=== PATIENT | female | born 2005 | race Caucasian/White ===

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

== ENCOUNTER 2025-01-20 16:27 | Emergency (ER) | payer SELFPAY ==
[2025-01-20 16:32] VITALS: BP 121/53; PULSE 112; TEMP 36.7; O2SAT 97
--- OUTSIDE RECORDS SUMMARY | 2025-01-20 16:37 | XMS_ITS | CCD ---
Author Organization [facility] Care Team Providers Care Pull Over Name Role Phone BRYON ARGUETA Admitting Unavailable BRYON ARGUETA Attending Unavailable ASHLEY ASHLEY Primary Care Unavailable MARIAM TROTTER (FEL) Attending Unava ilable MARIAM TROTTER (FEL) Attending Unava ilable Loraine Ferrell Attending Unavailable Jermaine Rice Primary Care Unavailable Nick Ramon Unavailable Unavailable Flor Fregoso Unavailable Unavailable Bryon Argueta Unavailable Unavailable Ashley Ashley Unavailable Unavailable Allegra Barroso Unavailable Unavailable Riccardo Reyes Unavailable Unavailabl e Uriah Riceic Thania Unavailable Unavailable Tasia Quijano Unavailable Unavailable Brendon-Carolina Ross Unavailable Unavail able Tasia Quijano Unavailable Unavailable Loraine Ferrell Unavailable Unavailable Lynn Carter Unavailable Unavailable Nick Castrejon Unavailable Unavailable Flor Fregoso Unavailable Unavailable Sara Thorne Unavailable Unavailable Nick Castrejon Unavailable Unavailable Bryon Argueta Unavailable Unavailable Riccardo Durham Unavailable Katie vailable Ashley Ashley Unavailable Unavailable Unavailable Unavailable Unavailable MICHELL, DR KELLEY Admitting Unavailable MARKER, DR KELLEY Consulting Unavailable MICHELL, DR KELLEY Attending Unavailable DION, AMPARO ASHLEY Primary Care Unavailable AMANDA, DR GALLO Dyson Consulting Unavailable AMANDA, DR GALLO Dyson Attending Unavailable DION, AMPARO ASHLEY Primary Care Unavailable DR GALLO PATEL Admitting Unavailable RICCARDO COLLIER Consulting Unavailable KAYLEY, SHANDA Attending Unavailable AICHHOLZ, SENIOR TAX ANALYST ASHLEY Primary Care Unavailable AYLA CRUZ Consulting Unavailable KAYLEY, SHANDA Admitting Unavailable KAYLEY, SHANDA Attending Unavailable AICHHOLZ, SENIOR TAX ANALYST ASHLEY Primary Care Unavailable LEE, DR WILSON Consulting Unavailable KAYLEY, SHANDA Admitting Unavailable KAYLEY, SHANDA Consulting Unavailable AICHHOLZ, SENIOR TAX ANALYST ASHLEY Primary Care Unavailable LISHA, DR EH Avery Admitting Unavailabl e LISHA, DR EH Avery Consulting Unavailabl e LISHA, DR EH Avery Attending Unavailabl e KAYLEY, SHANDA Consulting Unavailable KAYLEY, SHANDA Attending Unavailable KAYLEY, SHANDA Admitting Unavailable AICHHOLZ, SENIOR TAX ANALYST ASHLEY Primary Care Unavailable Aichholz, Mrs. Ramirez Kamala Referring Unavailab le Aichholz, Mrs. Ramirez Kamala Primary Care Unavailab le WoodTasia Attending Unavailable Aichholz, Mrs. Ramirez Kamala Primary Care Unavailab le Aichholz, Ashley Wray Referring Unavailab le Raul, Ms. Lynn Washington Attending Unavai lable Aichholz, Mrs. Ramirez Kamala Referring Unavailab le Aichholz, Mrs. Ramirez Kamala Primary Care Unavailab le Lock, Dr. Jennifer Schaeffer Attending Unavai lable Aichholz, Venancio Wray Referring Unavailab le Aichholz, Venancio Wray Primary Care Unavailab le Lock, Dr. Jennifer Schaeffer Attending Unahortensia lable Aichholz, Venancio Ashley Jo Primary Care Unavailab le Aichholz, Venancio Wray Referring Unavailab le Lock, Dr. Jennifer Schaeffer Attending Unavai lable Aichholz, Mrs. Ramirez Kamala Referring Unavailab le Aichholz, Mrs. Ramirez Kamala Primary Care Unavailab le WoodTasia Attending Unavailable Aichholz, Mrs. Ramirez Kamala Referring Unavailab le Aichholz, Ashley Wray Primary Care Unavailab le WoodTasia Attending Unavailable Aichholz, Mrs. Ramirez Kamala Referring Unavailab le Aichholz, . Ashley Kamala Primary Care Unavailab le Raul, MsVenancio Washington Attending Unavahuber lable Aichholz, Venancio Wray Referring Unavailab le Aichholz, Mrs. Ashley Wray Primary Care Unavailab gurwinder Lock, Dr. Jennifer Schaeffer Attending Eric Ashley, Mrs. Ashley Wray Referring Unavailab gurwinder Ashley, Mrs. Ashley Wray Primary Care Unavailab gurwinder Carter, Ms. Lynn Washington Attending Eric Ashley CLINICAL RESEARCH PHYSICIAN-SENIOR TAX ANALYST, Ashley Wray Primary Care Provider Karan NEWSOME, Tasia Dyson Unavailable Delores NEWSOME, Jennifer Dyson Unavailable Dion WEB MACHINE TENDER, Ashley Unavailable Capo Sargent MD Primary Care Provider Aicgloria WEB MACHINE TENDER, Ashley Unavailable ASHLEY ASHLEY Attending Unavailable ASHLEY ASHLEY Attending Unavailable Delores NEWSOME, Jennifer Dyson Unavailable LYNN CARTER Attending Unavailable ASHLEY ASHLEY Primary Care Unavailable TASIA QUIJANO Attending Unavailable ASHLEY ASHLEY Primary Care Unavailable JENNIFER LOCK Attending Unavailable ASHLEY ASHLEY Primary Care Unavailable ASHLEY ASHLEY Primary Care Unavailable [address] [place] [address] Referring Unavailable ASHLEY ASHLEY Primary Care Unavailable ASHLEY ASHLEY Primary Care Unavailable ASHLEY ASHLEY Primary Care Unavailable ASHLEY ASHLEY Primary Care Unavailable Allergies Allergy Classification Reported Allergen(s) Allergy Type Date of Onset Reaction(s) Facility (8 sources) Ibuprofen; Translations: [IBUPROFEN] Drug Allergy 03-05-2024 Other [facility] Work Phone: Medications Current Medications Medication Drug Class(es) Dates Sig (Normalized) Sig (Original) [id number] 200 actuat albuterol 0.09 mg/actuat metered dose [...] 1.5 mg/ml oral solution (1 source) Uncompetitive N-mqomwk-X-aspartate Receptor Antagonist, Sigma-1 Agonist Start: 06-28-2024 take 1 mL by mouth every eight hours Pyrilamine-Dextromethorphan ([employer] Jr[employer] Dm) 7.5-7.5 mg/5 mL liquid Active 10 ML PO Every 8 hours 150 5 June 28, 2024 12:00am Ergocalciferol (20 sources) Provitamin D2 Compound Start: 02-23-2024 Ergocalciferol (Vitamin D2) Active PO February 23, 2024 12:00am Start: 12-21-2019 End: 06-24-2022 take 1 capsule by mouth every week Vitamin D (Ergocalciferol) 1.25 MG (69218 UT) Oral Capsule TAKE 1 CAPSULE BY MOUTH WEEKLY FOR 8 WEEKS Quantity: 8 Refills: 0 Ordered: 04-Apr-2023 Tasia Quijano MD Start : 04-Apr-2023 Active take 1 capsule by mo [facility] every week Vitamin D, Ergocalciferol, 62586 units capsule Take 50,000 Units by mouth [...] tablet by mouth once daily norgestimate-ethinyl estradioL (Donley-Linyah) 0.25-35 mg-mcg tablet Take 1 tablet by mouth once daily. 0 04/13/2018 01/30/2024 Discontinued (Therapy completed) Start: 04-13-2018 take 1 tablet by hugh th once daily norgestimate-ethinyl estradioL (Donley-Linyah) 0.25-35 mg-mcg tablet Take 1 tablet by mouth once daily. 0 04/13/2018 Active Start: 04-13-2018 take 1 tablet by hugh th once daily Donley-Linyah 0.25-35 MG-MCG Oral Tablet TAKE 1 TABLET DAILY DIRECTED. Refills: 0 DO Start : 13-Apr-2018 Active Start: 04-13-2018 take 1 tablet by hugh th once daily Donley-Linyah 0.25-35 MG-MCG Oral Tablet TAKE 1 TABLET [...] once daily. 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; Translations: [OTH TELECOMMUNICATIONS NETWORK PLANNER CURRENT DRUG THERAPY] Onset: 2 Episodic Other [...] [Personal history of traumatic fracture] Episodic Other injuries and conditions due to external causes (1 source) Laceration - injury Onset: 5 Episodic Other nervous system disorders (20 sources) [...] source) Cough, Congestion, and Nausea Onset: 4 Viral infection (1 source) COVID-19; Translations: [COVID-19] Onset: 1 Past or Other Problems Problem Classification Problem Date Documented Da te Episodic/Chronic Abdominal pain (5 sources) Lower abdominal pain, unspecified; Translations: [Unspecified abdominal pain] Onset: 12-29-2021 Episodic Allergic reactions (2 sources) Urticaria, unspecified; Translations: [URTICARIA UNSPECIFIED] Onset: 10-13-2021 Episodic Chronic obstructive pulmonary disease and bronchiectasis (7 sources) Bronchitis; Translations: [Bronchitis, not specified as acute or chronic] Onset: 08-20-2024 Resolved: 10-04-2024 08-30-2024 Episodic External cause codes: Fall (1 source) [...] Cough; Translations: [COUGH] Onset: 07-13-2021 Episodic Other lower respiratory disease (1 source) Cough Onset: 08-20-2024 Episodic Other nutritional; endocrine; and metabolic disorders [...] or maintaining sleep] Onset: 06-21-2023 06-21-2023 Episodic Residual codes; unclassified (1 source) Illness, unspecified; Translations: [Illness, unspecified] Onset: 09-17-2024 Episodic Unclassified (1 source) Insulin resistance, unspecified; Translations: [Insulin resistance, unspecified] Onset: 01-30-2024 NEGATED: Highlighted row has not occurred!Residual codes; unclassified (20 sources) Disease Episodic Results Test Name Value Interpretation Reference Range Facility SARS/FLU A+B/RSV by NAAT/Mol [facility] 10-02-2024 SARS/FLU A+B/RSV by NAAT/Molecular FLU A [...] operators who are performing tests using either [employer] or [employer] systems and is limited to laboratories that [...] specimen repeat. Fact Sheet for Healthcare Providers: https://www.fda.gov/al moon/098806/download Fact Sheet for Patients: https://www.fda.gov/al moon/004849/download Normal [facility] Comment on above: Performed By: #### C OVFLR #### [facility] ([id number]) [address] [facility], [place] [address] XR CHEST 1 VWon 10-02-2024 XR CHEST [...] Coleman MD on 10/02/2024 2:46 PM Normal [facility] HBV surface Ab IA Qnon 09-17 Anti HBs quant. <8.00 Normal [facility] Comment on above: Result Comment: Vacc inated: >=12mIU/mL, Positive (Immune) Unvaccinated: <8mIU/mL, Negative (Not Immune) 8-11.99 mIU/mL: Indeterminate, (Considered Not Immune) Performed By: #### 3 5275-7, 8014-3, 6476-6, 21890-8, 5193-8 #### [facility] ([id number]) [address], [address] [place] [address] MeV IgG IA Ql (S)on 09-17-20 24 RUBEOLA AB SCREEN 6.6 AI High <0.9 [facility] Comment on above: Result Comment: POSI TIVE: Antibody(IgG) detected. Indicates previous exposure to rubeola virus and immunity. Performed By: #### 3 5275-7, 8014-3, 6476-6, 35364-7, 5193-8 #### [facility] ([id number]) [address], [address] [place] [address] MuV IgG IA Ql (S)on 09-17-20 MUMPS VIRUS IgG 2.1 AI High <0.9 [facility] Comment on above: Result Comment: Interpretation-------- <0.9 Negative 0.9 - 1.0 Equivocal >1.0 Positive Performed By: #### 3 5275-7, 8014-3, 6476-6, 43993-2, 5193-8 #### [facility] ([id number]) [address], [address] [place] [address] Rubella virus IgG Qn (S)on 11-17-2023 RUBELLA IgG 40 IU/mL Normal [facility] Comment on above: Result Comment: Interpretation-------- <8 NEGATIVE-considered Not Immune 8-9 EQUIVOCAL-consider retesting with new specimen >9 POSITIVE-considered Immune Performed By: #### 3 5275-7, 8014-3, 6476-6, 44462-7, 5193-8 #### [facility] ([id number]) [address], [address] [place] [address] VZV IgG IA Ql (S)on 09-17-20 24 VARICELLA IgG 1.0 AI High <0.9 [facility] Comment on above: Result Comment: Interpretation-------- <0.9 Negative 0.9 - 1.0 Equivocal >1.0 Positive Performed By: #### 3 5275-7, 8014-3, 6476-6, 63974-0, 5193-8 #### [facility] ([id number]) [address], [address] [place] [address] XR CHEST 2 VWSon 08-20-2024 XR CHEST 2 VWS XR CHEST 2 VWS History: cough congestion Exam/Technique: PA and lateral chest Comparison: None. Findings: There is no evidence of active pulmonary or pleural disease. Cardiac and mediastinal contours are within normal limits. IMPRESSION: No active pulmonary disease. Finalized by Ketan Reynoso MD on 08/20/2024 3:42 PM Normal [facility] POCT UA (nonautomated) fortino szymanski resultedon 07-19-2024 Appearance (U) Cloudy Abnormal Clear [facility] Work Phone: Glucose Test strip (U) [Mass/Vol] Negative NEGATIVE mg/dl [facility] Work Phone: Hemoglobin Ql (U) Negative NEGATIVE [facility] Work Phone: Interpretation and review of laboratory results Abnormal [facility] Work Phone: Leukocyte esterase Test strip Ql (U) Negative NEGATIVE [facility] Work Phone: Nitrite Ql (U) Negative NEGATIVE [facility] Work Phone: pH (U) 6.0 [pH] No Reference Range Established [facility] Work Phone: POC Bilirubin, Urine Negative NEGATIVE [facility] Work Phone: POC Color, Urine Yellow Straw, Ralls ow, Light-Yellow [facility] Work Phone: POC Ketones, Urine Negative NEGATIVE mg/dl [facility]: POC Protein, Urine Negative NEGATIVE, 30 (1+) mg/dl [facility] Work Phone: POC Specific [place], Urine >=1.030 1.005 - 1.[address] [facility] Work Phone: POC Urobilinogen, Urine 0.2 0.2, 1.0 EU/DL [facility] Work Phone: [facility] Work Phone: Calcidiolon 01-30-2024 25-hydroxyvitamin D3 [Mass/Vol] 17 ng/mL Low 30-100 [facility] Comment on above: Order Comment: Defic iency: < 20 ng/ml Insufficiency: 20-29 ng/ml Sufficiency: 30-100 ng/ml This assay accurately quantifies the sum of Vitamin D3, 25-Hydroxy and Vitamin D2,25-Hydroxy. Performed By: #### 1 989-3 #### CHERRY Odonnell ([id number]) [facility] ([facility]) [id number] [place] [address] Comprehensive metabolic 2000 panelon 01-30-2024 Albumin BCP dye [Mass/Vol] 4.3 g/dL Normal 3.4-5.0 [facility] Comment on above: Performed By: #### 2 4323-8 #### CHERRY Odonnell ([id number]) [facility] ([facility]) [id number] [place] [address] ALP [Catalytic activity/Vol] 104 U/L Normal 33-110 [facility] Comment on above: Performed By: #### 2 4323-8 #### CHERRY Odonnell ([id number]) [facility] ([facility]) [address] [place] [address] ALT With P-5'-P [Catalytic activity/Vol] 26 U/L Normal 7-45 [facility] Comment on above: Result Comment: Cyn ents treated with Sulfasalazine may generate falsely decreased results for ALT. Performed By: #### 2 4323-8 #### CHERRY Odonnell ([id number]) [facility] ([facility]) [address] [place] [address] Anion gap [Moles/Vol] 14 mmol/L Normal 10-20 [facility] Comment on above: Performed By: #### 2 4323-8 #### CHERRY Odonnell ([id number]) [facility] ([facility]) [address] [place] [address] AST With P-5'-P [Catalytic activity/Vol] 23 U/L Normal 9-39 [facility] Comment on above: Performed By: #### 2 4323-8 #### CHERRY Odonnell ([id number]) [facility] ([facility]) [id number] [place] [address] Bilirubin [Mass/Vol] 0.7 mg/dL Normal 0.0-1.2 [facility] Comment on above: Performed By: #### 2 4323-8 #### CHERRY Odonnell ([id number]) [facility] ([facility]) [address] [place] [address] Calcium [Mass/Vol] 9.7 mg/dL Normal 8.6-10.6 [facility] Comment on above: Performed By: #### 2 4323-8 #### CHERRY Odonnell ([id number]) [facility] ([facility]) [address] [place] [address] Chloride [Moles/Vol] 104 mmol/L Normal 98-107 [facility] Comment on above: Performed By: #### 2 4323-8 #### CHERRY Odonnell ([id number]) [facility] ([facility]) [address] [place] [address] CO2 [Moles/Vol] 25 mmol/L Normal 21-32 [facility] Comment on above: Performed By: #### 2 4323-8 #### CHERRY Odonnell ([id number]) [facility] ([facility]) [address] [place] [address] Creatinine [Mass/Vol] 0.81 mg/dL Normal 0.50-1.05 [facility] Comment on above: Performed By: #### 2 4323-8 #### CHERRY Odonnell ([id number]) [facility] ([facility]) [id number] [place] [address] GFR/1.73 sq M.predicted MDRD (S/P/Bld) [Vol rate/Area] mL/min/{1.73_m2} Normal >60 [facility] Comment on above: Result Comment: Calc ulations of estimated GFR are performed using the 2020 CKD-EPI Study Refit equation without the race variable for the IDMS-Traceable creatinine methods. https://jasn.asnjournals.org/content//ASN.65018533 88 Performed By: #### 2 4323-8 #### CHERRY Odonnell ([id number]) [facility] ([facility]) [id number] [place] [address] Glucose [Mass/Vol] 78 mg/dL Normal 74-99 [facility] Comment on above: Performed By: #### 2 4323-8 #### CHERRY Odonnell ([id number]) [facility] ([facility]) [id number] [place] [address] Potassium [Moles/Vol] 4.2 mmol/L Normal 3.5-5.3 [facility] Comment on above: Performed By: #### 2 4323-8 #### CHERRY Odonnell ([id number]) [facility] ([facility]) [id number] [place] [address] Protein [Mass/Vol] 7.5 g/dL Normal 6.4-8.2 [facility] Comment on above: Performed By: #### 2 4323-8 #### CHERRY Odonnell ([id number]) [facility] ([facility]) [id number] [place] [address] Sodium [Moles/Vol] 139 mmol/L Normal 136-145 [facility] Comment on above: Performed By: #### 2 4323-8 #### CHERRY Odonnell ([id number]) [facility] ([facility]) [address] [place] [address] Urea nitrogen [Mass/Vol] 14 mg/dL Normal 6-23 [facility] Comment on above: Performed By: #### 2 4323-8 #### CHERRY Odonnell ([id number]) [facility] ([facility]) [address] [place] [address] Lipid 1996 panelon 4 Cholesterol [Mass/Vol] 180 mg/dL Normal 0-199 [facility] Comment on above: Result Comment: Age [...] By: #### 2 4331-1 #### CHERRY Odonnell ([id number]) [facility] ([facility]) [address] [place] [address] Cholesterol in HDL [Mass/Vol] 37.6 mg/dL Normal [facility] Comment on above: Result Comment: Age Very Low Low Normal High 0-19 Y < 35 < 40 40-45 ---- 20-24 Y ---- < 40 >45 ---- >24 Y ---- < 40 40-60 >60 Performed By: #### 2 4331-1 #### CHERRY Odonnell ([id number]) [facility] ([facility]) [address] [place] [address] Cholesterol in LDL [Mass/Vol] 123 mg/dL High <=109 [facility] Comment on above: Result Comment: Near Borderline AGE Desirable Optimal High High Very High 0-19 Y 0 - 109 --- 110-129 >/= 130 ---- 20-24 Y 0 - 119 --- 120-159 >/= 160 ---- >24 Y 0 - 99 100-129 130-159 160-189 >/=190 Performed By: #### 2 4331-1 #### CHERRY Odonnell ([id number]) [facility] ([facility]) [id number] [place] [address] Cholesterol in VLDL [Mass/Vol] 19 mg/dL Normal 0-40 [facility] Comment on above: Performed By: #### 2 4331-1 #### CHERRY Odonnell ([id number]) [facility] ([facility]) [id number] [place] [address] CHOLESTEROL/HDL RATIO 4.8 Normal [facility] Comment on above: Result Comment: Ref Values Desirable < 3.4 High Risk > 5.0 Performed By: #### 2 4331-1 #### CHERRY Odonnell ([id number]) [facility] ([facility]) [id number] [place] [address] NON HDL CHOLESTEROL 142 mg/dL High 0-119 [facility] Comment on above: Result Comment: Age Desirable Borderline High High Very High 0-19 Y 0 - 119 120 - 144 >/= 145 >/= 160 20-24 Y 0 - 149 150 - 189 >/= 190 ---- >24 Y 30 mg/dL above LDL Cholesterol goal Performed By: #### 2 4331-1 #### CHERRY Odonnell ([id number]) [facility] ([facility]) [id number] [place] [address] Triglyceride [Mass/Vol] 96 mg/dL Normal 0-149 [facility] Comment on above: Result Comment: Age [...] By: #### 2 4331-1 #### CHERRY Odonnell ([id number]) [facility] ([facility]) [address] [place] [address] POCT glycosylated hemoglobin (Hb A1C) manually resultedOrdered By: Judy Nelson on 01-30-2024 POC HEMOGLOBIN A1c 5.4 % 4.2 - 6.5 % [facility] TSH WITH REFLEX TO FREE T4 I F ABNORMALon 01-30-2024 TSH Qn 2.19 m[IU]/L Normal 0.44-3.98 [facility] Comment on above: Order Comment: TSH t esting is performed using different testing methodology at [facility] than at other [facility]. Direct result comparisons should only be made within the same method. Performed By: #### T HYDS #### CHERRY Odonnell ([id number]) [facility] ([facility]) [address] [place] [address] Blood Pressure Cuff Sizeon 0 04-14-2023 Blood Pressure Cuff Size Large [facility] Work Phone: Tobacco use status [facility] b) No [facility] Work Phone: Blood Pressure Cuff Size Large [facility] Work Phone: Blood Pressure Cuff Size Patient is not at high risk for falls. Falls risk guidance reviewed today [facility] Work Phone: IO UA (automated w/o microsc opy)on 04-14-2023 Protein (U) [Mass/Vol] Negative [facility] Work Phone: IO UA (automated w/o microscopy) Negative [facility] Work Phone: IO UA (automated w/o microscopy) Normal (0.2-1.0 mg/dl) [facility] Work Phone: IO UA (automated w/o microscopy) 6.0 1 [facility] Work Phone: IO UA (automated w/o microscopy) 1.025 1 [facility] Work Phone: IO UA (automated w/o [...] Follow-up in 6 months. Jennifer Lock MD Ship'S Master, Pediatrics Brood Hatchery Manager, Pediatric Nephrology [facility] [address] [place] [address] (p) [phone] Chief Complaint Follow up visit for hypertension Accompanied by mother. History of Present Illness I had the pleasure of seeing Marissa De Leon in Nephrology Clinic at [facility] for a follow-up evaluation of hypertension. As [...] disease, stroke, hypertension, diabetes, and hypercholesterolemia. First [place] at 36 years of age 4. Maternal Uncle - hypertension in his 20s 5. 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 She is hoping to go into a [...] coronary artery disease (V17.3) (Z82.49) FHx: early [place] (V17.3) (Z82.49) Family history of ANDREINA on CPAP Family history of ANDREINA on CPAP Family history of mental retardation (V18.4) (Z81.0) Family history o (more content not included)... Normal [facility] HEMOGLOBIN A1Con 04-05-2023 HbA1c (Bld) [Mass fraction] 5.0 % Normal [facility] Comment on above: Result Comment: Diag nosis of Diabetes-Adults Non-Diabetic: < or = 5.6% Increased risk for developing diabetes: 5.7-6.4% Diagnostic of diabetes: > or = 6.5% . Monitoring of Diabetes Age (y) Therapeutic Goal (%) Adults: >18 <7.0 Pediatrics: 13-18 <7.5 7-12 <8.0 0- 6 7.5-8.5 [employer]. Diabetes Care 33(S1), Oct 2009. Performed By: #### H BA1E #### [facility] [address] [place] [address] CBC AND DIFFERENTIALon 04-04 % AUTOMATED IMMATURE GRAN 0.2 % Normal 0.0 - 1.0 [facility] Comment on above: Result Comment: Nataliya ture Granulocyte Count (IG) includes promyelocytes, myelocytes and metamyelocytes but does not include bands. Percent differential counts (%) should be interpreted in the context of the absolute cell counts (cells/L). Performed By: #### C BCDF #### [address] [id number] Basophils (Bld) [#/Vol] 0.04 10*3/uL Normal 0.00 - 0.10 [facility] Comment on above: Performed By: #### C BCDF #### [address] [id number] Basophils/100 WBC (Bld) 0.4 % Normal 0.0 - 1.0 [facility] Comment on above: Performed By: #### C BCDF #### [address] [id number] Eosinophils (Bld) [#/Vol] 0.11 10*3/uL Normal 0.00 - 0.70 [facility] Comment on above: Performed By: #### C BCDF #### [address] [id number] Eosinophils/100 WBC (Bld) 1.1 % Normal 0.0 - 5.0 [facility] Comment on above: Performed By: #### C BCDF #### [address] [id number] Erythrocyte distribution width (RBC) [Ratio] 13.5 % Normal 11.5 - 14.5 [facility] Comment on above: Performed By: #### C BCDF #### [address] [id number] Hematocrit (Bld) [Volume fraction] 46.8 % High 36.0 - 46.0 [facility] Comment on above: Performed By: #### C BCDF #### [address] [id number] Hemoglobin (Bld) [Mass/Vol] 14.7 g/dL Normal 12.0 - 16.0 [facility] Comment on above: Performed By: #### C BCDF #### [address] [id number] Lymphocytes (Bld) [#/Vol] 3.02 10*3/uL Normal 1.80 - 4.80 [facility] Comment on above: Performed By: #### C BCDF #### [address] [id number] Lymphocytes/100 WBC (Bld) 31.3 % Normal 28.0 - 48.0 [facility] Comment on above: Performed By: #### C BCDF #### [address] [id number] MCHC (RBC) [Mass/Vol] 31.4 g/dL Normal 31.0 - 37.0 [facility] Comment on above: Performed By: #### C BCDF #### [address] [id number] MCV (RBC) [Entitic vol] 91 fL Normal 78 - 102 [facility] Comment on above: Performed By: #### C BCDF #### [address] [id number] Monocytes (Bld) [#/Vol] 0.71 10*3/uL Normal 0.10 - 1.00 [facility] Comment on above: Performed By: #### C BCDF #### [address] [id number] Monocytes/100 WBC (Bld) 7.3 % Normal 3.0 - 9.0 [facility] Comment on above: Performed By: #### C BCDF #### [address] [id number] Neutrophils (Bld) [#/Vol] 5.76 10*3/uL Normal 1.20 - 7.70 [facility] Comment on above: Performed By: #### C BCDF #### [address] [id number] Neutrophils/100 WBC (Bld) 59.7 % Normal 33.0 - 69.0 [facility] Comment on above: Performed By: #### C BCDF #### [address] [id number] Platelets (Bld) [#/Vol] 441 10*3/uL High 150 - 400 [facility] Comment on above: Performed By: #### C BCDF #### [address] [id number] RBC 5.12 x10E12/L Normal 4.10 - 5.20 [facility] Comment on above: Performed By: #### C BCDF #### [address] [id number] WBC (Bld) [#/Vol] 9.7 10*3/uL Normal 4.5 - 13.5 [facility] Comment on above: Performed By: #### C BCDF #### [address] [id number] COMPREHENSIVE PANELon 2022 Albumin [Mass/Vol] 4.5 g/dL Normal 3.4 - 5.0 [facility] Comment on above: Performed By: #### C MP #### [address] [id number] ALP [Catalytic activity/Vol] 90 U/L High 33 - 80 [facility] Comment on above: Performed By: #### C MP #### [address] [id number] ALT [Catalytic activity/Vol] 37 U/L High 3 - 28 [facility] Comment on above: Result Comment: Cyn ents treated with Sulfasalazine may generate falsely decreased results for ALT. Performed By: #### C MP #### [address] [id number] Anion gap [Moles/Vol] 14 mmol/L Normal 10 - 30 [facility] Comment on above: Performed By: #### C MP #### [address], [place] [id number] AST [Catalytic activity/Vol] 29 U/L High 9 - 24 [facility] Comment on above: Performed By: #### C MP #### [address] [id number] Bilirubin [Mass/Vol] 0.5 mg/dL Normal 0.0 - 0.9 [facility] Comment on above: Performed By: #### C MP #### [address] [id number] Calcium [Mass/Vol] 9.8 mg/dL Normal 8.5 - 10.7 [facility] Comment on above: Performed By: #### C MP #### [address] [id number] Chloride [Moles/Vol] 103 mmol/L Normal 98 - 107 [facility] Comment on above: Performed By: #### C MP #### [address] [id number] Creatinine [Mass/Vol] 0.84 mg/dL Normal 0.50 - 0.90 [facility] Comment on above: Performed By: #### C MP #### [address] [id number] Glucose [Mass/Vol] 74 mg/dL Normal 74 - 99 [facility] Comment on above: Performed By: #### C MP #### [address] [id number] HCO3 (Bld) [Moles/Vol] 27 mmol/L Normal 18 - 27 [facility] Comment on above: Performed By: #### C MP #### [address] [id number] Potassium [Moles/Vol] 3.9 mmol/L Normal 3.5 - 5.3 [facility] Comment on above: Performed By: #### C MP #### [address] [id number] Protein [Mass/Vol] 8.4 g/dL High 6.2 - 7.7 [facility] Comment on above: Performed By: #### C MP #### [address] [id number] Sodium [Moles/Vol] 140 mmol/L Normal 136 - 145 [facility] Comment on above: Performed By: #### C MP #### [address] [id number] Urea nitrogen [Mass/Vol] 12 mg/dL Normal 6 - 23 [facility] Comment on above: Performed By: #### C MP #### [address] [id number] Complete Blood Count + Diffe radhaon 04-04-2023 Basophils/100 WBC (Bld) 0.4 % 0.0 - 1.0 [email or web address] Work Phone: [phone] Erythrocyte distribution width (RBC) [Ratio] 13.5 % See Below [facility] Work Phone: [phone] Comment on above: Reference Range: 11. 5 - 14.5 Hematocrit (Bld) [Volume fraction] 46.8 % above high threshold See Below [facility] Work Phone: Comment on above: Reference Range: 36. 0 - 46.0 Hemoglobin (Bld) [Mass/Vol] 14.7 g/dL See Below [facility] Work Phone: Comment on above: Reference Range: 12. 0 - 16.0 Lymphocytes/100 WBC (Bld) 31.3 % See Below [facility] Work Phone: Comment on above: Reference Range: 28. 0 - 48.0 MCHC (RBC) [Mass/Vol] 31.4 g/dL See Below [facility] Work Phone: Comment on above: Reference Range: 31. 0 - 37.0 MCV (RBC) [Entitic vol] 91 fL 78 - 102 [facility] Work Phone: [phone] Monocytes/100 WBC (Bld) 7.3 % 3.0 - 9.0 [facility] [address] Work Phone: Neutrophils/100 WBC (Bld) 59.7 % See Below [facility] Work Phone: Comment on above: Reference Range: 33. 0 - 69.0 Platelets (Bld) [#/Vol] 441 10*3/uL above high threshold 150 - 400 [facility] [facility] Work Phone: RBC (Bld) [#/Vol] 5.12 {x10E12/L} See Below [facility] [facility] Work Phone: Comment on above: Reference Range: 4.1 0 - 5.20 WBC (Bld) [#/Vol] 9.7 10*3/uL 4.5 - 13.5 [facility] Work Phone: Complete Blood Count + Differential 0.04 {x10E9/L} See Below [facility] Work Phone: Comment on above: Reference Range: 0.0 0 - 0.10 Complete Blood Count + Differential 0.11 {x10E9/L} See Below [facility] [facility] Work Phone: Comment on above: Reference Range: 0.0 0 - 0.70 Complete Blood Count + Differential 0.71 {x10E9/L} See Below [facility] [facility] Work Phone: Comment on above: Reference [...] - 5.0 [facility] Work Phone: [phone] Complete Blood Count + Differential 0.2 % 0.0 - 1.0 [facility] Work Phone: Comment on above: Immature [...] coronary artery disease (V17.3) (Z82.49) FHx: early [place] (V17.3) (Z82.49) Family history of ANDREINA on [...] Prep 70 % Pad; USE DIRECTED; Therapy: [id number] to (Last Rx:[id number]) Requested for: [id number] Ordered Rx By: Tasia Quijano; Dispense: 0 Days ; #:1 X 100 Pad Box; Refill: 2;For: Acanthosis nigricans; SALLIE = N; Verified Transmission to [id number] Pen [place]entry 03/15 31G X 8 MM; Use one needle daily with Victoza injection; Therapy: [id number] to (Last Rx:[id number]) Requested for: [id number] Ordered Rx By: Tasia Quijano; Dispense: 0 Days ; #:1 X 100 Unit Box; Refill: 2;For: Acanthosis nigricans; SALLIE = N; Verified Transmission to [facility][id number] Victoza 18 MG/3ML Subcutaneous Solution Pen-injector; INJECT 1.8 MG SUBCUTANEOUSLY EVERY DAY; Therapy: [id number] to (Last Rx:01Mar2023) Requested for: 01Mar2023 Ordered Rx By: Tasia Quijano; Dispense: 0 Days ; #:1 X 2 x 3 ML Pen; Refill: 5;For: Acanthosis nigricans; SALLIE = N; Verified Transmission to [facility] #[id number]; Msg to Pharmacy: Maintenance dose Blood Pressure M (more content not included)... Normal [employer] [facility] Hemoglobin A1Con 04-04-2023 HbA1c (Bld) [Mass fraction] 5.0 % [facility] [facility] Work Phone: Comment on above: Diagnosis of Diabete s-Adults Non-Diabetic: < or = 5.6% Increased risk for developing diabetes: 5.7-6.4% Diagnostic of diabetes: > or = 6.5%. Monitoring of Diabetes Age (y) Therapeutic Goal (%) Adults: >18 <7.0 Pediatrics: 13-18 <7.5 7-12 <8.0 0- 6 7.5-8.5 [employer]. Diabetes Care 33(S1), Oct 2009. LIPID PANEL (CORONARY RISK 2 )on 04-04-2023 Cholesterol [Mass/Vol] 208 mg/dL High 0 - 199 [facility] Comment on above: Result Comment: . AGE [...] dosing. Performed By: #### L IPID #### [address] [id number] Cholesterol in HDL [Mass/Vol] 42.0 mg/dL Normal [facility] Comment on above: Result Comment: . AGE VERY LOW LOW NORMAL HIGH 0-19 Y < 35 < 40 40-45 ---- 20-24 Y ---- < 40 >45 ---- >24 Y ---- < 40 40-60 >60 . Performed By: #### L IPID #### [address] [id number] Cholesterol in LDL [Mass/Vol] 144 mg/dL High 0 - 109 [facility] Comment on above: Result Comment: . NEAR BORD AGE DESIRABLE OPTIMAL HIGH HIGH VERY HIGH 0-19 Y 0 - 109 --- 110-129 >/= 130 ---- 20-24 Y 0 - 119 --- 120-159 >/= 160 ---- >24 Y 0 - 99 100-129 130-159 160-189 >/=190 . Performed By: #### L IPID #### [address] [id number] Cholesterol in VLDL [Mass/Vol] 22 mg/dL Normal 0 - 40 [facility] Comment on above: Performed By: #### L IPID #### [address] [id number] Cholesterol.total/C holesterol in HDL [Mass ratio] 5.0 {ratio} Normal [facility] Comment on above: Result Comment: REF VALUES DESIRABLE < 3.4 HIGH RISK > 5.0 Performed By: #### L IPID #### [address] [id number] NON-HDL CHOLESTEROL 166 mg/dL High 0 - 119 [facility] [place] Comment on above: Result Comment: AGE DESIRABLE BORDERLINE HIGH HIGH VERY HIGH 0-19 Y 0 - 119 120 - 144 >/= 145 >/= 160 20-24 Y 0 - 149 150 - 189 >/= 190 ---- >24 Y 30 MG/DL ABOVE LDL CHOLESTEROL GOAL . Performed By: #### L IPID #### [address] [id number] Triglyceride [Mass/Vol] 110 mg/dL Normal 0 - 149 [facility] Comment on above: Result Comment: . AGE [...] dosing. Performed By: #### L IPID #### [address] [id number] Laboratory - Chemistry and C hemistry - challengeon 04-04-2023 Albumin BCP dye [Mass/Vol] 4.5 g/dL 3.4 - 5.0 [facility] Work Phone: ALP [Catalytic activity/Vol] 90 U/L above high threshold 33 - 80 [facility] [facility] Work Phone: ALT With P-5'-P [Catalytic activity/Vol] 37 U/L above high threshold 3 - 28 [facility] [facility] Work Phone: Comment on above: Patients treated wit h Sulfasalazine may generate falsely decreased results for ALT. Anion gap [Moles/Vol] 14 mmol/L 10 - 30 [facility] Work Phone: AST With P-5'-P [Catalytic activity/Vol] 29 U/L above high threshold 9 - 24 [facility] Work Phone: Bilirubin [Mass/Vol] 0.5 mg/dL 0.0 - 0.9 [facility] [facility] Work Phone: Calcium [Mass/Vol] 9.8 mg/dL 8.5 - 10.7 [facility] Work Phone: Chloride [Moles/Vol] 103 mmol/L 98 - 107 [facility] Work Phone: CO2 [Moles/Vol] 27 mmol/L 18 - 27 [facility] [facility] Work Phone: Creatinine [Mass/Vol] 0.84 mg/dL See Below [facility] Work Phone: Comment on above: Reference Range: 0.5 0 - 0.90 Glucose [Mass/Vol] 74 mg/dL 74 - 99 [facility] [address] Work Phone: Potassium [Moles/Vol] 3.9 mmol/L 3.5 - 5.3 [facility] [facility] Work Phone: Protein [Mass/Vol] 8.4 g/dL above high threshold 6.2 - 7.7 [facility] Work Phone: Sodium [Moles/Vol] 140 mmol/L 136 - 145 [facility] Work Phone: TSH Qn 2.56 m[IU]/L See Below [facility] [email or web address] Work Phone: Comment on above: Reference Range: 0.4 4 - 3.98 TSH testing is performed using different testing methodology at [facility] than at other [facility]. Direct result comparisons should only be made within the same method. Urea nitrogen [Mass/Vol] 12 mg/dL 6 - 23 [facility] Work Phone: Lipid Panelon 04-04-2023 Cholesterol [Mass/Vol] 208 mg/dL above high threshold 0 - 199 [facility] [email or web address] Work Phone: Comment on above: . AGE [...] dosing. Cholesterol in HDL [Mass/Vol] 42.0 mg/dL [email or web address] [email or web address] Work Phone: Comment on above: . AGE [...] above high threshold 0 - 119 [facility] Work Phone: Comment on above: AGE DESIRABLE BORDER LINE HIGH HIGH VERY HIGH 0-19 Y 0 - 119 120 - 144 >/= 145 >/= 160 20-24 Y 0 - 149 150 - 189 >/= 190 ---- >24 Y 30 MG/DL ABOVE LDL CHOLESTEROL GOAL. Cholesterol.total/C holesterol in HDL [Mass ratio] 5.0 {ratio} [email or web address] Work Phone: Comment on above: REF VALUESDESIRABLE < 3.4HIGH RISK > 5.0 Triglyceride [Mass/Vol] 110 mg/dL 0 - 149 [facility] Work Phone: Comment on above: [...] Panel 22 mg/dL 0 - 40 [facility] [facility] Work Phone: Peds Endocrinology - Lux cat 04-04-2023 Peds Endocrinology - Established Diagnoses/Problems Assessed [...] >=95 percentile); SALLIE = N; Sent To: [address] Metabolic syndrome Start: Vitamin D (Ergocalciferol) 1.25 MG (16681 UT) Oral Capsule; TAKE 1 CAPSULE BY MOUTH WEEKLY FOR 8 WEEKS Rx By: Tasia Quijano; Dispense: 8 Days ; #:8 Capsule; Refill: 0;For: Metabolic syndrome; SALLIE = N; Verified Transmission to [address]; Last Updated By: Nemesio Stiles; 04/04/2023 1:58:41 PM Complete Blood Count + Differential; Status:Resulted - Requires Verification; Done: 04Apr2023 02:44PM Performed:[facility]; Due:[id number];Ordered; For:Metabolic syndrome; Ordered By:Tasia Quijano; Comprehensive Metabolic Panel; Status:Resulted - Requires Verification; Done: 04Apr2023 02:44PM Performed:[facility]; Due:[id number];Ordered; For:Metabolic syndrome; Ordered By:Tasia Quijano; Hemoglobin A1C; Status:Resulted - Requires Verification; Done: 04Apr2023 02:44PM Performed:[facility]; Due:[id number];Ordered; For:Metabolic syndrome; Ordered By:Tasia Quijano; Lipid Panel; Status:Resulted - Requires Verification; Done: 04Apr2023 02:44PM Performed:[facility]; Due:[id number];Ordered; For:Metabolic syndrome; Ordered By:Tasia Quijano; TSH WITH REFLEX TO FREE T4 IF ABNORMAL; Status:Resulted - Requires Verification; Done: 04Apr2023 02:44PM Performed:[facility]; Due:[id number];Ordered; For:Metabolic syndrome; Ordered By:Tasia Quijano; Patient Discussion/Summary [...] Switch to Wegovy - Continue meeting with lock tender and incorporating healthy foods into diet -increase [...] from diet - 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 Direct result comparisons should only be made within the same method. Performed By: #### T [facility] #### [address] [id number] Blood Pressure Cuff Sizeon 0 01-06-2023 Tobacco use status [facility] b) No [facility] [facility] Work Phone: [phone] Blood Pressure Cuff Size Adult [facility] [facility] Work Phone: [phone] IO UA (automated w/o microsc opy)on 01-06-2023 Protein (U) [Mass/Vol] Negative [facility] Work Phone: IO UA (automated w/o microscopy) Negative [facility] [facility] Work Phone: IO UA (automated w/o [...] -[facility] Work Phone: Peds Nephrologyon 01-06-2023 [facility] Orders Renew: Lisinopril-hydroCHLORO thiazide 20-12.5 MG [...] Follow-up in 3-4 months. Jennifer Lock MD [employer], Pediatrics Brood Hatchery Manager, Pediatric Nephrology [facility] [address] [place] [address] (p) [phone] Chief Complaint Follow up visit here for hypertension per the patient. Accompanied by mother. History of Present Illness I had the pleasure of seeing Marissa De Leon in Nephrology Clinic at [facility] for a follow-up evaluation of hypertension. As [...] disease, stroke, hypertension, diabetes, and hypercholesterolemia. First [place] at 36 years of age 4. Maternal Uncle - hypertension in his 20s 5. 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 Normal [employer] IO UA (automated w/o microsc opy)on 09-30-2022 Protein (U) [Mass/Vol] Negative [facility] Work Phone: IO UA (automated w/o microscopy) Negative [facility] [facility] Work Phone: IO UA (automated w/o microscopy) Normal (0.2-1.0 mg/dl) [facility] Work Phone: IO UA (automated w/o microscopy) 6.0 1 [facility] Work Phone: IO UA (automated w/o microscopy) 1.030 1 [facility] Work Phone: IO UA (automated w/o microscopy) Clear [facility] [facility] Work Phone: IO UA (automated w/o microscopy) Yellow [facility] [facility] Work Phone: RENIN,PLASMAon 06-29-2022 RENIN,PLASMA 2.7 ng/mL/hr Normal [facility] Comment on above: Result Comment: INTE RPRETIVE [...] developed and its performance characteristics determined by [facility]. It has not been cleared or approved by the US Food and Drug Administration. This test was performed in a CLIA certified laboratory and is intended for clinical purposes. Performed By: [facility] [address] [place] [address] Chassis Mechanic: Chdii Nogueira MD, PhD Performed By: #### R ENIN #### [employer] [address] [place] [address] ALDOSTERONEon 08-29-2022 ALDOSTERONE 13.3 ng/dL Normal [facility] Comment on above: Result Comment: INTE RPRETIVE [...] reference intervals for this test in the [facility] Test Directory ([facility]portgroup). Performed By: [facility] [address] [place] [id number] Chassis Mechanic: Chidi Nogueira MD, PhD Performed By: #### A LDOS #### [employer] [address] [address] Aldosterone, Serumon 022 Aldosterone [Mass/Vol] 13.3 ng/dL -Pediatrics -[facility] Work Phone: Comment on [...] reference intervals for this test in the [facility] Test Directory (mysportgroup).Performed By: [facility] [place] [id number] Director: Chidi Nogueira MD, PhD IO UA (automated w/o microsc opy)on 06-24-2022 Protein (U) [Mass/Vol] Negative [facility] [address] Work Phone: IO UA (automated w/o microscopy) Negative [facility] Work Phone: IO UA (automated w/o microscopy) Normal (0.2-1.0 mg/dl) [facility] [facility] Work Phone: IO UA (automated w/o microscopy) 7.0 1 [facility] Work Phone: IO UA (automated w/o microscopy) 1.025 1 [facility] Work Phone: IO UA (automated w/o microscopy) Clear [facility] Work Phone: IO UA (automated w/o microscopy) Yellow [facility] [facility] Work Phone: IRON + TIBCon 06-24-2022 % SATURATION 19 % Low 25 - 45 [facility] Comment on above: Performed By: #### I RONT #### [address] [id number] Iron [Mass/Vol] 66 ug/dL Normal 28 - 175 [facility] Comment on above: Performed By: #### I RONT #### [address] [id number] TIBC 353 ug/dL Normal 240 - 445 [facility] Comment on above: Performed By: #### I RONT #### [address] [id number] Laboratory - Chemistry and C hemistry - challengeon 06-24-2022 Iron [Mass/Vol] 66 ug/dL 28 - 175 [facility] [facility] Work Phone: Iron binding capacity [Mass/Vol] 353 ug/dL 240 - 445 [facility] Work Phone: No Panel Informationon 06-24 19 % below low threshold 25 - 45 [facility] Work Phone: [phone] Peds Nephrologyon 06-24-2022 Peds Nephrology Diagnoses/Problems [...] barrier methods). 3. Call our office at [phone], option 0 to leave blood pressure readings [...] clinic in 2-3 months. Jennifer Lock MD [employer], Pediatrics Brood Hatchery Manager, Pediatric Nephrology [facility] [address] [address] [place] [address] (p) [phone] Chief Complaint Patient here for follow up visit. Accompanied by mother. History of Present Illness I had the pleasure of seeing Marissa De Leon in Nephrology Clinic at [facility] for a 1 follow-up evaluation of hypertension. [...] 3. Insulin resistance/pre-diabete s 4. COVID-19 in 2020 Past Surgical History: [...] disease, stroke, hypertension, diabetes, and hypercholesterolemia. First [place] at 36 years of age 4. Maternal Uncle - hypertension in his 20s Social History: Marissa lives with family and has an older sister who is expecting a baby. 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 Normal [facility] Activity, Plasmaon Renin (P) [Catalytic activity/Vol] 2.7 {ng/mL/hr} [facility] Work Phone: Comment [...] developed and its performance characteristics determined by [facility]. It has not been cleared or approved by the US Food and Drug Administration. This test was performed in a CLIA certified laboratory and is intended for clinical purposes.Performed By: [facility] [place] [address] [id number] Director: Chidi Nogueira MD, PhD VITAMIN D, 25-HYDROXYon 06-01 VITAMIN D, 25-HYDROXY 8 ng/mL Abnormal [facility] Comment on above: Result Comment: . DEFICIENCY: < 20 NG/ML INSUFFICIENCY: 20-29 NG/ML SUFFICIENCY: 30-100 NG/ML THIS ASSAY ACCURATELY QUANTIFIES THE SUM OF VITAMIN D3, 25-HYDROXY AND VIT D2,25-HYDROXY. 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 taking the [employer]ICO Nutrition Diagnosis: Obesity related to imbalance between calorie intake and physical activity - states she is doin better with the [employer] Nutrition Education Goal - 1600 calories per [...] coronary artery disease (V17.3) (Z82.49) FHx: early [place] (V17.3) (Z82.49) Family history of ANDREINA on [...] not take iron with Sodium Bicarbonate; Therapy: [id number] to (Evaluate:[id number]) Requested for: [id number]; Last Rx:[id number] Ordered Rx By: Bryon Argueta; Dispense: 30 Days ; #:60 Tablet; Refill: 2;For: Acanthosis nigricans; SALLIE = N; Verified Transmission to [facility] #[id number]; Last Updated By: Nemesio Stiles; 12/21/2019 11:48:33 AM Victoza 18 MG/3ML Subcutaneous Solution Pen-injector; Inject 0.6 mg once daily for 1 week. Increase as directed to 1.2 mg daily for one week and then to final dose of 1.8mg daily; Therapy: [id number] to (Evaluate:[id number]) Requested for: [id number]; Last Rx:[id number] Ordered Rx By: Tasia Quijano; Dispense: 30 Days ; #:1 X 3 x 3 ML Pen; Refill: 5;For: Acanthosis nigricans; SALLIE = N; Verified Transmission to [id number] aMILoride HCl - 5 MG Oral Tablet; TAKE 1 TABLET ONCE DAILY; Th (more content not included)... Normal [facility] Hemoglobin A1Con 06-07-2022 HbA1c (Bld) [Mass fraction] 5.0 % [facility] -Endo Admin RBC 737 Work Phone: Comment on above: Diagnosis of Diabete s-Adults Non-Diabetic: < or = 5.6% Increased risk for developing diabetes: 5.7-6.4% Diagnostic of diabetes: > or = 6.5%. Monitoring of Diabetes Age (y) Therapeutic Goal (%) Adults: >18 <7.0 Pediatrics: 13-18 <7.5 7-12 <8.0 0- 6 7.5-8.5 [employer]. Diabetes Care 33(S1), Oct 2009. [...] spec) Not detected Normal NOT DETECTED [facility] Comment on above: Result Comment: When [...] for this test is supported by the [place] of Health and Human Service's declaration that [...] used). Performed By: #### C VDTBH #### [facility] [address] [place] [address] Dr. Lisa Bautista ER URINE PROFILEon 2 Bilirubin Ql (U) Negative Normal NEGATIVE [facility] Comment on above: Performed By: #### C VDTBH #### [facility] [address] [place] [address] Dr. Lisa Bautista Clarity (U) CLEAR Normal CLEAR [facility] Comment on above: Performed By: #### C VDTBH #### [facility] [address] [place] [address] Dr. Lisa Bautista Color (U) YELLOW Normal YELLOW [facility] Comment on above: Performed By: #### C VDTBH #### [facility] [address] [place] [address] Dr. Lisa Bautista ERUAHD A micrscopic examination will be performed if indicated. Normal [facility] Comment on above: Performed By: #### C VDTBH #### [facility] [address] [place] [address] Dr. Lisa Bautista Glucose Ql (U) Negative Normal NEGATIVE [facility] Comment on above: Performed By: #### C VDTBH #### [facility] [address] [address] [address] Lisa Bautista Hemoglobin Ql (U) Negative Normal NEGATIVE [facility] Comment on above: Performed By: #### C VDTBH #### [facility] [address] [address] [address] Lisa Bautista Ketones Ql (U) Negative Normal NEGATIVE [facility] Comment on above: Performed By: #### C VDTBH #### [facility] [address] [place] [address] Dr. Lisa Bautista LEUKOCYTES Negative Normal NEGATIVE [facility] Comment on above: Performed By: #### C VDTBH #### [facility] [address] [place] [address] Dr. Lisa Bautista Nitrite Ql (U) Negative Normal NEGATIVE [facility] Comment on above: Performed By: #### C VDTBH #### [facility] [address] [place] [address] Dr. Lisa Bautista pH (U) 6.0 [pH] Normal 5-9 [facility] Comment on above: Performed By: #### C VDTBH #### [facility] [address] [place] [address] Dr. Lisa Bautista SPEC GRAVITY >=1.030 Abnormal 1.005-<=1.025 [facility] Comment on above: Performed By: #### C VDTBH #### [facility] [address] [place] [address] Dr. Lisa Bautista UA PROTEIN Negative Normal NEGATIVE/ TRACE [facility] Comment on above: Performed By: #### C VDTBH #### [facility] [address] [place] [address] Dr. Lisa Bautista UR MICRO IND NOT INDICATED Normal [facility] Comment on above: Performed By: #### C VDTBH #### [facility] [address] [place] [address] Dr. Lisa Bautista Urobilinogen Qn (U) 1.0 {Jay Jay'U}/dL Normal 0.2 - 1. 0 [facility] Comment on above: Performed By: #### C VDTBH #### [facility] [address] [place] [address] Dr. Lisa Bautista GROUP A STREP CULTUREon 05-01 S. pyogenes Ag Ql (Unsp spec) Culture Observations: NEGATIVE FOR GROUP A STREPTOCOCCUS. Normal [facility] Comment on above: Performed By: #### C VDTBH #### [facility] [address] [place] [address] Dr. Lisa Bautista URon 05-27-2022 , QUAL Negative Normal NEGATIVE [facility] Comment on above: Performed By: #### C VDTBH #### [facility] [address] [place] [address] Dr. Lisa Bautista STREPT SCREENon 05-27-2022 STREP SCREEN A Negative Normal NEGATIVE [facility] Comment on above: Performed By: #### G RASTCX, SSCRN #### [facility] [address] [place] [address] Dr. Lisa Bautista CBC AUTO DIFFon 03-01-2022 BASO # 0.1 103/ul Normal 0.0-0.1 [facility] Comment on above: Performed By: #### C BC #### [facility] [address] [place] [address] Dr. Lisa Bautista Basophils/100 WBC (Bld) 0.4 % Normal 0.2-2.0 [facility] Comment on above: Performed By: #### C BC #### [facility] [address] [place] [address] Dr. Lisa Bautista EO # 0.2 103/ul Normal 0.0-0.7 [facility] Comment on above: Performed By: #### C BC #### [facility] [address] [place] [address] Dr. Lisa Bautista Eosinophils/100 WBC (Bld) 2.0 % Normal 0.9-7.0 [facility] Comment on above: Performed By: #### C BC #### [facility] [address] [place] [address] Dr. Lisa Bautista Erythrocyte distribution width (RBC) [Ratio] 13.1 % Normal 11.0-15.0 [facility] Comment on above: Performed By: #### C BC #### [facility] [address] [place] [address] Dr. Lisa Bautista Hematocrit (Bld) [Volume fraction] 41.1 % Normal 36.0-48.0 [facility] Comment on above: Performed By: #### C BC #### [facility] [address] [place] [address] Dr. Lisa Bautista Hemoglobin (Bld) [Mass/Vol] 12.9 g/dL Normal 12.0-16.0 [facility] Comment on above: Performed By: #### C BC #### [facility] [address] [place] [address] Dr. Lisa Bautista IG # 0.08 10e3/ul Critically high 0.00-0.03 [facility] Comment on above: Performed By: #### C BC #### [facility] [address] [place] [address] Dr. Lisa Bautista IG % 0.7 % Critically high 0.0-0.5 [facility] Comment on above: Performed By: #### C BC #### [facility] [address] [place] [address] Dr. Lisa Bautista LYMPH # 3.2 103/ul Normal 1.2-3.8 [facility] Comment on above: Performed By: #### C BC #### [facility] [address] [place] [address] Dr. Lisa Bautista Lymphocytes/100 WBC (Bld) 26.8 % Normal 20.5-60.0 [facility] Comment on above: Performed By: #### C BC #### [facility] [address] [place] [address] Dr. Lisa Bautista MANUAL DIFF REQ NO Normal [facility] Comment on above: Performed By: #### C BC #### [facility] [address] [place] [address] Dr. Lisa Bautista MCH (RBC) [Entitic mass] 28.5 pg Normal 26.7-34.0 [facility] Comment on above: Performed By: #### C BC #### [facility] [address] [address] [address] Lisa Bautista MCHC (RBC) [Mass/Vol] 31.4 g/dL Normal 29.9-35.2 [facility] Comment on above: Performed By: #### C BC #### [facility] [address] [address] [address] Lisa Bautista MCV (RBC) [Entitic vol] 90.7 fL Normal 79.1-95.6 [facility] Comment on above: Performed By: #### C BC #### [facility] [address] [address] [address] Lisa Bautista MONO # 0.8 103/ul Normal 0.3-0.8 [facility] Comment on above: Performed By: #### C BC #### [facility] [address] [address] [address] Lisa Bautista Monocytes/100 WBC (Bld) 6.8 % Normal 1.7-12.0 [facility] Comment on above: Performed By: #### C BC #### [facility] [address] [address] [address] Lisa Bautista NEUT # 7.5 103/ul Critically high 1.4-6.5 [facility] Comment on above: Performed By: #### C BC #### [facility] [address] [address] [address] Lisa Bautista Neutrophils/100 WBC (Bld) 63.3 % Normal 43.0-75.0 [facility] Comment on above: Performed By: #### C BC #### [facility] [address] [address] [address] Lisa Bautista Platelet mean volume (Bld) [Entitic vol] 9.2 fL Critically low 9.5-13.5 [facility] Comment on above: Performed By: #### C BC #### [facility] [address] [address] [address] Lisa Bautista PLT 390 103/ul Normal 150-450 [facility] Comment on above: Performed By: #### C BC #### [facility] [address] [place] [address] Dr. Lisa Bautista RBC 4.53 106/ul Normal 3.40-5.30 [facility] Comment on above: Performed By: #### C BC #### [facility] [address] [place] [address] Dr. Lisa Bautista WBC 11.9 103/ul Critically high 4.0-11.0 [facility] Comment on above: Performed By: #### C BC #### [facility] [address] [place] [address] Dr. Lisa Bautista CRPon 03-01-2022 CRP 0.9 mg/dL Normal <=1.0 [facility] Comment on above: Performed By: #### C MP, CRP #### [facility] [address] [place] [address] Dr. Lisa Bautista ER URINE PROFILEon 2 Bilirubin Ql (U) Negative Normal NEGATIVE [facility] Comment on above: Performed By: #### P REGU, ERUR #### [facility] [address] [place] [address] Dr. Lisa Bautista Clarity (U) CLEAR Normal CLEAR [facility] Comment on above: Performed By: #### P REGU, ERUR #### [facility] [address] [place] [address] Dr. Lisa Bautista Color (U) LT. YELLOW Normal YELLOW [facility] Comment on above: Performed By: #### P REGU, ERUR #### [facility] [address] [place] [address] Dr. Lisa Bautista ERURADHA A micrscopic examination will be performed if indicated. Normal [facility] Comment on above: Performed By: #### P REGU, ERUR #### [facility] [address] [place] [address] Dr. Lisa Bautista Glucose Ql (U) Negative Normal NEGATIVE [facility] Comment on above: Performed By: #### P REGU, ERUR #### [facility] [address] [place] [address] Dr. Lisa Bautista Hemoglobin Ql (U) Negative Normal NEGATIVE [facility] Comment on above: Performed By: #### P REGU, ERUR #### [facility] [address] [place] [address] Dr. Lisa Bautista Ketones Ql (U) Negative Normal NEGATIVE [facility] Comment on above: Performed By: #### P REGU, ERUR #### [facility] [address] [place] [address] Dr. Lisa Bautista LEUKOCYTES Negative Normal NEGATIVE [facility] Comment on above: Performed By: #### P REGU, ERUR #### [facility] [address] [address] [address] Lisa Bautista Nitrite Ql (U) Negative Normal NEGATIVE [facility] Comment on above: Performed By: #### P REGU, ERUR #### [facility] [address] [place] [address] Dr. Lisa Bautista pH (U) 5.5 [pH] Normal 5-9 [facility] Comment on above: Performed By: #### P REGU, ERUR #### [facility] [address] [place] [address] Dr. Lisa Bautista SPEC GRAVITY >=1.030 Abnormal 1.005-<=1.025 [facility] Comment on above: Performed By: #### P REGU, ERUR #### [facility] [address] [place] [address] Dr. Lisa Bautista UA PROTEIN Negative Normal NEGATIVE/ TRACE [facility] Comment on above: Performed By: #### P REGU, ERUR #### [facility] [address] [place] [address] Dr. Lisa Bautista UR MICRO IND NOT INDICATED Normal [facility] Comment on above: Performed By: #### P REGU, ERUR #### [facility] [address] [place] [address] Dr. Lisa Bautista Urobilinogen Qn (U) 0.2 {Jay Jay'U}/dL Normal 0.2 - 1. 0 [facility] Comment on above: Performed By: #### P REGU, ERUR #### [facility] [address] [address] [address] Lisa Bautista URon 03-01-2022 , QUAL Negative Normal NEGATIVE [facility] Comment on above: Performed By: #### P REGU, ERUR #### [facility] [address] [place] [address] Dr. Lisa Bautista PROF 14(COMP METB)on 022 Albumin [Mass/Vol] 3.5 g/dL Normal 3.4-5.0 [facility] Comment on above: Performed By: #### C MP, CRP #### [facility] [address] [place] [address] Dr. Lisa Bautista Albumin/Globulin [Mass ratio] 0.8 {ratio} Normal [facility] Comment on above: Performed By: #### C MP, CRP #### [facility] [address] [place] [address] Dr. Lisa Bautista ALP [Catalytic activity/Vol] 127 U/L Normal 65-260 [facility] Comment on above: Performed By: #### C MP, CRP #### [facility] [address] [place] [address] Dr. Lisa Bautista ALT [Catalytic activity/Vol] 32 U/L Normal 14-59 [facility] Comment on above: Performed By: #### C MP, CRP #### [facility] [address] [address] [address] Lisa Bautista Anion gap [Moles/Vol] 11.6 mmol/L Normal [facility] Comment on above: Performed By: #### C MP, CRP #### [facility] [address] [address] [address] Lisa Bautista AST [Catalytic activity/Vol] 13 U/L Critically low 15-37 [facility] Comment on above: Performed By: #### C MP, CRP #### [facility] [address] [place] [address] Dr. Lisa Bautista Bilirubin [Mass/Vol] 0.2 mg/dL Normal 0.2-1.0 [facility] Comment on above: Performed By: #### C MP, CRP #### [facility] [address] [address] [address] Lisa Bautista Calcium [Mass/Vol] 8.5 mg/dL Normal 8.5-10.1 [facility] Comment on above: Performed By: #### C MP, CRP #### [facility] [address] [address] [address] Lisa Bautista Chloride [Moles/Vol] 101 mmol/L Normal 98-107 [facility] Comment on above: Performed By: #### C MP, CRP #### [facility] [address] [address] [address] Lisa Bautista CO2 [Moles/Vol] 30.2 mmol/L Normal 21.0-32.0 [facility] Comment on above: Performed By: #### C MP, CRP #### [facility] [address] [address] [address] Lisa Bautista Creatinine [Mass/Vol] 0.90 mg/dL Normal 0.55-1.02 [facility] Comment on above: Performed By: #### C MP, CRP #### [facility] [address] [place] [address] Dr. Lisa Bautista Globulin (S) [Mass/Vol] 4.3 g/dL Normal [facility] Comment on above: Performed By: #### C MP, CRP #### [facility] [address] [address] [address] Lisa Bautista Glucose [Mass/Vol] 91 mg/dL Normal 74-106 [facility] Comment on above: Performed By: #### C MP, CRP #### [facility] [address] [address] [address] Lisa Bautista Potassium [Moles/Vol] 3.8 mmol/L Normal 3.5-5.1 [facility] Comment on above: Performed By: #### C MP, CRP #### [facility] [address] [address] [address] Lisa Bautista Protein [Mass/Vol] 7.8 g/dL Normal 6.1-8.2 [facility] Comment on above: Performed By: #### C MP, CRP #### [facility] [address] [place] [address] Dr. Lisa Bautista Sodium [Moles/Vol] 139 mmol/L Normal 136-145 [facility] Comment on above: Performed By: #### C MP, CRP #### [facility] [address] [place] [address] Dr. Lisa Bautista Urea nitrogen [Mass/Vol] 15.0 mg/dL Normal 6.4-19.3 [facility] Comment on above: Performed By: #### C MP, CRP #### [facility] [address] [place] [address] Dr. Lisa Bautista Urea nitrogen/Creatinine [Mass ratio] 16.7 mg/mg Normal [facility] Comment on above: Performed By: #### C MP, CRP #### [facility] [address] [place] [address] Dr. Lisa Bautista AMYLASEon 12-30-2021 AMYL <30 Critically low 31-110 [facility] Comment on above: Performed By: #### C VDTBH #### [facility] [address] [place] [address] Dr. Lisa Bautista CBC AUTO DIFFon 12-30-2021 BASO # 0.1 103/ul Normal 0.0-0.1 [facility] Comment on above: Performed By: #### C VDTBH #### [facility] [address] [place] [address] Dr. Lisa Bautista Basophils/100 WBC (Bld) 0.6 % Normal 0.2-2.0 [facility] Comment on above: Performed By: #### C VDTBH #### [facility] [address] [place] [address] Dr. Lisa Bautista EO # 0.2 103/ul Normal 0.0-0.7 [facility] Comment on above: Performed By: #### C VDTBH #### [facility] [address] [place] [address] Dr. Lisa Bautista Eosinophils/100 WBC (Bld) 1.9 % Normal 0.9-7.0 [facility] Comment on above: Performed By: #### C VDTBH #### [facility] [address] [place] [address] Dr. Lisa Bautista Erythrocyte distribution width (RBC) [Ratio] 13.2 % Normal 11.0-15.0 [facility] Comment on above: Performed By: #### C VDTBH #### [facility] [address] [place] [address] Dr. Lisa Bautista Hematocrit (Bld) [Volume fraction] 42.0 % Normal 36.0-48.0 [facility] Comment on above: Performed By: #### C VDTBH #### [facility] [address] [place] [address] Dr. Lisa Bautista Hemoglobin (Bld) [Mass/Vol] 13.2 g/dL Normal 12.0-16.0 [facility] Comment on above: Performed By: #### C VDTBH #### [facility] [address] [place] [address] Dr. Lisa Bautista IG # 0.05 10e3/ul Critically high 0.00-0.03 [facility] Comment on above: Performed By: #### C VDTBH #### [facility] [address] [place] [address] Dr. Lisa Bautista IG % 0.6 % Critically high 0.0-0.5 [facility] Comment on above: Performed By: #### C VDTBH #### [facility] [address] [place] [address] Dr. Lisa Bautista LYMPH # 3.4 103/ul Normal 1.2-3.8 [facility] Comment on above: Performed By: #### C VDTBH #### [facility] [address] [place] [address] Dr. Lisa Bautista Lymphocytes/100 WBC (Bld) 38.4 % Normal 20.5-60.0 [facility] Comment on above: Performed By: #### C VDTBH #### [facility] [address] [place] [address] Dr. Lisa Bautista MANUAL DIFF REQ NO Normal [facility] Comment on above: Performed By: #### C VDTBH #### [facility] [address] [place] [address] Dr. Lisa Bautista MCH (RBC) [Entitic mass] 28.4 pg Normal 26.7-34.0 [facility] Comment on above: Performed By: #### C VDTBH #### [facility] [address] [place] [address] Dr. Lisa Bautista MCHC (RBC) [Mass/Vol] 31.4 g/dL Normal 29.9-35.2 [facility] Comment on above: Performed By: #### C VDTBH #### [facility] [address] [place] [address] Dr. Lisa Bautista MCV (RBC) [Entitic vol] 90.3 fL Normal 79.1-95.6 [facility] Comment on above: Performed By: #### C VDTBH #### [facility] [address] [place] [address] Dr. Lisa Bautista MONO # 0.8 103/ul Normal 0.3-0.8 [facility] Comment on above: Performed By: #### C VDTBH #### [facility] [address] [place] [address] Dr. Lisa Bautista Monocytes/100 WBC (Bld) 8.8 % Normal 1.7-12.0 [facility] Comment on above: Performed By: #### C VDTBH #### [facility] [address] [place] [address] Dr. Lisa Bautista NEUT # 4.4 103/ul Normal 1.4-6.5 [facility] Comment on above: Performed By: #### C VDTBH #### [facility] [address] [place] [address] Dr. Lisa Bautista Neutrophils/100 WBC (Bld) 49.7 % Normal 43.0-75.0 [facility] Comment on above: Performed By: #### C VDTBH #### [facility] [address] [address] [address] Lisa Bautista Platelet mean volume (Bld) [Entitic vol] 9.1 fL Critically low 9.5-13.5 [facility] Comment on above: Performed By: #### C VDTBH #### [facility] [address] [address] [address] Lisa Bautista PLT 384 103/ul Normal 150-450 [facility] Comment on above: Performed By: #### C VDTBH #### [facility] [address] [address] [address] Lisa Bautista RBC 4.65 106/ul Normal 3.40-5.30 [facility] Comment on above: Performed By: #### C VDTBH #### [facility] [address] [address] [address] Lisa Bautista WBC 8.8 103/ul Normal 4.0-11.0 [facility] Comment on above: Performed By: #### C VDTBH #### [facility] [address] [address] [address] ABD/PELVIS WO CONon [...] RICCARDO COLLIER Date: 2021-12-30 00:02 Normal [facility] ER URINE PROFILEon 2 Bilirubin Ql (U) Negative Normal NEGATIVE The [facility] Comment on above: Performed By: #### E RUR, PREGU #### [facility] [address] [place] [address] Dr. Lisa Bautista Clarity (U) CLEAR Normal CLEAR [facility] Comment on above: Performed By: #### E RUR, PREGU #### [facility] [address] [address] [address] Lisa Bautista Color (U) LT. YELLOW Normal YELLOW [facility] Comment on above: Performed By: #### E RUR, PREGU #### [facility] [address] [place] [address] Dr. Lisa ANTONIO A micrscopic examination will be performed if indicated. Normal [facility] Comment on above: Performed By: #### E RUR, PREGU #### [facility] [address] [address] [address] Lisa Bautista Glucose Ql (U) Negative Normal NEGATIVE [facility] Comment on above: Performed By: #### E RUR, PREGU #### [facility] [address] [place] [address] Dr. Lisa Bautista Hemoglobin Ql (U) Negative Normal NEGATIVE [facility] Comment on above: Performed By: #### E RUR, PREGU #### [facility] [address] [place] [address] Dr. Lisa Bautista Ketones Ql (U) TRACE Abnormal NEGATIVE The [facility] Comment on above: Performed By: #### E RUR, PREGU #### [facility] [address] [place] [address] Dr. Lisa Bautista LEUKOCYTES Negative Normal NEGATIVE [facility] Comment on above: Performed By: #### E RUR, PREGU #### [facility] [address] [place] [address] Dr. Lisa Bautista Nitrite Ql (U) Negative Normal NEGATIVE [facility] Comment on above: Performed By: #### E RUR, PREGU #### [facility] [address] [place] [address] Dr. Lisa Bautista pH (U) 6.0 [pH] Normal 5-9 [facility] Comment on above: Performed By: #### E URMILAR, PREGU #### [facility] [address] [place] [address] Dr. Lisa Bautista SPEC GRAVITY >=1.030 Abnormal 1.005-<=1.025 [facility] Comment on above: Performed By: #### Thania KEARNSR, PREGU #### [facility] [address] [place] [address] Dr. Lisa Bautista UA PROTEIN Negative Normal NEGATIVE/ TRACE [facility] Comment on above: Performed By: #### Thania WINKLER, PREGU #### [facility] [address] [place] [address] Dr. Lisa Bautista UR MICRO IND NOT INDICATED Normal [facility] Comment on above: Performed By: #### Thania WINKLER, PREGU #### [facility] [address] [place] [address] Dr. Lisa Bautista Urobilinogen Qn (U) 1.0 {Jay Jay'U}/dL Normal 0.2 - 1. 0 [facility] Comment on above: Performed By: #### Thania WINKLER, PREGU #### [facility] [address] [place] [address] Dr. Lisa Bautista LIPASEon 12-30-2021 Lipase [Catalytic activity/Vol] 33.0 U/L Normal 23.0-300.0 [facility] Comment on above: Performed By: #### C VDTBH #### [facility] [address] [place] [address] Dr. Lisa Bautista URon 12-30-2021 , QUAL Negative Normal NEGATIVE [facility] Comment on above: Performed By: #### E URMILAR, PREGU #### [facility] [address] [place] [address] Dr. Lisa Bautista PROF 14(COMP METB)on 022 AGE Normal [facility] Comment on above: Performed By: #### C VDTBH #### [facility] [address] [address] [address] Lisa Bautista Albumin [Mass/Vol] 3.3 g/dL Critically low 3.5-5.0 Th [facility] Comment on above: Performed By: #### C VDTBH #### [facility] [address] [place] [address] Dr. Lisa Bautista Albumin/Globulin [Mass ratio] 0.8 {ratio} Normal [facility] Comment on above: Performed By: #### C VDTBH #### [facility] [address] [place] [address] Dr. Lisa Bautista ALP [Catalytic activity/Vol] 142 U/L Normal 65-260 [facility] Comment on above: Performed By: #### C VDTBH #### [facility] [address] [place] [address] Dr. Lisa Bautista ALT [Catalytic activity/Vol] 39 U/L Normal 9-52 [facility] Comment on above: Performed By: #### C VDTBH #### [facility] [address] [place] [address] Dr. Lisa Bautista Anion gap [Moles/Vol] 9.7 mmol/L Normal [facility] Comment on above: Performed By: #### C VDTBH #### [facility] [address] [place] [address] Dr. Lsia Bautista AST [Catalytic activity/Vol] 24 U/L Normal 14-36 [facility] Comment on above: Performed By: #### C VDTBH #### [facility] [address] [place] [address] Dr. Lisa Bautista Bilirubin [Mass/Vol] 0.3 mg/dL Normal 0.2-1.3 [facility] Comment on above: Performed By: #### C VDTBH #### [facility] [address] [place] [address] Dr. Lisa Bautista Calcium [Mass/Vol] 8.8 mg/dL Normal 8.4-10.2 [facility] Comment on above: Performed By: #### C VDTBH #### [facility] [address] [address] [address] Lisa Bautista Chloride [Moles/Vol] 106 mmol/L Normal 98-107 [facility] Comment on above: Performed By: #### C VDTBH #### [facility] [address] [place] [address] Dr. Lisa Bautista CO2 [Moles/Vol] 27.0 mmol/L Normal 22.0-30.0 [facility] Comment on above: Performed By: #### C VDTBH #### [facility] [address] [place] [address] Dr. Lisa Bautista Creatinine [Mass/Vol] 1.06 mg/dL Critically high 0.52-1.04 [facility] Comment on above: Performed By: #### C VDTBH #### [facility] [address] [place] [address] Dr. Lisa Bautista EGFR-AF NAURUAN Normal >=60 [facility] Comment on above: Performed By: #### C VDTBH #### [facility] [address] [place] [address] Dr. Lisa Bautista EGFR-NON AF NAURUAN Normal >=60 [facility] Comment on above: Performed By: #### C VDTBH #### [facility] [address] [place] [address] Dr. Lisa Bautista Globulin (S) [Mass/Vol] 4.3 g/dL Normal [facility] Comment on above: Performed By: #### C VDTBH #### [facility] [address] [place] [address] Dr. Lisa Bautista Glucose [Mass/Vol] 88 mg/dL Normal 74-106 [facility] Comment on above: Performed By: #### C VDTBH #### [facility] [address] [place] [address] Dr. Lisa Bautista Potassium [Moles/Vol] 3.7 mmol/L Normal 3.4-5.0 [facility] Comment on above: Performed By: #### C VDTBH #### [facility] [address] [address] [address] Lisa Bautista Protein [Mass/Vol] 7.6 g/dL Normal 6.1-8.2 [facility] Comment on above: Performed By: #### C VDTBH #### [facility] [address] [address] [address] Lisa Bautista Sodium [Moles/Vol] 139 mmol/L Normal 137-145 [facility] Comment on above: Performed By: #### C VDTBH #### [facility] [address] [address] [address] Lisa Bautista Urea nitrogen [Mass/Vol] 15.0 mg/dL Normal 6.4-19.3 [facility] Comment on above: Performed By: #### C VDTBH #### [facility] [address] [address] [address] Lisa Bautista Urea nitrogen/Creatinine [Mass ratio] 14.2 mg/mg Normal [facility] Comment on above: Performed By: #### C VDTBH #### [facility] [address] [address] [address] Lisa Bautista IO Hgb A1Con 12-07-2021 HbA1c (Bld) [Mass fraction] 5.0 % 4.2-6.5% [facility] [address] Work Phone: Tobacco Screening.on 022 Tobacco use status [facility]PH[facility] b) No [facility] [address] Work Phone: Tobacco Screening. Large [facility] [address] Work Phone: Tobacco Screening.on 021 Tobacco use status [facility]PH[facility] b) No [facility] [address] Work Phone: Tobacco Screening. Adult [facility] [address] Work Phone: Covid-19 PCR ([facility]on 07-01 SARS-CoV-2 (COVID-19) RNA DEBORAH+probe Ql (Unsp spec) Detected Critically abnormal NOT DETECTED [facility] Comment on above: Result Comment: This test is not yet approved or cleared by the [place] FDA. When there are no FDA-approved or cleared tests available, and other criteria are met, FDA can make tests available under an emergency access mechanism called an Emergency Use Authorization (EUA). The EUA for this test is supported by the [place] of Health and Human Service's (HHS's) declaration [...] used). Performed By: #### C VDTB #### [facility] [address] [place] [address] Dr. Lisa Bautista SYMPTOMATIC COVID-19 ANTIGEN on 07-13-2021 EUA Statement SEE BELOW Normal [facility] Comment on above: Result Comment: This [...] is revoked sooner. Performed By: #### C VDTBH #### [facility] [address] [place] [address] Dr. Lisa Bautista SARS-CoV-2 (COVID-19) RNA DEBORAH+probe Ql (Unsp spec) Positive Critically abnormal NEGATIVE [facility] Comment on above: Performed By: #### C VDTBH #### [facility] [address] [place] [address] Dr. Lisa Bautista Hemoglobin A1Con 04-15-2021 HbA1c (Bld) [Mass fraction] 5.4 % [facility] 220 Work Phone: Comment on above: Diagnosis of Diabete s-Adults Non-Diabetic: < or = 5.6% Increased risk for developing diabetes: 5.7-6.4% Diagnostic of diabetes: > or = 6.5%. Monitoring of Diabetes Age (y) Therapeutic Goal (%) Adults: >18 <7.0 Pediatrics: 13-18 <7.5 7-12 <8.0 0- 6 7.5-8.5 [employer]. Diabetes Care 33(S1), Oct 2009. Laboratory - Chemistry and C hemistry - challengeon 04-15-2021 Albumin BCP dye [Mass/Vol] 4.0 g/dL 3.4 - 5.0 [facility] 220 Work Phone: ALP [Catalytic activity/Vol] 131 U/L above high threshold 45 - 108 [facility] 220 Work Phone: ALT With P-5'-P [Catalytic activity/Vol] 30 U/L above high threshold 3 - 28 [facility] 220 Work Phone: Comment on above: Patients treated wit h Sulfasalazine may generate falsely decreased results for ALT. Anion gap [Moles/Vol] 12 mmol/L 10 - 30 [facility] 220 Work Phone: AST With P-5'-P [Catalytic activity/Vol] 26 U/L above high threshold 9 - 24 [facility] Work Phone: Bilirubin [Mass/Vol] 0.2 mg/dL 0.0 - 0.9 [facility] 220 Work Phone: Calcium [Mass/Vol] 9.9 mg/dL 8.5 - 10.7 [facility] 220 Work Phone: Chloride [Moles/Vol] 104 mmol/L 98 - 107 [facility] 220 Work Phone: CO2 [Moles/Vol] 26 mmol/L 18 - 27 [facility] [place] [address] Work Phone: Creatinine [Mass/Vol] 0.86 mg/dL See Below [facility] 220 Work Phone: Comment on above: Reference Range: 0.5 0 - 0.90 Glucose [Mass/Vol] 85 mg/dL 74 - 99 [facility] [address] [place] [address] Work Phone: Potassium [Moles/Vol] 4.3 mmol/L 3.5 - 5.3 [facility] [address] [place] [address] Work Phone: Protein [Mass/Vol] 7.9 g/dL above high threshold 6.2 - 7.7 [facility] [address] Work Phone: Sodium [Moles/Vol] 138 mmol/L 136 - 145 [facility] [address] [address] Work Phone: Urea nitrogen [Mass/Vol] 12 mg/dL 6 - 23 [facility] [address] Work Phone: Lipid Panelon 04-15-2021 Cholesterol [Mass/Vol] 164 mg/dL 0 - 199 [facility] [address] Work Phone: Comment on above: . AGE [...] in HDL [Mass/Vol] 37.0 mg/dL Abnormal [facility] Work Phone: Comment on above: . AGE VERY LOW LOW N ORMAL HIGH 0-19 Y < 35 < 40 40-45 ---- 20- 24 Y ---- < 40 >45 ---- >24 Y ---- < 40 40-60 >60. Cholesterol in LDL [Mass/Vol] 100 mg/dL 0 - 109 [facility] [address] Work Phone: Comment on above: . NEAR BORD AGE LAUREN RABLE OPTIMAL HIGH HIGH VERY HIGH 0-19 Y 0 - 109 --- 110-129 >/= 130 ---- 20-24 Y 0 - 119 --- 120-159 >/= 160 ---- >24 Y 0 - 99 100-129 130-159 160-189 >/=190. Cholesterol non HDL [Mass/Vol] 127 mg/dL above high threshold 0 - 119 [facility] [address] Work Phone: Comment on above: AGE DESIRABLE BORDER LINE HIGH HIGH VERY HIGH 0-19 Y 0 - 119 120 - 144 >/= 145 >/= 160 20-24 Y 0 - 149 150 - 189 >/= 190 ---- >24 Y 30 MG/DL ABOVE LDL CHOLESTEROL GOAL. Cholesterol.total/C holesterol in HDL [Mass ratio] 4.4 {ratio} [facility] Work Phone: Comment on above: REF VALUESDESIRABLE < 3.4HIGH RISK > 5.0 Triglyceride [Mass/Vol] 133 mg/dL 0 - 149 [facility] Work Phone: Comment on above: . [...] Lipid Panel 27 mg/dL 0 - 40 [facility] 220 Work Phone: Coding Summary.on 03-13-2019 Coding Summary. CODING DATE: 03/13/2019 FINAL [facility] STATUS: Home (Routine DC) PAYOR: [...] Miller Date Saved: 03/13/2019 12:56 pm Normal [facility] ED Clinical Summaryon 2018 ED Clinical Summary [address] [id number] ED Clinical Summary Person Information Name: MARISSA DE LEON Kristen/[facility]_[place] Age: 13 Years : 2005 12:00 AM Sex: Female Language: British PCP: ASHLEY ASHLEY CNP Marital Status: Single MRN: [id number] Visit Id: Visit Reason: Lower leg pain-swelling; [...] 03/10/2019 10:53 PM 03/10/2019 10:53 PM ADDRESS: [address] [place] [phone] PHYS DOC NOTES: MEDICAL INFORMATION: Prescriptions Given: PATIENT EDUCATION INFORMATION: Instructions: Knee Pain, Pvor-ht-Mkvc Follow up: With: Address: When: LORAINE FERRELL [address] [facility] [address] [place] [address] [phone] Business (1) In 3 days 03/13/2019 Comments: Please call Dr. Segal' office to 2 days for continued care, please apply ice to left knee 3 times a day, take fdgg-ybc-ltginoj pain medication as needed, and return to emergency room for any worsening symptoms, concerns, or complications. With: Address: When: ASHLEY [facility], [address] [place] [address] Business (1) In 3 days DIAGNOSIS: 1:Left knee pain Normal [facility] ED Note-Physicianon 03-11-20 ED Note-Physician Basic Information [...] knee. Patient states today she was in [facility], September prolonged walking, after which she [...] at home, she was instructed continue taking bqbw-vlq-wpcpzme pain medication as needed, ice therapy, call Dr. Ferrell, her orthopedic doctor at [facility], for follow-up care, return back to emergency room for any worsening symptoms, concerns, complications, or patient and mother agree with plan. Assessment/Plan 1. Left knee pain Orders: XR Knee Complete 4+ Views Left Disposition Plan Patient Discharge Condition Stable Discharge Disposition home Discharge Prescription List Prescriptions No active prescription medications Follow-up With When Contact Information LORAINE FERRELL In 3 days 03/13/[address] [place] [address]- [phone] Business (1) Additional Instructions: Please call Dr. Segal' office to 2 days for continued care, please apply ice to left knee 3 times a day, take ehcg-ixe-cfwkzok pain medication as needed, and return to emergency room for any worsening symptoms, concerns, or complications. ASHLEY ASHLEY In [address] [place] [address]- Business (1) Additional Instructions: Patient Education Knee Pain, Hiro-gd-Bhht Attestation Patient was treated and evaluated by the Physician Dry Cell Assembly Supervisor. The attending physician was Dr. Fernandez in the Emergency Department at all times and supervised care. The case was discussed with the attending physician and diagnostics were reviewed as needed. ATTENDING NOTE: Patient seen and evaluated with the physician media assistant. I personally saw and evaluated the [...] Fernandez, Radiology report above reviewed, appreciated. Normal [facility] Comment on above: Result Comment: Elec tronically [...] Document Reviewed: 01/13/2010 ExitCare? Patient Information ?2014 [employer]. This information is not intended to replace advice given to you by your health care provider. Make sure you discuss any questions you have with your health care provider. Normal [facility] ED Patient Summaryon 019 ED Patient Summary [address] [id number] Patient Discharge Instructions Person Information Name: MARISSA DE LEON Age: 13 Years Arrival Date: 03/10/2019 8:33 PM Discharge Diagnosis: 1:Left knee pain Primary Care Physician: ASHLEY ASHLEY CNP Provider Information Primary Provider: Amanda Fernandez Advanced Route Driver:Hector Cervantes PA-C The exam and treatment you received in the Emergency Department were for an urgent problem and are not intended as complete care. It is important that you follow up with a doctor, nurse practitioner, or physician?s media assistant for ongoing care. If your symptoms [...] Follow-up Instructions: With: Address: When: LORAINE FERRELL [address] [facility] [address] [place] [phone] Business (1) In 3 days 03/13/2019 Comments: Please call Dr. Philipp' office to 2 days for continued care, please apply ice to left knee 3 times a day, take dtte-uzs-bujyeno pain medication as needed, and return to emergency room for any worsening symptoms, concerns, or complications. With: Address: When: [facility], [place] [address] Business (1) In 3 days In the event that this physician does not participate in your insurance network, please consult with your insurance company to find a nearby participating provider. Patient Education Materials: Knee Pain, Dzee-am-Yrsw A MESSAGE TO ALL PATIENTS REGARDING OPIOIDS PRESCRIPTION OPIOIDS: WHAT YOU NEED TO KNOW Prescription opioids can be used to help relieve grhgiirr-df-wrbyjy pain and are often prescribed following a [...] be struggling with addiction, tell your health career technical education instructor and ask for guidance or call SAMH[employer]?S National Helpline at 5-892-103-PQPC. v Source: [place] Department of Health and Human Services/Center for Disease Control & Prevention [facility] Medications Given: Medication Dose Route No medications found. Medication Information: Comment: Pharmacy Information: Thank you for choosing [facility] Patient Education Materials: Knee Pain Knee pain [...] Document Reviewed: 01/13/2010 ExitCare? Patient Information ?2015 [employer]. This information is not intended to replace advice given to you by your health care provider. Make sure you discuss any questions you have with your health care provider. HALEY Horowitz ALLISON M , have received the following patient education materials/instructions and have verbalized understanding: Patient Education Materials: Knee Pain, Odon-bo-Whkh Follow-up Instructions: With: Address: When: LORAINE FERRELL [address] [facility] [address] [place] [phone] Business (1) In 3 days 03/13/2019 Comments: Please call Dr. Segal' office to 2 days for continued care, please apply ice to left knee 3 times a day, take jugh-ytl-tgqaorj pain medication as needed, and return to emergency room for any worsening symptoms, concerns, or complications. With: Address: When: [facility], [address] [place], [place] [address] [address] Business (1) In 3 days Prescriptions: Patient Signature Date Clinician/Nurse Signature ___ Date 03/10/19 22:53:04 Normal [facility] XR Knee Complete 4+ Views Le fton [...] Daron Krishnan M.D. Transcribed by: GAVI Technologist: AP Normal [facility] CT LOWER EXT WO CONTRASTon 0 02-15-2019 CT LOWER EXT WO CONTRAST Patient Name: MARISSA DE LEON STUDY: BN CT LOWER EXT WO CONTRAST; 02/15/2019 3:46 pm INDICATION: continued right knee pain. Status post tibial fracture with internal fixation. Continued pain. COMPARISON: 08/03/2018 ACCESSION NUMBER(S): [id number] ORDERING CLINICIAN: LORAINE FERRELL TECHNIQUE: Contiguous axial [...] CT. Electronically signed by: LILIANA LISA MD [facility] IO UA (automated w/o microsc opy)on 02-15-2019 Protein (U) [Mass/Vol] Negative Negative [facility] 5100 Work Phone: IO UA (automated w/o microscopy) Negative Negative [facility] [facility] Work Phone: IO UA (automated w/o microscopy) 1.025 1.000-1.030 [facility] [facility] Work Phone: IO UA (automated w/o microscopy) Yellow Colorless-Ralls ow [facility] [facility] Work Phone: IO UA (automated w/o microscopy) 6.0 5.0-8.0 [facility] [facility] Work Phone: IO UA (automated w/o microscopy) Normal (0.2-1.0 mg/dl) Normal [facility] [place] 5100 Work Phone: IO UA (automated w/o microscopy) Clear Clear [facility] Work Phone: Otheron 02-15-2019 Interpreted by: LILIANA LISA02/16/19 10:14N: [id number] Name: MARISSA DE LEON STUDY:BN CT LOWER [...] by: LILIANA LISA 02/16/19 10:14 Normal [facility] [address] Work Phone: PROGRESSon 02-15-2019 Protein mass conc HNO ID: [id number] Author: Mariam Trotter (Fel) Service: ? Author Type: Physician Type: Progress Notes Filed: 02/15/2019 2:08 PM Note Text: CHILD AND ADOLESCENT PSYCHIATRY FOLLOW-UP VISIT ASSESSMENT AND PLAN Marissa DeL eon is a 13 year old female with past medical diagnosis of hypertension (treated with the Lisinopril+ HCTZ and Norvasc , followed by the peds health program director) and psychiatric diagnosis of ADHD, depression and [...] required from the teachers and hence the [employer] [place]'s has been sent with the parent - [...] HCTZ and Norvasc , [facility]) and psychiatric diagnosis of ADHD, depression and [...] 12:52 PM No question data found. Normal [facility] PEDIATRIC RENAL ECHOGRAPHYon 01-15-2019 PEDIATRIC RENAL ECHOGRAPHY DATE OF EXAM: Jan 15 2019 11:01AM CLINICAL HISTORY/ Patient Name: MARISSA DE LEON STUDY: PEDIATRIC RENAL ECHOGRAPHY 01/15/2019 11:01 am INDICATION: 13 y/o F with hypertension. COMPARISON: None. ACCESSION NUMBER(S): [id number] ORDERING CLINICIAN: BRYON ARGUETA TECHNIQUE: Routine ultrasound [...] IMPRESSION: Unremarkable ultrasound of the kidneys. Normal [facility] Healthcare HISTORY PHYSICALon 9 HISTORY PHYSICAL HNO ID: [id number] Author: Annalisa Sewell Service: ? Author Type: [...] She was previously seeing a psychiarist at [facility] (Fellow?) Dr. Fregoso. Current medication regimen [...] mom, and older sib and step-dad in [place], [place]. In terms of stressors, her family [...] now I have reached out to pedaitric Tall[facility] Dr Argueta regarding safety of increasing stimulant [...] Medical - Obese - Hypertension - Sees health program director and varitypist at - Impaired fasting glucose Review of [...] Current medical providers? Was seeing psychiatrist at - [facility]. - Current psychologic or mental health health and social care teacher? Was referred to therapist at school and [...] Awais and older sib - 7th grade [employer] - On IEP - Never [...] 2019 TIME of SERVICE: 5:22 PM Normal [facility] PROGRESSon 01-03-2019 Protein mass conc HNO ID: [id number] Author: Annalisa Sewell Service: ? Author Type: Physician Type: Progress Notes Filed: 01/03/2019 5:54 PM Note Text: KP Data reviewed Very high scores in multiple domains by both child and parent symptom questionnaire Normal [facility] Vital Signs Date Time Vital Sign Value Performing Clinician Facility 10-04-2024 10:10-0500 Body height 172.7 cm Ashleynarendra Ashley WEB MACHINE TENDER Work Phone: [facility] 10-04-2024 10:10-0500 Body mass index (BMI) [Ratio] 63.47 kg/m2 Ashley Dion WEB MACHINE TENDER Work Phone: [facility] 10-04-2024 10:10-0500 Body temperature 97.81 [degF] Ashley Dion WEB MACHINE TENDER Work Phone: [facility] 10-04-2024 10:10-0500 Body weight 189.33 kg Ashley Ashley WEB MACHINE TENDER Work Phone: [facility] 10-04-2024 10:10-0500 Diastolic blood pressure 88 mm[Hg] Ashley Dion WEB MACHINE TENDER Work Phone: [facility] 10-04-2024 10:10-0500 Heart rate 82 /min Ashley Ashley WEB MACHINE TENDER Work Phone: [facility] 10-04-2024 10:10-0500 Respiratory rate 20 /min Ashley Ashley WEB MACHINE TENDER Work Phone: [facility] 10-04-2024 10:10-0500 SaO2% (BldA) [Mass fraction] 98 % Ashley Aichholz WEB MACHINE TENDER Work Phone: [facility] 10-04-2024 10:10-0500 Systolic blood pressure 124 mm[Hg] Ashley Aichholz WEB MACHINE TENDER Work Phone: [facility] 08-30-2024 10:33-0400 Body height 172.7 cm Ashley Aichholz WEB MACHINE TENDER Work Phone: [facility] 08-30-2024 10:33-0400 Body mass index (BMI) [Ratio] 62.01 kg/m2 Ashley Aichholz WEB MACHINE TENDER Work Phone: [facility] 08-30-2024 10:33-0400 Body temperature 98.4 [degF] Ashley Aichholz WEB MACHINE TENDER Work Phone: [facility] 08-30-2024 10:33-0400 Body weight 184.98 kg Ashley Aichholz WEB MACHINE TENDER Work Phone: [facility] 08-30-2024 10:33-0400 Diastolic blood pressure 100 mm[Hg] Ashley Aichholz WEB MACHINE TENDER Work Phone: [facility] 08-30-2024 10:33-0400 Heart rate 109 /min Ashley Aichholz WEB MACHINE TENDER Work Phone: [facility] 08-30-2024 10:33-0400 Respiratory rate 20 /min Ashley Aichholz WEB MACHINE TENDER Work Phone: [facility] 08-30-2024 10:33-0400 SaO2% (BldA) [Mass fraction] 99 % Ashley Aichholz WEB MACHINE TENDER Work Phone: [facility] 08-30-2024 10:33-0400 Systolic blood pressure 148 mm[Hg] Ashley Aichholz WEB MACHINE TENDER Work Phone: [facility] 07-19-2024 11:26-0400 Body height 175 cm Jennifer Lock MD Work Phone: [facility] 07-19-2024 11:26-0400 Body mass index (BMI) [Percentile] Per age and sex 100 % Jennifer Lock MD Work Phone: [facility] 07-19-2024 11:26-0400 Body mass index (BMI) [Ratio] 59.75 kg/m2 Jennifer Lock MD Work Phone: [facility] 07-19-2024 11:26-0400 Body temperature 98.01 [degF] Jennifer Lock MD Work Phone: [facility] 07-19-2024 11:26-0400 Body weight 183 kg Jennifer Lock MD Work Phone: [facility] 07-19-2024 11:26-0400 Diastolic blood pressure 108 mm[Hg] Jennifer Lock MD Work Phone: [facility] 07-19-2024 11:26-0400 Heart rate 88 /min Jennifer Lock MD Work Phone: [facility] 07-19-2024 11:26-0400 Respiratory rate 19 /min Jennifer Lock MD Work Phone: [facility] 07-19-2024 11:26-0400 Systolic blood pressure 143 mm[Hg] Jennifer Lock MD Work Phone: [facility] 06-28-2024 13:37-0400 Body height 172.72 cm [facility] 06-28-2024 13:37-0400 Body mass index (BMI) [Percentile] Per age and sex 99.6 % [facility] 06-28-2024 13:37-0400 Body mass index (BMI) [Ratio] 60.8 kg/m2 [facility] 06-28-2024 13:37-0400 Body temperature 98.8 [degF] [facility] 06-28-2024 13:37-0400 Body weight 181.43 kg [facility] 06-28-2024 13:37-0400 Diastolic blood pressure 87 mm[Hg] [facility] 06-28-2024 13:37-0400 Heart rate 87 /min [facility] 06-28-2024 13:37-0400 Respiratory rate 18 /min [facility] 06-28-2024 13:37-0400 SaO2% (BldA) [Mass fraction] 97 % [facility] 06-28-2024 13:37-0400 Systolic blood pressure 133 mm[Hg] [facility] 02-23-2024 15:18-0400 Body height 172.72 cm [facility] 02-23-2024 15:18-0400 Body mass index (BMI) [Percentile] Per age and sex 99.4 % [facility] 02-23-2024 15:18-0400 Body mass index (BMI) [Ratio] 49.7 kg/m2 [facility] 02-23-2024 15:18-0400 Body temperature 97.4 [degF] [facility] 02-23-2024 15:18-0400 Body weight 148.38 kg [facility] 02-23-2024 15:18-0400 Diastolic blood pressure 70 mm[Hg] [facility] 02-23-2024 15:18-0400 Heart rate 75 /min [facility] 02-23-2024 15:18-0400 Respiratory rate 18 /min [facility] 02-23-2024 15:18-0400 SaO2% (BldA) [Mass fraction] 95 % [facility] 02-23-2024 15:18-0400 Systolic blood pressure 126 mm[Hg] [facility] 01-30-2024 15:02-0400 Body height 174.1 cm Tasia Quijano MD Work Phone: [facility] 01-30-2024 15:02-0400 Body mass index (BMI) [Percentile] Per age and sex 100 % Tasia Quijano MD Work Phone: [facility] 01-30-2024 15:02-0400 Body mass index (BMI) [Ratio] 56.22 kg/m2 Tasia Quijano MD Work Phone: [facility] 01-30-2024 15:02-0400 Body temperature 98.4 [degF] Tasia Quijano MD Work Phone: [facility] 01-30-2024 15:02-0400 Body weight 170.4 kg Tasia Quijano MD Work Phone: [facility] 01-30-2024 15:02-0400 Diastolic blood pressure 87 mm[Hg] Tasia Quijano MD Work Phone: [facility] 01-30-2024 15:02-0400 Heart rate 90 /min Tasia Quijano MD Work Phone: [facility] 01-30-2024 15:02-0400 Systolic blood pressure 134 mm[Hg] Tasia Quijano MD Work Phone: [facility] 08-01-2023 16:09-0400 Diastolic blood pressure 84 mm[Hg] Tasia Quijano MD Work Phone: [facility] 08-01-2023 16:09-0400 Systolic blood pressure 136 mm[Hg] Tasia Quijano MD Work Phone: [facility] 08-01-2023 15:32-0400 Body temperature 97.59 [degF] Tasia Quijano MD Work Phone: [facility] 08-01-2023 15:32-0400 Body weight 176.3 kg Tasia Quijano MD Work Phone: [facility] 08-01-2023 15:32-0400 Heart rate 91 /min Tasia Quijano MD Work Phone: [facility] 08-01-2023 15:32-0400 Respiratory rate 17 /min Tasia Quijano MD Work Phone: [facility] 04-14-2023 15:59-0400 Diastolic blood pressure 85 mm[Hg] Ashleynarendra Thakurz Work Phone: [place] [address] Work Phone: 04-14-2023 15:59-0400 Systolic blood pressure 136 mm[Hg] Ashley Ashley Work Phone: PW-Qrhimvowgd-Brmn [place] [address] Work Phone: 04-14-2023 15:57-0400 Body height 174.5 cm Ashley Ashley Work Phone: HM-Gkavgxsrbz-Btwq [place] [address] Work Phone: 04-14-2023 15:57-0400 Body mass index (BMI) [Ratio] 58.82 kg/m2 Ashley Ashley Work Phone: HX-Uvtumqaspp-Bsnb [place] [address] Work Phone: 04-14-2023 15:57-0400 Body surface area Derived from formula 2.75 m2 Ashley Ashley Work Phone: NF-Hjbafqmlyx-Kbtf [place] [address] Work Phone: 04-14-2023 15:57-0400 Body temperature 97.8 [degF] Ahsley Ashley Work Phone: NF-Uwqqihhujx-Eicd [place] [address] Work Phone: 04-14-2023 15:57-0400 Body weight 179.1 kg Ashley Ashley Work Phone: CS-Zqnnqjezkv-Qdel [place] [address] Work Phone: 04-14-2023 15:57-0400 Diastolic blood pressure 98 mm[Hg] Ashley Ashley Work Phone: HF-Gycukpvbbj-Eyay [place] [address] Work Phone: 04-14-2023 15:57-0400 Heart rate 83 /min Ashley Ashley Work Phone: AZ-Wzkywmaheg-Uiio [place] [address] Work Phone: 04-14-2023 15:57-0400 Systolic blood pressure 127 mm[Hg] Ashley Wray Augustindavidjeffry Work Phone: XO-Xmiyprzwxd-Ynnx [place] [address] Work Phone: 04-14-2023 15:57-0400 96 1 Ashley Ashley Work Phone: UQ-Booarxyank-Telc [place] [address] Work Phone: Comment on above: 2-20_SPerc 04-14-2023 15:57-0400 99 1 Ashley Ashley Work Phone: [place]-Wofwcolecw-Zurd [place] [address] Work Phone: Comment on above: 2-20_WPerc BMIPerc 04-04-2023 13:24-0400 Body height 173.9 cm Ashley Ashley Work Phone: LG-Osspynxbev-Ktnc [place] [address] Work Phone: 04-04-2023 13:24-0400 Body mass index (BMI) [Ratio] 58.17 kg/m2 Ashley Ashley Work Phone: RT-Znpszfqrja-Ntcm [place] [address] Work Phone: 04-04-2023 13:24-0400 Body surface area Derived from formula 2.72 m2 Ashley Ashley Work Phone: EO-Oywcxhamhn-Icbg [place] [address] Work Phone: 04-04-2023 13:24-0400 Body temperature 96.7 [degF] Ashley Ashley Work Phone: EN-Ceogdlhzyg-Rdjs [place] [address] Work Phone: 04-04-2023 13:24-0400 Body weight 175.9 kg Ashley Wray Augustingloria Work Phone: CC-Ebdwrlgova-Zlrx [place] [address] Work Phone: 04-04-2023 13:24-0400 Diastolic blood pressure 73 mm[Hg] Ashley Wray Augustingloria Work Phone: PK-Jooidynrkt-Lsbs [place] [address] Work Phone: 04-04-2023 13:24-0400 Heart rate 86 /min Ashley Ashley Work Phone: PP-Aagxhteuoa-Paoz [place] [address] Work Phone: 04-04-2023 13:24-0400 Respiratory rate 20 /min Ashley Ashley Work Phone: DB-Klgalwndem-Fsyg [place] [address] Work Phone: 04-04-2023 13:24-0400 Systolic blood pressure 137 mm[Hg] Ashley Ashley Work Phone: WE-Yvvpqstycn-Fzew [place] [address] Work Phone: 04-04-2023 13:24-0400 95 1 Ashley Ashley Work Phone: AT-Nbyercvvbu-Eicj [place] [address] Work Phone: Comment on above: 2-20_SPerc 04-04-2023 13:24-0400 99 1 Ashley Ashley Work Phone: NJ-Ooeequsipg-Qpoe [place] [address] Work Phone: Comment on above: 2-20_WPerc BMIPerc 01-06-2023 10:26-0500 Body height 177.2 cm Ashley Ashley Work Phone: JO-Qhvgypblnd-Aulk [place] [address] Work Phone: 01-06-2023 10:26-0500 Body mass index (BMI) [Ratio] 55.73 kg/m2 Ashley Ashley Work Phone: KQ-Iqbhzvuhap-Lchq [place] [address] Work Phone: 01-06-2023 10:26-0500 Body surface area Derived from formula 2.75 m2 Ashley Ashley Work Phone: JG-Wdnmvuflwb-Yhqj [place] [address] Work Phone: 01-06-2023 10:26-0500 Body temperature 98.1 [degF] Ashley Ashley Work Phone: RD-Gbgxouvioz-Kjdv [place] [address] Work Phone: 01-06-2023 10:26-0500 Body weight 175 kg Ashley Ashley Work Phone: BB-Sxpywrxdlt-Xnvs [place] [address] Work Phone: 01-06-2023 10:26-0500 Diastolic blood pressure 90 mm[Hg] Ashley Ashley Work Phone: VU-Fsuriouggu-Fsml [place] [address] Work Phone: 01-06-2023 10:26-0500 Heart rate 91 /min Ashley Ashley Work Phone: JC-Ixekdcpumm-Gvxt [place] [address] Work Phone: 01-06-2023 10:26-0500 Respiratory rate 20 /min Ashley Ashley Work Phone: JL-Fxssdhtquo-Atsr [place] [address] Work Phone: 01-06-2023 10:26-0500 SaO2% (BldA) [Mass fraction] 97 % Ashley Ashley Work Phone: PT-Prxompfick-Ugdw [place] [address] Work Phone: 01-06-2023 10:26-0500 Systolic blood pressure 126 mm[Hg] Ashley Ashley Work Phone: MI-Xpsqhwuxfv-Vroa [place] [address] Work Phone: 01-06-2023 10:26-0500 99 1 Ashley Ashley Work Phone: BV-Siapycinpk-Rzqs [place] [address] Work Phone: Comment on above: 2-20_WPerc 2-20_SPerc BMIPerc 11-22-2022 15:22-0500 Body height 173 cm Ashley Ashley Work Phone: JH-Udjtsciogr-Bpat [place] [address] Work Phone: 11-22-2022 15:22-0500 Body mass index (BMI) [Ratio] 58.8 kg/m2 Ashley Ashley Work Phone: ON-Cjlmrimhdl-Fued [place] [address] Work Phone: 11-22-2022 15:22-0500 Body surface area Derived from formula 2.71 m2 Ashley Ashley Work Phone: EG-Cmrberdlcl-Bvcv [place] [address] Work Phone: 11-22-2022 15:22-0500 Body temperature 97.5 [degF] Ashley Ashley Work Phone: XV-Fquatewftv-Gsmy [place] [address] Work Phone: 11-22-2022 15:22-0500 Body weight 175.99 kg Ashley Ashley Work Phone: QK-Moytrykdqo-Zcok [place] [address] Work Phone: 11-22-2022 15:22-0500 Diastolic blood pressure 72 mm[Hg] Ashley Ashley Work Phone: VP-Ubetvlfhhw-Hxag [place] [address] Work Phone: 11-22-2022 15:22-0500 Heart rate 244 /min Ashley Ashley Work Phone: UR-Dipguzkiqk-Jnbn [place] [address] Work Phone: 11-22-2022 15:22-0500 Systolic blood pressure 114 mm[Hg] Ashley Ashley Work Phone: FH-Zoifigvlaq-Dkyl [place] [address] Work Phone: 11-22-2022 15:22-0500 94 1 Ashley Ashley Work Phone: PB-Wifmblkrcg-Recg [place] [address] Work Phone: Comment on above: 2-20_SPe 11-22-2022 15:22-0500 99 1 Ashley Wray Augustingloria Work Phone: PR-Edunhtenxg-Juxu [place] [address] Work Phone: Comment on above: 2-20_WPerc BMIPerc 09-30-2022 16:24-0500 Diastolic blood pressure 76 mm[Hg] Ashley Wray Dion Work Phone: EV-Wlurtcpzcw-Rqeu [place] [address] Work Phone: 09-30-2022 16:24-0500 Heart rate 89 /min Ashley Wray Dion Work Phone: PS-Wdukeoxcrr-Vcja [place] [address] Work Phone: 09-30-2022 16:24-0500 Systolic blood pressure 117 mm[Hg] Ashley Wray Dion Work Phone: GF-Ekuzupxlre-Upga [place] [address] Work Phone: 09-30-2022 16:23-0500 Diastolic blood pressure 78 mm[Hg] Ashley Wray Dion Work Phone: QO-Byctxurgtm-Twkt [place] [address] Work Phone: 09-30-2022 16:23-0500 Heart rate 91 /min Ashley Wray Dion Work Phone: AQ-Cqughxfghr-Poyh [place] [address] Work Phone: 09-30-2022 16:23-0500 Systolic blood pressure 121 mm[Hg] Ashley Wray Dion Work Phone: OH-Ikkujeetib-Xkok [place] [address] Work Phone: 09-30-2022 16:22-0500 Body height 174.2 cm Ashley Wray Augustinrushtasia Work Phone: QL-Pfkstqbdwk-Baph [place] [address] Work Phone: 09-30-2022 16:22-0500 Body mass index (BMI) [Ratio] 58.39 kg/m2 Ashley Wray Dion Work Phone: UV-Yenviawkam-Bdru [place] [address] Work Phone: 09-30-2022 16:22-0500 Body surface area Derived from formula 2.73 m2 Ashley Ashley Work Phone: WB-Ocoltobjhe-Vwmq [place] [address] Work Phone: 09-30-2022 16:22-0500 Body temperature 97.3 [degF] Ashley Ashley Work Phone: PE-Htplxthdkj-Emta [place] [address] Work Phone: 09-30-2022 16:22-0500 Body weight 177.2 kg Ashley Ashley Work Phone: DI-Qhvdofxodg-Ummn [place] [address] Work Phone: 09-30-2022 16:22-0500 Diastolic blood pressure 84 mm[Hg] Ashley Ashley Work Phone: XT-Wmtwkpkvbb-Styg [place] [address] Work Phone: 09-30-2022 16:22-0500 Heart rate 87 /min Ashley Ashley Work Phone: WC-Iykluanqzm-Vakg [place] [address] Work Phone: 09-30-2022 16:22-0500 Systolic blood pressure 137 mm[Hg] Ashley Ashley Work Phone: EI-Oukxnwrncj-Pbxt [place] [address] Work Phone: 09-30-2022 16:22-0500 96 1 Ashley Ashley Work Phone: SL-Kbspcuijvw-Bytw [place] [address] Work Phone: Comment on above: 2-20_SPerc 09-30-2022 16:22-0500 99 1 Ashley Wray Augustingloria Work Phone: DI-Eazrotuoxj-Glzg [place] [address] Work Phone: Comment on above: 2-20_WPerc BMIPerc 06-24-2022 11:24-0400 Diastolic blood pressure 80 mm[Hg] Ashley Wray Augustindavidjeffry Work Phone: UJ-Eojthxzeyx-Ljbn [place] [address] Work Phone: 06-24-2022 11:24-0400 Systolic blood pressure 134 mm[Hg] Ashley Ashley Work Phone: RS-Wnwzirrhtn-Fqvy [place] [address] Work Phone: 06-24-2022 11:07-0400 Body height 176.5 cm Ashley Caoholjeffry Work Phone: BR-Izekxkpajg-Epwq [place] [address] Work Phone: 06-24-2022 11:07-0400 Body mass index (BMI) [Ratio] 57.43 kg/m2 Ashley Ashley Work Phone: IK-Bqyrtmoflz-Tjmp [place] [address] Work Phone: 06-24-2022 11:07-0400 Body surface area Derived from formula 2.77 m2 Ashley Ashley Work Phone: PR-Zvrqpfczow-Tmru [place] [address] Work Phone: 06-24-2022 11:07-0400 Body temperature 97.9 [degF] Ashley Ashley Work Phone: ON-Aaydgiatby-Aprc [place] [address] Work Phone: 06-24-2022 11:07-0400 Body weight 178.9 kg Ashley Ashley Work Phone: PE-Tiymkkvzeu-Iklw [place] [address] Work Phone: 06-24-2022 11:07-0400 Diastolic blood pressure 81 mm[Hg] Ashley Wray Augustinrushholjeffry Work Phone: FX-Jtpmoxczmx-Oten [place] [address] Work Phone: 06-24-2022 11:07-0400 Heart rate 80 /min Ashley Wray Augustinrushholjeffry Work Phone: SO-Rjznpkmjim-Shsu [place] [address] Work Phone: 06-24-2022 11:07-0400 Systolic blood pressure 146 mm[Hg] Ashley Kamala Ruffinrushholjeffry Work Phone: KR-Pielxtssot-Qonv [place] [address] Work Phone: 06-24-2022 11:07-0400 99 1 Ashley Ashley Work Phone: IC-Hmkapoqcfz-Eynp [place] [address] Work Phone: Comment on above: 2-20_SPerc 2-20_WPerc BMIPerc 06-07-2022 10:51-0400 Body weight 182.1 kg Ashley Ashley Work Phone: MW-Qmymmvntdx-Phjk [place] [address] Work Phone: 06-07-2022 10:51-0400 99 1 Ashley Wray Augustingloria Work Phone: VW-Ukvevdvkct-Mnvx [place] [address] Work Phone: Comment on above: 2-20_WPerc 05-24-2022 14:02-0400 Body height 174.2 cm Ashley Ashley Work Phone: IG-Myukcikojn-Qrkq [place] [address] Work Phone: 05-24-2022 14:02-0400 Body mass index (BMI) [Ratio] 59.02 kg/m2 Ashley Wray Augustingloria Work Phone: VO-Zsisexkyau-Cabb [place] [address] Work Phone: 05-24-2022 14:02-0400 Body surface area Derived from formula 2.75 m2 Ashley Wray Augustingloria Work Phone: BF-Kocdknoaqi-Oiil [place] [address] Work Phone: 05-24-2022 14:02-0400 Body temperature 98.3 [degF] Ashley Wray Augustinrushtasia Work Phone: ZM-Gjyiyfuefo-Zpbv [place] [address] Work Phone: 05-24-2022 14:02-0400 Body weight 179.1 kg Ashley Wray Augustinrushtasia Work Phone: IP-Vuwsnsvvmh-Bxqf [place] [address] Work Phone: 05-24-2022 14:02-0400 Diastolic blood pressure 85 mm[Hg] Ashley Ashley Work Phone: TC-Ojsachsbdy-Omgd [place] [address] Work Phone: 05-24-2022 14:02-0400 Heart rate 75 /min Ashley Ashley Work Phone: DT-Ndtkjjdodg-Pela [place] [address] Work Phone: 05-24-2022 14:02-0400 Systolic blood pressure 134 mm[Hg] Ashley Ashley Work Phone: PY-Wswmunwrom-Rnpt [place] [address] Work Phone: 05-24-2022 14:02-0400 96 1 Ashley Ashley Work Phone: NW-Kvfgvmmvmw-Botw [place] [address] Work Phone: Comment on above: 2-20_SPerc 05-24-2022 14:02-0400 99 1 Ashley Ashley Work Phone: DE-Msbtifmtbu-Mkpx [place] [address] Work Phone: Comment on above: 2-20_WPerc BMIPerc 12-07-2021 12:51-0500 Body height 174.1 cm Ashley Ashley Work Phone: RZ-Dcoyyxpyjf-Sxsr [place] [address] Work Phone: 12-07-2021 12:51-0500 Body mass index (BMI) [Ratio] 57.27 kg/m2 Ashley Ashley Work Phone: SR-Jvjskqdrtq-Vnxu [place] [address] Work Phone: 12-07-2021 12:51-0500 Body surface area Derived from formula 2.71 m2 Ashley Ashley Work Phone: LY-Rubldwizml-Axzj [place] [address] Work Phone: 12-07-2021 12:51-0500 Body temperature 98.4 [degF] Ashley Thakurjeffry Work Phone: BY-Lemfgqzabx-Ttla [place] [address] Work Phone: 12-07-2021 12:51-0500 Body weight 173.6 kg Ashley Ashley Work Phone: ZT-Lqimbcbxph-Azvv [place] [address] Work Phone: 12-07-2021 12:51-0500 Diastolic blood pressure 81 mm[Hg] Ashley Ashley Work Phone: EX-Dvfniggfbt-Xrmk [place] [address] Work Phone: 12-07-2021 12:51-0500 Heart rate 93 /min Ashley Ashley Work Phone: IT-Aoqblzazqr-Gcxa [place] [address] Work Phone: 12-07-2021 12:51-0500 Respiratory rate 20 /min Ashley Ashley Work Phone: QH-Yphndmllhu-Uhoe [place] [address] Work Phone: 12-07-2021 12:51-0500 Systolic blood pressure 137 mm[Hg] Ashley Ashley Work Phone: IR-Wigcmxwulh-Jfzz [place] [address] Work Phone: 12-07-2021 12:51-0500 99 1 Ashley Ashley Work Phone: BK-Jpyhagtwpi-Smgi [place] [address] Work Phone: Comment on above: 2-20_WPerc BMIPerc 12-07-2021 12:51-0500 96 1 Ashley Ashley Work Phone: KM-Dkafgvkfyr-Bbsc [place] [address] Work Phone: Comment on above: 2-20_SPerc 08-10-2021 15:30-0400 Body height 174.1 cm Ashley Ashley Work Phone: EF-Tyolsqpocf-Amru [place] [address] Work Phone: 08-10-2021 15:30-0400 Body mass index (BMI) [Ratio] 57.5 kg/m2 Ashley Ashley Work Phone: AB-Eyhkncgbeg-Incy [place] [address] Work Phone: 08-10-2021 15:30-0400 Body surface area Derived from formula 2.71 m2 Ashley Ashley Work Phone: DM-Enanvizsdk-Onmj [place] [address] Work Phone: 08-10-2021 15:30-0400 Body temperature 98.1 [degF] Ashley Ashley Work Phone: UJ-Ifppcveuus-Kkkn [place] [address] Work Phone: 08-10-2021 15:30-0400 Body weight 174.3 kg Ashley Ashley Work Phone: EU-Yjkoajtvub-Nsvg [place] [address] Work Phone: 08-10-2021 15:30-0400 Diastolic blood pressure 83 mm[Hg] Ashley Ashley Work Phone: BK-Koorksbewb-Xkwe [place] [address] Work Phone: 08-10-2021 15:30-0400 Heart rate 9 /min Ashley Ashley Work Phone: VD-Otradxfflj-Fstd [place] [address] Work Phone: 08-10-2021 15:30-0400 Systolic blood pressure 137 mm[Hg] Ashley Ashley Work Phone: JT-Ewpjmgxzjx-Qkrj [place] [address] Work Phone: 08-10-2021 15:30-0400 99 1 Ashley Ashley Work Phone: DE-Ygwimedbhf-Xcqb [place] [address] Work Phone: Comment on above: 2-20_WPerc BMIPerc 08-10-2021 15:30-0400 96 1 Ashley Ashley Work Phone: DE-Kiqwncsbvl-Trkz [place] [address] Work Phone: Comment on above: 2-20_[facility] 08-03-2021 16:18-0400 Body height 175.5 cm Ashley Wray Augustindavidjeffry Work Phone: TI-Iprmptywvo-Gmbo [place] [address] Work Phone: 08-03-2021 16:18-0400 Body mass index (BMI) [Ratio] 56.75 kg/m2 Ashley Wray Augustingloria Work Phone: KQ-Gozccdexqe-Zatf [place] [address] Work Phone: 08-03-2021 16:18-0400 Body surface area Derived from formula 2.73 m2 Ashley Wray Augustindavidjeffry Work Phone: XZ-Hmotxvwgap-Jlsk [place] [address] Work Phone: 08-03-2021 16:18-0400 Body temperature 99.1 [degF] Ashley Ashley Work Phone: VU-Jcwbiciraf-Hzdk [place] [address] Work Phone: 08-03-2021 16:18-0400 Body weight 174.8 kg Ashley Wray Augustindavidjeffry Work Phone: NF-Lediqwyfma-Gttd [place] [address] Work Phone: 08-03-2021 16:18-0400 Diastolic blood pressure 85 mm[Hg] Ashley Kamala Ruffindavidjeffry Work Phone: XU-Whtyzjsjxl-Qvls [place] [address] Work Phone: 08-03-2021 16:18-0400 Heart rate 98 /min Ashley Kamala Ruffindavidjeffry Work Phone: OS-Mfoohsldqc-Gige [place] [address] Work Phone: 08-03-2021 16:18-0400 Respiratory rate 19 /min Ashley Kamala Ruffindavidjeffry Work Phone: QC-Bhdoitvauu-Yupq [place] [address] Work Phone: 08-03-2021 16:18-0400 Systolic blood pressure 139 mm[Hg] Ashley Ashley Work Phone: LT-Bpjzzdnvzf-Davw [place] [address] Work Phone: 08-03-2021 16:18-0400 99 1 Ashley Ashley Work Phone: ZW-Zbrjocevjk-Okdr [place] [address] Work Phone: Comment on above: 2-20_WPerc BMIPerc 08-03-2021 16:18-0400 98 1 Ashley Ashley Work Phone: XY-Dvoomqpccf-Xypt [place] [address] Work Phone: Comment on above: 2-20_SPerc 03-23-2021 16:56-0400 Body height 172.8 cm Ashley Ashley Work Phone: MH-Cksyhaodex-Pirg [place] [address] Work Phone: 03-23-2021 16:56-0400 Body mass index (BMI) [Ratio] 58.74 kg/m2 Ashley Ashley Work Phone: [facility]Mfowcyjxlo[facility] [place] [address] Work Phone: 03-23-2021 16:56-0400 Body surface area Derived from formula 2.71 m2 Ashley Ashley Work Phone: [facility]-Xwbucxssyr-[place] [place] [address] Work Phone: 03-23-2021 16:56-0400 Body temperature 97.5 [degF] Ashley Ashley Work Phone: SN-Jtrbjaorgc-[facility] [place] [address] Work Phone: 03-23-2021 16:56-0400 Body weight 175.4 kg Ashley Wray [place] Work Phone: JM-Tduqrgdhlw-[facility] [place] [address] Work Phone: 03-23-2021 16:56-0400 Diastolic blood pressure 85 mm[Hg] Ashley Wray [place] Work Phone: EW-Rfwheqetlx-Ixeg [place] [address] Work Phone: 03-23-2021 16:56-0400 Heart rate 103 /min Ashley Ashley Work Phone: KA-Pglznqpesh-Yxnk [place] [address] Work Phone: 03-23-2021 16:56-0400 Systolic blood pressure 132 mm[Hg] Ashley Wray Augustinrushchrisjeffry Work Phone: VV-Gpmoopoztj-Wjxp [place] [address] Work Phone: 03-23-2021 16:56-0400 99 1 Ashley Ashley Work Phone: WL-Jxyhwpsdof-Vvdb [place] [address] Work Phone: Comment on above: 2-20_WPerc BMIPerc 03-23-2021 16:56-0400 94 1 Ashley Ashley Work Phone: ME-Maeqwywvnt-Mhse [place] [address] Work Phone: Comment on above: 2-20_SPerc 11-05-2019 12:56-0500 BMI (Body Mass Index) 50.16 kg/m2 Lynn Raul GA-Ipxwlppylt-Tzt[place] [address] Work Phone: 11-05-2019 12:56-0500 Body Temperature 98.6 [degF] Lynn Raul BJ-Xjdlcmqwrr-T [facility] 1600 Work Phone: 11-05-2019 12:56-0500 Body weight 152.05 kg Lynn Raul IK-Nhyuaqhjna-Ot [facility] 1600 Work Phone: 11-05-2019 12:56-0500 BP Diastolic 83 mm[Hg] Lynn Raul JE-Ikrpqvvqgh-Cs [facility] 1600 Work Phone: 11-05-2019 12:56-0500 BP Systolic 128 mm[Hg] Lynn Raul ZH-Bojfrfbbnw-Mu [facility] 1600 Work Phone: 11-05-2019 12:56-0500 BSA (Body Surface Area) 2.56 m2 Lynn Carter QR-Krdolfgubo-Jskk [place] [address] Work Phone: 11-05-2019 12:56-0500 Height 174.1 cm Lynn Carter TG-Immbbaecsz-Lj [place] [address] Work Phone: 11-05-2019 12:56-0500 Pulse (Heart Rate) 88 /min Lynn Armstrongan MG-Pediatrics -[place] [address] Work Phone: 11-05-2019 12:56-0500 98 1 Lynn Carter JI-Codnypmjad-Bp [place] [address] Work Phone: Comment on above: 2-20 Stature Percentile 11-05-2019 12:56-0500 99 1 Lynn Armstrongan EO-Kcumajqasm-Ar [place] [address] Work Phone: Comment on above: 2-20 Weight Percentile BMI Percentile 03-05-2019 16:23-0400 BMI (Body Mass Index) 47.5 kg/m2 Tasia Quijano PT-Ahhvcjlyvk-Qhef [place] [address] Work Phone: 03-05-2019 16:23-0400 BP Diastolic 58 mm[Hg] Tasia Quijano BK-Hiyexdbiba-Fv [place] [address] Work Phone: 03-05-2019 16:23-0400 BP Systolic 114 mm[Hg] Tasia Quijano MJ-Lnnvwooffg-Bp [place] [address] Work Phone: 03-05-2019 16:23-0400 BSA (Body Surface Area) 2.48 m2 Tasia Quijano TZ-Cbaucdaafm-Fhxr [place] [address] Work Phone: 03-05-2019 16:23-0400 Height 173.2 cm Tasia Quijano EN-Tixzaiqzxy-Sg [place] [address] Work Phone: 03-05-2019 16:23-0400 Pulse (Heart Rate) 108 /min Tasia Quijano MG-Pediatrics -[place] [address] Work Phone: 03-05-2019 16:23-0400 Respiratory Rate 20 /min Tasia Quijano QC-Lzmiegjzow-W [facility] 1599 Work Phone: 03-05-2019 16:23-0400 Weight 142.49 kg Tasia CARMONAIQ-Yttjwwlqny-Ft [facility] 1600 Work Phone: 03-05-2019 16:23-0400 99 1 Tasia CARMONASX-Cadjpcmgae-Ae [facility] [place] [address] Work Phone: Comment on above: BMI [...] 02-15-2019 10:08-0400 BP Diastolic 79 mm[Hg] Loraine CARMONA-Orthopaedics- [place] [address] Work Phone: Comment on above: Location: LUE; Position: Sitting 02-15-2019 10:08-0400 BP Systolic 117 mm[Hg] Loraine CARMONA-Orthopaedics- [place] Work Phone: Comment on above: Location: LUE; Position: Sitting 02-15-2019 10:08-0400 Pulse (Heart Rate) 83 /min Loraine CARMONA-Orthopaedi cs-[place] Work Phone: 02-15-2019 09:59-0400 BMI (Body Mass Index) 46.12 kg/m2 Loraine CARMONAEI-Alnftaqzhapu-Ie [place] [address]100 Work Phone: 02-15-2019 09:59-0400 Body [...] BSA (Body Surface Area) 2.45 m2 Loraine CARMONAOT-Hxjjtsocrejr-Az [place] Work Phone: 02-15-2019 09:59-0400 Height 173.2 cm Loraine CARMONA-Orthopaedics- [place] Work Phone: 02-15-2019 09:59-0400 Pulse (Heart Rate) 105 /min Loraine CARMONA-Orthopaedi cs-[place] Work Phone: 02-15-2019 09:59-0400 Respiratory Rate 18 /min Loraine CARMONA-Orthopaedics -[place] Work Phone: 02-15-2019 09:59-0400 Weight 138.35 kg Tasia CARMONAHL-Fpitaltgwu-Cp [address] [place] [address] Work Phone: 02-15-2019 09:59-0400 99 1 Loraine CARMONA-Orthopaedics- [place] [address] Work Phone: Comment on above: BMI Percentile 2-20 Weight Percenti le 2-20 Stature Percent ile Encounters Encounter Date Encounter Type Care Provider Facility Start: 12-27-2024 End: 12-27-2024 Emergency department patient visit ASHLEY Ndiaye [facility] Start: 10-17-2024 End: 10-17-2024 Emergency department patient visit ASHLEY Ndiaye [facility] Start: 10-04-2024 End: 10-04-2024 Office outpatient visit 25 minutes Ashley Ashley WEB MACHINE TENDER Work Phone: [facility] Comment on above: Anxiety and depressi on (CMS/HCC) (Primary Dx); Hypertension, essential (CMS/HCC); Morbid (severe) obesity due to excess calories (CMS/HCC); Body mass index (BMI) 50.0-59.9, adult (CMS/HCC); Upper respiratory tract infection, unspecified type Start: 10-02-2024 End: 10-02-2024 Emergency department patient visit ASHLEY ASHLEY [facility] Start: 09-17-2024 End: 09-17-[address] Start: 08-30-2024 End: 08-30-2024 Bamboo flowsheet Ashley Augustinrushtasia WEB MACHINE TENDER Work Phone: [facility] Start: 08-30-2024 End: 08-30-2024 Bamboo flowsheet Ashley Augustinrushtasia WEB MACHINE TENDER Work Phone: [facility] Start: 08-30-2024 End: 08-30-2024 Office outpatient visit 25 minutes Ashley Ashley WEB MACHINE TENDER Work Phone: [facility] Comment on above: Anxiety and depressi on (CMS/HCC) (Primary Dx); Morbid (severe) obesity due to excess calories (CMS/HCC); Hypertension, essential (CMS/HCC); Tinea versicolor; Bronchitis Start: 08-30-2024 End: 08-30-2024 ambulatory ASHLEY CAOTASIA Not Available Start: 08-20-2024 End: 08-20-2024 Emergency department patient visit ASHLEY ASHLEY [facility] Start: 07-19-2024 End: 07-19-2024 Office outpatient visit 40 minutes Jennifer Lock MD Work Phone: [facility] [place] Comment on above: Hypertension, essent ial (Primary Dx); Morbid obesity with BMI of 50.0-59.9, adult (Multi); Encounter for screening involving social determinants of health (SDoH); Transportation insecurity due to lack of access to vehicle Start: 07-19-2024 End: 07-19-2024 ambulatory JENNIFER R LOCK [facility] Ambulatory Start: 06-28-2024 End: 06-28-2024 [facility] Work Phone: Start: 06-28-2024 End: 06-28-2024 Patient encounter procedure [facility] Work Phone: Start: 03-05-2024 End: 03-05-2024 ambulatory ASHLEY DION Not Available Start: 02-23-2024 End: 02-23-2024 ambulatory [facility] Work Phone: Start: 02-23-2024 End: 02-23-2024 Patient encounter procedure [facility] Work Phone: Start: 01-30-2024 End: 01-30-2024 Office outpatient visit 25 minutes Tasia Quijano MD Work Phone: [facility] [place] [place] Comment on above: Obesity peds (BMI >= 95 percentile) (Primary Dx); Insulin resistance; Vitamin D deficiency Start: 01-30-2024 End: 01-30-2024 ambulatory [facility] Ambulatory Start: 08-01-2023 End: 08-01-2023 Office outpatient visit 25 minutes Tasia Quijano MD Work Phone: [facility] [place] Comment on above: Obesity peds (BMI >= 95 percentile) (Primary Dx); Hypertension, essential; Insulin resistance; Vitamin D deficiency Start: 2023 AUDIT Ashley Kamala bourne Work Phone: MF-Izkdkiszmg-Dugc Admin [place] 737 Work Phone: Start: 06-03-2023 [address] Mrs[address] Ashley Wray Dion F acility:[id number] Start: 06-03-2023 Nutrition therapy Ashley Wray Kiley murphy Work Phone: IS-Txhxhbovek-Vtghfgw [place] [address] Work Phone: Start: 05-11-2023 [address] Mrs[address] Ashley Wray Dion F acility:[id number] Start: 04-18-2023 AUDIT Ashley Kamala bourne Work Phone: NN-Ypsczgybhp-Drhztaf e 1600 Work Phone: Start: 04-14-2023 Office outpatient vi sit 25 minutes Ashley Wray Dion Work Phone: VD-Znzjmjpcyk-[facility] Work Phone: Start: 04-14-2023 Patient encounter procedure Ashley Wray Dion Work Phone: LQ-Kwnhyrtell-Tmyqeuu e 1600 Work Phone: Start: 04-14-[address] Ashley Wray Dion Daniela acility:[id number] Start: 04-04-2023 Office outpatient vi sit 25 minutes Ashley Wray Dion Work Phone: XJ-Uqccyxrets-Ztgs Admin RBC 737 Work Phone: Start: 04-04-2023 Patient encounter procedure Ashley Wray Dion Work Phone: UO-Kkrskalxcz-Zgjsiag [place] [address] Work Phone: Start: 04-04-[address] Ashley Wray Dion aDniela acility:[id number] Start: 03-01-2023 AUDIT Ashley Wray Megan lz Work Phone: YB-Jotbwlfuny-Cceh Admin RBC 737 Work Phone: Start: 02-28-2023 Rx Renewal Ashley Wray eMgan lz Work Phone: CU-Ygobitpmty-Lxvc Admin RBC 737 Work Phone: Start: 01-06-2023 Office outpatient vi sit 25 minutes Ashley Wray Dion Work Phone: GY-Kjmyrsdjjc-Vqibjlj e 1600 Work Phone: Start: 01-06-20[address] Mrs[address] Ashley Wray Dion Daniela acility:[id number] Start: 11-22-2022 Office outpatient vi sit 25 minutes Ashley Wray Dion Work Phone: VX-Gtymovkjci-Wgoc Admin RBC 737 Work Phone: Start: 11-22-2022 Patient encounter procedure Ashley Wray Aichholz Work Phone: OQ-Fukacbsjof-Nwrdllv e 1600 Work Phone: Start: 11-22-2022 [address] Mrs[address] Ashley Suarez acility:[id number] Start: 09-30-2022 [address] Mrs. Ashley Suarez acility:[id number] Start: 07-16-2022 AUDIT Ashley Wray Aichho lz Work Phone: FO-Efdyhjdqdv-Mqmwyb [facility] Work Phone: Start: 06-30-2022 Chart Update Ashley Caoho lz Work Phone: CL-Dinksbktdw-Ktfkyq [facility] Work Phone: Start: 06-25-2022 AUDIT Ashley Wray Aichho lz Work Phone: OO-Uwmzchtgwk-Ipolodo e 1600 Work Phone: Start: 06-24-2022 Office outpatient vi sit 40 minutes Ashley Wray Aichholz Work Phone: OQ-Nwxmcitwlx-Yosjkw [facility] Work Phone: Start: 06-24-2022 Patient encounter procedure Ashley Wray Aichholz Work Phone: QO-Yovgvjcumr-Iklccgy e 1600 Work Phone: Start: 06-24-2022 [address] Ashley Suarez acility:[id number] Start: 06-17-2022 AUDIT Ashley Wray Aichho lz Work Phone: BJ-Nnnbeojuya-Fznq Admin RBC 737 Work Phone: Start: 06-16-2022 [address] Mrs[address] Ashley Suarez acility:[id number] Start: 06-07-2022 Patient encounter procedure Ashley Wray Aichholz Work Phone: QC-Tsichdkzhk-Connxwp e 1600 Work Phone: Start: 06-02-2022 Nutrition therapy Ashley murphy Work Phone: CJ-Wgcprgrxhl-Cmtiwfc [place] [address] Work Phone: Start: 05-27-2022 End: 05-27-2022 ambulatory SHANDA ZALDIVAR Facility:H1 Start: 05-26-2022 AUDIT Ashley Caoho lz Work Phone: ND-Tpqdkjnhuo-Euny Admin RBC 737 Work Phone: Start: 05-24-2022 Office outpatient vi sit 25 minutes Ashley Ashley Work Phone: CD-Uqpuzuwjeb-Zkds Admin RBC 737 Work Phone: Start: 05-24-2022 Patient encounter procedure Ashley Ashley Work Phone: TN-Omlamzbthn-Ktgxrgu e 1600 Work Phone: Start: 03-01-2022 End: 03-01-[address] SARA GALARZA Facility:H1 Start: 01-18-2022 Nutrition therapy Ashley murphy Work Phone: OS-Cutxqpfyfr-Agecztz e 1600 Work Phone: Start: 12-29-2021 End: 12-30-[address] GALLO PATEL Facility:H1 Start: 12-07-2021 Office outpatient vi sit 15 minutes Ashley Ashley Work Phone: CY-Ontwicgvjl-Esaeay [facility] Work Phone: Start: 12-07-2021 Nutrition therapy Ashley murphy Work Phone: SI-Sbzagtncxd-Wpedotd e 1600 Work Phone: Start: 10-13-2021 End: 10-13-2021 ambulatory SHANDA ZALDIVAR Facility:H1 Start: 10-12-2021 End: 10-12-2021 ambulatory SHANDA ZALDIVAR Facility:H1 Start: 08-10-2021 Nutrition therapy Ashley murphy Work Phone: VT-Rrmndrqqbg-Uacuwtm e 1600 Work Phone: Start: 08-03-2021 Patient encounter procedure Ashley Ashley Work Phone: CA-Fpmrlqhnuh-Hqmmvci e 1600 Work Phone: Start: 07-13-2021 End: 07-13-2021 ambulatory SENIOR TAX ANALYST ASHLEY CAOCHRISJeffry Facility:H1 Start: 05-14-2021 Nutrition therapy Ashley murphy Work Phone: EQ-Piomihqrbg-Oovoakv [address] Work Phone: Start: 05-06-2021 ANH, Provider : Lynn Carter, Status: Pen, Time: 3:00 PM Ashley Ashley Work Phone: ET-Dttuukubax-Mclkpde [address] Work Phone: Start: 05-06-2021 Nutrition therapy Ashley murphy Work Phone: VJ-Ouzqqgnzfo-Clneduz [address] Work Phone: Start: 04-15-2021 Chart Update Ashley Guzman lz Work Phone: YF-Jkbyhtkxeg-Gewfksm [address] Work Phone: Start: 01-03-2020 Patient encounter procedure Nick Castrejon PW-Mhwvqlysos-Elflxwk e 1600 Work Phone: Start: 12-31-2019 Patient encounter procedure Nick Castrejon SJ-Hhcosniike-Klvbhaq e 1600 Work Phone: Start: 12-20-2019 Patient encounter procedure Nick Castrejon RC-Reueuwaqdt-Gqegpgq e 1600 Work Phone: Start: 11-05-2019 Patient encounter procedure Lynn Carter BK-Pqfbkkvypb-Epqxmie e 1600 Work Phone: Start: 09-17-2019 Patient encounter procedure Lynn Carter MI-Ebvplnsvqf-Agzirkl e 1600 Work Phone: Start: 09-03-2019 Patient encounter procedure Lynn Carter AI-Rpmzhwmlcg-Bvwylnv e 1600 Work Phone: Start: 06-25-2019 Patient encounter procedure Lynn Carter BQ-Cisuvnhzcs-Lbmesrz e 1600 Work Phone: Start: 05-17-2019 Patient encounter procedure Lynn Carter BJ-Wpzdtfkppw-Oilpqfx e 1600 Work Phone: Start: 05-07-2019 Patient encounter procedure Lynn Carter FA-Khggavdywz-Sxjmokf e 1600 Work Phone: Start: 03-05-2019 Patient encounter procedure Loraine Ferrell GN-Kyypgxdgzeyn-Eadoe ll 5100 Work Phone: Start: 02-15-2019 End: 02-15-2019 Patient [facility] Start: 01-16-2019 Patient encounter procedure Loraine Ferrell RK-Oopbrqsvzjyb-Wexmd ll 5100 Work Phone: Start: 01-15-2019 Patient encounter procedure BRYON ARGUETA Facility:[facility] Start: 01-11-2019 Patient encounter procedure Loraine Ferrell CV-Arapdkgwogbe-Nmvmx ll 5100 Work Phone: Start: 01-03-2019 End: 01-03-2019 Patient encounter procedure [facility] Start: 12-14-2018 Patient encounter procedure Loraine Ferrell EJ-Dyfrtzfwnpca-Cucfl ll 5100 Work Phone: Start: 11-20-2018 Patient encounter procedure Loraine Ferrell VM-Jspxsnjzwngb-Qdazd ll 5100 Work Phone: Start: 11-14-2018 Patient encounter procedure Loraine Ferrell KU-Uqurzzriqisb-Mnhcz ll 5100 Work Phone: Start: 09-19-2018 Patient encounter procedure Loraine Ferrell VO-Qmwbhomxpqym-Djxnj ll 5100 Work Phone: Start: 09-11-2018 Patient encounter procedure Loraine Ferrell AY-Btdoiucjvrrn-Cdgkx ll 5100 Work Phone: Start: 09-04-2018 Patient encounter procedure Loraine CARMONAJM-Bakezsztdhek-Xqdqt ll 5100 Work Phone: Start: 08-15-2018 Patient encounter procedure Loraine CARMONACG-Aqqytwbdfjbr-Mvhcj ll 5100 Work Phone: Start: 08-03-2018 Patient encounter procedure Loraine CARMONAQZ-Vnfmywkgdzqh-Mugjy ll 5100 Work Phone: Start: 06-01-2018 Patient encounter procedure Loraine CARMONAGF-Hdherscjnquk-Kxmze ll 5100 Work Phone: Start: 04-13-2018 Patient encounter procedure Loraine CARMONAJW-Tpcqeogbflke-Ojcng ll 5100 Work Phone: Start: 04-06-2018 Patient encounter procedure Loraine CARMONABY-Tdseuwxjzagf-Elsrx ll 5100 Work Phone: Start: 02-02-2018 Patient encounter procedure Loraine CARMONARB-Uhnqrfhkaqwk-Cblxn ll 5100 Work Phone: Start: 12-08-2017 Patient encounter procedure Loraine CARMONAHL-Dsavtsrqpdio-Ttnkn ll 5100 Work Phone: Start: 12-01-2017 Patient encounter procedure Loraine CARMONARS-Jhiduncnqkdl-Mmdjh ll 5100 Work Phone: Start: 10-06-2017 Patient encounter procedure Loraine CARMONAJB-Tanjthqeyfkr-Nrcet ll 5100 Work Phone: Start: 09-21-2017 Patient encounter procedure Loraine CARMONAAJ-Mowycakbgzat-Erovs ll 5100 Work Phone: Start: 09-19-2017 Patient encounter procedure Loraine CARMONAOC-Epxcfbjstkde-Njomu ll 5100 Work Phone: Start: 09-15-2017 Patient encounter procedure Loraine CARMONABK-Nffdhpnmzvtt-Udxiz ll 5100 Work Phone: Start: 08-08-2017 Patient encounter procedure Loraine CARMONARC-Nkjfgbvziwyg-Adjul ll 5100 Work Phone: Start: 08-02-2017 Patient encounter procedure Loraine CARMONADK-Wrbckxmriynz-Ejxia 5100 Work Phone: Start: 06-21-2017 Patient encounter procedure Loraine CARMONADW-Njpwmikmjowg-Txocd ll 5100 Work Phone: Start: 05-12-2017 Patient encounter procedure Loraine CARMONALS-Dxaauteyonpf-Qppiu ll 5100 Work Phone: Start: 04-07-2017 Patient encounter procedure Loraine CARMONAQK-Kioqavvayqnj-Srqqq 5100 Work Phone: Procedures Date Procedure Procedure Detail Performing Clinician Start: 07-19-2024 Urnls dip stick/tabl et rgnt non-auto w/o micrscp Betty Valdovinos APRN-SENIOR TAX ANALYST Work Phone: Start: 01-30-2024 POCT GLYCOSYLATED HEMOGLOBIN (HGB A1C) LYNN RAUL Start: 01-30-2024 Hemoglobin glycosyla cj a1c Tasia Quijano MD Work Phone: Start: 01-30-2024 Lipid 1996 panel - S kulwinder or Plasma Jennifer Lock MD Work Phone: Start: 04-04-2023 Lipid 1996 panel - S [...] f 2) Zoster Vaccines (1 of 2) [facility] Start: 01-29-2029 Lipid panel Lipid Panel [facility] Start: 06-05-2028 Lipid panel Lipid Panel [facility] Start: 01-13-2027 DTaP/Tdap/Td Vaccine s (6 - Td or Tdap) DTaP/Tdap/Td Vaccines (6 - Td or Tdap) [facility] Start: 04-29-2025 Influenza vaccination Influenza Vacc ine (#1) [facility] Comment on above: Postponed from 07/01 (Patient Refused) Start: 12-26-2024 End: 12-26-2024 Patient encounter procedure 12/26/2024 2:20 PM EST Office Visit [facility] [address] [facility] [place] [address] [place] [address] [facility] Department of Pediatric[place] [address] [facility] Start: 10-15-2024 End: 10-15-2024 Patient encounter procedure 10/15/2024 2:10 PM EST Office Visit [facility] [address] [place] [phone] Jai Montes DO [address] [place] [address] [facility] Start: 10-04-2024 End: 10-04-2024 Patient encounter procedure 10/04/2024 10:00 AM EST Office Visit [facility] [address] [place] [phone] Ashley Ashley NP [address] [place] [phone] [facility] Start: 08-30-2024 End: 08-30-2024 Patient encounter procedure 08/30/2024 10:30 AM EDT Office Visit [facility] [address] [place] [phone] Ashley Ashley, SUNITA [address] [place] [phone] Morbid (severe) obesity due to excess calories (CMS/HCC); Body mass index (BMI) 50.0-59.9, adult (CMS/HCC) [facility] Comment on above: Morbid (severe) obes ity due to excess calories (CMS/HCC); Body mass index (BMI) 50.0-59.9, adult (CMS/HCC) Start: 08-06-2024 End: 08-06-2024 Nutrition therapy 08/06/2024 3:00 PM EDT Nutrition [facility] [place] [address] [place] [phone], LD Office Address Unavailable as of 02/26/2014 [facility] [place] [place] Start: 08-06-2024 End: 08-06-2024 Patient encounter procedure 08/06/2024 2:20 PM EDT Office Visit [facility] [place] [address] [place] [phone] [place] [address] [place] [address] [facility] [place] Start: 07-01-2024 COVID-19 Vaccine ( season) COVID-19 Vaccine ( season) [facility] Start: 07-01-2024 Influenza vaccination [facility] Start: 04-19-2024 End: 04-19-2024 Patient encounter procedure 04/19/2024 11:20 AM EDT Office Visit [facility] [place] [address] [place] [phone] [place] [address] [address] Department [place] [address] [facility] [place] Start: 01-30-2024 End: 01-30-2024 Clinical Support [facility] [place] Start: 01-30-2024 End: 01-29-2025 25-hydroxyvitamin D3 [Mass/volume] in Serum or Plasma [facility] Work Phone: Comment on above: Expected: 01/30/2024 (Approximate), Expires: 01/29/2025 Start: 01-30-2024 End: 01-29-2025 Comprehensive metabolic 2000 panel - Serum or Plasma [facility] Work Phone: Comment on above: Expected: 01/30/2024 (Approximate), Expires: 01/29/2025 Start: 01-30-2024 End: 01-29-2025 Lipid 1996 panel - Serum or Plasma [facility] Work Phone: Comment on above: Expected: 01/30/2024 (Approximate), Expires: 01/29/2025 Start: 01-30-2024 End: 01-29-2025 TSH with reflex to Free T4 if abnormal [facility] Work Phone: Comment on above: Expected: 01/30/2024 (Approximate), Expires: 01/29/2025 Start: 11-17-2023 FUV, Provider: Jennifer Lock, Status: Pen, Time: 9:20 AM FUV, Provider: Jennifer Lock, Status: Pen, Time: 9:20 AM ED-Naumvfkzke-Ymywt betina 1600 Work Phone: Start: 11-17-2023 End: 11-17-2023 Patient encounter procedure 11/17/2023 9:20 AM EST Office Visit [facility] [place] [address] [place] [address] [place] [address] [address] Department [place] [address] [facility] [place] Start: 08-01-2023 FUV, Provider: Tasia Quijano, Status: Pen, Time: 4:00 PM FUV, Provider: Tasia Quijano, Status: Pen, Time: 4:00 PM OE-Phppfbrvij-Kvldx rbrook 220 Work Phone: Start: 2023 Hepatitis C screening Hepatitis C Sc reening [facility] Start: 07-01-2023 COVID-19 Vaccine ( season) COVID-19 Vaccine ( season) [facility] Start: 07-01-2023 Influenza vaccination Influenza Vacc ine (#1) [facility] Start: 05-11-2023 VIRFUJEREMI, Provider : Lynn Carter, Status: Pen, Time: 1:30 PM VIRFUVHOME, Provider: Lynn Carter, Status: Pen, Time: 1:30 PM VC-Oetkgrrwwk-Lpptq rbrook 220 Work Phone: Start: 04-19-2023 COVID-19 Vaccine (#1) COVID-19 Vacci ne (#1) [facility] Start: 04-14-2023 FUV, Provider: Jennifer Lock, Status: Pen, Time: 4:20 PM FUV, Provider: Jennifer Lock, Status: Pen, Time: 4:20 PM KL-Sqsmtajcex-Tyhku betina [address] Work Phone: Start: 04-04-2023 FUV, Provider: Tasia Quijano, Status: Pen, Time: 1:30 PM FUV, Provider: Tasia Quijano, Status: Pen, Time: 1:30 PM WY-Dqmmabgtds-Miyhh betina 1600 Work Phone: Start: 01-06-2023 FUV, Provider: Jennifer Lock, Status: Pen, Time: 10:40 AM FUV, Provider: Jennifer Lock, Status: Pen, Time: 10:40 AM NI-Hcfezftbbt-Vbwzf betina 1600 Work Phone: Start: 11-22-2022 FUV, Provider: Tasia Quijano, Status: Pen, Time: 4:30 PM FUV, Provider: Tasia Quijano, Status: Pen, Time: 4:30 PM OE-Ssqdzvztpe-Jmqjf betina 1600 Work Phone: Start: 09-30-2022 FUV, Provider: Jennifer Lock, Status: Pen, Time: 4:20 PM FUV, Provider: Jennifer Lock, Status: Pen, Time: 4:20 PM XY-Oxlpjoxylo-Etytj betina [address] Work Phone: Start: 06-24-2022 FUV, Provider: Jennifer Lock, Status: Pen, Time: 11:20 AM FUV, Provider: Jennifer Lock, Status: Pen, Time: 11:20 AM NN-Zxratiwlpi-Ttxi Admin RBC 737 Work Phone: Start: 06-16-2022 VIRFUVHOME, Provider : Lynn Carter, Status: Pen, Time: 3:00 PM VIRFUVHOME, Provider: Lynn Carter, Status: Pen, Time: 3:00 PM WU-Dedontfjuk-Ouoal rbrook 220 Work Phone: Start: 06-07-2022 INJECTION, Provider: ENDO CLONODINE INJ SANDY,PEDS ENDO, Status: Pen, Time: 10:00 AM INJECTION, Provider: ENDO CLONODINE INJ SANDY,PEDS ENDO, Status: Pen, Time: 10:00 AM BU-Iqqwmufjjw-Donal rbrook 220 Work Phone: Start: 06-02-2022 VIRFUVHOME, Provider : Lynn Carter, Status: Pen, Time: 2:30 PM VIRFUVHOME, Provider: Lynn Carter, Status: Pen, Time: 2:30 PM GE-Crlrjnpnop-Nsbvb betina 1600 Work Phone: Start: 05-24-2022 FUV, Provider: Tasia Quijano, Status: Pen, Time: 2:00 PM FUV, Provider: Tasia Quijano, Status: Pen, Time: 2:00 PM HB-Vxceqctihj-Wkqjo betina 1600 Work Phone: Start: 01-18-2022 VIRFUVHOME, Provider : Lynn Carter, Status: Pen, Time: 3:30 PM VIRFUVHOME, Provider: Lynn Carter, Status: Pen, Time: 3:30 PM OQ-Igkrnrngwy-Antsj betina 1600 Work Phone: Start: 12-07-2021 NSFUPED, Provider: Lynn Carter, Status: Pen, Time: 1:30 PM NSFUPED, Provider: Lynn Carter, Status: Pen, Time: 1:30 PM JT-Wbumgsjomn-Gwlqr betina 1600 Work Phone: Start: 12-07-2021 FUVDIABETE, Provider : Tasia Quijano, Status: Pen, Time: 1:00 PM FUVDIABETE, Provider: Tasia Quijano, Status: Pen, Time: 1:00 PM RS-Yvuanqhzee-Gatvi betina 1600 Work Phone: Start: 12-07-2021 NSFUPED, Provider: Lynn Carter, Status: Pen, Time: 11:30 AM NSFUPED, Provider: Lynn Carter, Status: Pen, Time: 11:30 AM YD-Tptxtjylcs-Sibyy betina 1600 Work Phone: Start: 08-10-2021 NSFUPED, Provider: Lynn Carter, Status: Pen, Time: 3:30 PM NSFUPED, Provider: Lynn Carter, Status: Pen, Time: 3:30 PM NP-Lfqjopinqd-Etvgf betina 1600 Work Phone: Start: 08-06-2021 FUV, Provider: Jennifer Lock, Status: Pen, Time: 10:00 AM FUV, Provider: Jennifer Lock, Status: Pen, Time: 10:00 AM IS-Keyfdzqtid-Scgqo betina 1600 Work Phone: Start: 08-03-2021 FUV, Provider: Tasia Quijano, Status: Pen, Time: 4:30 PM FUV, Provider: Tasia Quijano, Status: Pen, Time: 4:30 PM YQ-Zeldqxbggn-Vpcdm rbrook 220 Work Phone: Start: 05-06-2021 VIRFUVHOME, Provider : Lynn Carter, Status: Pen, Time: 3:00 PM VIRFUVHOME, Provider: Lynn Carter, Status: Pen, Time: 3:00 PM HD-Mmnhkldojj-Vtyvg rbrook 220 Work Phone: Start: 07-16-2017 HPV Vaccines (2 - 2-dose series) HPV Vaccines (2 - 2-dose series) [facility] Start: 2015 Adolescent Depressio n Screening Adolescent Depression Screening [facility] Start: 2011 Pneumococcal Vaccine : Pediatrics (0 to 5 Years) and At-Risk Patients (6 to 64 Years) (1 of 2 - PCV) Pneumococcal Vaccine: Pediatrics (0 to 5 Years) and At-Risk Patients (6 to 64 Years) (1 of 2 - PCV) [facility] Start: 2009 Hearing Screening (#1) Hearing Kristofere rosenda (#1) [facility] Start: 2008 Well Child Visit (WC V) - Annual Well Child Visit (WCV) - Annual [facility] Start: 03-25-2006 Application of denta l fluoride varnish Fluoride Varnish [facility] Start: 2005 Hearing Screening (#1) Hearing Kristofere rosenda (#1) [facility] Start: 2005 HIV screening HIV Screening [facility] End: 07-31-2025 POCT glycosylated hemoglobin (Hb A1C) manually resulted POCT glycosylated hemoglobin (Hb A1C) manually resulted Point of Care Testing Routine Obesity peds (BMI >=95 percentile) 10 Occurrences starting 01/30/2024 until 07/31/2025, 1 completed [facility] Service Area Work Phone: Comment on above: 10 Occurrences start ing 01/30/2024 until 07/31/2025, 1 completed [facility]-Orthopaedics -Maryjo well 5100 Work Phone: NEGATED: Highlighted row has been ruled out! Planned Goals not documented PO-Oqbxejpfptcl-Snp well 5100 Work Phone: Immunizations Immunization Date Immunization Notes Care Provider [facility] 09-17-2024 influenza, seasonal, injectable, preservative free Ashley Ashley NP Work Phone: [facility] 05-16-2023 meningococcal B vacc ine, recombinant, OMV, adjuvanted Ashley Ashley Work Phone: NY-Gchzkmcxkx-Azdoh rbrook 220 Work Phone: 04-19-2023 Pfizer COVID-19 Vac Bivalent 30 MCG/0.3ML Intramuscular Suspension [facility] Work Phone: EE-Ydquafbqxg-Fjehr rbrook 220 Work Phone: 04-14-2023 meningococcal B vacc ine, recombinant, OMV, adjuvanted [facility] Work Phone: PF-Pmprehgzhy-Dpoyb rbrook 220 Work Phone: 04-14-2023 meningococcal oligosaccharide (groups A, C, Y and W-135) diphtheria toxoid conjugate vaccine (MCV4O) [facility] Work Phone: GM-Pfmdeovmxk-Vekxg rbrook 220 Work Phone: 01-13-2017 Human Papillomavirus 9-valent vaccine [facility] Work Phone: UW-Wqmsywsdjt-Hfkph rbrook 220 Work Phone: 01-13-2017 meningococcal oligosaccharide (groups A, C, Y and W-135) diphtheria toxoid conjugate vaccine (MCV4O) [facility] Work Phone: XT-Wsnzbwstzq-Gmlsn rbrook 220 Work Phone: 01-13-2017 tetanus toxoid, redu cha diphtheria toxoid, and acellular pertussis vaccine, adsorbed [facility] Work Phone: JT-Chtshktcyi-Uvlsw rbrook 220 Work Phone: 01-13-2017 HPV, unspecified formulation Tasia Quijano MD Work Phone: [facility] Work Phone: 05-20-2011 hepatitis A vaccine, pediatric/adolescent dosage, 2 dose schedule Ashley Ashley Work Phone: AE-Oxbravtaac-Ewfys rbrook 220 Work Phone: 07-18-2010 diphtheria, tetanus toxoids and acellular pertussis vaccine Ashley Ashely Work Phone: KF-Xrhfqzimjp-Fwree rbrook 220 Work Phone: 07-18-2010 measles, mumps and rubella virus vaccine [facility] Work Phone: WT-Tcmvixvgqd-Jdkhr rbrook 220 Work Phone: 07-18-2010 poliovirus vaccine, inactivated [facility] Work Phone: NY-Wnxckfokli-Emcok rbrook 220 Work Phone: 07-18-2010 varicella virus vaccine [facility] Work Phone: PO-Adtpgojbqr-Bchos rbrook 220 Work Phone: 03-03-2007 diphtheria, tetanus toxoids and acellular pertussis vaccine, unspecified formulation [facility] Work Phone: QN-Zihthxcpmg-Cwigz rbrook 220 Work Phone: 03-03-2007 haemophilus influenz ae type b vaccine, conjugate unspecified formulation Ashley W[facility] Work Phone: SG-Mjwblzajft-Fknhr rbrook 220 Work Phone: 03-03-2007 hepatitis A vaccine, unspecified formulation Ashley [facility] Work Phone: QO-Yxiybhuerr-Ywvcc rbrook 220 Work Phone: 03-03-2007 pneumococcal conjuga te vaccine, 7 valent Ashley Kamala [facility] Work Phone: WT-Gwpqsrmfkb-Wzzil rbrook 220 Work Phone: 03-03-2007 poliovirus vaccine, inactivated [facility] Work Phone: PW-Pdqesftwds-Vulbw rbrook 220 Work Phone: 09-16-2006 DTaP-hepatitis B and poliovirus vaccine [facility] Work Phone: PT-Pspqhxnlvv-Awhck rbrook 220 Work Phone: 09-16-2006 haemophilus influenz ae type b vaccine, conjugate unspecified formulation Ashley [facility] Work Phone: TJ-Ymojjwlloe-Fkkci rbrook 220 Work Phone: 09-16-2006 hepatitis A vaccine, unspecified formulation Ashely [facility] Work Phone: NN-Iosovlkczp-Cxbzb rbrook 220 Work Phone: 09-16-2006 influenza, seasonal, injectable Ashley [facility] Work Phone: KE-Lzbxvoeaxt-Nanrb rbrook 220 Work Phone: 09-16-2006 measles, mumps, rube lla, and varicella virus vaccine Ashley Wray [facility] Work Phone: DT-Btzminxfaf-Utnxp rbrook 220 Work Phone: 09-16-2006 pneumococcal conjuga te vaccine, 7 valent Ashley [facility] Work Phone: HI-Adzdbsoora-Ndhap rbrook 220 Work Phone: 09-16-2006 influenza virus vacc ine, unspecified formulation Tasia Quijano MD Work Phone: [facility] Work Phone: 2005 diphtheria, tetanus toxoids and acellular pertussis vaccine Ashley Wray [facility] Work Phone: GN-Vwptvdujms-Bhboj rbrook 220 Work Phone: 2005 haemophilus influenz ae type b conjugate and Hepatitis B vaccine Ashley Wray Augustinhtasia Work Phone: QZ-Spgelcbbhk-Duwxw rbrook 220 Work Phone: 2005 pneumococcal conjuga te vaccine, 7 valent Ashley Ashley Work Phone: TS-Ahofrnagnv-Owfkv rbrook 220 Work Phone: 2005 poliovirus vaccine, inactivated Ashley Ashley Work Phone: EH-Hpnidochmz-Ndsxw rbrook 220 Work Phone: 2005 hepatitis B vaccine, pediatric or pediatric/adolescent dosage Ashley Ashley Work Phone: WI-Rkzciormfi-Uhlrz rbrook 220 Work Phone: Payers Date Payer Category Payer Private Health Insurance [id number] 2022 Private Health Insurance [id number] 2005 Unknown [id number] 2.16.84 [id number] 2005 Unknown [id number] 2.16.84 0.1.798634.3.579.2.1259 2005 Unknown [id number] 2.16.8 40.1.868081.3.579.2.1243 2005 Unknown [id number] 2.16.8 40.1.194841.3.579.2.124 2005 Unknown [id number] 2.16.8 40.1.597117.3.579.2.124 2005 Unknown [id number] 2.16.8 40.1.601824.3.579.2.1285 2005 Unknown [id number] 2.16.8 40.1.009038.3.579.2.1286 2005 Unknown [id number] 2.16.8 40.1.816619.3.579.2.1286 1975 Unknown [id number] 2.16.8 40.1.679371.3.579.2.355 1975 Unknown [id number] 2.16.84 0.1.839327.3.579.2.593 1975 Unknown [id number] 2.16.84 0.1.222691.3.579.2.593 1975 Unknown [id number] 2.16.84 0.1.530401.3.579.2.593 1975 Unknown [id number] 2.16.84 0.1.028282.3.579.2.593 1975 Unknown [id number] 2.16.84 0.1.531306.3.579.2.593 1975 Unknown [id number] 2.16.84 0.1.420059.3.579.2.593 1975 Unknown [id number] 2.16. 840.1.033226.3.579.2.356 1975 Unknown [id number] 2.16. 840.1.243826.3.579.2.356 1975 Unknown [id number] 2.16. 840.1.501670.3.579.2.356 1975 Unknown [id number] . 840.1.920274.3.579.2.356 1975 Unknown [id number] 2.16. 840.1.603236.3.579.2.356 1975 Unknown [id number] .16. 840.1.054115.3.579.2.356 1975 Unknown [id number] 2.16. 840.1.645562.3.579.2.356 1959 Private Health Insurance [id number] Unknown [id number] 2.16840 .1.834397.3.579.2.1068 Unknown [id number] 2.16. 840.1.423698.3.579.2.356 Unknown [id number] 2.16. 840.1.946079.3.579.2.356 Unknown [id number] 2.16. 840.1.638917.3.579.2.356 Unknown Social History Date Type Detail Facility Assertion Unknown if ever smoked [facility]-Or thopaedics-Bolwe ll 5100 Work Phone: Start: 02-01-2024 End: 07-19-2024 Currently in school Currently in school [employer] Comment on above: Lives with mom, 2 si sters; Start: 06-21-2023 Tobacco smoking stat us COIS Tobacco smoking consumption unknown [facility] Work Phone: Start: 2005 Sex Assigned At [facility] Work Phone: Start: 02-01-2024 End: 07-19-2024 Gender identity Not on file [facility] Start: 07-22-2023 End: 07-19-2024 Exposure to SARS-CoV-2 (event) Not sure [facility] Start: 2005 Sex Assigned At Female F [facility] Start: 06-28-2024 End: 07-19-2024 Tobacco smoking status NHIS Never smoked tobacco (finding) [facility] Start: 03-05-2024 End: 07-19-2024 Tobacco use and exposure Smokeless tobacco non-user [facility] Work Phone: Start: 03-05-2024 End: 10-04-2024 Alcoholic beverage intake Lifetime non-drinker (finding) [facility] Do you belong to any clubs or organizations such as mosque groups, unions, fraternal or athletic groups, or [...] beverage intake Current drinker of alcohol (finding) [facility] Work Phone: Medical Equipment Procedure Code Equipment Code Equipment Original Text Equipment Identifier Dates Screw, Cortical, Self-Tapping, Pelvic, 3.5 X 70 Mm, Stainles Case [id number] Start: 08-04-2018 Comment on above: Description: Convert ed from [facility]. Please see archived information for full log information. 1 each once daily. With victoza injection [id number] End: 01-30-2024 Screw, Neville 3.[address] T15 Hexalobe Case [id number] Start: 08-04-2018 Comment on above: Description: Convert ed from [facility]. Please see archived information for full log information. Screw, Neville 3.[address] T15 Hexalobe Case [id number] Start: 08-04-2018 Comment on above: Description: Convert ed from [facility]. Please see archived information for full log information. 3.5 Mm Locking T Plate Three Hole Head Case [id number] Start: 08-04-2018 Comment on above: Description: Convert ed from [facility]. Please see archived information for full log information. Additional Information:ortho peds 3.5 mm locking t plate three hole headper bill only jdr 08/07/2018 1105am Screw, Neville 3.[address] T15 Hexalobe Case [id number] Start: 08-04-2018 Comment on above: Description: Convert ed from [facility]. Please see archived information for full log information. With saxenda injection [id number] Start: 01-30-2024 Functional Status Date Assessment Result Facility NEGATED: Highlighted row Functional performance Functional status health issues are not documented Disease DU-Gpaqybpgowjp-Gtl well 5100 Work Phone: Mental Status Date Assessment Result Facility NEGATED: Highlighted row Cognitive function [Interpretation] Cognitive status health issues are not documented Disease OY-Pzbqfgzykzyd-Rxt well 5100 Work Phone: Clinical Notes 01-29-2017 to 10-04-2024 PASQUALE QUAN - 10/04/2024 10:00 AM ESTLisa Kileytasia, WEB MACHINE TENDER - 10/04/2024 10:00 AM ESTLisa Augustinhchrisz, WEB MACHINE TENDER - 10/04/2024 6:58 AM ESTLisa Aichholz, WEB MACHINE TENDER - 10/04/2024 6:57 AM ESTPatient Instructions Note [...] plus lisinopril 10mg documented in this encounter [facility] 10-04-2024 Instructions Ashley Ashley NP - 10/04/2024 10:00 AM EST Anxiety/depression: follow up in 6 weeks, no dose changes at this time if worsens contact office Respiratory infection: finish atb, finish steroids, may try Dilip Med nasal irrigation (use distilled water) If continue to cough up bloody mucus let me know documented in this encounter [facility] 08-30-2024 History of Present illness Narrative Associated [...] Continue ketoconazole shampoo Associated Problem(s): Hypertension, essential (CMS/[facility]) Not at goal, is under the care of Tasia Quijano in [place] dating back to her child years Will [...] Items Addressed This Visit Anxiety and depression (CMS/[facility]) 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 Marissa De Leon is [...] never did that. They are working on [facility] authorization. Marissa would like to explore if [...] Ketones, Urine NEGATIVE mg/dl NEGATIVE POC Specific [place], Urine 1.005 - 1.035 >=1.030 POC Blood, [...] resources and how to get a case management director. Provided resources for CRISIS line to patient and discussed an action plan if she were to develop suicidal ideation. Her friend offered to serve as an emergency contact in times of crisis. Referral provided for the weight management and nutrition program at [facility] and phone number provided Discussed that she needed to contact Medicaid services to assure she has working insurance. She has no insurance cards today. Social work is aware Discussed that Medicaid services offers transportation for appointments. Follow-up with me in [place] in 3 months. Nurse will call to check blood pressures in 1-2 weeks. Jennifer Lock MD Pediatric Nephrology documented in this encounter [facility] Work Phone: 07-19-2024 Instructions Jennifer Lock MD - 07/19/2024 11:20 AM EDT Call your insurance and check on status of Medicaid. Request a case management director. Medicaid provides medical assistance transportation Check with [facility] to see if they have counselors who can help The 24-hour hotline for Suicide Prevention, Mental Health/Addiction Crisis, Information, and Referrals operated by [facility]: . Follow-up with me in [place] in 3 months. [facility]: Weight management and nutrition program. [phone] documented in this encounter [facility] Work Phone: 01-30-2024 History of Present illness [...] side effects. Wants to follow up with MANAGEMENT SUPERVISOR. Mother unexpectedly 5 months ago from Pulmonary [...] OCP, discussed that she should discuss with MANAGEMENT SUPERVISOR before resuming OCP given that mother had pulmonary embolus. Follow up 6 months. documented in this encounter [facility] Work Phone: 01-30-2024 Instructions Tasia Quijano MD - 01/30/2024 3:40 PM EDT Great seeing you. Resume Victoza at 1.8 mg, and when out switch to Saxenda 3 mg Due for annual labs Work on getting more walking in. When you discuss resuming control with MANAGEMENT SUPERVISOR, please discuss that your mother from a pulmonary embolus. Follow up 6 months documented in this encounter [facility] Work Phone: 08-01-2023 History of Present illness Narrative Subjective Marissa De Leon is a 18 y.o. female with obesity. Today Marissa presents to clinic with her mother. HPIDoing well, no illnesses. Going to school at [employer], accepted into [employer], wants to do nursing. Not working right [...] 13-18 <7.5 7-12 <8.0 0- 6 7.5-8.5 [employer]. Diabetes Care 33(S1), Oct 2009. Physical Exam Assessment/Plan Obesity with hypertension, insulin resistance. Doing well on Victoza. Wegovy not available, on back order. Losing weight gradually. Will meet with dietitian soon. Plan Switch to Wegovy when available. Transfer Knitter visit Increase physical activity. documented in this encounter [facility] Work Phone: 08-01-2023 Instructions Tasia Quijano MD - 08/01/2023 3:40 PM EDT Good job, continue Victoza until Wegovy becomes available. Up to date on labs. Schedule appointment with Colleen. Follow up in 6 months documented in this encounter [facility] Work Phone: 06-03-2023 Chief complaint Narrative - Reported An interactive audio and video telecommunication system which permits real time communications between the patient (at the originating site) and provider (at the distant site) was utilized to provide this telehealth service.Verbal consent was requested and obtained from MARISSA DE LEON on this date, 06/03/2023 06:55 AM , for a telehealth visit. 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 [employer] 09-30-2022 Note Diagnoses/Problems Well child visit (V20.2) (Z00.129) Orders IO UA (automated w/o microscopy); Status:Complete; Done: [id number] 04:25PM Renew: Lisinopril-hydroCHLOROthiazide 20-12.5 MG Oral Tablet; [...] follow-up in 3 months. Jennifer Lock MD Ship'S Master, Pediatrics Brood Hatchery Manager, Pediatric Nephrology [facility] [address] [address] [place] [address] (p) [phone] Chief Complaint 17 year old female patient is here today for follow up visit. Accompanied by mother. History of Present Illness I had the pleasure of seeing Marissa De Leon in Nephrology Clinic at [facility] for a follow-up evaluation of hypertension. As [...] disease, stroke, hypertension, diabetes, and hypercholesterolemia. First [place] at 36 years of age 4. Maternal Uncle - hypertension in his 20s 5. Sister - preeclampsia Social History: Marissa lives with family and has an older sister who just had a baby. 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 Review of Systems The remainder of a [...] 20-12.5 MG Oral TabletTAKE 1 TABLET DAILY. Donley-Linyah (more content not included)... [employer] 06-02-2022 Chief complaint Narrative - Reported An interactive audio and video telecommunication system which permits real time communications between the patient (at the originating site) and provider (at the distant site) was utilized to provide this telehealth service.Verbal consent was requested and obtained from MARISSA DE LEON on this date, 06/02/2022 08:56 AM , for a telehealth visit. MO-Udofbjyhlo-Magcvxakju k 220 Work Phone: 01-30-2022 History of Present illness Narrative I had the pleasure of seeing Marissa De Leon in Nephrology Clinic at [facility] for a virtual follow-up evaluation of hypertension. [...] disease, stroke, hypertension, diabetes, and hypercholesterolemia. First [place] at 36 years of age4. Maternal Uncle - hypertension in his 20sSocial History:Marissa lives with family and has an older sister who is expecting a baby. 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 Marissa has a lizard, 2 cats, and a dog. JM-Zuivzddcqd-WkbfpnzvChamate Work Phone: 01-18-2022 Chief complaint Narrative - Reported An interactive audio and video telecommunication system which permits real time communications between the patient (at the originating site) and provider (at the distant site) was utilized to provide this telehealth service.Verbal consent was requested and obtained from MARISSA DE LEON on this date, 01/18/2022 01:49 PM , for a telehealth visit. TV-Rtaiktdkcl-RigbtjbnChamate Work Phone: 08-11-2021 History of Present illness [...] and physical activityNutrition EducationThinking about working at [employer].Wanting to learn to drive...Encouraged activity - walking to work. Patient helps take care of nephew.Try to eat slowly.Will task Cody and see if family can work with eating behaviors - suspect binge eating is occurring.Keep working on healthier food choices and your portions. VO-Lbckdzeuut-YvpnijunChamate Work Phone: 10-11-2021 History of Present illness Narrative Medical Nutrition [...] about Kaya DonutsWanting to learn to drive... [employer] 5904 Work Phone: 03-31-2021 History of Present illness Narrative Marissa and her mother are here for follow up of obesity and insulin resistance.Back to school in person, sophomore, has temps.Lyndora teeth out in March.Exercise - chasing nephew [...] are regular, heavy first couple of days [employer] 6124 Work Phone: 01-29-2017 History of Present illness Narrative I had the pleasure of seeing Marissa De Leon in Nephrology Clinic at [facility] for a virtual follow-up evaluation of hypertension. [...] disease, stroke, hypertension, diabetes, and hypercholesterolemia. First [place] at 36 years of age4. Maternal Uncle - hypertension in his 20sSocial History:Marissa lives with family and has an older sister who is expecting a baby. 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 Marissa has a lizard, 2 cats, and a dog. YI[facility]atyrzpb[facility] Work Phone: 01-29-2017 History of Present illness Narrative I had the pleasure of seeing Marissa De Leon in Nephrology Clinic at [facility] for a follow-up evaluation of hypertension. As [...] disease, stroke, hypertension, diabetes, and hypercholesterolemia. First [place] at 36 years of age4. Maternal Uncle - hypertension in his 20sSocial History:Marissa lives with family and has an older sister who is expecting a baby. 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 Marissa has a lizard, 2 cats, and a dog. QQ-Zflsxaikex-Rtolwkwb 1600 Work Phone: 01-29-2017 History of Present illness Narrative I had the pleasure of seeing Marissa De Leon in Nephrology Clinic at [facility] for a follow-up evaluation of hypertension. As [...] disease, stroke, hypertension, diabetes, and hypercholesterolemia. First [place] at 36 years of age4. Maternal Uncle - hypertension in his 20s5. 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 ZR-Dahhattqwf-Nstwzbcp 1600 Work Phone: 01-29-2017 History of Present illness Narrative I had the pleasure of seeing Marissa De Leon in Nephrology Clinic at [facility] for a follow-up evaluation of hypertension. As [...] disease, stroke, hypertension, diabetes, and hypercholesterolemia. First [place] at 36 years of age4. Maternal Uncle - hypertension in his 20s5. 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 JL-Zxqstjgofu-Xaaltqkg 1600 Work Phone: 01-29-2017 History of Present illness Narrative I had the pleasure of seeing Marissa De Leon in Nephrology Clinic at [facility] for a follow-up evaluation of hypertension. As [...] disease, stroke, hypertension, diabetes, and hypercholesterolemia. First [place] at 36 years of age4. Maternal Uncle - hypertension in his 20s5. 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 TJ-Nkpbkrjpwx-Gjpbai [facility] Work Phone: Evaluation note Diagnosis Obesity peds (BMI >=95 percentile)- Primary Hypertension, essential Unspecified essential hypertension Insulin resistance Other abnormal glucose Vitamin D deficiency documented in this encounter [facility] Work Phone: Evaluation note* Diagnosis Obesity peds (BMI >=95 percentile)- Primary Insulin resistance Other abnormal glucose Vitamin D deficiency documented in this encounter [facility] Work Phone: Evaluation noteNo assessment information available [facility] Work Phone: Evaluation note* Diagnosis Onset Date Resolution Status Contact with and (suspected) exposure to covid-19 noneactive [facility] Work Phone: Evaluation note* Diagnosis Tinea versicolor- [...] access to vehicle documented in this encounter [facility] Work Phone: History of Present illness Narrative* Medical Nutrition Therapy (Obesity) * Diet History * Breakfast: * Lunch: * Snack: * Dinner: * Nutrition Diagnosis: Obesity related to imbalance between calorie intake and physical activity * Nutrition Education [facility] 220 Work Phone: History of Present [...] - 830-4 * Lunch: eggs * Dinner: [facility] - steak + potatoes + shrimp + [...] wisdom teeth removed * using devan called [employer] * Nutrition Diagnosis: Obesity related to imbalance [...] job - great way to get activity. DI-Bzavehbvvi-Yeelwylacnc HESKA Work Phone: History of Present illness Narrative* [...] - her animals * starting work at [employer] - 5-6 hours a night - [...] may be more active starting job at [employer] - possibly starting to go to gym. Strongly advised her to avoid [employer] foods - high in sodium and calories. * Encouraged home cooked dinners - try to keep including asparagus, salad or other vegetables. * Follow up virtually next month. XZ-Tytyibvcmq-Zcpjlmfr 1600 Work Phone: History of Present illness Narrative* Marissa and her mother are here for follow up of obesity and insulin resistance. * Back to school in person, sophomore, has temps. HOnor roll. * Put in application for [employer] - vocational school for nursing * Will be working at [employer] with mother. * General health has been ok. * Exercise - chasing nephew around house, walks around school. No PE in school. Wants to start walking track at school once it gets warmer, family member has a discount pass to [facility] * Had genetics eval: [facility] panel [...] are regular, heavy first couple of days GQ-Axdytwwxos-Bxajrz [facility] Work Phone: History of Present [...] Vit D * working a lot at [employer] - 20 hours * thinks losing weight - home scale is not working - clothes are looser * Nutrition Diagnosis: Improved obesity as evidenced by possible weight loss related to increased activity with job and decreased eating * Nutrition Education * Keep drinking lots of water or SF beverages. * Keep eating all of her meals. * DIscussed [employer] foods and eating less sodium - taking breading off and eating corn seem like lower sodium choices. 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 * Follow up in April with . LC-Adwvtyliex-Pcyjnurd 1600 Work Phone: History of Present illness [...] cucumber - pepper; peaches (60) * working [employer] = popcorn chicken or mac and cheese [...] * Patient with a new phone -downloaded [employer] and discussed having her journal for about a week. * RDN will check in and see is journal is helpful. Reschedule - May 3 - virtual. * Continue eating more fruits and vegetables. Stick with the sugar free beverages. PJ-Mhpdnvicij-Jghc Admin [facility] 737 Work Phone: History of Present illness Narrative* Medical Nutrition Therapy (Obesity) * Patient recently got a [employer] Phone - working to have her food [...] + cheese + almonds * Calories - NG [employer] - 1821 calories * trying to eat well with sister * has been sick - throat infection * Nutrition Diagnosis: On-going obesity related to imbalance between calorie intake and physical activity * Nutrition Education * Encouraged patient to keep trying to food journal - you get better at remembering the more often you do it. Work towards a goal of 7264-5865 calories per day which hopefully is less [...] a virtual - Jun 16 at 3:00. CB-Lxebyjdygl-Hvhlfgxemaw 220 Work Phone: History of Present illness [...] from diet * - Exercise: goes to [facility] for exercise, works out * once per week (will swim, use treadmill).Plays with nephew. 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 Denies headaches, chest pain. * - Plan to see sleep doctor for insomnia and snores (does not have diagnosed ANDREINA) * - Stopped control 3 months ago: has not had period since February * No new medications, no recent infections. BR-Bxxplhwvan-Jwqeegkx 1600 Work Phone: History of Present illness [...] diet * - 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[employer] * - Followed up with nephrology * - Plan to see sleep doctor for insomnia and snores (does not have diagnosed ANDREINA) * No new medications, no recent infections. XT-Thvvudgatk-Qbbn Admin RBC 737 Work Phone: History of Present illness Narrative* Medical Nutrition Therapy (Obesity) * Diet History * Breakfast: 1030 - trying - banana OR cereal - sugary (2-3 days a week) * Snack: cheese stick or pretzels * Lunch: chicken breast (4 oz) - Mrs Che with butter - duran fried + rice [...] * 1. Wants to exercise * 2. WM-Nftioqjyeo-Cdkhxvuojiq 220 Work Phone: History of Present illness Narrative* Medical Nutrition Therapy (Obesity) * Diet History * Breakfast: 1030 - trying - banana OR cereal - sugary (2-3 days a week) * Snack: cheese stick or pretzels * Lunch: chicken breast (4 oz) - Mrs Che with butter - duran fried + rice [...] on a virtual appointment in a month. 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 Follow up in a month. MF-Mdywujinqg-Qieufo [facility] Work Phone: [facility] for referral (narrative)* Consultation (Routine) - Authorized Specialty Diagnoses / Procedures Referred By Chele ellsworth Referred To Contact Pediatric Nephrology Diagnoses Morbid obesity with BMI of 50.0-59.9, adult (Multi) Hypertension, essential Procedures Follow [place] [address] Department of Pediatrics-Nephrology [place] [id number] Referral ID Status Reason Start Date Expiration Date V isits Requested Visits Authorized [id number] Authorized 07/19/2024 07/19/2025 1 1 * Consultation (Routine) - Pending Review Specialty Diagnoses / Procedures Referred By Chele ellsworth Referred To Contact Bariatrics Diagnoses Morbid obesity with BMI of 50.0-59.9, adult ([place]) [place] [address] [place] [facility] [place] [address] Other - [facility] [address] [place] [address] Referral ID Status Reason Start Date Expiration Date Visits Requested Visits Authorized [id number] Pending Review Specialty Services Required 07/19/2024 07/19/2025 [address] [facility] Work Phone: Summary Purpose Family History No Family History Records FoundUnknown Family Member Name Dates Details Family history of migraine h eadaches(V17.2, Z82.0) Comments:Paternal Relatives Status:Active Grandmother Name Dates Details Family history of hypertensi on(V17.49, Z82.49) Status:Active Family history of hyperlipid emia(V18.19, Z83.438) Status:Active FHx: early coronary artery d isease(V17.3, Z82.49) Status:Active FHx: early [place](V17.3, Z82.49) Status:Active uncle Name Dates Details Family [...] artery d isease(V17.3, Z82.49) Status:Active FHx: early [place](V17.3, Z82.49) Status:Active uncle Name Dates Details Family [...] artery d isease(V17.3, Z82.49) Status:Active FHx: early [place](V17.3, Z82.49) Status:Active uncle Name Dates Details Family [...] artery d isease(V17.3, Z82.49) Status:Active FHx: early [place](V17.3, Z82.49) Status:Active uncle Name Dates Details Family [...] artery d isease(V17.3, Z82.49) Status:Active FHx: early [place](V17.3, Z82.49) Status:Active uncle Name Dates Details Family [...] artery d isease(V17.3, Z82.49) Status:Active FHx: early [place](V17.3, Z82.49) Status:Active uncle Name Dates Details Family [...] artery d isease(V17.3, Z82.49) Status:Active FHx: early [place](V17.3, Z82.49) Status:Active uncle Name Dates Details Family [...] isease: Maternal Grandmother(V17.3, Z82.49) Status:Active FHx: early [place]: Maternal Gran dmother(V17.3, Z82.49) Status:Active Family history [...] isease: Maternal Grandmother(V17.3, Z82.49) Status:Active FHx: early [place]: Maternal Gran dmother(V17.3, Z82.49) Status:Active Family history [...] isease: Maternal Grandmother(V17.3, Z82.49) Status:Active FHx: early [place]: Maternal Gran dmother(V17.3, Z82.49) Status:Active Family history [...] isease: Maternal Grandmother(V17.3, Z82.49) Status:Active FHx: early [place]: Maternal Gran dmother(V17.3, Z82.49) Status:Active Family history [...] isease: Maternal Grandmother(V17.3, Z82.49) Status:Active FHx: early [place]: Maternal Gran dmother(V17.3, Z82.49) Status:Active Family history [...] isease: Maternal Grandmother(V17.3, Z82.49) Status:Active FHx: early [place]: Maternal Gran dmother(V17.3, Z82.49) Status:Active Family history [...] isease: Maternal Grandmother(V17.3, Z82.49) Status:Active FHx: early [place]: Maternal Gran dmother(V17.3, Z82.49) Status:Active Family history [...] isease: Maternal Grandmother(V17.3, Z82.49) Status:Active FHx: early [place]: Maternal Gran dmother(V17.3, Z82.49) Status:Active Family history of mental ret ardation: Paternal Uncle(V18.4, Z81.0) Status:Active Anxiety and depression: Moth er, Father Status:Active Family history of hypertensi on: Mother, Father, Maternal Grandmother(V17.49, Z82.49) Status:Active Unknown Family Member Name Dates Details Anxiety and depression: Moth er, Father Status:Active Family history of mental ret ardation: Paternal Uncle(V18.4, Z81.0) Status:Active FHx: early [place]: Maternal Gran dmother(V17.3, Z82.49) Status:Active FHx: early [...] isease: Maternal Grandmother(V17.3, Z82.49) Status:Active FHx: early [place]: Maternal Gran dmother(V17.3, Z82.49) Status:Active Family history [...] isease: Maternal Grandmother(V17.3, Z82.49) Status:Active FHx: early [place]: Maternal Gran dmother(V17.3, Z82.49) Status:Active Family history [...] isease: Maternal Grandmother(V17.3, Z82.49) Status:Active FHx: early [place]: Maternal Gran dmother(V17.3, Z82.49) Status:Active Family history [...] isease: Maternal Grandmother(V17.3, Z82.49) Status:Active FHx: early [place]: Maternal Gran dmother(V17.3, Z82.49) Status:Active Family history [...] isease: Maternal Grandmother(V17.3, Z82.49) Status:Active FHx: early [place]: Maternal Gran dmother(V17.3, Z82.49) Status:Active Family history [...] isease: Maternal Grandmother(V17.3, Z82.49) Status:Active FHx: early [place]: Maternal Gran dmother(V17.3, Z82.49) Status:Active Family history [...] isease: Maternal Grandmother(V17.3, Z82.49) Status:Active FHx: early [place]: Maternal Gran dmother(V17.3, Z82.49) Status:Active Family history [...] isease: Maternal Grandmother(V17.3, Z82.49) Status:Active FHx: early [place]: Maternal Gran dmother(V17.3, Z82.49) Status:Active Family history [...] isease: Maternal Grandmother(V17.3, Z82.49) Status:Active FHx: early [place]: Maternal Gran dmother(V17.3, Z82.49) Status:Active Family history [...] isease: Maternal Grandmother(V17.3, Z82.49) Status:Active FHx: early [place]: Maternal Gran dmother(V17.3, Z82.49) Status:Active Family history [...] isease: Maternal Grandmother(V17.3, Z82.49) Status:Active FHx: early [place]: Maternal Gran dmother(V17.3, Z82.49) Status:Active Family history [...] isease: Maternal Grandmother(V17.3, Z82.49) Status:Active FHx: early [place]: Maternal Gran dmother(V17.3, Z82.49) Status:Active Family history [...] isease: Maternal Grandmother(V17.3, Z82.49) Status:Active FHx: early [place]: Maternal Gran dmother(V17.3, Z82.49) Status:Active Family history [...] isease: Maternal Grandmother(V17.3, Z82.49) Status:Active FHx: early [place]: Maternal Gran dmother(V17.3, Z82.49) Status:Active Family history [...] isease: Maternal Grandmother(V17.3, Z82.49) Status:Active FHx: early [place]: Maternal Gran dmother(V17.3, Z82.49) Status:Active Family history [...] isease: Maternal Grandmother(V17.3, Z82.49) Status:Active FHx: early [place]: Maternal Gran dmother(V17.3, Z82.49) Status:Active Family history [...] isease: Maternal Grandmother(V17.3, Z82.49) Status:Active FHx: early [place]: Maternal Gran dmother(V17.3, Z82.49) Status:Active Family history [...] isease: Maternal Grandmother(V17.3, Z82.49) Status:Active FHx: early [place]: Maternal Gran dmother(V17.3, Z82.49) Status:Active Family history [...] isease: Maternal Grandmother(V17.3, Z82.49) Status:Active FHx: early [place]: Maternal Gran dmother(V17.3, Z82.49) Status:Active Family history [...] isease: Maternal Grandmother(V17.3, Z82.49) Status:Active FHx: early [place]: Maternal Gran dmother(V17.3, Z82.49) Status:Active Family history [...] isease: Maternal Grandmother(V17.3, Z82.49) Status:Active FHx: early [place]: Maternal Gran dmother(V17.3, Z82.49) Status:Active Family history [...] isease: Maternal Grandmother(V17.3, Z82.49) Status:Active FHx: early [place]: Maternal Gran dmother(V17.3, Z82.49) Status:Active Family history [...] isease: Maternal Grandmother(V17.3, Z82.49) Status:Active FHx: early [place]: Maternal Gran dmother(V17.3, Z82.49) Status:Active Family history [...] isease: Maternal Grandmother(V17.3, Z82.49) Status:Active FHx: early [place]: Maternal Gran dmother(V17.3, Z82.49) Status:Active Family history [...] isease: Maternal Grandmother(V17.3, Z82.49) Status:Active FHx: early [place]: Maternal Gran dmother(V17.3, Z82.49) Status:Active Family history [...] isease: Maternal Grandmother(V17.3, Z82.49) Status:Active FHx: early [place]: Maternal Gran dmother(V17.3, Z82.49) Status:Active Family history [...] >=95 percentile) [place] [address] [place] [address] Referral ID Status Reason Start Date Expiration Date V isits Requested Visits Authorized [id number] Pending Review 1 1 Chief Complaint and Reason for Visit Chief Complaint Ear pain Chief Complaint Congestion, sob, hea daches Reason for Visit Contact with and (morales spected) exposure to covid-19 Additional Source Comments INFORMATION SOURCE (unrecogn ized section and content) DATE CREATED AUTHOR 01/16/2019 [facility] DATE CREATED AUTHOR AUTHOR'S ORGANIZ ATION 02/16/2019 [facility] DATE CREATED AUTHOR AUTHOR'S ORGANIZ ATION 02/21/2019 [facility] DATE CREATED AUTHOR AUTHOR'S ORGANIZ ATION 03/23/2019 [facility] DATE CREATED AUTHOR AUTHOR'S ORGANIZ ATION 06/02/2022 [facility] DATE CREATED AUTHOR AUTHOR'S ORGANIZ ATION 06/08/2023 [facility] DATE CREATED AUTHOR AUTHOR'S ORGANIZ ATION 06/08/2023 [facility] DATE CREATED AUTHOR AUTHOR'S ORGANIZ ATION 08/05/2024 [facility] DATE CREATED AUTHOR AUTHOR'S ORGANIZ ATION 09/01/2024 [facility] EPIC DATE CREATED AUTHOR AUTHOR'S ORGANIZ ATION 12/22/2024 [facility] DATE CREATED AUTHOR AUTHOR'S ORGANIZ ATION 12/29/2024 [facility] Reason for Visit (unrecogniz ed section and content) Reason Comments Obesity Reason Comments Insulin resistance Reason Comments Anxiety Reason Comments Hypertension Care Teams (unrecognized sec tion and content) Pull Over Relationship Specialty Start Date End Date Ashley Ashley APRN-SENIOR TAX ANALYST [address] [place] [address] PCP - General 01/29/19 [place] [address] [place] [address] PCP - [facility] Medicaid PCP 01/29/23 Pull Over Relationship Specialty Start Date End Date Ashley Ashley APRN-SENIOR TAX ANALYST [address] [place] [phone] PCP - General 01/29/19 [place] [address] Department [place] [address] PCP - [facility] Medicaid PCP 10/31/23 Team Status: Active Member Role Status Dates Ashley Ashley Primary Care Provider Active Team Status: Inactive Member Role Status Dates Maida Jeffery APRN Attending Provider Active Start: February 23, 2024 End: February 23, 2024 Ahsley Ashley Primary Care Provider Active Sta rt: February 23, 2024 End: February 23, 2024 Team Status: Inactive Member Role Status Dates Ashley Ashley Primary Care Provider Active Sta rt: June 28, 2024 End: June 28, 2024 Maida Jeffery APRN Attending Provider Active Start: June 28, 2024 End: June 28, 2024 Pull Over Relationship Specialty Start Date End Date Capo Sargent MD [address] [place] [phone] PCP - General Family Medicine 03/05/24 Ashley Ashley NP [address] [place] [phone] Nurse Practitioner Family Medicine 08/31/23 Ashley Ashley NP [address] [place] [phone] Nurse Practitioner Family Medicine 03/05/24 Pull Over Relationship Specialty Start Date End Date Capo Sargent MD [address] [place] [phone] PCP - General Family Medicine 03/05/24 Ashley Ashley NP [address] [place] [phone] Nurse Practitioner Family Medicine 08/31/23 Ashley Ashley NP [address] [place] [phone] Nurse Practitioner Family Medicine 03/05/24 Pull Over Relationship Specialty Start Date End Date Capo Sargent MD [address] [place] [phone] PCP - General Family Medicine 03/05/24 Ashley Ashley NP [address] [place] [phone] Nurse Practitioner Family Medicine 08/31/23 Ashley Ashley NP [address] [place] [phone] Nurse Practitioner Family [facility] 03/05/24 Pull Over Relationship Specialty Start Date End Date Ashley Ashley APRN-SENIOR TAX ANALYST [address] [place] [address] PCP - General 01/29/19 [place] [address] Department [place] [address] PCP - [facility] Medicaid PCP 04/30/24 Goals (unrecognized section and [...] BE BASED ON THE PRIMARY CLINICAL RECORDS. [facility] [employer], [facility]. provides no warranty or guarantee of the accuracy or completeness of information in this document.
--- NOTE | 2025-01-20 16:48 | ED_ITS ---
HPI - URI/Sore Throat General Chief Complaint: Upper Respiratory Infection Stated Complaint: FLU LIKE SYMPTOMS Time Seen by Provider: 01/20/25 16:31 Source: patient Limitations: no limitations History of Present Illness HPI Narrative: Patient is a 19-year-old female who presents to the emergency department for the evaluation of upper respiratory symptoms for the last 2 to 3 days. She reports nausea without vomiting. She has had diarrhea. She reports nasal congestion, cough, sore throat. She has not had any objective fevers. She has no concern for . Related Data Home Medications ?Medication ?Instructions ?Recorded ?Confirmed benzonatate 100 mg capsule 100 mg PO Q6H 10/22/24 10/22/24 prednisone 10 mg tablet mg 10/22/24 buspirone 5 mg tablet 5 mg PO DAILY 11/21/24 11/21/24 Previous Rx's ?Medication ?Instructions ?Recorded albuterol sulfate 90 mcg/actuation 2 inh inhalation Q4H PRN shortness 10/29/23 aerosol inhaler of breath or wheezing #8.5 grams amoxicillin 500 mg capsule 500 mg PO TID 10 days #30 caps 10/29/23 zhovmcjqcxqobxu-gjuqvjccipnmtlh-BB 10 ml PO Q6H PRN cold symptoms 10/29/23 2 mg-30 mg-10 mg/5 mL oral syrup #200 mL (Bromfed DM) methocarbamol 750 mg tablet 750 mg PO Q6H PRN pain #20 tabs 05/05/24 anfzhtnydcfbtsr-tdndauxblosidhv-HG 10 ml PO Q6H PRN cold symptoms 10/22/24 2 mg-30 mg-10 mg/5 mL oral syrup #200 mL (Bromfed DM) cefdinir 300 mg capsule 300 mg PO BID 10 days #20 caps 10/22/24 dexamethasone 4 mg tablet 4 mg PO BID 5 days #10 tabs 10/22/24 ondansetron 4 mg disintegrating 4 mg PO Q6H PRN nausea and 10/22/24 tablet vomiting #12 tabs acetaminophen 500 mg tablet 500 mg PO Q4H PRN fever or pain 11/21/24 (Tylenol Extra Strength) #14 tabs cetirizine 10 mg tablet (Zyrtec) 10 mg PO DAILY #10 tabs 11/21/24 guaifenesin 600 mg tablet, 600 mg PO Q12H PRN congestion #10 11/21/24 extended release 12 hr (Mucinex) tabs ujrmtukjwcgvenq-nsqwvezlhuxskuf-CW 10 ml PO Q6H PRN cold symptoms 01/20/25 2 mg-30 mg-10 mg/5 mL oral syrup #200 mL (Bromfed DM) ondansetron 4 mg disintegrating 4 mg PO Q6H PRN nausea and 01/20/25 tablet vomiting #12 tabs Allergies Allergy/AdvReac Type Severity Reaction Status Date / Time ibuprofen (From Motrin) AdvReac Hypertensio Verified 11/21/24 20:24 n Review of Systems ROS Constitutional Denies: fever or chills Ears, nose, mouth, and throat Reports: throat pain and nasal congestion Cardiovascular Denies: chest pain Respiratory Reports: cough; Denies: shortness of breath Gastrointestinal Reports: nausea and diarrhea; Denies: vomiting Musculoskeletal Denies: back pain Integumentary/Breast Denies: rash Neurological Reports: headache; Denies: numbness in extremities or weakness in extremities Hematologic/Lymphatic Denies: easy bruising or easy bleeding PFSH PFSH Social History Smoking status: Never smoker Little interest or pleasure in doing things: not at all Feeling down, depressed, or hopeless: not at all Exam Narrative Exam Narrative: Gen.: Awake, alert, in no distress Head: Normocephalic, atraumatic ENT: Moist mucous membranes, no pharyngeal erythema, uvula midline. Clear speech. Left TM is minimally erythematous Respiratory: No respiratory distress, lungs clear bilaterally, no coughing noted Cardio: Regular rate and rhythm Extremities: Moves extremities equally Psych: Normal mood and affect Neuro: No focal neuro deficit Skin: Warm, dry, intact Constitutional Vital Signs, click to edit/add: Last Vital Signs Temp 98.1 F 01/20/25 16:32 Pulse 112 H 01/20/25 16:32 Resp 18 01/20/25 16:32 BP 121/53 01/20/25 16:32 Pulse Ox 97 01/20/25 16:32 Course Vital Signs Vital signs: Vital Signs Temperature 98.1 F 01/20/25 16:32 Pulse Rate 112 H 01/20/25 16:32 Respiratory Rate 18 01/20/25 16:32 Blood Pressure 121/53 01/20/25 16:32 Pulse Oximetry 97 01/20/25 16:32 Temperature 98.1 F 01/20/25 16:32 Pulse Rate 112 H 01/20/25 16:32 Respiratory Rate 18 01/20/25 16:32 Blood Pressure 121/53 01/20/25 16:32 Pulse Oximetry 97 01/20/25 16:32 MDM - URI/Sore Throat MDM Narrative Medical decision making narrative: Strep, flu, COVID is negative. Patient treated with Zofran and Decadron in the ER and discharged home with Bromfed-DM, Zofran for home. Follow-up with PCP and return to the ER if symptoms change or worsen SHARED APC VISIT, PHYSICIAN ATTESTATION: Sgmh-ht-qpdg I performed a substantive part of the MDM during the patient?s E/M visit. I personally evaluated and examined the patient. I personally made or approved the documented management plan and acknowledge its risk of complications. Medical Records Attestation: I reviewed the patient's medical records. Lab Data Attestation: I reviewed the patient's lab results. Labs: Lab Results 01/20/25 Range/Units 16:30 Influenza Type A Ag Negative Influenza Type B Ag Negative SARS-CoV-2 Ag (CV2AG) Negative (NEGATIVE) Discharge Plan Discharge Chief Complaint: Upper Respiratory Infection Clinical Impression: Upper respiratory infection Patient Disposition: Home, Self-Care Time of Disposition Decision: 17:23 Condition: Good Prescriptions / Home Meds: New qxzpkcnwzvdgeyz-xphbdmuih-QC [Bromfed DM] 2-30-10 mg/5 mL syrup 10 ml PO Q6H PRN (Reason: cold symptoms) Qty: 200 0RF ondansetron 4 mg tablet,disintegrating 4 mg PO Q6H PRN (Reason: nausea and vomiting) Qty: 12 0RF No Action benzonatate 100 mg capsule 100 mg PO Q6H prednisone 10 mg tablet dexamethasone 4 mg tablet 4 mg PO BID 5 Days Qty: 10 0RF xnojmbqnimvmunk-dbbsvghgz-NZ [Bromfed DM] 2-30-10 mg/5 mL syrup 10 ml PO Q6H PRN (Reason: cold symptoms) Qty: 200 0RF ondansetron 4 mg tablet,disintegrating 4 mg PO Q6H PRN (Reason: nausea and vomiting) Qty: 12 0RF cefdinir 300 mg capsule 300 mg PO BID 10 Days Qty: 20 0RF buspirone 5 mg tablet 5 mg PO DAILY acetaminophen [Tylenol Extra Strength] 500 mg tablet 500 mg PO Q4H PRN (Reason: fever or pain) Qty: 14 0RF guaifenesin [Mucinex] 600 mg tablet extended release 12hr 600 mg PO Q12H PRN (Reason: congestion) Qty: 10 0RF cetirizine [Zyrtec] 10 mg tablet 10 mg PO DAILY Qty: 10 0RF amoxicillin 500 mg capsule 500 mg PO TID 10 Days Qty: 30 0RF albuterol sulfate 90 mcg/actuation HFA aerosol inhaler 2 inh inhalation Q4H PRN (Reason: shortness of breath or wheezing) Qty: 8.5 0RF tlhklhfdqgyuage-ijqmlfwsw-XY [Bromfed DM] 2-30-10 mg/5 mL syrup 10 ml PO Q6H PRN (Reason: cold symptoms) Qty: 200 0RF methocarbamol 750 mg tablet 750 mg PO Q6H PRN (Reason: pain) Qty: 20 0RF Print Language: Northern Irish Instructions: Upper Respiratory Infection (ED) Referrals: Ashley Ashley NP [Primary Care Provider] - 1 week
[2025-01-20] MEDS: ONDANSETRON 4 MG RAPDIS TABLET SL (17:06)
[2025-01-20] MEDS: DEXAMETHASONE SOD PHOS 10 MG/ML VIAL IV (17:06)
[2025-01-20 17:15] LABS: Influenza Virus A Antigen Negative; Influenza Virus B Antigen Negative; Internal Control Within Normal Limits; SARS-CoV-2 Ag NEGATIVE (NEGATIVE)
[2025-01-20 18:09] LABS: Internal Control Within Normal Limits; Strep A Antigen Screen Negative
== END 2025-01-20 17:31 | disposition home or self-care (01) ==
PROVIDERS: Physician Assistant; Emergency Provider Emergency Medicine; PCP Nurse Practitioner
DX: J06.9 Acute upper respiratory infection, unspecified (principal)
CPT/HCPCS: 87070; 87804; 87811; 87880; 99285; J1100; Q0162

== ENCOUNTER 2025-09-10 13:50 | Outpatient (OUT) | payer SELFPAY ==
--- OUTSIDE RECORDS SUMMARY | 2017-10-26 06:56 | XMS_ITS | Continuity of Care Document ---
Author Organization [facility] Address [address] [place] [address] Phone Care Team Providers Care Collision Estimator Name Role Phone Winston Rodriguez MD Unavailable Unavailable Medications Medication Instructions Dosage Effective Dates (start - stop) Status Comments Zyrtec 10 mg tablet - Active Singulair 10 mg tablet - Active melatonin 5 mg tablet - Active Procedures Procedure Date Imm Admin Through 18 Yrs Of Age 017 HPV 9 Valent OFFICE/OUTPATIENT VISIT, EST Meningococcal Conjugate Vaccine 017 TDAP VACCINE >7 IM HPV 9 Valent No Charge Sealant Per Tooth Sealant Per Tooth Sealant Per Tooth Sealant Per Tooth Prophylaxis Child Topical Maicol Of Flouride Varnish 014 Bitewings-two Films Panoramic Film Comp Oral Eval New/estab Patient 2013 OFFICE/OUTPATIENT VISIT, EST HEP A VACC, PED/ADOL, 2 DOSE OFFICE/OUTPATIENT VISIT, EST DTAP VACCINE, < 7 YRS, IM MMR VACCINE, SC POLIOVIRUS, IPV, SC/IM CHICKEN POX VACCINE, SC Advance Directives Directive Yes / No Effective Date File Name No Information Encounters Encounter Description Practice Location Reason(s) For Visit Diagnoses Date Provider Providers Copied on Encounter [facility], [address], [place], [id number], [place] tel:[phone] [facility] No Information Michael Montero. [address], [place], [id number], [place]. tel:[phone] [facility], [address], [place], [id number], [place] tel:[phone] [facility] No Information Waylon Lopes. [address], [place], [id number], [place]. tel:[phone] OFFICE/OUTPATI ENT VISIT, [facility], [address], [place], [id number], [place] tel:[phone] [facility] No Information Waylon Lopes. [address], [place], [id number], [place]. tel:[phone] [facility], [address], [place], [id number], [place] tel:[phone] [facility] No Information Bobby DMD Rea. [address], [place], [id number], [place]. tel:[phone] [facility], [address], [place], [id number], [place] tel:[phone] Dental Clinic Dental examination Bobby DMD Rea. [address], [place], [id number], [place]. tel:[phone] [facility], [address], [place], [id number], [place] tel:[phone] Dental Clinic Dental examination Bobby DMD Rea. [address], [place], [id number], [place]. tel:[phone] OFFICE/OUTPATI ENT VISIT, [facility], [address], [place], [id number], [place] tel:[phone] [facility] No Information Waylon Lopes. [address], [place], [id number], [place]. tel:[phone] OFFICE/OUTPATI ENT VISIT, EST [facility], [address], [place], [id number], [place] tel:[phone] [facility] No Information Vischuber Lopes. [address], [place], [id number], [place]. tel:[phone] Family History Family Member Type Diagnosis Age At Onset Problem (finding) Family history of malignant neoplasm of bone Problem (finding) Family history of Diabe zaynab mellitus Problem (finding) Family history of hyper tension Immunizations Vaccine Date Status Comments HPV (9-valent) administered Source: New I mmunization Record Influenza virus vaccine, injectable, quadrivalent, split virus, preservative free, 3 years or older Fluarix, Flulaval or Fluzone Quad refused Source: New Immuniza tion Record Influenza virus vaccine, injectable, quadrivalent, split virus, preservative free, 3 years or older Fluarix, Flulaval or Fluzone Quad refused Source: New Immuniza tion Record Tdap administered Source: New Imm unization Record HPV (9-valent) administered Source: New I mmunization Record MCV4 administered Source: New Imm unization Record Hep A (ped/adol, 2 dose) administered Liliana rce: New Immunization Record Varicella administered Source: New Imm unization Record MMR administered Source: New Imm unization Record polio, inactive administered Source: New Immunization Record DTaP (younger than 7 yrs) administered So urce: New Immunization Record Payers Payer name Insurance type Covered constitution party ID Authoriza tion(s) [facility] [id number] Medicaid [facility] [id number] [facility] [id number] Medicaid Wrap - [facility] [place] [id number] [facility] [id number] Medicaid Wrap - [facility] [place] [id number] Social History Type Description Quantity Date Captured Comments Sex Female Smoking Status No Information Chief Complaint And Reason For Visit No Information Reason For Referral Reason For Referral No Information History Of Present Illness Encounter Date Complaint History Of Prese nt Illness No Information Functional Status Date Functional Assessmen t No Information Instructions Date Instruction Additional Infor mation No Information Assessments Type Assessment Date No Information Patient Care Teams Name Effective Dates (start - stop) Status Members No Information
--- OUTSIDE RECORDS SUMMARY | 2025-09-10 14:16 | XMS_ITS | Continuity of Care Document ---
Author Organization 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 Name Role Phone Ashley Ashley NP-Umair Primary Care Provider Ashley Ashley Attending Provider Care Teams Patient Care Team Team Status: Active Member Role/Relationship Status Dates JORDAN Escalona Primary Care Provider Active Visit Care Team Team Status: Inactive Member Role/Relationship Status Dates Ashley Ashley NP-Umair Primary Care Provider Active Start: August 08, 2025 End: August 08, 2025BANDAR EscalonaCAttending ProviderActiveStart: August 08, 2025 End: August 08, 2025 Chief Complaint and Reason for Visit Chief Complaint Admit Date Urinary Tract Infection / UTI July 2:30pm Reason for Visit Admit Date Anxiety and depression August 08, 2025 2:30pm HTN (hypertension) August 08, 2025 2: 30pm Morbid obesity with BMI of 70 and over, adult August 08, 2025 2:30pm UTI symptoms August 08, 2025 2: 30pm Vitamin D deficiency August 08, 2025 2 :30pm Allergies, Adverse Reactions, Alerts Allergen Type Severity Reaction Last Updated Verified Status No Known Allergies Allergy Unknown June 28, 2024 12:33pmYesActive Social History Smoking Status Status Start Date End Date Date of Observa tion Never smoked tobacco (finding) June 28, 2024 12:35pm Observation Status Observation Response Date of Response Legal Sex Female (finding) Sex Assigned At BirthFemaleSeptember 2004 Problems Active Problems Problem Diagnosis/Recorded Date Onset Date Stat us Insomnia August 08, 2025 6:07am Unknown Act heide ANDREINA (obstructive sleep apnea) August 08, 2025 6:05am Unknown Active Migraine, unspecified, not i ntractable, without status migrainosus August 08, 2025 6:07am Unknown Active Hemiplegia affecting left no ndominant side August 08, 2025 6:07am Unknown Active ADHD (attention deficit hype ractivity disorder), inattentive type August 08, 2025 6:06am Unknown Active Tinea versicolor August 08, 2025 6:08am Unknown Active Morbid obesity with BMI of 7 0 and over, adult August 08, 2025 5:47am Unknown Active UTI symptoms August 08, 2025 2:35pm Unknown Act heide Hyperuricemia August 08, 2025 6:06am Unknown Ac tive Mixed hyperlipidemia August 08, 2025 6:06am Unknown Active Insulin resistance August 08, 2025 6:06am Unknown Active Metabolic syndrome August 08, 2025 6:07am Unknown Active Neurocognitive disorder August 08, 2025 6:08am Unkno wn Active Acanthosis nigricans August 08, 2025 6:05am Unknown Active Anxiety and depression August 08, 2025 6:05am Unknow n Active Seasonal allergic rhinitis August 08, 2025 6:09am Un known Active HTN (hypertension) June 28, 2024 12:34pm Unknown Active Vitamin D deficiency August 08, 2025 6:08am Unknown Active Iron deficiency August 08, 2025 6:07am Unknown Active Medications Medication Status Dose Units Route Directions Qty Days Refills S tart Date Stop Date End Date Reason(s) Instructions Adherence Buspirone 5 mg tablet Discontinued 5 MG PO Twice daily as needed August 07, 2025 11:00pmOctober 2024 2:41pmLisinopril 10 mg tablet Llnwqicivlcz90VVEARaaibNbzbaou 2024 11:00pmOctober 2024 2:41pm Albuterol Sulfate 90 mcg/actuation HFA aerosol eysyfovGctjki0ISXMNFCEGOQZATUOVTD 4-6 HOURS [facility]Oct[facility] 2024 11:00pmComplies with drug therapy Escitalopram Oxalate 10 mg vjcbgjHwczwwyydwnd20TZRVDwwxrXnlhpms 2024 11:00pmAugust 08, 2025 2:41pmCephalexin 500 mg idogryyQrdenn073CUWOLgkxg daily 200Oct2024 11:00pmSymptoms of urinary tract infection Unspecified symptoms and signs involving the genitourinary systemComplies with drug therapyLisinopril 10 mg ujrfkvOqwvmh16EZWBAwhyt885Nysiqrk 2024 2:39pm Hypertension Essential (primary) hypertensionComplies with drug therapyEscitalopram Oxalate 10 mg rdqumdHvfdla61MWLRYxbpg930Dgblwrh 2024 2:40pmAnxiety and depression Anxiety disorder, unspecified Depression, unspecifiedComplies with drug therapyBuspirone 5 mg hrmfvtXevjnu7TR POTwice daily as needed for smtwgvh327Enqvxof 2024 2:40pmAnxiety and depression Anxiety disorder, unspecified Depression, unspecifiedComplies with drug therapyLisinopril-Hydrochlorothiazide 20-12.5 mg ebzehpHxrgys0YQBBKTrlbi381Rqulqoc 2024 2:41pmHypertension Essential (primary) hypertensionComplies with drug therapyLisinopril- Hydrochlorothiazide 20-12.5 mg tabletDiscontinuedTABPOApril 2023 11:00pm August 08, 2025 2:41pmErgocalciferol (Vitamin D2) 1,250 mcg (50,000 unit) capsuleActivePOApril 2023 11:00pmComplies with drug therapyCholecalciferol (Vitamin D3) (Vitamin D3) 50 mcg (2,000 unit) capsuleDiscontinuedPOApril 2023 11:00pmOcthardin memorial hospital 2024 6:13amCetirizine (Allergy Relief (Cetirizine)) 10 mg jeacsyOswnrazffvit57WAUIhtvle38202Uwqrc 2023 11:00pmAugust 2023 12:40pmFluticasone Propionate (Flonase Allergy Relief) 50 mcg/actuation spray,gfcvaddbcsNwugdxqrvvfl0WTWMRLUFHCPKKAOGgjdg fivpg94486Xwgta 2023 11:00pmAugust 2023 12:40pmadminister 1 spray into each nostrilPrednisone 20 mg zhjvkuGnhuufkmpyxz83DSKFMngly hvjht7162Wyunqh 2023 11:00pmOcthardin memorial hospital 2024 6:13amOndansetron Hcl 8 mg bzhtnkDdqjbufzkogo1RYBHH4U as needed for nausea and orirximy6530Tyubly 2023 11:00pmOctober 2024 6:13am Pyrilamine-Dextromethorphan (Ward Dm) 7.5-7.5 mg/5 mL auymkpMmzkjdiwxgli10IDYV Every 8 hiasw40021Vuntqz 2023 11:00pmOcthardin memorial hospital 2024 6:13am Vital Signs Vital Reading Result Reference Range Collection Date/Time Height 68 [in_i] August 08, 2025 2:98iyJsncqu217.98 kgOcthardin memorial hospital 2024 2:03pmBody Temperature 98.5 [degF]97.6-99.0Oct[facility] 2024 2:03pmHeart Fzhb889 /pax85-590Iplnfyk 2024 2:03pmRespiratory rate18 /umn76-31Ywrczlj 2024 2:03pmOxygen saturation by Pulse tbfjurvp47 %95-100Oct[facility] 2024 2:03pmBP Hvqqfdlo236 mm[Hg]100-140Oct[facility] 2024 2:03pmBP Gqgtszsik25 mm[Hg]60-100Oct[facility] 2024 2:03pmBMI (Body Mass Index)68.0 kg/d1Gfwpcrv 2024 2:03pm Advance Directives Advance Directive Response Recorded Date/ Time Advance Directives No February 22, 2 024 2:10pm Insurance Providers Guarantor Rosalia Ybarra Address [address] [facility] [id number] Info.Home Phone: C Coverage Status Update:2025 Payer Group Member ID Coverage Type Subscriber Relationship to Subscriber Effective Date Expiration Date Medicaid [id number] Pickens , M Id: [id number] [address] [place] [id number] Home Phone: Email: [email or web address] Medicaid [id number] Pickens , M Id: [id number] [address] [place] [address] Home Phone: Email: [email or web address] Encounters Encounter Location(s) Arrival/Admit Date Discharge/Departure Date Discharge/Departure Disposition Provider(s) Departed Physician/ Provider Office Visit -[facility] [place] August 08, 2025 2:30pm August 08, 2025 3:40pm Discharged to home care or self care (routine discharge) Ashley Ashley , [employer]-C Recent Diagnosis Onset Date Admit Date Anxiety and depression Unknown August 082024 2:30pm HTN (hypertension) Unknown August 08, 2025 2:30pm Morbid obesity with BMI of 70 and over, adult Un known August 08, 2025 2:30pm UTI symptoms Unknown August 08 2:30pm Vitamin D deficiency Unknown July 2:30pm Assessments Diagnosis Onset Date Resolution Status Admit Date Anxiety and depression acuteOctober 2024 2:30pmHTN (hypertension)acuteOctober 2024 2:30pm Morbid obesity with BMI of 70 and over, adultacuteOctober 2024 2:30pmUTI symptomsacuteOctober 2024 2:30pmVitamin D deficiencyacuteOctober 2024 2:30pm Plan of Treatment Author Ashley Ashley [facility] HospitalAuthoredOctober 2024 8:08pmPlease check blood pressure daily and record DASH diet Limit caffeine Take medication as directed Contact office if chest pain, pressures, dizziness, shortness of breath, swelling in the legs Recommend slow position changes if you develop dizziness with position changes current meds: lisinopril and HCTZ no insurance currently, will check basic metabolic profile Discussed with patient their BMI (actual vs recommended). We have discussed lifestyle modifications: attempts to perform phsyical activity as chronic conditions allow, monitor dietary intake: increasing protein/fruits/veggies and lowering carb intake (unless contraindicated). Limit sodas, juices, sugary drinks, as well as alcohol consumption. restart buspar and lexapro Take medication only as directed. This medication will take approximately 4-6 weeks to become effective. If any suicidal thoughts, thoughts of hurting others, or hallucinations contact the office or proceed to the Emergency Room for mental health evaluation. This medication can cause dry mouth, dizziness, and in some cases worsening in depression symptoms. Please contact the office if these occur. small leukocytes, trace blood will treat with atb fluids, rest, fu if not better Future Tests Future scheduled test information is unavailable Pending Tests Pending diagnostic test information is unavailable Future Visits Future appointment information is unavailable Future Procedures Procedure Name Ordered Date Scheduled Date AMB POC Ur Dipstick August 08, 2025 2:34pm Future Medications Future medication information is unavailable Patient Instructions Patient instructions are unavailable Hospital Discharge Instructions Ambulatory Orders* AMB POC Ur Dipstick Time Frame: 08/08/25, Location: Determined By Patient
--- OUTSIDE RECORDS SUMMARY | 2025-09-10 14:17 | XMS_ITS | Clinical Summary ---
Author Organization [facility] Healthcare Address [address] [place] [address] Care Team Providers Care Supervisor Asbestos Textile Name Role Phone Ashley Ashley BILL CUTTER Unavailable [phone] Capo Sargent MD Primary Care Provider Ashley Ashley BILL CUTTER Unavailable [phone] Allergies Active AllergyReactionsCriticalityNoted QowdZcscnpsuPctqejwau20/06/2024 Other Reaction(s): states interacts with her kidneys Medications MedicationSigDispense QuantityRefillsLast FilledStart DateEnd DateStatus Vitamin D, Ergocalciferol, 72834 units capsule Take 50,000 Units by mouth 1 (one) time per weekActive albuterol HFA 90 mcg/act inhaler Inhale 2 puffs every 6 (six) hours if needed for shortness of breath or wheezing 10/30/2023ctive busPIRone (Buspar) 5 MG tablet Indications:Anxiety and depressionTake 1 tablet (5 mg) by mouth every 12 (twelve) hours if needed (anxiety) 60 tablet 08/30/2024ctive escitalopram (Lexapro) 10 MG tablet Indications:Anxiety and depressionTake 1 tablet (10 mg) by mouth Daily 30 tablet ctive lisinopril-hydroCHLOROthiazide 20-12.5 MG tablet Indications:Hypertension, essentialTake 1 tablet by mouth Daily 30 tablet ctive lisinopril 10 MG tablet Indications:Hypertension, essentialTake 1 tablet (10 mg) by mouth Daily 30 tablet ctive Active Problems ProblemNoted DateDiagnosed DateAdult wellness visit06/11/2025ody mass index (BMI) 60.0-69.9, adult12/10/2024 Assessment & Plan (12/10/2024 7:10 AM EST): Seasonal allergic yhuzavlx83/31/2024Morbid (severe) obesity due to excess /31/2024 Assessment & Plan (12/10/2024 7:10 AM EST): Discussed with patient their BMI (actual, verses recommended). We have also discussed lifestyle modifications: attempts to perform physical activity as chronic conditions allow, also to monitor dietary intake: increasing protein/fruits/veggies and lowering carb intake (unless contraindicated). Limit sodas, juices, and sugary drinks. Assessment & Plan (10/04/2024 6:56 AM EST): Discussed with patient their BMI (actual, verses recommended). We have also discussed lifestyle modifications: attempts to perform physical activity as chronic conditions allow, also to monitor dietary intake: increasing protein/fruits/veggies and lowering carb intake (unless contraindicated). Limit sodas, juices, and sugary drinks. Assessment & Plan (08/30/2024 6:32 AM EDT): Continue w endo and saxenda use Tinea zhvebkjpjc61/06/2024 Assessment & Plan (08/30/2024 11:30 AM EDT): Continue ketoconazole shampoo Acanthosis spyoslwuy86/22/2023djustment disorder with depressed mood06/21/2023 Apnea, sleep06/21/20236547Comweq70/22/2023DHD (attention deficit hyperactivity disorder), inattentive type06/21/2023ircadian rhythm sleep disorder, delayed sleep phase type06/21/20239364Qckwetpzpvphryskoukv04/22/2023Hypertension, essential 06/21/2023 Assessment & Plan (12/10/2024 7:09 AM EST): Please check blood pressure daily and record DASH diet Limit caffeine Take medication as directed Contact office if chest pain, pressure, dizziness, shortness of breath, swelling legs Recommend slow position changes Current med dose: lisinopril/hydrochlorothiazide 20/12.5 plus lisinopril 10mg Assessment & Plan (10/04/2024 6:55 AM EST): Please check blood pressure daily and record DASH diet Limit caffeine Take medication as directed Contact office if chest pain, pressure, dizziness, shortness of breath, swelling legs Recommend slow position changes Current med dose: lisinopril/hydrochlorothiazide 20/12.5 plus lisinopril 10mg Assessment & Plan (08/30/2024 11:29 AM EDT): Not at goal, is under the care of Jaspal Russo in [place] dating back to her child years Will increase dose on lisinopril will add 10 mg in addition to current dose Fu in 4 weeks for recheck Low sodium diet Stressors may be effecting as well Assessment & Plan (03/05/2024 4:35 PM EDT): Stable and is under the care of specialist in [facility] Cdlvnjihtoncy89/22/2023Insomnia, mcemmjnshs88/22/2023Insulin resistance 06/21/2023Iron nqvexxfzwy61/22/2023Hemiplegia, unspecified affecting left nondominant side06/21/2023 Assessment & Plan (12/10/2024 7:08 AM EST): Noted from prior med records Metabolic /22/2023 Assessment & Plan (03/05/2024 4:35 PM EDT): Cont with peds endo Migraine, unspecified, not intractable, without status fovfrlgflig85/22/2023 Neurocognitive iruwjohj67/22/2023Visuospatial hqwvivn6806/21/2023Vitamin D dcdqtgsmsy48/22/2023nxiety and yredhsogeh01/06/2019 Overview (02/02/2024): Last Assessment & Plan: Plan: Continue Lexapro 20 mg Q daily for depression and anxiety Continue Wellbutrin XL 150 mg for depression and anxiety Assessment & Plan (12/10/2024 7:10 AM EST): Current meds: buspar and lexapro PHQ 9= MAGGIE 7= Assessment & Plan (10/04/2024 10:42 AM EST): Last appt restarted SSRI and buspar, and limited work shift to 8 hours 75% better, no side effects from meds Continue at same dose on escitalopram Assessment & Plan (08/30/2024 11:33 AM EDT): 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 [...] note for limiting to 8 hour shifts Resolved Problems ProblemNoted DateDiagnosed DateResolved DateURI (upper respiratory infection) /09/2025 Assessment & Plan (10/04/2024 10:50 AM EST): To local Er recently and is on zithromax for URI, finish atb and steroids- steroids may be causing some LANDEROS Normal cxr Possible that bloody mucus she coughed up was more related to sinus drainage Will monitor if continues let me know Fluids, rest Tessalon perles for cough Vzhmljznex83/31/202412/02/2024 Assessment & Plan (08/30/2024 11:31 AM EDT): No active s/s infections at this time Suspect more related to post infectious cough No meds at this time If does not resolve in the next 4 weeks notify office Encounters DateTypeDepartmentCare ByucJwsvlfqehqi04/12/2025Abstract [facility] [place] [address] [facility] [address] [place] [id number] Ashley Ashley NP from Last 3 Months Immunizations ImmunizationAdministration DatesNext HqnHIvE2407/18/2010,2005DTaP / Hep B / IPV09/16/2006DTaP, Pdmgktywhzk28/04/2007HPV 9-Ibqlav6601/13/2017Hep A, Unspecified 03/03/2007,09/16/2006Hep A, ped/adol, 2 dose05/20/2011Hep B, Adolescent or Fmsrhxpwy2005HiB, vaewmlhticj61/04/2007,09/16/2006Hib / Hep B011/26/2005IPV 07/18/2010,03/03/2007,2005Influenza, seasonal, cmeyiqutmg80/17/2006 Influenza, seasonal, injectable, preservative free09/17/2024MMR07/18/2010MMRV 09/16/2006Meningococcal B, Omv05/16/2023,04/14/2023Meningococcal YYK6X1204/14/2023 ,01/13/2017Pneumococcal Conjugate PCV 7003/03/2007,09/16/2006,2005Tdap 01/13/20179224Nvvhicekl15/18/2010 Family History Medical HistoryRelationNameCommentsADD / ADHDFatherAnxiety disorderFatherBipolar disorderFatherDepressionFatherHypertensionFatherMental illnessFatherAsthma Maternal GrandfatherCancerMaternal GrandfatherDiabetesMaternal GrandmotherHeart diseaseMaternal GrandmotherHypertensionMaternal GrandmotherAnxiety disorder MotherDepressionMotherHeart diseaseMotherHypertensionMotherAsthmaPaternal GrandfatherRelationNameStatusCommentsFatherMaternal GrandfatherMaternal GrandmotherMotherPaternal Grandfather Social History Tobacco UseTypesPacks/DayYears UsedDateSmoking Tobacco: NeverSmokeless Tobacco: Never Tobacco Cessation:Counseling Given: Not Answered Alcohol UseStandard Drinks/WeekCommentsNever0 (1 standard drink = 0.6 oz pure alcohol)caffine: soda once weeklySocial Connection and Isolation PanelAnswerDate RecordedIn a typical week, how many times do you talk on the phone with family, friends, or neighbors?More than three times a week02/01/2024How often do you get together with friends or relatives?More than three times a week02/01/2024How often do you attend worship or congregational services?Never02/01/2024o you belong to any clubs or organizations such as worship groups, unions, fraternal or athletic groups, or school groups?No02/01/2024How often do you attend meetings of the clubs or organizations you belong to?Never02/01/2024re you , , , , never , or living with a partner?Patient declined 02/01/2024UDIT-CAnswerDate RecordedQ1: How often do you have a drink containing alcohol?Never02/01/2024Q2: How many drinks containing alcohol do you have on a typical day when you are drinking?Patient does not drink02/01/2024Q3: How often do you have six or more drinks on one occasion?Never02/01/2024Overall Financial Resource Strain (CARDIA)AnswerDate RecordedHow hard is it for you to pay for the very basics like food, housing, medical care, and heating?Not hard at all 02/01/2024[facility] [place] [facility] - Occupational Stress QuestionnaireAnswerDate RecordedDo you feel stress - tense, restless, nervous, or anxious, or unable to sleep at night because yourmind is troubled all the time - these days?Only a cqgtof2102/01/2024Exercise Vital SignAnswerDate Recorded On average, how many days per week do you engage in moderate to strenuous exercise (like a brisk walk)?Patient ostqadad36/03/2024On average, how many minutes do you engage in exercise at this level?60 min02/01/2024Hunger Vital SignAnswerDate RecordedWithin the past 12 months, you worried that your food would run out before you got the money to buymore.Never true02/01/2024Within the past 12 months, the food you bought just didn't last and you didn't have money to get more.Never true02/01/2024RAPARE - TransportationAnswerDate RecordedIn the past 12 months, has lack of transportation kept you from medical appointments or from getting medications?No02/01/2024In the past 12 months, has lack of transportation kept you from meetings, work, or from getting things needed for daily living?No02/01/2024Housing Stability Vital SignAnswerDate RecordedIn the last 12 months, was there a time when you were not able to pay the mortgage or rent on time?No02/01/2024In the last 12 months, how many places have you lived?In the last 12 months, was there a time when you did not have a steady place to sleep or slept in buhlerelt (including now)?No 02/01/2024CommentsUnknownSex and Gender InformationValueDate RecordedSex Assigned at BirthNot on fileLegal YtvFnyqap79/15/2023 6:40 PM EDTGender Identity Not on fileSexual OrientationNot on file Last Filed Vital Signs Vital SignReadingTime TakenCommentsBlood Ycbgjfau499/8810/04/2024 10:10 AM EST Ndull763610/04/2024 10:10 AM JWTJuzdwlyitcq16.6 ??C (97.8 ??F)10/04/2024 10:10 AM ESTRespiratory Azbo9396 10:10 AM ESTOxygen Evslgmylmk48%10/04/2024 10:10 AM ESTInhaled Oxygen Concentration--Updrfd221 kg (417 lb 6.4 oz)10/04/2024 10:10 AM MJRDowyuc257.7 cm (5' 8 )10/04/2024 10:10 AM ESTBody Mass Index63.47 10/04/2024 10:10 AM EST Plan of Treatment Health MaintenanceDue DateLast DoneCommentsCOVID-19 Vaccine (2023- season) 2025Influenza Vaccine (#1), 09/16/2006Pneumococcal Vaccine: Pediatrics (0 to 5 Years) and At-Risk Patients (6 to 64 Years)Aged Out 03/03/2007, 09/16/2006, 2005No longer eligible based on patient's age to complete this topic Care Teams Team MemberRelationshipSpecialtyStart DateEnd Date Capo Sargent MD PCP - GeneralFamily Medicine03/05/24 Ashley Ashley NP Nurse PractitionerFamily Kvkhlixs87/1/23 Ashley Ashley NP Nurse PractitionerFamily Medicine03/05/24
--- OUTSIDE RECORDS SUMMARY | 2025-09-10 14:17 | XMS_ITS | Patient Health Record ---
Author Organization [facility] Address [address] [place] [address] Care Team Providers Care Composite Science Teacher Name Role Phone MULUHerman Awais Primary Care Provider [phone] Reason For Referral No Information Medications Medication SIG (Take, Route, Frequency, Duration) Notes Start Date End Date Status ZyrTEC Allergy 10 MG Tablet 1 tablet Orally Once a day; Duration: 30 day(s) 03/21/2014ctiveZoloft 25 MG Tablet1 tablet Orally Once a dayActiveProventil HFA 108 (90 Base) MCG/ACT Aerosol Solution2 puffs Inhalation every 4 hrs prn; Duration: 30 days03/13/2014ctiveLisinopril 5 MG Tablet1 tablet Orally Once a dayActiveMelatonin 1 MG Capsuleas directed OrallyActiveSingulair 10 MG Tablet1 tablet in the evening Orally Once a dayActiveNebulizer Air Tube/Plugs n/a Miscellaneousas directed n/a n/a; Duration: n/a011/02/2011ctiveQvar 40 Aerosol SolutionINHALE ONE PUFF BY MOUTH TWICE A DAY03/13/2014ctiveAlbuterol Sulfate (2.5 MG/3ML) 0.083% Nebulization Solutionone neb Inhalation q4hr prn wheeze; Duration: 30 daysActive Immunizations Vaccine Route Administration Date Status Comme nts zzz do not use Adult flu Unknown 11/21/2013 Administere d PARENTAL REFUSAL Social History Section Notes: FAMILY MEMBERS SMOKE FAMILY MEMBERS SMOKE FAMILY MEMBERS SMOKE FAMILY MEMBERS SMOKE Problems Problem Type SNOMED Code ICD Code Onset Dates Problem Status W/U Status Risk Notes Problem Verruca vulgaris (04957256) Viral warts, unspecified (078.10) ActiveconfirmedProblemAsthma without status asthmaticus (84277513)Asthma, unspecified, unspecified status (493.90)ActiveconfirmedProblemExacerbation of asthma (973582855)Asthma, unspecified, with (acute) exacerbation (493.92)Active confirmedProblemObesity (049707273)Obesity (278.00)ActiveconfirmedProblem Essential hypertension (14845608)Essential hypertension (401.9)Activeconfirmed ProblemMuscle weakness (42005468)Left-sided weakness (728.87)Activeconfirmed Plan Of Treatment No Information Insurance Providers Payer Name Payer Address Payer Phone Subscriber Number Group Number Insured Name Patient Relationship to Insured Coverage Start Date Coverage End Date [facility] CHP-termed [address] [place] [address] [id number] [place] JUAN JOSE DE LEON Self - patient is the insured zMEDICAID [facility] after [facility] CHP-termed [address] [place] [address] [id number], ALLISONSelf - patient is the insured Medical (General) History Medical History History ICD Code ASTHMA LEFT OMCOMPLEX FEBRILE SEIZURE 08/06SEASONAL ALLERGIESLEFT HEMIPARESIS Hospitalization History Reason Date(Month/Year) ASTHMA 2009 SEIZURE [facility], TRANSFERRED TO F 2006
--- OUTSIDE RECORDS SUMMARY | 2025-09-10 14:17 | XMS_ITS | Clinical Summary ---
Author Organization [email or web address] Address [id number] [address] [place] [address] Care Team Providers Care Billing Manager Name Role Phone AugustinAshley castro Senthil GUTIÉRREZN-PROPERTY MANAGER Primary Care Provider Allergies Active AllergyReactionsCriticalityNoted LgrwBzioefxuXnsesygcb83/21/2024 Can;t take with BP meds Medications MedicationSigDispense QuantityRefillsLast FilledStart DateEnd DateStatus lisinopril-hydroCHLOROthiazide (PRINZIDE,ZESTORETIC) 20-25 mg per tablet Take 1 tablet by mouth in the morning.Active Social History Tobacco UseTypesPacks/DayYears UsedDateSmoking Tobacco: NeverSmokeless Tobacco: Never Tobacco Cessation:Counseling Given: Not Answered Alcohol UseStandard Drinks/WeekCommentsNot Currently0 (1 standard drink = 0.6 oz pure alcohol)socialHunger ScreeningAnswerDate RecordedWithin the past 12 months we worried whether our food would run out before we got money to buy more.Never True04/13/2025Within the past 12 months the food we bought just didn't last and we didn't have money to get more.Never True04/13/2025CommentsNoSex and Gender InformationValueDate RecordedSex Assigned at BirthNot on fileLegal Sex Vrovnu3112/17/2023 9:54 AM ESTGender IdentityNot on fileSexual OrientationNot on file Last Filed Vital Signs Vital SignReadingTime TakenCommentsBlood Fwshmmeq189/8904/13/2025 11:54 PM EDT Tkiht843304/13/2025 11:54 PM NZKJunmvbsiper17.2 ??C (98.9 ??F)04/13/2025 11:54 PM EDTRespiratory Nomr792204/13/2025 11:54 PM EDTOxygen Ogmplchipb815%04/13/2025 11:53 PM EDTInhaled Oxygen Concentration--Drggrz887.4 kg (380 lb)04/13/2025 11:54 PM CNQRlcrtn623.7 cm (5' 8 )04/13/2025 11:54 PM EDTBody Mass Index57.78 04/13/2025 11:54 PM EDT Plan of Treatment Health MaintenanceDue DateLast DoneCommentsDepression Thclhptcz77/26/2017Adult BMI Follow Up Plan2023OVID-19 Vaccine ( season)2025 04/19/2023Influenza Meumnwk03, 09/16/2006dult BMI Screening Tobacco Hjindcatg67DTaP,Tdap and Td Vaccines (6 - Td or Tdap), 07/18/2010, 03/03/2007, Additional history exists Medical Devices Not on file Care Teams Team MemberRelationshipSpecialtyStart DateEnd Date Ashley Ashley, ARNULFO-PROPERTY MANAGER PCP - GeneralNurse Practitioner12/27/24
--- OUTSIDE RECORDS SUMMARY | 2025-09-10 14:17 | XMS_ITS | Clinical Summary ---
Author Organization [facility] Address [address] [place], [place] [address] Care Team Providers Care Willow Machine Tender Name Role Phone Unavailable Primary Care Provider Unavailabl e Medications * This document contains information received from the source organization and may not represent a complete record from that organization. MedicationSigDispense QuantityRefillsLast FilledStart DateEnd DateStatus amLODIPine (NORVASC) 2.5 mg tablet Take 2.5 mg by mouth once daily.Active lisinopril-hydrochlorothiazide (PRINZIDE,ZESTORETIC) 20-12.5 mg per tablet Take 1 tablet by mouth once daily.Active lisinopril (ZESTRIL, PRINIVIL) 20 mg tablet Take 20 mg by mouth once daily.Active MONO-LINYAH 0.25-35 mg-mcg per tablet Active VITAMIN D-3 2,000 unit cap Active methylphenidate ER 36 mg CR tablet Indications:Attention deficit hyperactivity disorder (ADHD), combined typeTake 1 tablet by mouth every morning for 30 days. 30 tablet 01/03/2019Active cloNIDine HCl (CATAPRES) 0.2 mg tablet Indications:Attention deficit hyperactivity disorder (ADHD), combined typeTake 1 tablet by mouth daily at bedtime. 60 tablet 03/04/2019Active escitalopram oxalate (LEXAPRO) 20 mg tablet Indications:Anxiety and depressionTake 1 tablet by mouth once daily. 60 tablet 04/03/2019Active buPROPion XL (WELLBUTRIN XL) 150 mg 24 hr tablet Indications:Attention deficit hyperactivity disorder (ADHD), combined typeTake 1 tablet by mouth once daily. 30 tablet Active methylphenidate ER 36 mg CR tablet Indications:Attention deficit hyperactivity disorder (ADHD), combined typeTake 1 tablet by mouth once daily for 30 days. Earliest Fill Date: 4/18/19 30 tablet 02/15/2019Active methylphenidate ER 36 mg CR tablet Indications:Attention deficit hyperactivity disorder (ADHD), combined typeTake 1 tablet by mouth once daily for 30 days. Earliest Fill Date: 03/15/19 30 tablet 03/17/2019Active methylphenidate ER 36 mg CR tablet Indications:Attention deficit hyperactivity disorder (ADHD), combined typeTake 1 tablet by mouth once daily for 30 days. Earliest Fill Date: 04/14/19 30 tablet 04/16/2019Active Active Problems ProblemNoted DateDiagnosed DateAttention deficit hyperactivity disorder (ADHD), combined type01/03/2019 Assessment & Plan (02/15/2019 2:04 PM EDT): Assessment:ADHD PLAN: - Parent appears to be a poor historian. More data is required from the teachers and hence the [employer] has been sent with the parent - Continue Concerta 36 mg Q daily - Clonidine 0.2 mg at bed time - Team to be cautious about increasing the dose of the stimulant with co exsisting high blood pressure. Assessment & Plan (01/03/2019 5:35 PM EST): We discussed several options ultimately agreed to augmentation with Wellbutrin XL 150 mg daily to help with mood. Continue Concerta 36 mg daily for now I have reached out to pedaitric Flooring Sales Manager Dr Eric regarding safety of increasing stimulant from a BP standpoint. ?? Continue other medications for now. We can consider increasing Concerta to target impulsivity symptoms though must use caution with blood pressure concerns. ?? We can also consider using a long acting version of clonidine during the daytime to help with focusand impulsivity. The use of antidepressant including the following were discussed with the patient and guardian and the guardian agreed to the plan: Risk of worsening suicidal ideation, possible adverse affect on mood, activation potential, common side effects, seizure risk ?? Anxiety and atliwuyrjn95/06/2019 Assessment & Plan (02/15/2019 2:05 PM EDT): Plan: Continue Lexapro 20 mg Q daily for depression and anxiety Continue Wellbutrin XL 150 mg for depression and anxiety School avoidance with hx of truancy fwipncp6101/03/2019 Overview (01/03/2019): Attendance better in 8th grade Hx of bullying at school Pediatric wfzdyzq3501/03/2019 Overview (01/03/2019): Binge eats Consider binge eating disorder though parent reports chronic high caloric intake Assessment & Plan (01/03/2019 5:33 PM EST): Consider higher stimulant dosage to curtail impulsive eating Wellbutrin may also help with impulsive eating and weight Social History Tobacco UseTypesPacks/DayYears UsedDateSmoking Tobacco: Never Assessed CommentsUnknownSex and Gender InformationValueDate RecordedSex Assigned at Not on fileLegal FuzPdhymi13/10/2019 3:34 PM ESTGender IdentityNot on fileSexual OrientationNot on file Last Filed Vital Signs Vital SignReadingTime TakenCommentsBlood Ktfvhowk683/13239 1:38 PM EDT Jcsan50235 1:38 PM EDTTemperature--Respiratory Rate--Oxygen Saturation-- Inhaled Oxygen Concentration--Nldyhi151.5 kg (300 lb 14.4 oz)02/15/2019 1:38 PM EDTHeight--Body Mass Index-- Plan of Treatment Health MaintenanceDue DateLast DoneCommentsPeds To Adult Transition Initial Tjfmpjfihc94/26/2017Peds To Adult Transition Annual Ztxarlhbmv09/26/2019HPV Vaccine (1 - 3-dose series)2020Meningococcal B Vaccine (1 of 2 - Standard) 2021nxiety Qxbbqsvjg75/26/2023hlamydia Screening (18-24)2023 Depression Tpdtvgjtu57/26/2023C (Gonorrhea) Screening (18-24)2023HIV Pgwbofyla05/26/2023Hepatitis C Mtrfyhvlo86/26/2023TaP,Tdap,Td Vaccine (1 - Tdap)2024Hepatitis B Vaccine (1 of 3 - 19+ 3-dose series)2024ovid- 19 Vaccine (1 - 2024- season)2025Influenza Vaccine (#1)2025 Insurance
--- OUTSIDE RECORDS SUMMARY | 2025-09-10 14:17 | XMS_ITS | Clinical Summary ---
Author Organization [facility] Address [address] [place] [address] Phone Care Team Providers Care [place] Man Name Role Phone Ashley Ashley APRN-OFFICE NURSE PRACTITIONER Primary Care Provider Allergies Active AllergyReactionsCriticalityNoted YdctQqbvbqbpEpytkwzokNhyep02/06/2024 Other Reaction(s): states interacts with her kidneys Medications MedicationSigDispense QuantityRefillsLast FilledStart DateEnd DateStatus albuterol 90 mcg/actuation inhaler Inhale 2 puffs every 4 hours if needed for shortness of breath.10/30/2023ctive alcohol swabs pads, medicated USE NRSYAAPI99/26/2023ctive escitalopram (Lexapro) 10 mg tablet Take 1 tablet (10 mg) by mouth once daily.Active hydrOXYzine HCL (Atarax) 25 mg tablet Take 1 tablet (25 mg) by mouth every 8 hours if needed for anxiety.Active ketoconazole (NIZOral) 2 % shampoo Apply 1 Application topically 2 times a week.09/19/2023ctive pen needle, diabetic (Pen Needle) 31 gauge x 5/16 needle Indications:Obesity peds (BMI >=95 percentile),Insulin resistanceWith saxenda injection 30 each ctive lisinopriL-hydrochlorothiazide 20-12.5 mg tablet Indications:Hypertension, essentialTake 1 tablet by mouth once daily. 30 tablet ctive liraglutide, weight loss, (SAXENDA) 3 mg/0.5 mL (18 mg/3 mL) pen injector injection Indications:Obesity peds (BMI >=95 percentile),Insulin resistanceInject 0.5 mL (3 mg) under the skin once daily. 15 mL 4Active Active Problems ProblemNoted DateDiagnosed DateAbnormal weight gain06/21/2023canthosis mgpvlaltt76/22/2023DHD (attention deficit hyperactivity disorder), inattentive type06/21/2023djustment disorder with depressed mood06/21/2023nxiety disorder 06/21/2023pnea, sleep06/21/20231227Oqgwpx89/22/2023ircadian rhythm sleep disorder, delayed sleep phase type06/21/2023losed tibia hzuoldxg98/22/2023 Vsnkqixjtajdzvrwqwif09/22/0921Qmtkqhieql26/22/2023Hypertension, essential 06/21/20234426Sojvvtfluufjy70/22/2023Insomnia, pfgieafcsf66/22/2023hronic insomnia 06/21/2023Insulin bxrcecsnol05/22/2023Iron bwutdtzgtd34/22/2023Left hemiparesis 06/21/2023Mathematics /22/2023Metabolic dddzfnei99/22/2023Migraine, unspecified, not intractable, without status frdozpxjodi02/22/2023Neurocognitive xiukhpyq04/22/2023Other specified depressive gejhelxe40/22/0434Ucjeouv73/22/2023 Suspected sleep apnea06/21/2023Tibial plateau fracture, left, closed, with nonunion, subsequent /22/2023Visuospatial dvcqxru5306/21/2023Vitamin D msgqujgmhw66/22/2023Vitamin D deficient lticivmnbssk64/22/2023Specific learning disorder, 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, ovajwx6506/21/2023Obesity peds (BMI >=95 percentile)06/21/2023 Immunizations ImmunizationAdministration DatesNext DueDTaP HepB IPV combined vaccine, pedatric (PEDIARIX)09/16/2006DTaP vaccine, pediatric (INFANRIX)07/18/2010,2005DTaP, Xqibjiwezeo52/04/2007HPV 9-valent vaccine (GARDASIL 9)01/13/2017Hep A, Epgzjwrcsyr91/04/2007,09/16/2006Hepatitis A vaccine, pediatric/adolescent (HAVRIX, VAQTA)05/20/2011Hepatitis B vaccine, 19 yrs and under (RECOMBIVAX, ENGERIX)2005HiB, ninnajdsbaa51/04/2007,09/16/2006Hib / Hep B011/26/2005 Influenza, seasonal, kjjszavjjm71/17/2006MMR and varicella combined vaccine, subcutaneous (PROQUAD)09/16/2006MMR vaccine, subcutaneous (MMR II)07/18/2010 Meningococcal ACWY vaccine (MENVEO)04/14/2023,01/13/2017Meningococcal B vaccine (BEXSERO)05/16/2023,3Pfizer COVID-19 vaccine, bivalent, age 12 years and older (30 mcg/0.3 mL)3Pneumococcal Conjugate PCV 7003/03/2007, 09/16/2006,2005Poliovirus vaccine, subcutaneous (IPOL)07/18/2010, 03/03/2007,2005Tdap vaccine, age 7 year and older (BOOSTRIX, ADACEL) 01/13/2017Varicella vaccine, subcutaneous (VARIVAX)07/18/2010 Family History Medical HistoryRelationNameCommentsAnxiety disorderFatherBipolar disorderFather DepressionFatherHypertensionFatherMigrainesFathermental retardationFather's BrotherSleep apneaFather's Sisteron CPAPCoronary artery diseaseMaternal GrandmotherearlyHeart attackMaternal GrandmotherearlyHyperlipidemiaMaternal GrandmotherHypertensionMaternal GrandmotherAnxiety disorderMotherDepression MotherHypertensionMotherSleep apneaMother's Brotheron CPAPMigrainesOtherPaternal relativesRelationNameStatusCommentsFatherFather's BrotherFather's SisterMaternal GrandmotherMotherMother's BrotherOtherPaternal relatives Social History Tobacco UseTypesPacks/DayYears UsedDateSmoking Tobacco: NeverSmokeless Tobacco: Never Tobacco Cessation:Counseling Given: No Alcohol UseStandard Drinks/WeekCommentsYes0 (1 standard drink = 0.6 oz pure alcohol)Hunger Vital SignAnswerDate RecordedWithin the past 12 months, you worried that your food would run out before you got the money to buymore.Often true12/20/2024Within the past 12 months, the food you bought just didn't last and you didn't have money to get more.Often true12/20/2024CommentsNoSex and Gender InformationValueDate RecordedSex Assigned at BirthNot on fileLegal EodLuxszd89/26/2022 1:53 AM ESTGender IdentityNot on fileSexual OrientationNot on file Last Filed Vital Signs Vital SignReadingTime TakenCommentsBlood Fnoourzk917/4561107/19/2024 11:26 AM EDT Wvnrk387207/19/2024 11:26 AM SQGAvdidbxbois17.7 ??C (98 ??F)07/19/2024 11:26 AM EDTRespiratory Thgc020807/19/2024 11:26 AM EDTOxygen Qbfnmtqylk05%01/06/2023 10:26 AM ESTInhaled Oxygen Concentration--Zlyqoa124 kg (403 lb 7.1 oz)07/19/2024 11:26 AM PFKZxcmhy925 cm (5' 8.9 )07/19/2024 11:26 AM EDTBody Mass Index59.75 07/19/2024 11:26 AM EDT Plan of Treatment Health MaintenanceDue DateLast DoneCommentsHIV Yhlvukscd2005Yearly Adult Qivhkhpd2005Hearing Screening (#1)2009HPV Vaccines (2 - 2-dose series)Hepatitis C Fquucgtvq68/26/2023Pneumococcal Vaccine: Pediatrics and At-Risk Adult Patients (1 of 2 - PCV)/01/2007, 09/16/2006, 2005Influenza Vaccine (#1)/COVID-19 Vaccine (2 - 2024- season)/3DTaP/Tdap/Td Vaccines (6 - Td or Tdap) /, 07/18/2010, 03/03/2007, Additional history existsLipid Panel//10/2023, 04/04/2023, 04/04/2023, Additional history exists Zoster Vaccines (1 of 2)5007/18/2010, 09/16/2006Hepatitis B Vaccines Njtwrwrhc76/17/2006, 2005, 2005HIB PtmtygaeXqyhcbqqg07/04/2007, 09/16/2006, 2005IPV MtelsmzqVkzdlrlyw52/18/2010, 03/03/2007, 09/16/2006, Additional history existsMMR VhgmpysnBmdpysnwy90/18/2010, 09/16/2006Hepatitis A HuckjqpdTrxiqrehl94/21/2011, 03/03/2007, 09/16/2006Meningococcal Vaccine Zjfhdbmdt27/15/2023, 01/13/2017Meningococcal B EchpgflPxjrgxwes91/17/2023, 04/14/2023Rotavirus VaccinesAged OutNo longer eligible based on patient's age to complete this topic Medical Devices ImplantedTypeAreaManufacturerDevice IdentifierShelf Expiration DateModel / Serial / LotScrew, [place] 3.[address] T15 Hexalobe Case [id number] Implanted:Qty: 1 on 08/04/2018 by Andrews Ferrell MDRogers Memorial Hospital - OconomowocTHOPEDILigerTail [id number] / / Description:Converted from Care Acute. Please see archived information for full log information.Screw, [place] 3[address] T15 Hexalobe Case [id number] Implanted:Qty: 1 on 08/04/2018 by Andrews Ferrell MDLos Angeles County High Desert HospitallanMiddletown HospitalTHOPEFrest Marketing [id number] / / Description:Converted from Care Acute. Please see archived information for full log information.3.5 Mm Locking T Plate Three Hole Head Case [id number] Implanted:Qty: 1 on 08/04/2018 by Andrews Ferrell MDImplantLeft: [facility] [employer] [id number] / / Description:Converted from Care Acute. Please see archived information for full log information. Additional Information:ortho peds 3.5 mm locking t plate three hole headper bill only jdr 08/07/2018 1105amScrew, [place] 3[address] T15 Hexalobe Case [id number] Implanted:Qty: 1 on 08/04/2018 by Andrews Ferrell MDCuero Regional HospitalMOBi-LEARNMCKAY-[facility] [id number] / / Description:Converted from Care Acute. Please see archived information for full log information.Screw, Cortical, Self-Tapping, Pelvic, 3.5 X 70 Mm, Stainles Case [id number] Implanted:Qty: 1 on 08/04/2018 by Andrews Ferrell [id number] / / Description:Converted from [facility] Acute. Please see archived information for full log information. Procedures Procedure NamePriorityDate/TimeAssociated DiagnosisCommentsLIPID PANELRoutine 01/30/2024 4:31 PM EDT Obesity peds (BMI >=95 percentile) from Last 3 Months or Most Recently Relevant to Health Maintenance Results * (ABNORMAL) Lipid Panel (01/30/2024 4:31 PM EDT)ComponentValueRef RangeTest MethodAnalysis TimePerformed AtPathologist DapesxcbvZkgkindxefo4619 - 199 mg/dL LAB CHEMISTRY METHOD 01/30/2024 10:14 PM [facility] LABComment: ?Age ?Desirable ?? Borderline High ?? High 0-19 Y 0 - 169 170 [...] be performed immediately prior to Metamizole dosing. HDL-Mzavjfqwgac49.6mg/dL LAB CHEMISTRY METHOD 01/30/2024 10:14 PM [facility] LABComment: Age ? Very Low ?? Low ? Normal ?High ?? 0-19 Y < 35 < 40 40-45 ---- 20-24 Y ---- < 40 >45 ---- >24 Y ---- < 40 40-60 >60 Cholesterol/HDL Ratio4.8 LAB CHEMISTRY METHOD 01/30/2024 10:14 PM [facility] LABComment: Ref Values Desirable < 3.4 High Risk > 5.0 LDL Indbsqyqae356(H)<=109 mg/dL LAB CHEMISTRY METHOD 01/30/2024 10:14 PM [facility] LABComment: ?Near ?? Borderline ?AGE ?Desirable ??Optimal ?High ? High ? Very High 0-19 Y 0 - 109 --- 110-129 >/= 130 ---- 20-24 Y 0 - 119 --- 120-159 >/= 160 ---- >24 Y 0 - 99 100-129 130-159 160-189 >/=190 XNQK233 - 40 mg/dL LAB CHEMISTRY METHOD 01/30/2024 10:14 PM [facility] WCLHrhrvdnwxwtdk278 - 149 mg/dL LAB CHEMISTRY METHOD 01/30/2024 10:14 PM [facility] LABComment: Age ? Desirable ?? Borderline High ?? High ? Very High 0 D-90 D ?19 - 174 ? ---- ? ---- ?---- 91 D- 9 Y 0 - 74 [...] be performed immediately prior to Metamizole dosing. Non HDL Kbyekcodiff205(H)0 - 119 mg/dL LAB CHEMISTRY METHOD 01/30/2024 10:14 PM [facility] LABComment: ?Age ? Desirable ?? Borderline High ?? High ? Very High 0-19 Y 0 - 119 120 - 144 >/= 145 >/= 160 20-24 Y 0 - 149 150 - 189 >/= 190 ---- >24 Y 30 mg/dL above LDL Cholesterol goal Specimen (Source)Anatomical Location / LateralityCollection Method / Volume Collection TimeReceived TimeBloodVenous blood specimen / UnknownVenipuncture / Treccdj9701/30/2024 4:31 PM EDT01/30/2024 4:31 PM EDT Narrative Authorizing ProviderResult TypeResult StatusJaspal Russo MDLAB BLOOD ORDERABLES Final ResultPerforming OrganizationAddressCity/State/ZIP CodePhone Number [facility] [address] [phone] from Last 3 Months or Most Recently Relevant to Health Maintenance Care Teams Team MemberRelationshipSpecialtyStart DateEnd Date Ashley Ashley, EQUIPMENT RECORDS SUPERVISOR-OFFICE NURSE PRACTITIONER [address] [place] [address] PCP - General01/29/19
--- OUTSIDE RECORDS SUMMARY | 2025-09-10 14:21 | XMS_ITS | CCD ---
Author Organization [facility] CliniSysd Care Team Providers Care Crown Pouncer Name Role Phone BRYON ARGUETA Admitting Unavailable BRYON ARGUETA Attending Unavailable AICHTASIA, ASHLEY KAMALA Primary Care Unavailable MARIAM TROTTER (FEL) Attending Unava ilable MARIAM TROTTER (FEL) Attending Unava ilable Loraine Ferrell Attending Unavailable Jermaine Rice Primary Care Unavailable Nick Ramon Unavailable Unavailable Flor Fregoso Unavailable Unavailable Bryon Argueta Unavailable Unavailable Dion, Ashley Kamala Unavailable Unavailable Allegra Barroso Unavailable Unavailable Riccardo Reyes Unavailable Unavailabl e Mast, Jermaine E Unavailable Unavailable Tasia Quijano R Unavailable Unavailable Ievers-Lawrence, Carolina E Unavailable Unavail able Tasia Quijano Unavailable Unavailable Loraine Ferrell Unavailable Unavailable Lynn Carter Unavailable Unavailable Nick Castrejon Unavailable Unavailable Flor Fregoso Unavailable Unavailable Sara Thorne Unavailable Unavailable Nick Castrejon Unavailable Unavailable Bryon Argueta Unavailable Unavailable [id number], Riccadro Unavailable Katie vailable Dion, Ashley Kamala Unavailable Unavailable Unavailable Unavailable Unavailable DR SARA GALARZA Admitting Unavailable MICHELL, DR KELLEY Consulting Unavailable MICHELL, DR KELLEY Attending Unavailable AICHHOLZ, PUMP STITCHER ASHLEY Primary Care Unavailable DR GALLO PATEL Consulting Unavailable DR GALLO PATEL Attending Unavailable AICHHOLZ, PUMP STITCHER ASHLEY Primary Care Unavailable DR GALLO PATEL Admitting Unavailable RICCARDO COLLIER Consulting Unavailable SHANDA ZALDIVAR Attending Unavailable AICHHOLZ, PUMP STITCHER ASHLEY Primary Care Unavailable AYLA CRUZ Consulting Unavailable SHANDA ZALDIVAR Admitting Unavailable SHANDA ZALDIVAR Attending Unavailable AICHHOLZ, PUMP STITCHER ASHLEY Primary Care Unavailable HOWARD, DR WILSON Consulting Unavailable KAYLEY, SHANDA Admitting Unavailable KAYLEY, SHANDA Consulting Unavailable AICHHOLZ, PUMP STITCHER ASHLEY Primary Care Unavailable LISHA, DR EH Avery Admitting Unavailabl e LISHA, DR EH Avery Consulting Unavailabl e LISHA, DR EH Avery Attending Unavailabl e KAYLEY, SHANDA Consulting Unavailable KAYLEY, SHANDA Attending Unavailable KAYLEY, SHANDA Admitting Unavailable AICHHOLZ, PUMP STITCHER ASHLEY Primary Care Unavailable Aichholz, Mrs. Ashley [...] Dr. Jennifer Schaeffer Attending Unahortensia lable Aichholz, Mrs. Ramirez Kamala Referring Unavailab le Aichholz, Mrs. Ramirez Kamala Primary Care Unavailab le Lock, Dr. Jennifer Schaeffer Attending Unahortensia lable Aichholz, Mrs. Ramirez Kamala Primary Care Unavailab le Aichholz, Mrs. Ramirez Kamala Referring Unavailab le Lock, Dr. Jennifer Schaeffer Attending Eric lable Aichholz, Mrs. Ramirez Kamala Referring Unavailab le Aichholz, Mrs. Ramirez Kamala Primary Care Unavailab le WoodTasia Attending Unavailable Aichholz, Mrs. Ashley Wray Referring Unavailab le Aichholz, Mrs. Ashley Wray Primary Care Unavailab le WoodTasia Attending Unavailable Aichholz, Mrs. Ramirez Kamala Referring Unavailab le Aichholz, Mrs. Ramirez Kamala Primary Care Unavailab le Raul, Ms. Lynn Washington Attending Unavai lable Aichholz, Mrs. Ramirez Kamala Referring Unavailab le Aichholz, Mrs. Ramirez Kamala Primary Care Unavailab le Lock, Dr. Jennifer Schaeffer Attending Eric lable Aichholz, Venancio Ashley Kamala Referring Unavailab le Aichholz, Mrs. Ramirez Kamala Primary Care Unavailab le Raul, Ms. Lynn Washington Attending Eric Ashley SLASHER TENDER-Ashley CHRISTENSEN Primary Care Provider Karan NEWSOME, Tasia Dyson Unavailable Delores NEWSOME, Jennifer Dyson Unavailable [phone] Dion NATURAL RESOURCES FACULTY MEMBER, Ashley Unavailable Capo Sargent MD Primary Care Provider [phone] Dion NATURAL RESOURCES FACULTY MEMBER, Ashley Unavailable ASHLEY ASHLYE Attending Unavailable DION, ASHLEY Attending Unavailable Delores NEWSOME, Jennifer Dyson Unavailable LYNN CARTER Attending Unavailable ASHLEY ASHLEY Primary Care Unavailable TASIA QUIJANO Attending Unavailable ASHLEY ASHLEY Primary Care Unavailable JENNIFER LOCK Attending Unavailable ASHLEY ASHLEY Primary Care Unavailable ASHLEY ASHLEY Primary Care Unavailable [address] [place] [address] Unavailable KILEYHOLJeffry, ASHLEY Ndiaye Primary Care Unavailable ASHLEY ASHLEY Primary Care Unavailable DION, ASHLEY Ndiaye Primary Care Unavailable DION, ASHLEY Ndiaye Primary Care Unavailable AUGUSTINHHOLJeffry, ASHLEY Ndiaye Primary Care Unavailable MARVEL HOBBS Attending Unavailable Augustinhtasia NATURAL RESOURCES FACULTY MEMBER-CAshley Primary Care Provider Dion NATURAL RESOURCES FACULTY MEMBER-C, Ashley Ndiaye Attending Provider [phone] Allergies Allergy ClassificationReported Allergen(s)Allergy TypeDate of OnsetReaction(s) Facility (9 sources)Ibuprofen; Translations: [IBUPROFEN]Drug [id number] Work Phone: Medications Current Medications MedicationDrug Class(es)DatesSig (Normalized)Sig (Original)[id number] 200 actuat albuterol 0.09 mg/actuat metered dose inhaler (9 sources)beta2-Adrenergic AgonistStart: 11-71-3704fruk 1 puff(s) by inhalation every four to six hours as neededAlbuterol Sulfate 90 mcg/actuation HFA aerosol inhaler Active 2 PUFF INHALATION EVERY 4-6 HOURS as needed August 08, 2025 12:00am Complies with drug therapyStart: 43-93-3699debb 2 puff(s) by inhalation every six hours for wheezingalbuterol HFA 90 mcg/act inhaler Inhale 2 puffs every 6 (six) hours if needed for shortness of breath or wheezing 10/30/2023 ActiveStart: 01-57-0591bfcs 2 puff(s) by inhalation every four hoursalbuterol 90 mcg/actuation inhaler Inhale 2 puffs every 4 hours if needed for shortness of breath. 10/30/2023 Activeazithromycin 250 mg oral tablet (2 sources)Macrolide AntimicrobialStart: 10-02-2024 End: 79-63-8976cmqlbafogjru (Zithromax) 250 MG tablet Take 2 tablets the first day then 1 tablet every day for 4 days. 10/02/2024 10/08/2024 Activebenzonatate 200 mg oral capsule (2 sources)Non-narcotic AntitussiveStart: 10-04-2024 End: 18-15-2024cpas 1 capsule by mouth three times daily as needed for cough benzonatate (Tessalon) 200 MG capsule Indications: Upper respiratory tract infection, unspecified type Take 1 capsule (200 mg) by mouth 3 (three) times a day as needed for cough for up to 7 days Takewith full glass of water. Do not crush or chew. 21 capsule 10/04/2024 10/11/2024 ActivebusPIRone hydrochloride 5 mg oral tablet (5 sources)Start: 37-28-0619zzrs 1 tablet by mouth twice daily as needed Buspirone 5 mg tablet Active 5 MG PO Twice daily as needed August 08, 2025 12:00am Complies with drug therapyStart: 08-30-2024 End: 92-00-2087jsqj 1 tablet by mouth oncebusPIRone (Buspar) 5 MG tablet Indications: Anxiety and depression (CMS/HCC) Take 1 tablet (5 mg) by mouth every 12 (twelve) hours if needed (anxiety) 60 tablet 08/30/2024 Active cephalexin 500 mg oral capsule (1 source)Cephalosporin AntibacterialStart: 98-50-8103dmpb 1 capsule by mouth twice dailyCephalexin 500 mg capsule Active 500 MG PO Twice daily August 08, 2025 12:00am Complies with drug therapyergocalciferol 1.25 mg oral capsule (20 sources)Provitamin D2 CompoundStart: 35-68-0999Ltdzfshttzdkiy (Vitamin D2) 1,250 mcg (50,000 unit) capsule Active PO February 23, 2024 12:00am Complies with drug therapyStart: 47-72-5683Zztihtplnajcxb (Vitamin D2) Active PO February 23, 2024 12:00amStart: 12-21-2019 End: 68-21-2299dehh 1 capsule by mouth every weekVitamin D (Ergocalciferol) 1.25 MG (71824 UT) Oral Capsule TAKE 1 CAPSULE BY MOUTH WEEKLY FOR 8 WEEKS Quantity: 8 Refills: 0 Ordered: 04-Apr-2023 Tasia Quijano MD Start : 04-Apr-2023 Activetake 1 capsule by mouth every weekVitamin D, Ergocalciferol, 70773 units capsule Take 50,000 Units by mouth 1 (one) time per week Activeescitalopram 10 mg oral tablet (20 sources)Serotonin Reuptake InhibitorStart: 30-36-4649makg 1 tablet by mouth once dailyEscitalopram Oxalate 10 mg tablet Active 10 MG PO Daily August 08, 2025 12:00am Complies with drug therapyStart: 08-30-2024 End: 67-33-0630szaa 1 tablet by mouth once dailyescitalopram (Lexapro) 10 MG tablet Indications: Anxiety and depression (CMS/HCC) Take 1 tablet (10mg) by mouth Daily 30 tablet 2 10/04/2024 11/03/2024 ActiveStart: 46-39-9837dior 1 tablet by mouth once dailyEscitalopram Oxalate 20 MG Oral Tablet TAKE 1 TABLET DAILY. Quantity: 30 Refills: 3 Zenobia MoisesFlor Start : 23-Jun-2017 Activetake 1 tablet by mouth once dailyescitalopram (Lexapro) 10 mg tablet Take 1 tablet (10 mg) by mouth once daily. Active End: 46-70-0170atnr 1 tablet by mouth once dailyescitalopram oxalate (LEXAPRO ORAL) Take 1 tablet by mouth once daily. 0 08/01/2023 Discontinued (Therapy completed)fluticasone propionate 0.05 mg/actuat metered dose nasal spray (5 sources)CorticosteroidStart: 02-23-2024 End: 53-17-0260ylrs 2 spray(s) nasal route once dailyfluticasone (Flonase) 50 MCG/ACT nasal spray Administer 2 sprays into each nostril Daily 02/23/2024 08/30/2024 Discontinued (Therapy completed)Start: 02-23-2024 End: 80-81-9306vvhv 1 spray(s) nasal route twice dailyFluticasone Propionate (Flonase Allergy Relief) 50 mcg/actuation spray,suspension Discontinued 1 SPRAY INTRANASAL Twice daily 16 February 23, 2024 12:00am June 28, 2024 1:40pm administer 1 spray into each nostrilhydroCHLOROthiazide 12.5 mg / lisinopril 20 mg oral tablet (20 sources)Thiazide Diuretic, Angiotensin Converting Enzyme InhibitorStart: 54-80-6988Ozocdmwsdh-Hydrochlorothiazide 20-12.5 mg tablet Active TAB PO February 23, 2024 12:00am Complies with drug therapyStart: 11-17-2023 End: 20-56-0707hiup 1 tablet by mouth once dailylisinopriL-hydrochlorothiazide 20-12.5 mg tablet Indications: Hypertension, essential Take 1 tabletby mouth once daily. 30 tablet 6 07/19/2024 07/19/2025 ActiveStart: 44-86-0267sbtz 1 tablet by mouth once dailylisinopriL-hydrochlorothiazide 20-12.5 mg tablet Take 1 tablet by mouth once daily. 0 07/16/2022 ActiveStart: 62-42-6155vpum 1 tablet by mouth once dailyLisinopril-hydroCHLOROthiazide 20-12.5 MG Oral Tablet take 1 tablet by mouth once daily Quantity: 30 Refills: 4 Ordered: 20-Dec-2019 Bryon Argueta MD Start : 27-May-2016 ActiveStart: 73-96-0988ymwn 1 tablet by mouth once dailyLisinopril-hydroCHLOROthiazide 10-12.5 MG Oral Tablet TAKE 1 TABLET DAILY. Quantity: 30 Refills: 3 Ordered: 24-Jun-2022 Jennifer Lock MD Start : 20-Nov-2015 ActivehydrOXYzine hydrochloride 25 mg oral tablet (5 sources)Antihistamine End: 83-36-9580itio 1 tablet by mouth three times daily as neededhydrOXYzine HCl (Atarax) 25 MG tablet Take 25 mg by mouth 3 (three) times a day as needed for itching 08/30/2024 Discontinued (Ineffective)take 1 tablet by mouth every eight hours as neededhydrOXYzine HCL (Atarax) 25 mg tablet Take 1 tablet (25 mg) by mouth every 8 hours if needed for anxiety. Activeisopropyl alcohol 0.7 ml/ml medicated pad (5 sources)Start: 2023 End: 46-44-0079VO Alcohol Swabs 70 % pads Apply 1 each topically 1 (one) time if needed 2023 08/30/2024 Discontinued (Therapy completed)Start: 2023 alcohol swabs pads, medicated USE DIRECTED 2023 Activeketoconazole 20 mg/ml medicated shampoo (12 sources)Azole AntifungalStart: 03-05-2024 End: 07-49-7038vorwiduxzdee (Nizoral) 2 % shampoo Indications: Tinea versicolor Use for 3 days, apply lather on, wash off after 5 mins 120 mL 03/05/2024 08/30/2024 DiscontinuedStart: 09-19-2023 End: 95-79-3099yhqxqcctpdav (NIZOral) 2 % shampoo Indications: Tinea versicolor Apply topically 2 (two) times a week Apply 1 Application topically 2 (two) times a week 120 mL 2 08/30/2024 10/04/2024 Active3 ml liraglutide 6 mg/ml pen injector (20 sources)GLP-1 Receptor AgonistStart: 01-30-2024 End: 89-49-7424oykkqt 3 mg by subcutaneous injection in the morningLiraglutide - Weight Management (Saxenda) 18 MG/3ML solution pen-injector Inject 3 mg under the skinin the morning. 01/30/2024 08/30/2024 Discontinued (Cost of medication) Start: 01-30-2024 End: 52-48-9943ujhbmqbrqfv, weight loss, (SAXENDA) 3 mg/0.5 mL (18 mg/3 mL) pen injector injection Indications: Obesity peds (BMI >=95 percentile) , Insulin resistance Inject 0.5 mL (3 mg) under the skin once daily. 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) , Abnormal weight gain inject 1.8 milligram subcutaneously once daily 6 mL11 08/25/2023 01/30/2024 Discontinued (Therapy completed)Start: 80-16-4327aidsyi 1.8 mg by subcutaneous injection once dailyVictoza 18 MG/3ML Subcutaneous Solution Pen-injector INJECT 1.8 MG SUBCUTANEOUSLY EVERY DAY Quantity: 1 Refills: 5 Ordered: 01-Mar-2023 Tasia Quijano MD Start : 26-May-2022 Active Maintenance doseStart: 03-23-2021 End: 52-67-6815vbiekw 0.6 mg by subcutaneous injection once daily, then inject 1.2 mg by subcutaneous injection once daily, then inject 1.8 mg by subcutaneous injection once dailyliraglutide (Victoza 2-Tip) 0.6 mg/0.1 mL (18 mg/3 mL) injection Inject under the skin. inject 0.6 mg once daily for 1 week. Increase as directed to 1.2 mg daily for one week and then to final dose of 1.8mg daily. 0 05/26/2022 Activelisinopril 10 mg oral tablet (20 sources)Angiotensin Converting Enzyme InhibitorStart: 98-56-5250kpws 1 tablet by mouth once dailyLisinopril 10 mg tablet Active 10 MG PO Daily August 08, 2025 12:00am Complies with drug therapyStart: 08-30-2024 End: 41-01-8641swuo 1 tablet by mouth once dailylisinopril 10 MG tablet Indications: Hypertension, essential (CMS/HCC) Take 1 tablet (10 mg) by mouth Daily 30 tablet 3 10/04/2024 11/03/2024 ActiveStart: 54-79-6181kshq 1 tablet by mouth once dailyLisinopril 20 MG Oral Tablet TAKE 1 TABLET DAILY. Quantity: 30 Refills: 4 Ordered: 20-Dec-2019 Bryon Argueta MD Start : 14-Oct-2016 Active semaglutide, weight loss, (Wegovy) 1 mg/0.5 mL pen injector (1 source)semaglutide, weight loss, (Wegovy) 1 mg/0.5 mL pen injector Inject 1 mg under the skin every 7 days. 0 Active Completed/Discontinued Medications MedicationDrug Class(es)DatesSig (Normalized)Sig (Original)acetaminophen 325 mg oral tablet (20 sources)Start: 08-05-2018 End: 10-44-2234zjqx 2 tablets by mouth every four to six hours for pain acetaminophen (Tylenol) 325 mg tablet Take 2 tablets (650 mg) by mouth. EVERY 4 TO 6 HOURS IF NEEDED FOR MILD PAIN 0 08/05/2018 08/01/2023 Discontinued (Therapy completed)aMILoride hydrochloride 5 mg oral tablet (16 sources)Potassium-sparing DiureticStart: 55-23-6457evln 1 tablet by mouth once dailyaMILoride HCl - 5 MG Oral Tablet TAKE 1 TABLET ONCE DAILY. Quantity: 30 Refills: 3 Ordered: 19-Mar-2020 Jennifer Lock MD Start : 19-Mar-2020 ActiveamLODIPine 10 mg oral tablet (20 sources)Dihydropyridine Calcium Channel BlockerStart: 74-60-6183ekxi 1 tablet by mouth once dailyamLODIPine Besylate 10 MG Oral Tablet TAKE 1 TABLET DAILY. Quantity: 30 Refills: 4 Ordered: 20-Dec-2019 Bryon Argueta MD Start : 14-Dec-2018 ActiveStart: 53-46-5323ljrb 1.5 tablets by mouth once daily amLODIPine Besylate 5 MG Oral Tablet TAKE 1.5 TABLET Daily Quantity: 45 Refills: 4 Bryon Argueta MDStart : 14-Dec-2018 ActiveBlood Pressure Monitor/L Cuff (7 sources)Start: 99-71-0117Eecjv Pressure Monitor/L Cuff Check blood pressure once a day Quantity: 1 Refills: 0 Nick Castrejon MD Start : 03-Aug-2018 Active Start: 18-30-5190Dzszl Pressure Monitor/L Cuff Check blood pressure once a day Quantity: 1 Refills: 0 Nick Ramon MD Start : 03-Aug-2018 Dmuqnz49 hr buPROPion hydrochloride 150 mg extended release oral tablet (7 sources)AminoketoneStart: 47-39-9137uqkn 1 tablet by mouth once daily Wellbutrin SR 150 MG Oral Tablet Extended Release 12 Hour TAKE 1 TABLET DAILY DIRECTED. Refills:0 DO Start : 11-Jan-2019 Activecetirizine hydrochloride 10 mg oral tablet (20 sources)Histamine-1 Receptor AntagonistStart: 02-23-2024 End: 92-56-3187lipa 1 tablet by mouth once dailyCetirizine (Allergy Relief (Cetirizine)) 10 mg tablet Discontinued 10 MG PO daily 14 January 12:00am June 28, 2024 1:40pmStart: 03-04-2021 End: 08-27-1695swbv 1 tablet by mouth once dailyCetirizine HCl - 10 MG Oral Tablet take 1 tablet by mouth once daily Quantity: 14 Refills: 0 Ordered: 04-Mar-2021 DO Start : 04-Mar-2021 End : 24-Jun-2022 Completecholecalciferol 0.05 mg oral capsule (19 sources)Vitamin DStart: 02-23-2024 End: 81-39-2707Gtjzsfvjaqdqbvh (Vitamin D3) (Vitamin D3) 50 mcg (2,000 unit) capsule Discontinued PO February 23, 2024 12:00am August 08, 2025 7:13amStart: 01-30-2024 End: 72-14-9565gmhc 1 capsule by mouth once in the morningcholecalciferol (Vitamin D-3) 50 mcg (2,000 unit) capsule Indications: Vitamin D deficiency Take 1 capsule (50 mcg) by mouth early in the morning.. 30 capsule 11 01/30/2024 01/29/2025 ActiveStart: 82-08-0619ygon 2 capsules by mouth once dailyVitamin D 50 MCG (2000 UT) Oral Capsule TAKE 2 CAPSULE Daily Quantity: 60 Refills: 4 Bryon Argueta MD Start : 22-May-2019 ActiveStart: 11-13-2018 End: 44-72-3799vzme 1 capsule by mouth in the morningcholecalciferol (Vitamin D- 3) 50 MCG (2000 UT) capsule Take 50 mcg by mouth in the morning. 01/30/2024 01/29/2025 ActiveStart: 96-48-5584yiob 1 capsule by mouth once dailyVitamin D 2000 UNIT Oral Capsule TAKE 1 CAPSULE Daily Quantity: 30 Refills: 11 Nick Ramon MD Start : 08-Dec-2017 ActivecloNIDine hydrochloride 0.2 mg oral tablet (8 sources)Central alpha-2 Adrenergic AgonistStart: 60-82-4823khyb 1 tablet by mouth at bedtimecloNIDine HCl - 0.2 MG Oral Tablet TAKE 1 TABLET AT BEDTIME. Quantity: 30 Refills: 3 Flor Fregoso Start : 27-Jul-2017 Active End: 68-10-7927pkun 1 tablet by mouth once daily at bedtimeCLONIDINE HCL ORAL Take 1 tablet by mouth once daily at bedtime. 0 08/01/2023 Discontinued (Therapy completed)dextromethorphan hydrobromide 1.5 mg/ml / pyrilamine maleate 1.5 mg/ml oral solution (2 sources)Uncompetitive Z-ykgxax-T-aspartate Receptor Antagonist, Sigma-1 AgonistStart: 06-28-2024 End: 47-10-1383adoa 1 mL by mouth every eight hoursPyrilamine-Dextromethorphan (Gonzales Dm) 7.5-7.5 mg/5 mL liquid Discontinued 10 ML PO Every 8 hours 150 5 June 28, 2024 12:00am August 08, 2025 7:13amEthinyl Estradiol / norgestimate (9 sources)Progestin, EstrogenStart: 04-13-2018 End: 56-10-4824ibez 1 tablet by mouth once dailynorgestimate-ethinyl estradioL ([place]-Linyah) 0.25-35 mg-mcg tablet Take 1 tablet by mouth once daily. 0 04/13/2018 01/30/2024 Discontinued (Therapy completed)Start: 85-81-9274drox 1 tablet by mouth once dailynorgestimate-ethinyl estradioL ([place]-Linyah) 0.25-35 mg-mcg tablet Take 1 tablet by mouth once daily. 0 04/13/2018 ActiveStart: 41-23-0532srro 1 tablet by mouth once dailyMono-Linyah 0.25-35 MG-MCG Oral Tablet TAKE 1 TABLET DAILY DIRECTED. Refills: 0 DO Start : 13-Apr-2018 Active Start: 78-14-4210aeon 1 tablet by mouth once dailyMono-Linyah 0.25-35 MG-MCG Oral Tablet TAKE 1 TABLET DAILY DIRECTED. Refills: 0 Start : 13-Apr-2018 Activeferrous sulfate 325 mg oral tablet (20 sources)Start: 05-22-2019 End: 74-57-3954ihvh 1 tablet by mouth twice daily at mealtimeFerrous Sulfate 325 (65 Fe) MG Oral Tablet TAKE 1 TABLET TWICE DAILY WITH MEALS. Take together with Vitamin C. Do not take iron with Sodium Bicarbonate Quantity: 60 Refills: 2 Ordered: 21-Dec-2019 Bryon Argueta MD Start : 22-May-2019 End : 24-Jun-2022 CompleteStart: 88-06-1451hqxa 1 tablet by mouth once dailyFerrous Sulfate 325 (65 Fe) MG Oral Tablet TAKE 1 TABLET DAILY. Quantity: 90 Refills: 1 Sara Thorne MD Start : 22-May-2019 Activebx rating 24 hr methylphenidate hydrochloride 36 mg extended release oral tablet (8 sources)Central Nervous System StimulantStart: 13-07-0418uull 1 tablet by mouth once daily in the morningMethylphenidate HCl ER 36 MG Oral Tablet Extended Release 24 Hour TAKE 1 TABLET EVERY MORNING Quantity: 30 Refills: 0 Flor Fregoso Start : 06-Dec-2018 Active End: 05-85-9086ovax 1 tablet by mouth once dailymethylphenidate HCl (CONCERTA ORAL) Take 1 tablet by mouth once daily. 0 08/01/2023 Discontinued (Therapy completed)[place]-Linyah 0.25-35 MG-MCG Oral Tablet (20 sources)Start: 75-26-3194voiw 1 tablet by mouth once dailyMono-Linyah 0.25- 35 MG-MCG Oral Tablet TAKE 1 TABLET DAILY DIRECTED. Quantity: 0 Refills: 0 Ordered: 13-Apr-2018 DO Start : 13-Apr-2018 ActiveMultivitamins CAPS (17 sources)Start: 03-19-2020 End: 80-31-2748Irhqcaxidlijv CAPS Take one capsule daily Quantity: 0 Refills: 0 Ordered: 19-Mar-2020 DO Start : 19-Mar-2020 End : 24-Jun-2022 CompleteStart: 02-93-4411Kxbhsrwpmggeo CAPS Take one capsule daily Quantity: 0 Refills: 0 Ordered: 19-Mar-2020 DO Start : 19-Mar-2020 ActiveMultivitamins Oral Capsule (2 sources)Start: 26-63-4446nnqm 1 capsule by mouth once dailyMultivitamins Oral Capsule Take one capsule daily Quantity: 0 Refills: 0 Ordered: 19-Mar-2020 DO Start : 19-Mar-2020 Activeondansetron 8 mg oral tablet (3 sources)Serotonin-3 Receptor AntagonistStart: 06-28-2024 End: 04-45-7219mpcl 1 tablet by mouth every eight hours as needed for nausea and vomitingOndansetron Hcl 8 mg tablet Discontinued 8 MG PO Q8H as needed for nausea and vomiting 21 June 28, 2024 12:00am August 08, 2025 7:13am Start: 33-41-5264tegm 1 tablet by mouth every six hours as needed for nausea Zofran 4 MG Oral Tablet take 1 tab by mouth every 6 hrs as needed for nausea Quantity: 30 Refills: 1 DO Start : 20-Dec-2019 ActiveoxyCODONE hydrochloride 5 mg oral tablet (1 source)Opioid AgonistStart: 08-05-2018 End: 94-37-4987lvkh 1 tablet by mouth every four to six hours as needed for pain oxyCODONE (Roxicodone) 5 mg immediate release tablet Take 1 tablet (5 mg) by mouth. every 4-6 hoursas needed for severe pain. Wean as tolerated. 0 08/05/2018 08/01/2023 Discontinued (Therapy completed)predniSONE 20 mg oral tablet (2 sources)Start: 06-28-2024 End: 31-74-5198difr 1 tablet by mouth twice dailyPrednisone 20 mg tablet Discontinued 20 MG PO Twice daily 10 June 28, 2024 12:00am August 08, 2025 7:13am0.25 mg, 0.5 mg dose 1.5 ml semaglutide 1.34 mg/ml pen injector (9 sources)Start: 11-22-2022 End: 00-42-8783Leurzog (0.25 or 0.5 MG/DOSE) 2 MG/1.5ML SOPN INJECT 0.5 MG ONCE WEEKLY as directed Quantity: 3 Refills: 3 Ordered: 22-Nov-2022 Tasia Quijano MD Start : 22-Nov-2022 End : 14-Apr-2023 CompleteWegovy 1 MG/0.5ML Subcutaneous Solution Auto-injector (8 sources)Start: 51-42-0595jvhmam 1 mg by subcutaneous injection every week Wegovy 1 MG/0.5ML Subcutaneous Solution Auto-injector INJECT 1MG SUBCUTANEOUSLY ONCE WEEKLY Quantity: 1 Refills: 0 Ordered: 18-Apr-2023 Tasia Quijano MD Start : 18-Apr-2023 ActiveStart: 04-05-2023 End: 21-01-4891raksuh 1 mg by subcutaneous injection every weekWegovy 1 MG/0.5ML Subcutaneous Solution Auto-injector INJECT 1 MG Weekly Quantity: 1 Refills: 5 Ordered: 05-Apr-2023 Tasia Quijano MD Start : 05-Apr-2023 End : 14-Apr-2023 Complete Start: 06-18-4498bjquhc 1 mg by subcutaneous injection every weekWegovy 1 MG/0.5ML Subcutaneous Solution Auto-injector INJECT 1 MG Weekly Quantity: 1 Refills: 5 Ordered: 05-Apr-2023 Tasia Quijano MD Start : 05-Apr-2023 Active Problems Active Problems Problem ClassificationProblemDateDocumented DateEpisodic/ChronicAcute cerebrovascular disease (7 sources)Cerebral infarction; 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] ChronicAdjustment disorders (20 sources)Adjustment disorder with depressed mood; Translations: [Adjustment disorder with depressed mood]Onset: hronic Administrative/social admission (1 source)Inadequate material resources; Translations: [Transportation insecurity due to lack of access to vehicle]96-48-1570HfihnqhrYcfbeyu disorders (20 sources)Anxiety disorder; Translations: [Anxiety]Onset: ChronicAsthma (20 sources)Asthma; Translations: [Asthma, unspecified type, unspecified]Onset: [id number]-tjyzjwx conduct and disruptive behavior disorders (20 sources)Attention deficit hyperactivity disorder, predominantly inattentive type; Translations: [Attention deficit disorder without mention of hyperactivity]Onset: [id number] dementia and amnestic and other cognitive disorders (4 sources)Neurocognitive disorder; Translations: [Neurocognitive disorder] ChronicDevelopmental disorders (20 sources)Developmental arithmetic disorder; 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]Onset: 551339-96-8960SttfjzqSbdqnuvxo of lipid metabolism (20 sources)Hypercholesterolemia; Translations: [Pure hypercholesterolemia] Onset: 535469-02-7608BsgramlFbyaporbh hypertension (20 sources)Essential (primary) hypertension; Translations: [Essential hypertension]Onset: 461099-58-0200XjtdnpvPzznleia of lower limb (2 sources)Displaced bicondylar fracture of right tibia, subsequent encounter for closed fracture with routinehealing; Translations: [Unspecified physeal fracture of upper end of right tibia, subsequent encounter for fracture with routine healing]Onset: 43-97-4554QuhhyjnmAnvyghdldfruj symptoms and ill-defined conditions (6 sources)Dysuria; Translations: [Urinary symptoms ]Onset: 24-05-5864Demgxlex Headache; including migraine (20 sources)Migraine; Translations: [Migraine, unspecified, without mention of intractable migraine without mention of status migrainosus]Onset: 06-21-2023 79-49-2819AbudhlsNsiztkqq; including migraine (1 source)Headache; including migraine; Translations: [HEADACHE UNSPECIFIED] Onset: 69-91-8987Qwufdwaldkoyx and screening for infectious disease (1 source)Contact with or exposure to other viral diseases; Translations: [Exposure to 2018 novel coronavirus]92-96-2348InjeqiqkTqnukjwitxffq mental health disorders (20 sources)Psychophysiologic insomnia; Translations: [Chronic insomnia]Onset: 814766-17-6090OjpfnewRznn disorders (20 sources)Depressive disorder; Translations: [Depressive disorder, not elsewhere classified]Onset: 665874-56-3936JmfnzwtNigt disorders (1 source)Mood disorders; Translations: [DEPRESSION UNSPECIFIED]Onset: 57-68-6917Vfygrdh (9 sources)Pityriasis versicolor; Translations: [Pityriasis versicolor]Onset: 169249-53-3067PrrcypcoOdgnlndfnzy deficiencies (20 sources)Adult osteomalacia, unspecified; Translations: [Vitamin D deficiency]Onset: 867729-93-4695WjdrfuhHnamotrqete deficiencies (20 sources)Iron deficiency; Translations: [Iron deficiency anemia, unspecified] Onset: 634798-16-2177EcvjkhevBizrx aftercare (1 source)Other jail (current) drug therapy; Translations: [OTH MANAGER OF PURCHASING CURRENT DRUG THERAPY]Onset: 78-97-9435BpdhalvoTbotq female genital disorders (1 source)Personal history of other diseases of the female genital tract; Translations: [Personal history of other diseases of the female genital tract] Onset: 76-59-0629JtdaitrbCilxj hereditary and degenerative nervous system conditions (20 sources)Myoclonus; Translations: [Myoclonus]ChronicOther injuries and conditions due to external causes (20 sources)H/O: fracture; Translations: [Personal history of traumatic fracture]EpisodicOther nervous system disorders (20 sources)Visuospatial deficit; Translations: [Visuospatial deficit]Onset: 296911-17-0708HcojfemDbhrj nervous system disorders (20 sources)Sleep-wake schedule disorder, delayed phase type; Translations: [Circadian rhythm sleep disorder, delayed sleep phase type]Onset: 06-21-2023 05-75-0322ZtipbsaXhdpv nervous system disorders (4 sources)H/O: brain disorder; Translations: [History of febrile seizure] EpisodicOther nervous system disorders (7 sources)Sleep-wake schedule disorder, delayed phase type; Translations: [Circadian rhythm sleep disorder, delayed sleep phase type]EpisodicOther nutritional; endocrine; and metabolic disorders (20 sources)Metabolic syndrome; Translations: [Metabolic syndrome X]Onset: 201964-27-2235QuzucggSrvrf nutritional; endocrine; and metabolic disorders (20 sources)Obese; Translations: [Obesity, unspecified]Onset: 06-21-2023 34-07-1456KedpvqrVegse nutritional; endocrine; and metabolic disorders (7 sources)Developmental delay; Translations: [History of Developmental delay] ChronicOther nutritional; endocrine; and metabolic disorders (20 sources)Insulin resistance; Translations: [Dysmetabolic syndrome X]Onset: 764206-49-1126VzsqgdoIvoog nutritional; endocrine; and metabolic disorders (3 sources)Morbid (severe) obesity due to excess calories; Translations: [MORBID SEVERE OBES D/T EXCESS JIA]Onset: 24-30-5904NmmpjanXvgez nutritional; endocrine; and metabolic disorders (3 sources)Obesity, unspecified; Translations: [OBESITY UNSPECIFIED]Onset: 54-97-5918BuhoapjPtepi nutritional; endocrine; and metabolic disorders (8 sources)Body mass index 40+ - severely obese; Translations: [Body mass index (BMI) 50.0-59.9, adult]Onset: 831136-15-0656LemteqzSytdu nutritional; endocrine; and metabolic disorders (10 sources)Obesity caused by energy imbalance; Translations: [Morbid (severe) obesity due to excess calories]Onset: 673506-26-9926EcfkwscAvpqb nutritional; endocrine; and metabolic disorders (2 sources)Body mass index (BMI) 50.0-59.9, adult; Translations: [Body mass index (BMI) 50.0-59.9, adult (Multi)]Onset: 24-67-6019EgeyiawFowvz nutritional; endocrine; and metabolic disorders (3 sources)Morbid obesity; Translations: [Body mass index (BMI) 60.0-69.9, adult]Onset: 208781-29-1521McrsxzdAmwei nutritional; endocrine; and metabolic disorders (20 sources)Hyperuricemia; Translations: [Other abnormal blood chemistry]Onset: 683495-23-8384MzakplfeDlwvk nutritional; endocrine; and metabolic disorders (20 sources)Developmental delay; Translations: [Lack of normal physiological development, unspecified]EpisodicOther conditions (20 sources)Cerebral infarction; Translations: [Other specified conditions originating in the period]EpisodicOther screening for suspected conditions (not mental disorders or infectious disease) (2 sources)Patient encounter status; Translations: [Encounter for screening, unspecified]Onset: 248261-82-2033OcentupuGbmvj skin disorders (20 sources)Acanthosis nigricans; Translations: [Acquired acanthosis nigricans] Onset: 741114-93-2200ZketzdbsUajgo upper respiratory disease (8 sources)Seasonal allergic rhinitis; Translations: [Other seasonal allergic rhinitis]Onset: 197974-09-9319FvcdybvChkdf upper respiratory disease (1 source)Nasal congestion; Translations: [NASAL CONGESTION]Onset: 06-01-2022 EpisodicParalysis (20 sources)Left hemiparesis; Translations: [Hemiplegia, unspecified, affecting unspecified side]Onset: 826729-84-7449CehdejnXfngmrpu codes; unclassified (20 sources)Sleep apnea; Translations: [Unspecified sleep apnea]Onset: 818024-33-9906NwhunwvQznavxhm codes; unclassified (7 sources)Persistent insomnia; Translations: [Insomnia, persistent]Chronic Residual codes; unclassified (1 source)Obstructive sleep apnea syndrome; Translations: [Obstructive sleep apnea (adult) (pediatric)]40-07-2163SsjmphzOrmcoivy codes; unclassified (20 sources)Unspecified symptoms and signs involving cognitive functions and awareness; Translations: [Neurocognitive disorder]Onset: EpisodicResidual codes; unclassified (20 sources)Personal history of other specified conditions; Translations: [H/O: febrile convulsions]EpisodicResidual codes; unclassified (1 source)Insomnia; Translations: [Insomnia, unspecified]16-34-9774Ajexoxic Unclassified (1 source)CONTACT W/AND (SUSP) EXPOS COVID-19; Translations: [CONTACT W/AND (SUSP) EXPOS COVID-19]Onset: 48-10-9620Wefskayhdctd (1 source)LOW BACK PAIN, UNSPECIFIED; Translations: [LOW BACK PAIN, UNSPECIFIED] Onset: 20-04-4342Twkkssykqfwi (1 source)Insulin resistance, unspecified; Translations: [Insulin resistance, unspecified]Onset: 33-70-0053Oeznbqageeyu (2 sources)Nutrition Counseling; Translations: [Nutrition Counseling]Onset: 55-72-1652Puxwhtqzdibe (1 source)Medical ScreeningOnset: 79-50-2032Pzhnchvgdmgu (1 source)Cough, Congestion, and NauseaOnset: 73-83-5099Mecap infection (1 source)COVID-19; Translations: [COVID-19]Onset: 07-15-2021 Past or Other Problems Problem ClassificationProblemDateDocumented DateEpisodic/ChronicAbdominal pain (5 sources)Lower abdominal pain, unspecified; Translations: [Unspecified abdominal pain]Onset: 26-96-3086GkrivmkgOmrtfnqi reactions (2 sources)Urticaria, unspecified; Translations: [URTICARIA UNSPECIFIED]Onset: 70-18-0995AytpgibeBzpqxxd obstructive pulmonary disease and bronchiectasis (8 sources)Bronchitis; Translations: [Bronchitis, not specified as acute or chronic]Onset: 08-20-2024 Resolved: 500412-90-8490XjfuusaeKulhishm cause codes: Fall (1 source)Fall resulting in striking against other object; Translations: [Metabolic syndrome]Onset: 96-24-9301Nglvotpb of lower limb (20 sources)Displaced bicondylar fracture of left tibia, subsequent encounter for closed fracture with routine healing; Translations: [Closed fracture of tibia]Onset: 543642-26-6464IvcuxtciZiqnshqm; including migraine (1 source)HeadacheOnset: 50-69-3777YskbomfrAwuakshdihamj mental health disorders (4 sources)Chronic insomnia; Translations: [Chronic insomnia]Nutritional deficiencies (4 sources)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; Translations: [Vitamin D deficient osteomalacia]Open wounds of extremities (1 source)Laceration without foreign body of left little finger without damage to nail, initial encounter; Translations: [Laceration without foreign body of left little finger without damage to nail, initial encounter]Onset: 12-27-2024 EpisodicOther aftercare (1 source)Encounter for other specified aftercare; Translations: [Encounter for other specified aftercare]Onset: 71-54-3324NawoeeazSjlqa connective tissue disease (20 sources)Other symptoms and signs involving the nervous system; Translations: [Disease suspected]Onset: 195571-68-8758BqdumhquZkwrj ear and sense organ disorders (1 source)Impacted cerumen, right ear; Translations: [Impacted cerumen, right ear]Onset: 89-48-8443KefqlvjuLhodd ear and sense organ disorders (1 source)Ear problemOnset: 71-96-3284IglmvuwcHehee injuries and conditions due to external causes (1 source)Laceration - injuryOnset: 73-23-5233UboetivvEmwar lower respiratory disease (20 sources)Snoring; Translations: [Other respiratory abnormalities]Onset: 562378-48-8593QnxyowzgNcafp lower respiratory disease (3 sources)Cough; Translations: [COUGH]Onset: 24-68-1249DmzjvhnrXilwg lower respiratory disease (1 source)CoughOnset: 82-07-6558XlbnyeedIfxon nutritional; endocrine; and metabolic disorders (20 sources)Abnormal weight gain; Translations: [Abnormal weight gain]Onset: 624987-48-4458RttvrhroXtzsf nutritional; endocrine; and metabolic disorders (2 sources)Body mass index (BMI) pediatric, greater than or equal to 95th percentile for age; Translations: [Body mass index (BMI) pediatric, greater than or equal to 95th percentile for age]Onset: 06-62-1140UhkztpejCfekr skin disorders (4 sources)Rash and other nonspecific skin eruption; Translations: [RASH OTH NONSPECIFIC SKIN ERUPTION]Onset: 02-92-8247KlymzaajIiuxn upper respiratory disease (20 sources)Bleeding from nose; Translations: [Epistaxis] Resolved: 11-40-2127PfamfymsKxujg upper respiratory infections (11 sources)Acute pharyngitis, unspecified; Translations: [Acute upper respiratory infection, unspecified]Onset: 67-24-5730LspgzllhRnkrciv cyst (1 source)Unspecified ovarian cyst, left side; Translations: [UNSPECIFIED OVARIAN CYST LEFT SIDE]Onset: 71-35-2327JdklhzlvLomxbjsd codes; unclassified (20 sources)Persistent insomnia; Translations: [Persistent disorder of initiating or maintaining sleep]Onset: 806738-43-4620CqlngqztYvgnzbqc codes; unclassified (1 source)Illness, unspecified; Translations: [Illness, unspecified]Onset: 88-46-8306PnixdznvEmbehvtrltkl (1 source)Insulin resistance, unspecified; Translations: [Insulin resistance, unspecified]Onset: 53-46-8560WBOOWNM: Highlighted row has not occurred!Residual codes; unclassified (20 sources)DiseaseEpisodic Results Test NameValueInterpretationReference RangeFacilityPOCT , URINE (NUCG) on 88-15-8731Jlgy HCG ( test) Ql (U)NegativeNormalNegative, IndeterminateProMediMartin Luther Hospital Medical CenterComment on above:Performed By: #### NUCG #### [facility] ([facility]) [address] [place] [address]. [place] [address] VIRUPPER RESPIRATORY CULTUREon 42-11-3547PVDYA RESPIRATORY CULTURE Upper Respiratory Culture NOM[facility] HealthcareUPPER RESPIRATORY CULTURERoutine respiratory floraChristian Hospital UPPER RESPIRATORY CULTUREPerformed at: CB - [facility] RESPIRATORY [address] [place], [place] [address]NPZTChristian HospitalUPOASIS BEHAVIOR[facility] RESPIRATORY CULTURELab Director: Miguel Geronimo PhD, Phone: [phone] HealthcareCLINISYNCNPRAGUE COMMUNITY [facility]OSPITAL – [place] HealthcareSARS/FLU A+B/RSV by NAAT/Molecularon 22-62-9740YTUT/FLU A+B/RSV by NAAT/MolecularFLU A PCR Negative (qualifier value) FLU B [...] operators who are performing tests using either GeneXFlyfit DX or GeneCouponCabinpert Infinity systems and is limited to laboratories that [...] specimen repeat. Fact Sheet for Healthcare Providers: https://www.fda.gov/media/216029/download Fact Sheet for Patients: https://www.fda.gov/media/531354/downloadNoFayette County Memorial Hospital on above:Performed By: #### COVFLR #### [facility] ([id number]) [address] [place] [address], [place], [place] [address]CH CHEST 1 VWon 29-91-5336GO CHEST 1 VWXR CHEST 1 VW HISTORY: A 19-year-old female [...] by Virgil Coleman MD on 10/02/2024 2:46 PMNormalSumma Health Wadsworth - Rittman Medical CenterHBV surface Ab IA Qnon 65-23-3808Iuja HBs quant.<8.00NoFayette County Memorial Hospital on above:Result Comment: Vaccinated: >=12mIU/mL, Positive (Immune) Unvaccinated: <8mIU/mL, Negative (Not Immune) 8-11.99 mIU/mL: Indeterminate, (Considered Not Immune)Performed By: #### 63287-8, 8014-3, 6476-6, 70201-9, 5193-8 #### [facility] ([id number]) [address], [address] [place], [place] [address]FuY IgG IA Ql (S)on 47-55-8083LRXOLGQ AB SCREEN6.6 AIHigh<0.9 [facility] on above:Result Comment: POSITIVE: Antibody(IgG) detected. Indicates previous exposure to rubeola virus and immunity.Performed By: #### 43802-0, 8014-3, 6476-6, 16124-0, 5193-8 #### [facility] ([id number]) [address] [place] [address], [address] [place], [place] [address]PoD IgG IA Ql (S)on 08-78-3101ZVTEK VIRUS IgG2.1 AIHigh<0.9 [facility] Ritt[facility] Medical CenterCommarlette regional hospital on above:Result Comment: Interpretation-------- <0.9 Negative 0.9 - 1.0 Equivocal >1.0 Positive Performed By: #### 59559-5, 8014-3, 6476-6, 26810-7, 5193-8 #### [facility] ([id number]) [address] [place] [address], [address] [place], [place] [address]Zmfhmah virus IgG Qn (S)on 77-53-8843OZAAQSO IgG40 IU/mLNormal [facility]itt[facility] Medical CenterCommarlette regional hospital on above:Result Comment: Interpretation-------- <8 NEGATIVE-considered Not Immune 8-9 EQUIVOCAL-consider retesting with new specimen >9 POSITIVE-considered Immune Performed By: #### 79180-7, 8014-3, 6476-6, 71110-3, 5193-8 #### [facility] ([id number]) [address] [place] [address], [address] [place], [place] [address]YOA IgG IA Ql (S)on 06-73-8818WEQAXOYZM IgG1.0 AIHigh<0.[address] [facility]'S Medical CenterComment on above:Result Comment: Interpretation-------- <0.9 Negative 0.9 - 1.0 Equivocal >1.0 Positive Performed By: #### 97125-2, 8014-3, 6476-6, 28071-3, 5193-8 #### [facility] ([id number]) [address], [address] [place], [place] [address]WF CHEST 2 VWSon 37-46-0035JN CHEST 2 VWSXR CHEST 2 VWS History: cough congestion Exam/Technique: PA and lateral chest Comparison: None. Findings: There is no evidence of active pulmonary or pleural disease. Cardiac and mediastinal contours are within normal limits. IMPRESSION: No active pulmonary disease. Finalized by Ketan Reynoso MD on 08/20/2024 3:[address] Mary'S Medical CenterPOCT UA (nonautomated) manually resultedon 01-21-8780Nqfiwtvfsw (U) CloudyAbnormalClearUnOhio State Health System Work Phone: Glucose Test strip (U) [Mass/Vol]NegativeNEGATIVE mg/dlBrown Memorial Hospital Work Phone: Hemoglobin Ql (U)NegativeNEGATIVEUnOhio State Health System Work Phone: Interpretation and review of laboratory results AbnormalUnOhio State Health System Work Phone: Leukocyte esterase Test strip Ql (U)NegativeNEGATIVE [facility] Work Phone: Nitrite Ql (U)NegativeNEGATIVEBrown Memorial Hospital Work Phone: pH (U)6.0 [pH]No Reference Range EstablishedUnOhio State Health System Work Phone: POC Bilirubin, UrineNegativeNEGATIVEBrown [facility] Hospital Work Phone: POC Color, UrineYellowStraw, Yellow, Light-Yellow [facility] Work Phone: POC Ketones, UrineNegativeNEGATIVE mg/dlUnOhio State Health System Work Phone: POC Protein, UrineNegativeNEGATIVE, 30 (1+) mg/dl [facility] Work Phone: POC Specific [place], Urine>=1.0301.005 - 1.035 [facility] Work Phone: POC Urobilinogen, Urine0.20.2, 1.0 EU/DLUnOhio State Health System Work Phone: UnOhio [facility] System Work Phone: Calcidiolon 70-44-961332647041-fkklcxiweahshe D3 [Mass/Vol] 17 ng/bHHzz35-496EsveqivdmhDayton VA Medical CenterComment on above: Order Comment: Deficiency: < 20 ng/ml Insufficiency: 20-29 ng/ml Sufficiency: 30-100 ng/ml This assay accurately quantifies the sum of Vitamin D3, 25-Hydroxy and Vitamin D2,25-Hydroxy.Performed By: #### 1989-3 #### CHERRY Odonnell ([id number]) [facility] ([facility]) [address] [place] [address]Myoymjvxwbsfe metabolic 2000 panelon 18-79-6167Eqsncbg BCP dye [Mass/Vol]4.3 g/dLNormal3.4-5.0[facility] Comment on above:Performed By: #### 97481-3 #### CHERRY Odonnell ([id number]) [facility] ([facility]) [address] [place] [address]RII [Catalytic activity/Vol]104 U/BWcfgeu08-854StbahxxpelDayton VA Medical CenterComment on above:Performed By: #### 76715-2 #### CHERRY Odonnell ([id number]) [facility] ([facility]) [address] [place], [place] [address]KGN With P-5'-P [Catalytic activity/Vol]26 U/LNormal7-45 [facility] HospitalComment on above:Result Comment: Patients treated with Sulfasalazine may generate falsely decreased results for ALT.Performed By: #### 66610-9 #### CHERRY Odonnell ([id number]) [facility] ([facility]) [address] [place], [place] [address]Gpdfs gap [Moles/Vol]14 mmol/KXdjsyn83-47ZfxoeasorzDayton VA Medical CenterComment on above:Performed By: #### 68054-9 #### CHERRY Odonnell ([id number]) [facility] ([facility]) [id number] [place] [address]PNS With P-5'-P [Catalytic activity/Vol]23 U/LNormal9-39 [facility] HospitalComment on above:Performed By: #### 15470-4 #### CHERRY Odonnell ([id number]) [facility] ([facility]) [id number] [place] [address]Jrqrzqybb [Mass/Vol]0.7 mg/dLNormal0.0-1.2UnDayton VA Medical CenterComment on above:Performed By: #### 16995-5 #### CHERRY Odonnell ([id number]) [facility] ([facility]) [address] [place] [address]Ulzynvr [Mass/Vol]9.7 mg/dLNormal8.6-10.6UnDayton VA Medical CenterComment on above:Performed By: #### 65052-5 #### CHERRY SMITHMOALLEN L ([id number]) [facility] ([facility]) [address] [place] [address]Duliqlwv [Moles/Vol]104 mmol/MAhekka81-457HizmorblkqDayton VA Medical CenterComment on above:Performed By: #### 49646-2 #### CHERRY BIRMINGHAM L ([id number]) [facility] ([facility]) [address] [place], [place] [address]VV2 [Moles/Vol]25 mmol/EFyehme51-50GcbmfptqgyDayton VA Medical CenterComment on above:Performed By: #### 24046-7 #### CHERRY Odonnell (73045) [facility] ([facility]) [address] [place], [place] [address]Kecvgfwjzz [Mass/Vol]0.81 mg/dLNormal0.50-1.05UnDayton VA Medical CenterComment on above:Performed By: #### 69789-5 #### CHERRY Odonnell (07058) [facility] ([facility]) [id number] [place] [address] 94[address]GPD/1.73 sq M.predicted MDRD (S/P/Bld) [Vol rate/Area] mL/min/{1.73_m2}Normal>60UnDayton VA Medical CenterComment on above:Result Comment: Calculations of estimated GFR are performed using the 2020 CKD-EPI Study Refit equation without the race variable for the IDMS-Traceable creatinine methods. https://jasn.asnjournals.org/content/early//ASN.6240748544Bbeukwvgk By: #### 74259-0 #### CHERRY Odonnell ([id number]) [facility] ([facility]) [address] [place] [address]Hnmboof [Mass/Vol]78 mg/fBKmdmzp53-67WhruekikmbDayton VA Medical CenterComment on above:Performed By: #### 95247-9 #### CHERRY Odonnell ([id number]) [facility] ([facility]) [id number] [place] [address] 469[address]Gtwprbinp [Moles/Vol]4.2 mmol/LNormal3.5-5.3UnDayton VA Medical CenterComment on above:Performed By: #### 76746-9 #### CHERRY Odonnell ([id number]) [facility] ([facility]) [address] [place] [address]Qbaohyz [Mass/Vol]7.5 g/dLNormal6.4-8.2UnDayton VA Medical CenterComment on above:Performed By: #### 81314-1 #### CHERRY Odonnell (05013) [facility] ([facility]) [address] [place], [place] [address]Awwncn [Moles/Vol]139 mmol/RFdbhnc560-638WantpxtoqaDayton VA Medical CenterComment on above:Performed By: #### 16065-5 #### CHERRY SMITHMOTZER L (37702) [facility] ([facility]) [address] [place], [place] [address]Twfu nitrogen [Mass/Vol]14 mg/dLNormal6-23[facility] HospitalComment on above:Performed By: #### 80540-6 #### CHERRY BIRMINGHAM L (63319) [facility] ([facility]) [address] [place] [address]Mrehm 1996 panelon 62-27-0291Twsmrzucbmp [Mass/Vol]180 mg/dL Normal0-199[facility] HospitalComment on above:Result Comment: Age Desirable Borderline High High 0-19 [...] should be performed immediately prior to Metamizole dosing.Performed By: #### 90740-6 #### CHERRY Odonnell (29527) [facility] ([facility]) [address] [place], [place] [address]Wcpncgqfozx in HDL [Mass/Vol]37.6 mg/dLNormalUniProMedica Fostoria Community HospitalComment on above:Result Comment: Age Very Low Low Normal High 0-19 Y < 35 < 40 40-45 ---- 20-24 Y ---- < 40 >45 ---- >24 Y ---- < 40 40-60 >60Performed By: #### 22840-8 #### CHERRY Odonnell (64167) [facility] ([facility]) [address] [place], [place] [address]Viizopqundd in LDL [Mass/Vol]123 mg/dLHigh<=109W[facility] HospitalComment on above:Result Comment: Near Borderline AGE Desirable Optimal High High Very High 0-19 Y 0 - 109 --- 110-129 >/= 130 ---- 20-24 Y 0 - 119 --- 120-159 >/= 160 ---- >24 Y 0 - 99 100-129 130-159 160-189 >/=190Performed By: #### 96059-1 #### CHERRY Odonnell (81594) [facility] ([facility]) [address] [place] [address] 27[address]Hzrdijzwnor in VLDL [Mass/Vol]19 mg/dLNormal0-40[facility] HospitalComment on above:Performed By: #### 02173-4 #### CHERRY Odonnell (60617) [facility] ([facility]) [id number] [place] [address] 95167AVJVATMCGOB/HDL RATIO4.8NoUniversity Hospitals Samaritan Medical CenterComment on above:Result Comment: Ref Values Desirable < 3.4 High Risk > 5.0Performed By: #### 55842-0 #### CHERRY Odonnell (93545) [facility] ([facility]) [address] [place] [address] 794[address]GOT HDL RBZBVASJQAO097 mg/dLHigh0-119W[facility] HospitalComment on above:Result Comment: Age Desirable Borderline High High Very High 0-19 Y 0 - 119 120 - 144 >/= 145 >/= 160 20-24 Y 0 - 149 150 - 189 >/= 190 ---- >24 Y 30 mg/dL above LDL Cholesterol goalPerformed By: #### [id number] #### CHERRY Odonnell ([id number]) [facility] ([facility]) [id number] [place] [address] 32801Rjuurnqlcfuo [Mass/Vol]96 mg/dLNormal0-149[facility] HospitalComment on above:Result Comment: Age Desirable Borderline High High Very [...] should be performed immediately prior to Metamizole dosing.Performed By: #### [id number] #### CHERRY Odonnell ([id number]) [facility] ([facility]) [address] [place] [address] 89191MQFU glycosylated hemoglobin (Hb A1C) manually resulted Ordered By: Judy Nelson on 70-12-7073BKO HEMOGLOBIN A1c5.4 %4.2 - 6.5 % [facility] HospitalUnOhio State Health SystemTS WITH REFLEX TO FREE T4 IF ABNORMALon 51-10-8211MWK Qn2.19 m[IU]/LNormal0.44-3.98 [facility] HospitalComment on above:Order Comment: TSH testing is performed using different testing methodology at [facility] than at other [facility]. Direct result comparisons should only be made within the same method.Performed By: #### THYDS #### CHERRY Odonnell ([id number]) [facility] ([facility]) [id number] [place] [address] 04524Jjafi Pressure Cuff Sizeon 65-55-5843Kmxxl Pressure Cuff Size OtispKY-Vaofylgcfo-Saripgnq 1600 Work Phone: Tobacco use status CPHSb) UyAC-Tzsmypvonp-Shzrkizu 1600 Work Phone: Blood Pressure Cuff KbnmGeeljVR-Bvpzrensvu-Gagycbtf 1600 Work Phone: Blood Pressure Cuff SizePatient is not at high risk for falls. Falls risk guidance reviewed giaubNU-Xnhleaaoeq-Fmqyexhq 1600 Work Phone: IO UA (automated w/o microscopy)on 90-48-7598Jlvaotm (U) [Mass/Vol]OrbsnseaNS-Xcxnwueqtw-Ctqsdjvq 1600 Work Phone: IO UA (automated w/o microscopy)Negative JG-Xconzpzwup-Sozqkxua 1600 Work Phone: IO UA (automated w/o microscopy)Normal (0.2-1.0 mg/dl) CV-Wjhvowggiy-Kivuguoa 1600 Work Phone: IO UA (automated w/o microscopy)6.0 1 EC-Ecfhgfnluo-Ncomavbv 1600 Work Phone: IO UA (automated w/o microscopy)1.025 1 FB-Izpdwzvbgu-Vcqfcmzi 1600 Work Phone: IO UA (automated w/o microscopy)Clear EG-Zmotcdzyqq-Eazblthb 1600 Work Phone: IO UA (automated w/o microscopy)Yellow NU-Qxcskzvlue-Fiqwsfpl 1600 Work Phone: Peds Nephrologyon [phone] NephrologyOrders IO UA (automated w/o microscopy); Status:Complete; Done: 14Apr2023 04:07PM Renew: Lisinopril-hydroCHLOROthiazide 20-12.5 MG Oral Tablet; TAKE [...] years of age) and has required polypharmacy thatincludes lisinopril, HCTZ, amlodipine, and amiloride in the past. We obtained renin and aldosteronelevels which returned normal when she was off [...] Follow-up in 6 months. Jennifer Lock MD Load Checker, Pediatrics Polishing Machine Operator Helper, Pediatric Nephrology [facility] [address] [address] [place] [address] [phone]) [phone] Chief Complaint Follow up visit for hypertension Accompanied by mother. History of Present Illness I had the pleasure of seeing Marissa De Leon in Nephrology Clinic at [facility] for a follow-up evaluation of hypertension. As you know, Anny is a 17 year old femalewith hypertension and ADHD. She has been on stimulants for management of her ADHD and is on multiple antihypertensive agents, including near maximal doses of lisinopril, HCTZ, and amlodipine. She hasa history of a normal sleep study in [...] She isn't eating junk and she does notlike exercising by herself. She didn't get approved [...] She has heart disease and is being scheduledfor 3 stents to be placed at 44 years of age 2. Father - hypertension diagnosed under 24 years of age. 3. MGM - 7 MIs, 11 stents for cardiovascular disease, stroke, hypertension, diabetes, and hypercholesterolemia. First SD at 36 years of age 4. Maternal Uncle - hypertension in his 20s 5. 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 She is hoping to go into a [...] coronary artery disease (V17.3) (Z82.49) FHx: early SD (V17.3) (Z82.49) Family history of ANDREINA on CPAP Family history of ANDREINA on CPAP Family history of mental retardation (V18.4) (Z81.0) Family history o (more content not included)...Normal TouchworksHEMOGLOBIN A1C on 43-65-4899UoA1g (Bld) [Mass fraction]5.0 %[facility] Comment on above:Result Comment: Diagnosis of Diabetes-Adults Non-Diabetic: < or = 5.6% Increased risk for developing diabetes: 5.7-6.4% Diagnostic of diabetes: > or = 6.5% . Monitoring of Diabetes Age (y) Therapeutic Goal (%) Adults: >18 <7.0 Pediatrics: 13-18 <7.5 7-12 <8.0 0- 6 7.5-8.5 [place] [employer]. Diabetes Care 33(S1), Oct 2009.Performed By: #### HBA1E #### [facility] [address] [place], [place] [address]KJK AND DIFFERENTIALon 04-04-2023% AUTOMATED IMMATURE GRAN0.2 %Normal0.0 - 1.0[facility])[3]Comment on above:Result Comment: Immature Granulocyte Count (IG) includes promyelocytes, myelocytes and metamyelocytes but does not include bands. Percent differential counts (%) should be interpreted in the context of the absolute cell counts (cells/L).Performed By: #### CBCDF #### [address] [id number] (Bld) [#/Vol]0.04 10*3/uLNormal0.00 - 0.10[facility]3]Comment on above:Performed By: #### CBCDF #### [address] [id number]/100 WBC (Bld)0.4 %Normal0.0 - 1.0[facility])[3]Comment on above:Performed By: #### CBCDF #### [address] [id number] (Bld) [#/Vol]0.11 10*3/uLNormal0.00 - 0.70[facility])[3]Comment on above:Performed By: #### CBCDF #### [address] [id number]/100 WBC (Bld)1.1 %Normal0.0 - 5.0[facility])[3]Comment on above:Performed By: #### CBCDF #### [address] [id number] distribution width (RBC) [Ratio]13.5 %Gxslbz75.5 - 14.5[facility]3]Comment on above:Performed By: #### CBCDF #### [address] [id number] (Bld) [Volume fraction]46.8 %High36.0 - 46.0[facility])[3]Comment on above:Performed By: #### CBCDF #### [address] [id number] (Bld) [Mass/Vol]14.7 g/cGTvivbw75.0 - 16.0[facility]3]Comment on above:Performed By: #### CBCDF #### [address] [id number] (Bld) [#/Vol]3.02 10*3/uLNormal1.80 - 4.80[facility]3]Comment on above:Performed By: #### CBCDF #### [address] [id number]/100 WBC (Bld)31.3 %Zwghmo64.0 - 48.0[facility])[3]Comment on above:Performed By: #### CBCDF #### [address] [id number] (RBC) [Mass/Vol]31.4 g/mLOksosn97.0 - 37.0[facility]3]Comment on above:Performed By: #### CBCDF #### [address] [id number] (RBC) [Entitic vol]91 jSXtlsrq22 - 102[facility]3]Comment on above:Performed By: #### CBCDF #### [address] [id number] (Bld) [#/Vol]0.71 10*3/uLNormal0.10 - 1.00[facility])[3]Comment on above:Performed By: #### CBCDF #### [address] [id number]/100 WBC (Bld)7.3 %Normal3.0 - 9.0[facility]3]Comment on above:Performed By: #### CBCDF #### [address] [id number] (Bld) [#/Vol]5.76 10*3/uLNormal1.20 - 7.70[facility])[3]Comment on above:Performed By: #### CBCDF #### [address] [id number]/100 WBC (Bld)59.7 %Kevsrg68.0 - 69.0[facility]3]Comment on above:Performed By: #### CBCDF #### [address] [id number] (Bld) [#/Vol]441 10*3/vNQggj224 - 400[facility]3]Comment on above:Performed By: #### CBCDF #### [address] [id number] x10E12/LNormal4.10 - 5.20[facility])[3] Comment on above:Performed By: #### CBCDF #### [address] [id number] (Bld) [#/Vol]9.7 10*3/uLNormal4.5 - 13.5[facility]3]Comment on above:Performed By: #### CBCDF #### [address] [id number] PANELon 48-40-0751Cjredde [Mass/Vol]4.5 g/dL Normal3.4 - 5.0[facility]3]Comment on above:Performed By: #### CMP #### [address] [id number] [Catalytic activity/Vol]90 U/LHigh33 - 80[facility]3]Comment on above:Performed By: #### CMP #### [address] [id number] [Catalytic activity/Vol]37 U/LHigh3 - 28[facility]3]Comment on above:Result Comment: Patients treated with Sulfasalazine may generate falsely decreased results for ALT.Performed By: #### CMP #### [address] [id number] gap [Moles/Vol]14 mmol/QRblihj80 - 30[facility]3]Comment on above:Performed By: #### CMP #### [address] [id number] [Catalytic activity/Vol]29 U/LHigh9 - 24[facility]3]Comment on above:Performed By: #### CMP #### [address] [id number] [Mass/Vol]0.5 mg/dLNormal0.0 - 0.9[facility])[3]Comment on above:Performed By: #### CMP #### [address] [id number] [Mass/Vol]9.8 mg/dLNormal8.5 - 10.7[facility])[3]Comment on above:Performed By: #### CMP #### [address] [id number] [Moles/Vol]103 mmol/BMwgddi09 - 107[facility]3]Comment on above:Performed By: #### CMP #### [address] [id number] [Mass/Vol]0.84 mg/dLNormal0.50 - 0.90[facility]3]Comment on above:Performed By: #### CMP #### [address] [id number] [Mass/Vol]74 mg/xGMlwgsq09 - 99[facility] CenterComment on above:Performed By: #### CMP #### [address] [id number] (Bld) [Moles/Vol]27 mmol/KBuysml28 - 27[facility] CenterComment on above:Performed By: #### CMP #### [address] [id number] [Moles/Vol]3.9 mmol/LNormal3.5 - 5.3[facility] CenterComment on above:Performed By: #### CMP #### [address] [id number] [Mass/Vol]8.4 g/dLHigh6.2 - 7.7[facility] CenterComment on above:Performed By: #### CMP #### [address] [id number] [Moles/Vol]140 mmol/NJpqfyk560 - 145[facility] CenterComment on above:Performed By: #### CMP #### [address] [id number] nitrogen [Mass/Vol]12 mg/dLNormal6 - 23[facility] CenterComment on above:Performed By: #### CMP #### [address] [id number] Blood Count + Differentialon 04-04-2023 Basophils/100 WBC (Bld)0.4 %0.0 - 1.3SS-Zfszfhudhv-Lokyshal 1600 Work Phone: Erythrocyte distribution width (RBC) [Ratio]13.5 %See QwlkhOX-Bisflerxrp-Abicqwvl 1600 Work Phone: [phone] on above:Reference Range: 11.5 - 14.5 Hematocrit (Bld) [Volume fraction]46.8 %above high thresholdSee Below BI-Xmqzxsjlaj-Uanqasuc 1600 Work Phone: Comment on above:Reference Range: 36.0 - 46.0 Hemoglobin (Bld) [Mass/Vol]14.7 g/dLSee WdduaWJ-Hldmmldlgu-Uwizipud 1600 Work Phone: Comment on above:Reference Range: 12.0 - 16.0 Lymphocytes/100 WBC (Bld)31.3 %See QpfdcHY-Wxigelmqqa-Tzxfuloc 1600 Work Phone: Comment on above:Reference Range: 28.0 - 48.0MCHC (RBC) [Mass/Vol]31.4 g/dLSee UpraoOP-Wjosxyzdrc-Qsmvqfla 1600 Work Phone: Comment on above:Reference Range: 31.0 - 37.0MCV (RBC) [Entitic vol]91 fL78 - 839BU-Audltzrxxu-Ccteemzq 1600 Work Phone: Monocytes/100 WBC (Bld)7.3 %3.0 - 9.0 PM-Dqwylknlht-Bcugphgo 1600 Work Phone: Neutrophils/100 WBC (Bld)59.7 %See Below NS-Ruplotzorh-Hgpaaufv 1600 Work Phone: Comment on above:Reference Range: 33.0 - 69.0Platelets (Bld) [#/Vol]441 10*3/uLabove high padyergqa471 - 232UT-Mlheotvxea-Hypjxbkl 1600 Work Phone: RBC (Bld) [#/Vol]5.12 {x10E12/L}See Below FY-Cshslkqfsn-Hpmaxfqp 1600 Work Phone: Comment on above:Reference Range: 4.10 - 5.20WBC (Bld) [#/Vol]9.7 10*3/uL4.5 - 13.8EB-Qwvgvqjrdh-Voswfftj 1600 Work Phone: Complete Blood Count + Differential0.04 {x10E9/L}See XlpaeJD-Jbaczmhtca-Ymhipfta 1600 Work Phone: Comment on above:Reference Range: 0.00 - 0.10Complete Blood Count + Differential0.11 {x10E9/L}See GdaxsXN-Hsmwzxtwpq-Xrixuzfi 1600 Work Phone: Comment on above:Reference Range: 0.00 - 0.70Complete Blood Count + Differential0.71 {x10E9/L}See UpgqjKW-Lalmjnzlgj-Uprypwkl 1600 Work Phone: Comment on above:Reference Range: 0.10 - 1.00Complete Blood Count + Differential3.02 {x10E9/L}See CwssuNP-Dfdyykfyhe-Yxdumgrs 1600 Work Phone: Comment on above:Reference Range: 1.80 - 4.80Complete Blood Count + Differential5.76 {x10E9/L}See GirqhQG-Jfauryesgh-Rrxwekrk 1600 Work Phone: Comment on above:Reference Range: 1.20 - 7.70Complete Blood Count + Differential1.1 %0.0 - 5.1GB-Cqezhfcwoe-Alsjxvbu 1600 Work Phone: Complete Blood Count + Differential0.2 %0.0 - 1.0 IY-Eqrkmbtadr-Svxkyrag 1600 Work Phone: Comment on above:Immature Granulocyte Count (IG) includes promyelocytes, myelocytes and metamyelocytes but does not include bands. Percent differential counts (%) should be interpreted in the context of the absolute cell counts (cells/L).Dietition Noteon 06-87-0979Mmnycyqfl Note History of Present Illness Medical Nutrition [...] coronary artery disease (V17.3) (Z82.49) FHx: early SD (V17.3) (Z82.49) Family history of ANDREINA on [...] Prep 70 % Pad; USE DIRECTED; Therapy: 40Egv7433 to (Last Rx:[id number]) Requested for: 44Lke7196 Ordered Rx By: Tasia Quijano; Dispense: 0 Days ; #:1 X 100 Pad Box; Refill: 2;For: Acanthosis nigricans; SALLIE = N; Verified Transmission to [facility][id number] Pen [place] 5/16 31G X 8 MM; Use one needle daily with Victoza injection; Therapy: 77Szp5707 to (Last Rx:[id number]) Requested for: 38Unc3848 Ordered Rx By: Tasia Quijano; Dispense: 0 Days ; #:1 X 100 Unit Box; Refill: 2;For: Acanthosis nigricans; SALLIE= N; Verified Transmission to [facility] #[id number] Victoza 18 MG/3ML Subcutaneous Solution Pen-injector; INJECT 1.8 MG SUBCUTANEOUSLY EVERY DAY; Therapy: 88Iri3815 to (Last Rx:01Mar2023) Requested for: [id number] Ordered Rx By: Tasia Quijano; Dispense: 0 Days ; #:1 X 2 x 3 ML Pen; Refill: 5;For: Acanthosis nigricans; SALLIE= N; Verified Transmission to [facility] #[id number]; Msg to Pharmacy: Maintenance dose Blood Pressure M (more content not included)...NormalUH TouchworksHemoglobin A1C on 15-79-1472FvJ5j (Bld) [Mass fraction]5.0 %TB-Cfkkukzddb-Jpjqqrnz 1600 Work Phone: Comment on above:Diagnosis of Diabetes-Adults Non- Diabetic: < or = 5.6% Increased risk for developing diabetes: 5.7-6.4% Diagnostic of diabetes: > or = 6.5%. Monitoring of Diabetes Age (y) Therapeutic Goal (%) Adults: >18 <7.0 Pediatrics: 13-18 <7.5 7-12 <8.0 0- 6 7.5-8.5 [place] [employer]. Diabetes Care 33(S1), Oct 2009.LIPID PANEL (CORONARY RISK 2)on 36-83-8618Kpytbgvvvxj [Mass/Vol]208 mg/dLHigh0 - 199[facility]3]Comment on above:Result Comment: . AGE DESIRABLE BORDERLINE HIGH HIGH [...] should be performed immediately prior to Metamizole dosing.Performed By: #### LIPID #### [address] [id number] in HDL [Mass/Vol]42.0 mg/dLNormalUHackensack University Medical CenterComment on above:Result Comment: . AGE VERY LOW LOW NORMAL HIGH 0-19 Y < 35 < 40 40-45 ---- 20-24 Y ---- < 40 >45 ---- >24 Y ---- < 40 40-60 >60 .Performed By: #### LIPID #### [address] [id number] in LDL [Mass/Vol]144 mg/dLHigh0 - 109[facility]3]Comment on above:Result Comment: . NEAR BORD AGE DESIRABLE OPTIMAL HIGH HIGH VERY HIGH 0-19 Y 0 - 109 --- 110-129 >/= 130 ---- 20-24 Y 0 - 119 --- 120-159 >/= 160 ---- >24 Y 0 - 99 100-129 130-159 160-189 >/=190 .Performed By: #### LIPID #### [address] [id number] in VLDL [Mass/Vol]22 mg/dLNormal0 - 40[facility]3]Comment on above:Performed By: #### LIPID #### [address] [id number].total/Cholesterol in HDL [Mass ratio]5.0 {ratio} NormalMon[facility])[3]Comment on above:Result Comment: REF VALUES DESIRABLE < 3.4 HIGH RISK > 5.0Performed By: #### LIPID #### [address] [id number]-YYT QCTYBBDISTJ298 mg/dLHigh0 - 119[facility]3]Comment on above:Result Comment: AGE DESIRABLE BORDERLINE HIGH HIGH VERY HIGH 0-19 Y 0 - 119 120 - 144 >/= 145 >/= 160 20-24 Y 0 - 149 150 - 189 >/= 190 ---- >24 Y 30 MG/DL ABOVE LDL CHOLESTEROL GOAL .Performed By: #### LIPID #### [address] [id number] [Mass/Vol]110 mg/dLNormal0 - 149[facility]3]Comment on above:Result Comment: . AGE DESIRABLE BORDERLINE HIGH HIGH [...] should be performed immediately prior to Metamizole dosing.Performed By: #### LIPID #### [address] [id number] - Chemistry and Chemistry - challengeon 50-26-2239Yyvhexy BCP dye [Mass/Vol]4.5 g/dL3.4 - 5.2VG-Dbkivhnunn-Akrumlod 1600 Work Phone: ALP [Catalytic activity/Vol]90 U/Labove high threshold 33 - 10QJ-Vuygqeqnid-Tkprfjqg 1600 Work Phone: ALT With P-5'-P [Catalytic activity/Vol]37 U/Labove high threshold3 - 84QI-Deuavbclxz-Wdmittlb 1600 Work Phone: Comment on above:Patients treated with Sulfasalazine may generate falsely decreased results for ALT.Anion gap [Moles/Vol]14 mmol/L10 - 27YI-Pbctgalngv-Ckozryfw 1600 Work Phone: AST With P-5'-P [Catalytic activity/Vol]29 U/Labove high threshold9 - 78BS-Xeavuakhim-Cyifwhqh 1600 Work Phone: Bilirubin [Mass/Vol]0.5 mg/dL0.0 - 0.9 OT-Vnyvmpwjai-Rofetjva 1600 Work Phone: Calcium [Mass/Vol]9.8 mg/dL8.5 - 10.7 UK-Sevckbrrtt-Dojhzrjj 1600 Work Phone: Chloride [Moles/Vol]103 mmol/L98 - 107 ED-Oaogukrdrx-Kckyxhst 1600 Work Phone: WJ6 [Moles/Vol]27 mmol/L18 - 38KB-Kbfykuians-Wlpklxxr 1600 Work Phone: Creatinine [Mass/Vol]0.84 mg/dLSee Below AB-Ksnzsowbft-Giibzirc 1600 Work Phone: Comment on above:Reference Range: 0.50 - 0.90Glucose [Mass/Vol]74 mg/dL74 - 93JG-Txugnqgrqt-Vbfdurpc 1600 Work Phone: Potassium [Moles/Vol]3.9 mmol/L3.5 - 5.3 QM-Agkgltrslf-Qooqjlbq 1600 Work Phone: Protein [Mass/Vol]8.4 g/dLabove high threshold6.2 - 7.5IU-Dxzhysvdbk-Tpyozluq 1600 Work Phone: Sodium [Moles/Vol]140 mmol/L136 - 145 VJ-Ngefqvvlgr-Yopiawow 1600 Work Phone: TSH Qn2.56 m[IU]/LSee ZcxqtPH-Sgllccexvx-Ntqinmso 1600 Work Phone: Comment on above:Reference Range: 0.44 - 3.98 TSH testing is performed using different testing methodology at [facility] than at other [facility]. Direct result comparisons should only be made within the same method.Urea nitrogen [Mass/Vol]12 mg/dL6 - 23 XA-Acnxtrsulo-Puhxphan 1600 Work Phone: Lipid Panelon 92-28-4559Ogjbtpzwogy [Mass/Vol]208 mg/dLabove high threshold0 - 435VT-Ojvjjrpxbh-Hbyvsqcy 1600 Work Phone: Comment on above:. AGE DESIRABLE BORDERLINE HIGH HIGH 0-19 Y [...] guidelines reference: NCEP ATPIII Guidelines, EBONY 2001, 258:5966-97. Venipuncture immediately after or during the administration of Metamizole may lead to falsely low results. Testing should be performed immediately prior to Metamizole dosing.Cholesterol in HDL [Mass/Vol]42.0 mg/iHBN-Gaskcqwitm-Cjmwubav 1600 Work Phone: Comment on above:. AGE VERY LOW LOW NORMAL HIGH 0-19 Y < 35 < 40 40-45 ---- 20-24 Y ---- < 40 >45 ---- >24 Y ---- < 40 40-60 >60. Cholesterol in LDL [Mass/Vol]144 mg/dLabove high threshold0 - 109 JU-Twdwnvyvgh-Ursoztkg 1600 Work Phone: Comment on above:. NEAR BORD AGE DESIRABLE OPTIMAL HIGH HIGH VERY HIGH 0-19 Y 0 - 109 --- 110-129 >/= 130 ---- 20-24 Y 0 - 119 --- 120-159 >/= 160 ---- >24 Y 0 - 99 100-129 130-159 160-189 >/=190.Cholesterol non HDL [Mass/Vol]166 mg/dLabove high threshold0 - 848QK-Xfyrelrsga-Gvolmdmx 1600 Work Phone: Comment on above:AGE DESIRABLE BORDERLINE HIGH HIGH VERY HIGH 0-19 Y 0 - 119 120 - 144 >/= 145 >/= 160 20-24 Y0 - 149 150 - 189 >/= 190 ---- >24 Y 30 MG/DL ABOVE LDL CHOLESTEROL GOAL.Cholesterol.total/Cholesterol in HDL [Mass ratio]5.0 {ratio}BH-Owylqxrelp-WvhmqqivSanera Work Phone: Comment on above:REF VALUESDESIRABLE < 3.4HIGH RISK > 5.0Triglyceride [Mass/Vol]110 mg/dL0 - 211GU-Kezrvdknio-Pyxjcgmh 1600 Work Phone: Comment on above:. AGE DESIRABLE BORDERLINE HIGH HIGH VERY HIGH [...] should be performed immediately prior to Metamizole dosing.Lipid Panel22 mg/dL0 - 40 QP-Jaqkjebazq-IrrjxomlSanera Work Phone: Ped Endocrinology - Establishedon 05-80-3631Hvgy Endocrinology - EstablishedDiagnoses/Problems Assessed Metabolic syndrome (277.7) (E88.81) Insulin resistance [...] >=95 percentile); SALLIE = N; Sent To: [address] Metabolic syndrome Start: Vitamin D (Ergocalciferol) 1.25 MG (02874 UT) Oral Capsule; TAKE 1 CAPSULE BY MOUTH WEEKLY FOR 8 WEEKS Rx By: Tasia Quijano; Dispense: 8 Days ; #:8 Capsule; Refill: 0;For: Metabolic syndrome; SALLIE = N; Verified Transmission to [address]; Last Updated By: Nemesio Stiles; 04/04/2023 1:58:41 PM Complete Blood Count + Differential; Status:Resulted - Requires Verification; Done: 04Apr2023 02:44PM Performed:[facility]; Due:08Adq0439;Ordered; For:Metabolic syndrome; Ordered By:Tasia Quijano; Comprehensive Metabolic Panel; Status:Resulted - Requires Verification; Done: 04Apr2023 02:44PM Performed:[facility]; Due:80Yqz2062;Ordered; For:Metabolic syndrome; Ordered By:Tasia Quijano; Hemoglobin A1C; Status:Resulted - Requires Verification; Done: 04Apr2023 02:44PM Performed:[facility]; Due:92Zvi1632;Ordered; For:Metabolic syndrome; Ordered By:Tasia Quijano; Lipid Panel; Status:Resulted - Requires Verification; Done: 04Apr2023 02:44PM Performed:[facility]; Due:65Nlm2712;Ordered; For:Metabolic syndrome; Ordered By:Tasia Quijano; TSH WITH REFLEX TO FREE T4 IF ABNORMAL; Status:Resulted - Requires Verification; Done: 04Apr2023 02:44PM Performed:[facility]; Due:24Wwg7473;Ordered; For:Metabolic syndrome; Ordered By:Tsaia Quijano; Patient Discussion/Summary Thank you for bringing Marissa in to clinic today! Continue working with Colleen. Work on getting more activity I am going to try and switch you to Leonardo Hernandez for annual labs 8 week course of vitamin Follow up with us in 4-6 months. Provider Impressions Marissa is a 17 year old female presenting to endocrine clinic as follow up for obesity, insulin resistance, hypercholesterolemia, and hypertension. Patient has lost weight since starting Victoza, but this has plateaued. Chris lomeli. 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 Direct result comparisons should only be made within the same method.Performed By: #### THYDS #### [address] [id number] Pressure Cuff Sizeon 48-93-9648Qgmffki use status CPHS b) AyPP-Xujfzrkmvk-Kmexxaam 1600 Work Phone: Blood Pressure Cuff QzhlBezeiND-Rszzyhrspl-Iibngnby 1600 Work Phone: IO UA (automated w/o microscopy)on 79-16-4820Vyqqpzo (U) [Mass/Vol]PyaxtgszZK-Gzskjqkzre-Mfhmssdf 1600 Work Phone: IO UA (automated w/o microscopy)Negative XW-Siddcphdqb-Kjbyqqxl 1600 Work Phone: IO UA (automated w/o microscopy)Normal (0.2-1.0 mg/dl) SQ-Kzrsptsbbk-Sgysoguy 1600 Work Phone: IO UA (automated w/o microscopy)6.0 1 RJ-Ezraityvhx-Pbsmvkwg 1600 Work Phone: [phone] UA (automated w/o microscopy)1.030 1 VM-Hjoijzbudu-Ghcybbrb 1600 Work Phone: IO UA (automated w/o microscopy)Clear JK-Xffeubjbyf-Inwqcxwd 1600 Work Phone: IO UA (automated w/o microscopy)Yellow DQ-Pzpmvyzdkr-Vjxuzdde 1600 Work Phone: Peds Nephrologyon 82-26-2622Kibq NephrologyOrders Renew: Lisinopril-hydroCHLOROthiazide 20-12.5 MG Oral Tablet; TAKE [...] years of age) and has required polypharmacy thatincludes lisinopril, HCTZ, amlodipine, and amiloride in the past. We obtained renin and aldosteronelevels which returned normal when she was off of all therapy. She will continue 20-12.5 mg after BPs were largely in the 130s. Now, she is losing weight and her BPs at home are slightly above target. Positive reinforcement andencouragement for ongoing weight loss efforts emphasized. Encouraged family to schedule appointmentwith sleep medicine when some of the other [...] Follow-up in 3-4 months. Jennifer Lock MD Load Checker, Pediatrics Polishing Machine Operator Helper, Pediatric Nephrology [facility] [address] [address] [place] [address] (p) [phone] Chief Complaint Follow up visit here for hypertension per the patient. Accompanied by mother. History of Present Illness I had the pleasure of seeing Marissa De Leon in Nephrology Clinic at [facility] for a follow-up evaluation of hypertension. As you know, Anny is a 17 year old femalewith hypertension and ADHD. She has been on stimulants for management of her ADHD and is on multiple antihypertensive agents, including near maximal doses of lisinopril, HCTZ, and amlodipine. She hasa history of a normal sleep study in [...] She has heart disease and is being scheduledfor 3 stents to be placed at 44 years of age 2. Father - hypertension diagnosed under 24 years of age. 3. MGM - 7 MIs, 11 stents for cardiovascular disease, stroke, hypertension, diabetes, and hypercholesterolemia. First SD at 36 years of age 4. Maternal Uncle - hypertension in his 20s 5. 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 Review of Systems The remainder of a [...] coronary artery disease (V17.3) (Z82.49) FHx: early SD (V17.3) (Z82.49) Family history of ANDREINA on CPAP Family history of ANDREINA on CPAP Family history of mental retardation (V18.4) (Z81.0) Family history of migraine headaches (V17.2) (Z82.0) Allergies No Known Drug Allergies Recorded By: Teri Camp; 11/04/2014 1:39:21 PM Current Meds Medication NameInstruction Alcohol Prep 70 % PadUSE DIRECTED. Blood Pressure Monitor/L Cuff MISCCheck blood pre (more content not included)... NormalUH TouchworksPeds Endocrinology - Establishedon 70-14-4852Fxqj Endocrinology - EstablishedDiagnoses/Problems Assessed Insulin resistance (277.7) (E88.81) Acanthosis nigricans (701.2) (L83) Obesity peds (BMI >=95 percentile) (278.00,V85.54) (E66.9,Z68.54) Orders Insulin resistance Start: Ozempic (0.25 or 0.5 MG/DOSE) 2 MG/1.5ML Subcutaneous Solution Pen-injector; INJECT 0.5 MG ONCE WEEKLY as directed Rx By: Tasia Quijano; Dispense: 90 Days ; #:3 X 1.5 ML Pen; Refill: 3;For: Insulin resistance; SALLIE = N; Verified Transmission to [facility]; Last Updated By: Nemesio Stiles; 35:10:12 PM Patient Discussion/Summary Thank you for bringing [...] Ozempic 0.5 mg - Continue meeting with fbi profiler and incorporating healthy foods into diet -increase [...] from diet - 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[employer] - Followed up with [...] Problems History of Developmenta (more content not included)...NormalUH TouchworksIO UA (automated w/o microscopy)on 57-06-6990Joaddll (U) [Mass/Vol]Negative ZS-Ubflthcshe-Znfrtsid 1600 Work Phone: IO UA (automated w/o microscopy)Negative OE-Kbcadkmaht-Yswqtova 1600 Work Phone: [phone] UA (automated w/o microscopy)Normal (0.2-1.0 mg/dl) WV-Vziuvbnrbj-Lswnuezd 1600 Work Phone: IO UA (automated w/o microscopy)6.0 1 VN-Dcpnljghlg-Efknzkge 1600 Work Phone: IO UA (automated w/o microscopy)1.030 1 NH-Yqobeenjpx-Mnaqugai 1600 Work Phone: IO UA (automated w/o microscopy)Clear EA-Fiqaldlevg-Lmyujdvi 1600 Work Phone: IO UA (automated w/o microscopy)Yellow XR-Ivwkwooupt-Zuvrpyum 1600 Work Phone: RENIN,PLASMAon [phone],PLASMA2.7 ng/mL/hr Normal[facility]3]Comment on above:Result Comment: INTERPRETIVE INFORMATION: Renin Activity Adult, Normal sodium diet: Supine ................. 0.2-1.6 ng/mL/hr Upright ................ 0.5-4.0 ng/mL/hr Children, Normal sodium diet, Supine: [place] (1-7 days) ..... 2.0-35.0 ng/mL/hr Cord blood [...] developed and its performance characteristics determined by [employer]. It has not been cleared or approved by the US Food and Drug Administration. This test was performed in a CLIA certified laboratory and is intended for clinical purposes. Performed By: [employer] [address] [place] [address] Acid Correction Hand: Chidi Nogueira MD, PhDPerformed By: #### RENIN #### [address] [id number] 32-11-0245TSDGKEWFBBY43.3 ng/dLSt. Mary's HospitalComment on above:Result Comment: INTERPRETIVE INFORMATION: Aldosterone, Serum Reference intervals for age [...] reference intervals for this test in the [employer] Laboratory Test Directory ([employer]). Performed By: [employer] [address] [place] [address] Acid Correction Hand: Chidi Nogueira MD, PhDPerformed By: #### ALDOS #### [address] [address]Vfgbdhmtpib, Serumon 46-32-2863Cxsqucwzeib [Mass/Vol]13.3 ng/dL [facility] Work Phone: Comment on above:INTERPRETIVE INFORMATION: Aldosterone, SerumReference intervals for age 15 and older: Upright ......... 4.0 - 31.0 ng/dL Supine .......... Less than or equal to 16.0 ng/dL Unspecified ..... Less thanor equal to 31.0 ng/dLNormal serum levels of [...] reference intervals for this test in the [employer] [facility] Test Directory ([employer]).Performed By: [employer] [place] [address]Qgbgtsqzic Director: Chidi Nogueira MD, PhDIO UA (automated w/o microscopy)on 19-04-6559Etrxzea (U) [Mass/Vol]Negative UZ-Qpckesjzmz-Wjwvtwge 1600 Work Phone: IO UA (automated w/o microscopy)Negative CV-Ozkxutwpuf-Nfsaivix 1600 Work Phone: IO UA (automated w/o microscopy)Normal (0.2-1.0 mg/dl) IY-Nbypsqmgoq-Rbblabbo 1600 Work Phone: IO UA (automated w/o microscopy)7.0 1 ZD-Ycxnvkbusl-Kkwcyzve 1600 Work Phone: IO UA (automated w/o microscopy)1.025 1 ZV-Fvzbpqyfwq-Gmgnxhjq 1600 Work Phone: IO UA (automated w/o microscopy)Clear EJ-Kbtdqhoazs-Dkdfmbyo 1600 Work Phone: IO UA (automated w/o microscopy)Yellow HZ-Ycoqtxlpdz-Ibhsauom 1600 Work Phone: IRON + TIBCon 06-24-2022% TLTTUYBZFZ09 %Low25 - 45[facility]3]Comment on above:Performed By: #### BLAIRT #### [address] [id number] [Mass/Vol]66 ug/nODeltex44 - 175[facility]3]Comment on above:Performed By: #### IRONT #### [address] [id number] ug/yZGipbzv828 - 445UH [facility] Comment on above:Performed By: #### IRONT #### [address] [id number] - Chemistry and Chemistry - challengeon 66-43-0729Nkpr [Mass/Vol]66 ug/dL28 - 486RJ-Hbjafoxngd-Tixtswpr 1600 Work Phone: Iron binding capacity [Mass/Vol]353 ug/dL240 - 445 ZB-Ctmcjbywyd-Tgghtzed 1600 Work Phone: [phone] Panel Informationon 48-09-660325 %below low byhrdenzz67 - 80QQ-Pygtalovpl-Ikiqtnjr 1600 Work Phone: [phone] Nephrologyon 24-41-1407Boci Nephrology Diagnoses/Problems Hypertension, essential (401.9) (I10) Metabolic syndrome (277.7) (E88.81) Iron deficiency (280.9) (E61.1) Vitamin D deficiency (268.9) (E55.9) Orders Renew: Lisinopril-hydroCHLOROthiazide 10-12.5 MG Oral Tablet; TAKE 1 TABLET [...] barrier methods). 3. Call our office at [phone], option 0 to leave blood pressure readings in 2 weeks. 4. Follow-up in 3 months. Provider Impressions In summary, Marissa is a 16 year old female with difficult to treat hypertension. She has been managed for hypertension since 2015 (diagnosed around 9 years of age) and has required polypharmacy thatincludes lisinopril, HCTZ, amlodipine and amiloride.. She has not been on any medications for a little over a year. Although her obesity may be contributing to her hypertension, my concern is she mayhave a monogenic hypertension given her family history [...] were assessed and saturation was low at 19%with normal total iron. 4. Disposition: Will touch base with the family in 2 weeks and see her in clinic in 2-3 months. Jennifer Lock MD Outcomes Manager, Pediatrics Polishing Machine Operator Helper, Pediatric Nephrology [facility] [address] [address] [place] [address] [phone]) [phone] Chief Complaint Patient here for follow up visit. Accompanied by mother. History of Present Illness I had the pleasure of seeing Marissa De Leon in Nephrology Clinic at [facility] for [...] diagnosed with COVID-19 in 2019. A few weeksago, she had pharyngitis, but she has otherwise [...] snoring and had disordered sleeping on sleep study,but no recommendations for CPAP. She feels well [...] She has heart disease and is being scheduledfor 3 stents to be placed at 44 years of age 2. Father - hypertension diagnosed under 24 years of age. 3. MGM - 7 MIs, 11 stents for cardiovascular disease, stroke, hypertension, diabetes, and hypercholesterolemia. First SD at 36 years of age 4. Maternal Uncle - hypertension in his 20s Social History: Marissa lives with family and has an older sister who is expecting a baby. She is entering her olivia year (started nurs (more content not included)...NormalUH TouchworksRenin Activity, Plasmaon 07-27-7218Pioum (P) [Catalytic activity/Vol] 2.7 {ng/mL/hr}ER-Rbqklejuft-[facility] Work Phone: Comment on above:INTERPRETIVE INFORMATION: Renin ActivityAdult, Normal sodium diet: Supine ................. 0.2-1.6ng/mL/hr Upright ................ 0.5-4.0 ng/mL/hrChildren, Normal sodium diet, [...] limited by the availability of angiotensinogen. Plasma reninactivity is not an accurate indicator of enzyme activity when angiotensinogen is decreased.This test was developed and its performance characteristics determined by [employer]. It has not been cleared or approved by the US Food and Drug Administration. This test was performed in a CLIA certified laboratory and is intended for clinical purposes.Performed By: [employer] [place] [address]Bpxtzsiddc Director: Chidi Nogueira MD, PhDVITAMIN D, 25-HYDROXYon 23-84-3470MRHQWMK D, 25-HYDROXY8 ng/mLAbnormalUH [facility] CenterComment on above:Result Comment: . DEFICIENCY: < 20 NG/ML INSUFFICIENCY: 20-29 NG/ML SUFFICIENCY: 30-100 NG/ML THIS ASSAY ACCURATELY QUANTIFIES THE SUM OF VITAMIN D3, 25-HYDROXY AND VIT D2,25-HYDROXY.Performed By: #### VTDOH #### [address] [id number] D 25-Hydroxyon 469296-hiyjmevxaxkmdu D3 [Mass/Vol]8 ng/gQLlfluxgeKQ-Xpmwdpkhbv-Ueidmcxw 1600 Work Phone: Comment on above:.DEFICIENCY: < 20 NG/MLINSUFFICIENCY: 20-29 NG/MLSUFFICIENCY: 30-100 NG/MLTHIS ASSAY ACCURATELY QUANTIFIES THE SUM OFVITAMIN D3, 25-HYDROXY AND VIT D2,25-HYDROXY.Dietition Noteon 06-16-2022 Dietition NoteHistory of Present Illness Medical Nutrition Therapy (Obesity) Diet History Breakfast: yogurt + toast + water - lemon Lunch: [employer] - fries + chicken sandwich + Sprite Dinner: pork chops + asparagus + rice eating less stopped working to concentrate on school wants to be a nurse not able to do the food journal taking the [employer] Nutrition Diagnosis: Obesity related to imbalance between calorie intake and physical activity - states she is doin better with the Synthacetoza Nutrition Education Goal - 1600 calories per [...] coronary artery disease (V17.3) (Z82.49) FHx: early SD (V17.3) (Z82.49) Family history of ANDREINA on [...] not take iron with Sodium Bicarbonate; Therapy: 77Jmr5706 to (Evaluate:72Hse9301) Requested for: 28Iqw3875; Last Rx:[id number] Ordered Rx By: Bryon Argueta; Dispense: 30 Days ; #:60 Tablet; Refill: 2;For: Acanthosis nigricans; SALLIE = N; Verified Transmission to [id number]; Last Updated By: Nemesio Stiles; 12/21/2019 11:48:33AM Victoza 18 MG/3ML Subcutaneous Solution Pen-injector; Inject 0.6 mg once daily for 1 week. Increase as directed to 1.2 mg daily for one week and then to final dose of 1.8mg daily; Therapy: 50Cwg0958 to (Evaluate:22Nov2022) Requested for: 82Ekz0258; Last Rx:[id number] Ordered Rx By: Tasia Quijano; Dispense: 30 Days ; #:1 X 3 x 3 ML Pen; Refill: 5;For: Acanthosis nigricans; SALLIE = N; Verified Transmission to [facility][id number] aMILoride HCl - 5 MG Oral Tablet; TAKE 1 TABLET ONCE DAILY; (more content not included)...NormalUH TouchworksHemoglobin A1Con 06-07-2022 HbA1c (Bld) [Mass fraction]5.0 %FL-Oxfwkqlnfm-Yzzi Admin RBC 737 Work Phone: comment on above:Diagnosis of Diabetes-Adults Non- Diabetic: < or = 5.6% Increased risk for developing diabetes: 5.7-6.4% Diagnostic of diabetes: > or = 6.5%. Monitoring of Diabetes Age (y) Therapeutic Goal (%) Adults: >18 <7.0 Pediatrics: 13-18 <7.5 7-12 <8.0 0- 6 7.5-8.5 [place] [employer]. Diabetes Care 33(S1), Oct 2009.Laboratory - Chemistry and Chemistry - challengeon 48-25-2738Mrciwnu BCP dye [Mass/Vol]4.1 g/dL3.4 - 5.0 OW-Orpijxsqjc-Iisr Admin RBC 737 Work Phone: aLP [Catalytic activity/Vol]100 U/L45 - 108 VZ-Xymqdbjbvy-Hijw Admin RBC 737 Work Phone: aLT With P-5'-P [Catalytic activity/Vol]30 U/Labove high threshold3 - 52UN-Tmfszqwkwg-Rcvw Admin RBC 737 Work Phone: comment on above:Patients treated with Sulfasalazine may generate falsely decreased results for ALT.Anion gap [Moles/Vol]12 mmol/L10 - 57XM-Ygmyfmnusk-Rlzn Admin RBC 737 Work Phone: aST With P-5'-P [Catalytic activity/Vol]25 U/Labove high threshold9 - 40PQ-Xfllwlzapv-Zvpz Admin RBC 737 Work Phone: [phone] [Mass/Vol]0.4 mg/dL0.0 - 0.9 YC-Txxbkeuiwq-Ndwj Admin RBC 737 Work Phone: [phone] [Mass/Vol]9.4 mg/dL8.5 - 10.7 UR-Hsqifelipj-Pjox Admin RBC 737 Work Phone: [phone] [Moles/Vol]102 mmol/L98 - 107 CF-Tbtnjqtwee-Rish Admin RBC 737 Work Phone: [phone] [Moles/Vol]27 mmol/L18 - 51BZ-Foassbddus-Dnxg Admin RBC 737 Work Phone: [phone] [Mass/Vol]0.76 mg/dLSee Below QG-Phaevgodfz-Esjr Admin RBC 737 Work Phone: [phone] on above:Reference Range: 0.50 - 0.90Glucose [Mass/Vol]79 mg/dL74 - 71HZ-Jcfibqxxet-Fmta Admin RBC 737 Work Phone: [phone] [Moles/Vol]4.1 mmol/L3.5 - 5.3 II-Ekaeojqsey-Vwkt Admin RBC 737 Work Phone: [phone] [Mass/Vol]7.5 g/dL6.2 - 7.3NF-Ensvtwdddh-Iidh Admin RBC 737 Work Phone: [phone] [Moles/Vol]137 mmol/L136 - 145 AY-Pjlyvizeri-Ivij Admin RBC 737 Work Phone: [phone] nitrogen [Mass/Vol]14 mg/dL6 - 23 QL-Fspouvuqul-Fswo Admin RBC 737 Work Phone: [phone] Panelon 92-80-4766Colordqgkvx [Mass/Vol]174 mg/dL0 - 348CS-Hbsrpmtfsa-Ejvf Admin RBC 737 Work Phone: [phone] on above:. AGE DESIRABLE BORDERLINE HIGH HIGH 0-19 Y [...] should be performed immediately prior to Metamizole dosing.Cholesterol in HDL [Mass/Vol]42.0 mg/rUGA-Mcruepqacs-Ovft Admin RBC 737 Work Phone: comment on above:. AGE VERY LOW LOW NORMAL HIGH 0-19 Y < 35 < 40 40-45 ---- 20-24 Y ---- < 40 >45 ---- >24 Y ---- < 40 40-60 >60. Cholesterol in LDL [Mass/Vol]111 mg/dLabove high threshold0 - 109 JJ-Uxdqbbrxnt-Xmkd Admin RBC 737 Work Phone: Comment on above:. NEAR BORD AGE DESIRABLE OPTIMAL HIGH HIGH VERY HIGH 0-19 Y 0 - 109 --- 110-129 >/= 130 ---- 20-24 Y 0 - 119 --- 120-159 >/= 160 ---- >24 Y 0 - 99 100-129 130-159 160-189 >/=190.Cholesterol non HDL [Mass/Vol]132 mg/dLabove high threshold0 - 192MW-Uxchawxidd-Npdo Admin RBC 737 Work Phone: comment on above:AGE DESIRABLE BORDERLINE HIGH HIGH VERY HIGH 0-19 Y 0 - 119 120 - 144 >/= 145 >/= 160 20-24 Y0 - 149 150 - 189 >/= 190 ---- >24 Y 30 MG/DL ABOVE LDL CHOLESTEROL GOAL.Cholesterol.total/Cholesterol in HDL [Mass ratio]4.1 {ratio}FJ-Girwolfvzv-Usnu Admin RBC 737 Work Phone: comment on above:REF VALUESDESIRABLE < 3.4HIGH RISK > 5.0Triglyceride [Mass/Vol]105 mg/dL0 - 624YC-Mkpkpvlxtu-Xjtg Admin RBC 737 Work Phone: comment on above:. AGE DESIRABLE BORDERLINE HIGH HIGH VERY HIGH [...] should be performed immediately prior to Metamizole dosing.Lipid Panel21 mg/dL0 - 40 TU-Bmocwbwpyo-Ckby Admin RBC 737 Work Phone: [phone]-49 PCR ([facility])on 07-08-9958CIMT-CoV-2 (COVID- 19) RNA DEBORAH+probe Ql (Unsp spec)Not detectedNormalNOT DETECTEDThe [facility] Va Medical CenterComment on above:Result Comment: When diagnostic testing is negative, the [...] for this test is supported by the [place] of Health and Human Service's declaration that circumstances exist to justify the emergency use of in vitro diagnostics for the detection and/or diagnosis of the virus that causes COVID-19. This EUA will remain in effect for the duration of the COVID-19 declaration justifying emergency of IVDs, unless it is terminated or revoked by the FDA (after which the test may no longer be used).Performed By: #### CVDTBH #### [facility] [address] [place] [address] Dr. Lisa Hughes URINE PROFILEon 59-26-1205Ghlaklsdx Ql (U)NegativeNormal NEGATIVEThe [facility] Va Medical CenterComment on above:Performed By: #### CVDTBH #### [facility] [address] [address] [address] Lisa BautistaClarity (U)CLEARNormalCLEARGalion HospitalComment on above: Performed By: #### CVDTBH #### [facility] [address] [address] [address] Lisa Smithlor (U)YELLOWNormalYELLOWGalion HospitalComment on above: Performed By: #### CVDTBH #### [facility] [address] [address] [address] Lisa Tejada micrscopic examination will be performed if indicated. NormalThe [facility] Va Medical CenterComment on above:Performed By: #### CVDTBH #### [facility] [address] [address] [address] Lisa BautistaGlucose Ql (U)NegativeNormalNEGATIVEGalion HospitalComment on above:Performed By: #### CVDTBH #### [facility] [address] [address] [address] Lisa BautistaHemoglobin Ql (U)NegativeNormalNEGATIVEMercy Health Kings [facility] Hospital on above:Performed By: #### CVDTBH #### [facility] [address] [place] [address] Dr. Lisa BautistaKetones Ql (U)NegativeNormalNEGATIVEGalion HospitalComment on above:Performed By: #### CVDTBH #### [facility] [address] [address] [address] Lisa BautistaLEUKOCYTESNegativeNormalNEGATIVEGalion HospitalComment on above:Performed By: #### CVDTBH #### [facility] [address] [address] [address] Lisa BautistaNitrite Ql (U)NegativeNormalNEGATIVEGalion HospitalComment on above:Performed By: #### CVDTBH #### [facility] [address] [place] [address] Dr. Lisa BautistapH (U)6.0 [pH]Normal5-9The Christen HospitalComment on above: Performed By: #### CVDTBH #### [facility] [address] [place] [address] Dr. Lisa BautistaSPEC GRAVITY>=1.663Iccbqvrq0.005-<=1.025The [facility] Comment on above:Performed By: #### CVDTBH #### [facility] [address] [place] [address] Dr. Lisa BautistaUA PROTEINNegativeNormalNEGATIVE/ TRACEThe [facility] Comment on above:Performed By: #### CVDTBH #### [facility] [address] [place] [address] Dr. Lisa Hickey MICRO INDNOT INDICATEDNoalThMarymount HospitalComment on above:Performed By: #### CVDTBH #### [facility] [address] [place] [address] Dr. Lisa Hoodbilinogen Qn (U)1.0 {Jay Jay'U}/dLNormal0.2 - 1.0The [facility] Medical CenterComment on above:Performed By: #### CVDTBH #### [facility] [address] [place] [address] Dr. Lisa Parker A STREP CULTUREon 05-27-2022. pyogenes Ag Ql (Unsp spec) Culture Observations: NEGATIVE FOR GROUP A STREPTOCOCCUS.NormalThe [facility] Medical CenterComment on above: Performed By: #### CVDTBH #### [facility] [address] [place] [address] Dr. Lisa BautistaPREGNANCY URon 02-77-5369GPXITUEBF, QUALNegativeNormalNEGATIVEGalion HospitalComment on above:Performed By: #### CVDTBH #### [facility] [address] [place] [address] Dr. Lisa BautistaSTREPT SCREENon 23-44-8852SBVAP SCREEN ANegativeNormalNEGATIVEGalion HospitalComment on above:Performed By: #### GRASTCX, SSCRN #### [facility] [address] [place] [address] Dr. Lisa CintronC AUTO DIFFon 57-12-8862IXGM #0.1 103/ulNormal0.0-0.1The [facility] Medical CenterComment on above:Performed By: #### CBC #### [facility] [address] [place] [address] Dr. Lisa BautistaBasophils/100 WBC (Bld)0.4 %Normal0.2-2.0[facility] Comment on above:Performed By: #### CBC #### [facility] [address] [place] [address] Dr. Lisa Fuentes #0.2 103/ulNormal0.0-0.7The [facility] Medical CenterComment on above: Performed By: #### CBC #### [facility] [address] [place] [address] Dr. Lisa Salgadoosinophils/100 WBC (Bld)2.0 %Normal0.9-7.0[facility] Comment on above:Performed By: #### CBC #### [facility] [address] [place] [address] Dr. Lisa Salgadorythrocyte distribution width (RBC) [Ratio]13.1 %Kkpncz57.0-15.0 The [facility] Medical CenterComment on above:Performed By: #### CBC #### [facility] [address] [place] [address] Dr. Lisa BautistaHematocrit (Bld) [Volume fraction]41.1 %Zvlrwk33.0-48.0The [facility] Medical CenterComment on above:Performed By: #### CBC #### [facility] [address] [place] [address] Dr. Lisa BautistaHemoglobin (Bld) [Mass/Vol]12.9 g/pIGquete89.0-16.0The [facility] Medical CenterComment on above:Performed By: #### CBC #### [facility] [address] [place] [address] Dr. Lisa Amin #0.08 10e3/ulCritically high0.00-0.03The [facility] Comment on above:Performed By: #### CBC #### [facility] [address] [address] [address] Lisa Amin %0.7 %Critically high0.0-0.5The [facility] Medical CenterComment on above:Performed By: #### CBC #### [facility] [address] [place] [address] Dr. Lisa Davis #3.2 103/ulNormal1.2-3.8The [facility] Medical CenterComment on above:Performed By: #### CBC #### [facility] [address] [place] [address] Dr. Lisa Whitlockhocytes/100 WBC (Bld)26.8 %Fetqiq56.5-60.0The [facility] on above:Performed By: #### CBC #### [facility] [address] [place] [address] Dr. Lisa QuinteroUAL DIFF REQNONormalThe [facility] Medical CenterComment on above: Performed By: #### CBC #### [facility] [address] [place] [address] Dr. Lisa Berg (RBC) [Entitic mass]28.5 ljSzefox45.7-34.0[facility] on above:Performed By: #### CBC #### [facility] [address] [place] [address] Dr. Lisa Berg (RBC) [Mass/Vol]31.4 g/mKZhvppg09.9-35.2[facility] on above:Performed By: #### CBC #### [facility] [address] [place] [address] Dr. Lisa Berg (RBC) [Entitic vol]90.7 aFMndrkc14.1-95.6The [facility] CenterCommar[facility] on above:Performed By: #### CBC #### [facility] [address] [place] [address] Dr. Lisa Brizuela #0.8 103/ulNormal0.3-0.8The [facility] CenterComment on above:Performed By: #### CBC #### [facility] [address] [address] [address] Lisa Varmaocytes/100 WBC (Bld)6.8 %Normal1.7-12.0[facility] Comment on above:Performed By: #### CBC #### [facility] [address] [place] [address] Dr. Lisa Monahan #7.5 103/ulCritically high1.4-6.5[facility] Comment on above:Performed By: #### CBC #### [facility] [address] [place] [address] Dr. Lisa Hernandezutrophils/100 WBC (Bld)63.3 %Bixtli51.0-75.0The [facility] CenterComment on above:Performed By: #### CBC #### [facility] [address] [place] [address] Dr. Lisa Hinojosa mean volume (Bld) [Entitic vol]9.2 fLCritically low 9.5-13.5The [facility] CenterComment on above:Performed By: #### CBC #### [facility] [address] [place] [address] Dr. Lisa BautistaPLT390 103/dqBpfyiw329-032Sda [facility] CenterComment on above: Performed By: #### CBC #### [facility] [address] [place] [address] Dr. Lisa BautistaRBC4.53 106/ulNormal3.40-5.30The [facility] CenterComment on above:Performed By: #### CBC #### [facility] [address] [place] [address] Dr. Lisa BautistaWBC11.9 103/ulCritically high4.0-11.0The [facility] CenterComment on above:Performed By: #### CBC #### [facility] [address] [place] [address] Dr. Lisa Griffin 25-46-8259CDC1.9 mg/dLNormal<=1.0[facility] Comment on above:Performed By: #### CMP, CRP #### [facility] [address] [address] [address] Lisa Hughes URINE PROFILEon 48-87-4970Neacswmwn Ql (U)NegativeNormal NEGATIVEGalion HospitalComment on above:Performed By: #### PREGU, ERUR #### [facility] [address] [address] [address] Lisa BautistaClarity (U)CLEARNormalCLEARGalion HospitalComment on above: Performed By: #### PREGU, ERUR #### [facility] [address] [address] [address] Lisa Ambrose (U)LT. YELLOWNormalYELLOWGalion HospitalComment on above:Performed By: #### PREGU, ERUR #### [facility] [address] [place] [address] Dr. Lisa Tejada micrscopic examination will be performed if indicated. NormalGalion HospitalComment on above:Performed By: #### PREGU, ERUR #### [facility] [address] [address] [address] Lisa BautistaGlucose Ql (U)NegativeNormalNEGATIVEGalion HospitalComment on above:Performed By: #### PREGU, ERUR #### [facility] [address] [place] [address] Dr. Lisa BautistaHemoglobin Ql (U)NegativeNormalNEGATIVEMercy Health [facility] on above:Performed By: #### PREGU, ERUR #### [facility] [address] [address] [address] Lisa BautistaKetones Ql (U)NegativeNormalNEGATIVEGalion HospitalCommarlette regional hospital on above:Performed By: #### PREGU, ERUR #### [facility] [address] [address] [address] Lisa BautistaLEUKOCYTESNegativeNormalNEGATIVEGalion HospitalCommarlette regional hospital on above:Performed By: #### PREGU, ERUR #### [facility] [address] [address] [address] Lisa Cortes Ql (U)NegativeNormalNEGATIVEThe [facility] CenterComment on above:Performed By: #### PREGU, ERUR #### [facility] [address] [place] [address] Dr. Lisa BautistapH (U)5.5 [pH]Normal5-9Gal[facility] HospitalComment on above: Performed By: #### PREGU, ERUR #### [facility] [address] [place] [address] Dr. Lisa BautistaSPEC GRAVITY>=1.799Egygdjpp5.005-<=1.025The [facility] Comment on above:Performed By: #### PREGU, ERUR #### [facility] [address] [place] [address] Dr. Lisa James PROTEINNegativeNormalNEGATIVE/ TRACEThe [facility] Comment on above:Performed By: #### PREGU, ERUR #### [facility] [address] [place] [address] Dr. Lisa Hickey MICRO INDNOT INDICATEDNoAshtabula County Medical CenterComment on above:Performed By: #### PREGU, ERUR #### [facility] [address] [place] [address] Dr. Lisa Hoodbilinogen Qn (U)0.2 {Jay Jay'U}/dLNormal0.2 - 1.0Gal[facility] HospitalComment on above:Performed By: #### PREGU, ERUR #### [facility] [address] [place] [address] Dr. Lisa BautistaPREGNANCY URon 76-07-4240SQNMOZWOW, QUALNegativeNormalNEGATIVEThe [facility] CenterComment on above:Performed By: #### PREGU, ERUR #### [facility] [address] [place] [address] Dr. Lisa Cardenas 14(COMP METB)on 08-73-4734Ildlcae [Mass/Vol]3.5 g/dLNormal 3.4-5.0The [facility] HospitalComment on above:Performed By: #### CMP, CRP #### [facility] [address] [address] [address] Lisa BautistaAlbumin/Globulin [Mass ratio]0.8 {ratio}NormalThe [facility] Shawment on above:Performed By: #### CMP, CRP #### [facility] [address] [address] [address] Lisa JordanP [Catalytic activity/Vol]127 U/KGnvgzt56-402Exb [facility] CenterComment on above:Performed By: #### CMP, CRP #### [facility] [address] [address] [address] Lisa JordanT [Catalytic activity/Vol]32 U/YEdvvjq99-99Aoh [facility] CenterComment on above:Performed By: #### CMP, CRP #### [facility] [address] [address] [address] Lisa Andinoon gap [Moles/Vol]11.6 mmol/LNormalThe [facility] Comment on above:Performed By: #### CMP, CRP #### [facility] [address] [address] [address] Lisa BautistaAST [Catalytic activity/Vol]13 U/LCritically qsb10-63Hbr [facility] Shawment on above:Performed By: #### CMP, CRP #### [facility] [address] [address] [address] Lisa BautistaBilirubin [Mass/Vol]0.2 mg/dLNormal0.2-1.0The [facility] Comment on above:Performed By: #### CMP, CRP #### [facility] [address] [address] [address] Lisa BautistaCalcium [Mass/Vol]8.5 mg/dLNormal8.5-10.1The [facility] Comment on above:Performed By: #### CMP, CRP #### [facility] [address] [address] [address] Lisa BautistaChloride [Moles/Vol]101 mmol/FZlsqgz44-640Vyk [facility] Comment on above:Performed By: #### CMP, CRP #### [facility] [address] [address] [address] Lisa BautistaCO2 [Moles/Vol]30.2 mmol/UVxrxka53.0-32.0The [facility] Comment on above:Performed By: #### CMP, CRP #### [facility] [address] [address] [address] Lisa BautistaCreatinine [Mass/Vol]0.90 mg/dLNormal0.55-1.02[facility] HospitalComment on above:Performed By: #### CMP, CRP #### [facility] [address] [address] [address] Lisa BautistaGlobulin (S) [Mass/Vol]4.3 g/dLNormalThe [facility] CenterComment on above:Performed By: #### CMP, CRP #### [facility] [address] [place] [address] Dr. Lisa BautistaGlucose [Mass/Vol]91 mg/eDVzikrd33-917Czp [facility] Comment on above:Performed By: #### CMP, CRP #### [facility] [address] [address] [address] Lisa BautistaPotassium [Moles/Vol]3.8 mmol/LNormal3.5-5.1The [facility] Comment on above:Performed By: #### CMP, CRP #### [facility] [address] [address] [address] Lisa BautistaProtein [Mass/Vol]7.8 g/dLNormal6.1-8.2The [facility] Comment on above:Performed By: #### CMP, CRP #### [facility] [address] [address] [address] Lisa BautistaSodium [Moles/Vol]139 mmol/NXinltn362-958Ntc [facility] Comment on above:Performed By: #### CMP, CRP #### [facility] [address] [address] [address] Lisa BautistaUrea nitrogen [Mass/Vol]15.0 mg/dLNormal6.4-19.3The [facility] CenterComment on above:Performed By: #### CMP, CRP #### [facility] [address] [place] [address] Dr. Lisa BautistaUrea nitrogen/Creatinine [Mass ratio]16.7 mg/mgNormalThe [facility] CenterComment on above:Performed By: #### CMP, CRP #### [facility] [address] [place] [address] Dr. Lisa BautistaAMYLASEon 39-67-9511CIUF<30Critically psr30-820Gvd [facility] CenterComment on above:Performed By: #### CVDTBH #### [facility] [address] [place] [address] Dr. Lisa Starr AUTO DIFFon 82-69-8421QPFH #0.1 103/ulNormal0.0-0.1The [facility] CenterComment on above:Performed By: #### CVDTBH #### [facility] [address] [place] [address] Dr. Lisa BautistaBasophils/100 WBC (Bld)0.6 %Normal0.2-2.0[facility] Comment on above:Performed By: #### CVDTBH #### [facility] [address] [place] [address] Dr. Lisa Fuentes #0.2 103/ulNormal0.0-0.7The [facility] CenterComment on above: Performed By: #### CVDTBH #### [facility] [address] [place] [address] Dr. Lisa Salgadoosinophils/100 WBC (Bld)1.9 %Normal0.9-7.0[facility] Comment on above:Performed By: #### CVDTBH #### [facility] [address] [place] [address] Dr. Lisa Salgadorythrocyte distribution width (RBC) [Ratio]13.2 %Meqegc62.0-15.0 The [facility] CenterComment on above:Performed By: #### CVDTBH #### [facility] [address] [address] [address] Lisa BautistaHematocrit (Bld) [Volume fraction]42.0 %Gvnjft42.0-48.0The [facility] CenterComment on above:Performed By: #### CVDTBH #### [facility] [address] [place] [address] Dr. Lisa BautistaHemoglobin (Bld) [Mass/Vol]13.2 g/yNVyzjee12.0-16.0The [facility] CenterComment on above:Performed By: #### CVDTBH #### [facility] [address] [place] [address] Dr. Lisa Amin #0.05 10e3/ulCritically high0.00-0.03The [facility] Comment on above:Performed By: #### CVDTBH #### [facility] [address] [place] [address] Dr. Lisa Amin %0.6 %Critically high0.0-0.5The [facility] CenterComment on above:Performed By: #### CVDTBH #### [facility] [address] [place] [address] Dr. Lisa Davis #3.4 103/ulNormal1.2-3.8The [facility] CenterComment on above:Performed By: #### CVDTBH #### [facility] [address] [place] [address] Dr. Lisa Whitlockhocytes/100 WBC (Bld)38.4 %Zsdbfp21.5-60.0The [facility] CenterComment on above:Performed By: #### CVDTBH #### [facility] [address] [place] [address] Dr. Lisa QuinteroUAL DIFF REQNONormalThe [facility] CenterComment on above: Performed By: #### CVDTBH #### [facility] [address] [place] [address] Dr. Lisa Villalobos (RBC) [Entitic mass]28.4 jxZeaeoe28.7-34.0The [facility] CenterComment on above:Performed By: #### CVDTBH #### [facility] [address] [place] [address] Dr. Lisa Berg (RBC) [Mass/Vol]31.4 g/kVFodvdg27.9-35.2The [facility] CenterComment on above:Performed By: #### CVDTBH #### [facility] [address] [place] [address] Dr. Lisa Berg (RBC) [Entitic vol]90.3 aXQvxhhp44.1-95.6The [facility] HospitalComment on above:Performed By: #### CVDTBH #### [facility] [address] [place] [address] Dr. Lisa Brizuela #0.8 103/ulNormal0.3-0.8The [facility] CenterComment on above:Performed By: #### CVDTBH #### [facility] [address] [place] [address] Dr. Lisa Varmaocytes/100 WBC (Bld)8.8 %Normal1.7-12.0The [facility] Comment on above:Performed By: #### CVDTBH #### [facility] [address] [place] [address] Dr. Lisa Monahan #4.4 103/ulNormal1.4-6.5The [facility] CenterComment on above:Performed By: #### CVDTBH #### [facility] [address] [place] [address] Dr. Lisa Hernandezutrophils/100 WBC (Bld)49.7 %Ysmepy04.0-75.0The [facility] CenterComment on above:Performed By: #### CVDTBH #### [facility] [address] [place] [address] Dr. Lisa Clementslet mean volume (Bld) [Entitic vol]9.1 fLCritically low 9.5-13.5The [facility] CenterComment on above:Performed By: #### CVDTBH #### [facility] [address] [place] [address] Dr. Lisa VeeT384 103/mhVspxbf936-822Vpw [facility] CenterComment on above: Performed By: #### CVDTBH #### [facility] [address] [address] [address] Lisa BautistaRBC4.65 106/ulNormal3.40-5.30The [facility] CenterComment on above:Performed By: #### CVDTBH #### [facility] [address] [id number] [address] Lisa BautistaWBC8.8 103/ulNormal4.0-11.0The [facility] CenterComment on above: Performed By: #### CVDTBH #### [facility] [address] [place] [address] Dr. Lisa BautistaCT ABD/PELVIS WO CONon 28-00-9966DY ABD/PELVIS WO CONEXAMINATION: CT ABD/PELVIS WO CON, 12/29/2021 11:33 PM [...] Electronically authenticated by: RICCARDO COLLIER Date: 2021-12-30 00:02[facility] URINE PROFILEon 89-92-6107Qpryofbgb Ql (U)NegativeNormal NEGATIVEThe [facility] Medical CenterComment on above:Performed By: #### ERUR, PREGU #### [facility] [address] [place] [address] Dr. Lisa Jarvis (U)CLEARNormalCLEARGalion HospitalComment on above: Performed By: #### ERUR, PREGU #### [facility] [address] [place] [address] Dr. Lisa Ambrose (U)LT. YELLOWNormalYELLOWGalion HospitalComment on above:Performed By: #### ERUR, PREGU #### [facility] [address] [place] [address] Dr. Lisa Tejada micrscopic examination will be performed if indicated. NormalGalion HospitalComment on above:Performed By: #### ERUR, PREGU #### [facility] [address] [place] [address] Dr. Lisa BautistaGlucose Ql (U)NegativeNormalNEGATIVEGalion HospitalComment on above:Performed By: #### ERUR, PREGU #### [facility] [address] [place] [address] Dr. Lisa BautistaHemoglobin Ql (U)NegativeNormalNEGSt. Anthony's Hospital on above:Performed By: #### ERUR, PREGU #### [facility] [address] [place] [address] Dr. Lisa Hernandezones Ql (U)TRACEAbnormalNEGATIVEGalion HospitalComment on above:Performed By: #### ERUR, PREGU #### [facility] [address] [place] [address] Dr. Lisa BautistaLEUKOCYTESNegativeNormalNEGATIVEGalion HospitalCommarlette regional hospital on above:Performed By: #### ERUR, PREGU #### [facility] [address] [place] [address] Dr. Lisa BautistaNitrite Ql (U)NegativeNormalNEGATIVEGalion HospitalComment on above:Performed By: #### ERUR, PREGU #### [facility] [address] [place] [address] Dr. Lisa BautistapH (U)6.0 [pH]Normal5-9[facility] HospitalComment on above: Performed By: #### ERUR, PREGU #### [facility] [address] [place] [address] Dr. Lisa BautistaSPEC GRAVITY>=1.497Vfufrvrn2.005-<=1.025[facility] Comment on above:Performed By: #### ERUR, PREGU #### [facility] [address] [place] [address] Dr. Lisa BautistaUA PROTEINNegativeNormalNEGATIVE/ TRACEThe [facility] Comment on above:Performed By: #### ERUR, PREGU #### [facility] [address] [place] [address] Dr. Lisa Hickey MICRO INDNOT INDICATEDNoAshtabula County Medical CenterComment on above:Performed By: #### ERUR, PREGU #### [facility] [address] [place] [address] Dr. Lisa BautistaUrobilinogen Qn (U)1.0 {Jay Jay'U}/dLNormal0.2 - 1.0The [facility] CenterComment on above:Performed By: #### ERUR, PREGU #### [facility] [address] [place] [address] Dr. Lisa BautistaLIPASEon 85-98-2272Sxplkg [Catalytic activity/Vol]33.0 U/LNormal 23.0-300.0The [facility] CenterComment on above:Performed By: #### CVDTBH #### [facility] [address] [place] [address] Dr. Lisa BautistaPREGNANCY URon 19-18-8406VIZGDCFCO, QUALNegativeNormalNEGATIVEGalion HospitalComment on above:Performed By: #### ERUR, PREGU #### [facility] [address] [place] [address] Dr. Lisa Cardenas 14(COMP METB)on 32-26-0442REXHdbutqMdq [facility] Comment on above:Performed By: #### CVDTBH #### [facility] [address] [place] [address] Dr. Lisa BautistaAlbumin [Mass/Vol]3.3 g/dLCritically low3.5-5.0The [facility] CenterComment on above:Performed By: #### CVDTBH #### [facility] [address] [place] [address] Dr. Lisa BautistaAlbumin/Globulin [Mass ratio]0.8 {ratio}NormalThe [facility] CenterComment on above:Performed By: #### CVDTBH #### [facility] [address] [place] [address] Dr. Lisa JordanP [Catalytic activity/Vol]142 U/RMueqii98-852Fvx [facility] CenterComment on above:Performed By: #### CVDTBH #### [facility] [address] [place] [address] Dr. Lisa Rosado [Catalytic activity/Vol]39 U/LNormal9-52The [facility] Comment on above:Performed By: #### CVDTBH #### [facility] [address] [place] [address] Dr. Lisa Castaneda gap [Moles/Vol]9.7 mmol/LNormalThe [facility] CenterComment on above:Performed By: #### CVDTBH #### [facility] [address] [place] [address] Dr. Lisa Cortes [Catalytic activity/Vol]24 U/ARoibhf95-89Fki [facility] CenterComment on above:Performed By: #### CVDTBH #### [facility] [address] [place] [address] Dr. Lisa BautistaBilirubin [Mass/Vol]0.3 mg/dLNormal0.2-1.3The [facility] Comment on above:Performed By: #### CVDTBH #### [facility] [address] [place] [address] Dr. Lisa BautistaCalcium [Mass/Vol]8.8 mg/dLNormal8.4-10.2The [facility] Comment on above:Performed By: #### CVDTBH #### [facility] [address] [place] [address] Dr. Lisa BautistaChloride [Moles/Vol]106 mmol/FShgqwo88-932Ldl [facility] Comment on above:Performed By: #### CVDTBH #### [facility] [address] [place] [address] Dr. Lisa BautistaCO2 [Moles/Vol]27.0 mmol/PWtlrll48.0-30.0The [facility] Comment on above:Performed By: #### CVDTBH #### [facility] [address] [address] [address] Lisa BautistaCreatinine [Mass/Vol]1.06 mg/dLCritically high0.52-1.04The [facility] CenterComment on above:Performed By: #### CVDTBH #### [facility] [address] [place] [address] Dr. Gonzalez ChangEGFR-AF AMERICANNormal>=60The [facility] CenterComment on above: Performed By: #### CVDTBH #### [facility] [address] [place] [address] Dr. Lisa SalgadoGFR-NON AF AMERICANNormal>=60The [facility] CenterComment on above:Performed By: #### CVDTBH #### [facility] [address] [place] [address] Dr. Lisa BautistaGlobulin (S) [Mass/Vol]4.3 g/dLNormalThe [facility] CenterComment on above:Performed By: #### CVDTBH #### [facility] [address] [place] [address] Dr. Lisa BautistaGlucose [Mass/Vol]88 mg/iIQuecbi27-809Klo [facility] Comment on above:Performed By: #### CVDTBH #### [facility] [address] [address] [address] Lisa BautistaPotassium [Moles/Vol]3.7 mmol/LNormal3.4-5.0The [facility] Comment on above:Performed By: #### CVDTBH #### [facility] [address] [address] [address] Lisa BautistaProtein [Mass/Vol]7.6 g/dLNormal6.1-8.2The [facility] Comment on above:Performed By: #### CVDTBH #### [facility] [address] [place] [address] Dr. Lisa BautistaSodium [Moles/Vol]139 mmol/UUtboug618-248Jvg [facility] Comment on above:Performed By: #### CVDTBH #### [facility] [address] [place] [address] Dr. Lisa BautistaUrea nitrogen [Mass/Vol]15.0 mg/dLNormal6.4-19.3The [facility] CenterComment on above:Performed By: #### CVDTBH #### [facility] [address] [place] [address] Dr. Lisa Greenfield nitrogen/Creatinine [Mass ratio]14.2 mg/mgNormalThe [facility] CenterComment on above:Performed By: #### CVDTBH #### [facility] [address] [place] [address] Dr. Lisa Smith Hgb A1Con 84-10-2523DoS3h (Bld) [Mass fraction]5.0 %4.2-6.5% BJ-Lppsaecgss-Eeromxex 1600 Work Phone: Tobacco Screening.on 70-34-8029Hlnfuwa use status CP b) YzBO-Iylpbkzrqn-Jloamjvh 1600 Work Phone: Tobacco Screening.HkbqxEQ-Ndwsmsmemh-Besibqxv 1600 Work Phone: Tobacco Screening.on 17-00-5474Ouxstjt use status [facility] b) KbTV-Pilfhhhxra-Klboirlb 1600 Work Phone: Tobacco Screening.ImdhaLI-Mzwvmcuhjr-Tyarsozx 1600 Work Phone: Bgfhm-05 PCR ([facility])on 45-01-8870LAEM-CoV-2 (COVID- 19) RNA DEBORAH+probe Ql (Unsp spec)DetectedCritically abnormalNOT DETECTEDThe [facility] CenterComment on above:Result Comment: This test is not yet approved or cleared by the [place] FDA. When there are no FDA-approved or cleared tests available, and other criteria are met, FDA can make tests available under an emergency access mechanism called an Emergency Use Authorization (EUA). The EUA for this test is supported by the Brand Manager of Health and Human Service's (HHS's) declaration [...] no longer be used). Performed By: #### CVDTBH #### [facility] [address] [place] [address] Dr. Lisa DavidMPTOMATIC COVID-19 ANTIGENon 69-27-4036QFY StatementSEE BELOW NormalThe [facility] CenterComment on above:Result Comment: This test has not been FDA [...] declaration is terminated or authorization is revoked sooner.Performed By: #### CVDTBH #### [facility] [address] [place] [address] Dr. Lisa Carlin-CoV-2 (COVID-19) RNA DEBORAH+probe Ql (Unsp spec)Positive Critically abnormalNEGATIVEThe [facility] Va Medical CenterComment on above:Performed By: #### CVDTBH #### [facility] [address] [place] [address] Dr. Lisa BautistaHemoglobin A1Con [id number] (Bld) [Mass fraction]5.4 % YT-Kvfhgutrnk-Owgstbiykps 220 Work Phone: Comment on above:Diagnosis of Diabetes-Adults Non- Diabetic: < or = 5.6% Increased risk for developing diabetes: 5.7-6.4% Diagnostic of diabetes: > or = 6.5%. Monitoring of Diabetes Age (y) Therapeutic Goal (%) Adults: >18 <7.0 Pediatrics: 13-18 <7.5 7-12 <8.0 0- 6 7.5-8.5 [employer] [employer]. Diabetes Care 33(S1), Oct 2009.Laboratory - Chemistry and Chemistry - challengeon [id number] BCP dye [Mass/Vol]4.0 g/dL3.4 - 5.0 AN-Qcbdxmlwre-Ceirwejrbzc 220 Work Phone: ALP [Catalytic activity/Vol]131 U/Labove high iegdqoeit47 - 465TR-Azesgiokhi-Tqdtmkdogfr 220 Work Phone: ALT With P-5'-P [Catalytic activity/Vol]30 U/Labove high threshold3 - 51QX-Mfpkfdxmxe-Ejjlvruaoeo 220 Work Phone: Comment on above:Patients treated with Sulfasalazine may generate falsely decreased results for ALT.Anion gap [Moles/Vol]12 mmol/L10 - 49IJ-Obommjprqy-Euojzdsquir 220 Work Phone: AST With P-5'-P [Catalytic activity/Vol]26 U/Labove high threshold9 - 66FI-Qewcvysbpq-Vpauudfydiv 220 Work Phone: Bilirubin [Mass/Vol]0.2 mg/dL0.0 - 0.9 YU-Fhifwnnsqk-Mjbsonqepre 220 Work Phone: Calcium [Mass/Vol]9.9 mg/dL8.5 - 10.7 AH-Gyxpixfwsg-Ndzzsmjehju 220 Work Phone: Chloride [Moles/Vol]104 mmol/L98 - 107 SO-Haiyottblr-Qcehfromoxl 220 Work Phone: CO2 [Moles/Vol]26 mmol/L18 - 27 IP-Sedsvbnjph-Kiffkhcegal 220 Work Phone: Creatinine [Mass/Vol]0.86 mg/dLSee Below SJ-Qubkqcblsw-Cukjqzgjagf 220 Work Phone: Comment on above:Reference Range: 0.50 - 0.90Glucose [Mass/Vol]85 mg/dL74 - 36HX-Iuxskrlrik-Jarruhdvhma 220 Work Phone: Potassium [Moles/Vol]4.3 mmol/L3.5 - 5.3 FI-Ganckgrvcr-Qkyvruhhnvo 220 Work Phone: Protein [Mass/Vol]7.9 g/dLabove high threshold6.2 - 7.9JV-Prjujconiy-Ghhlifwbkwv Work Phone: Sodium [Moles/Vol]138 mmol/L136 - 145 QZ-Zfozvuaxmk-Yaotslkghhr Work Phone: Urea nitrogen [Mass/Vol]12 mg/dL6 - 23 HV-Btcgmnkzst-HudjiwcbwllAlexand[place] [address] Work Phone: Lipid Panelon 98-68-5385Iemiamgjxbt [Mass/Vol]164 mg/dL0 - 161CI-Wlttxcyaqh-Pspwtjmapvb Work Phone: Comment on above:. AGE DESIRABLE BORDERLINE HIGH HIGH 0-19 Y [...] should be performed immediately prior to Metamizole dosing.Cholesterol in HDL [Mass/Vol]37.0 mg/qBMgjagozrQW-Pqpsygoxig-Phrxehuphig 220 Work Phone: Comment on above:. AGE VERY LOW LOW NORMAL HIGH 0-19 Y < 35 < 40 40-45 ---- 20-24 Y ---- < 40 >45 ---- >24 Y ---- < 40 40-60 >60. Cholesterol in LDL [Mass/Vol]100 mg/dL0 - 411YQ-Mwlfxwrneg-Xrzdpcfwfve 220 Work Phone: [phone] on above:. NEAR BORD AGE DESIRABLE OPTIMAL HIGH HIGH VERY HIGH 0-19 Y 0 - 109 --- 110-129 >/= 130 ---- 20-24 Y 0 - 119 --- 120-159 >/= 160 ---- >24 Y 0 - 99 100-129 130-159 160-189 >/=190.Cholesterol non HDL [Mass/Vol]127 mg/dLabove high threshold0 - 417YU-Jzkvbgwtyq-Xtfjyfqklzt 220 Work Phone: [phone] on above:AGE DESIRABLE BORDERLINE HIGH HIGH VERY HIGH 0-19 Y 0 - 119 120 - 144 >/= 145 >/= 160 20-24 Y0 - 149 150 - 189 >/= 190 ---- >24 Y 30 MG/DL ABOVE LDL CHOLESTEROL GOAL.Cholesterol.total/Cholesterol in HDL [Mass ratio]4.4 {ratio}HE-Jihjhbakbj-Fxpdiuvhsbg 220 Work Phone: Comment on above:REF VALUESDESIRABLE < 3.4HIGH RISK > 5.0Triglyceride [Mass/Vol]133 mg/dL0 - 785CU-Aetavzayyz-Dwwnpcpbswf 220 Work Phone: Comment on above:. AGE DESIRABLE BORDERLINE HIGH HIGH VERY HIGH [...] should be performed immediately prior to Metamizole dosing.Lipid Panel27 mg/dL0 - 40 ON-Pcniuewxtm-Oinxrlyqazq 220 Work Phone: Coding Summary.on 81-71-3133Hljquf Summary.CODING DATE: 03/13/2019 FINAL [facility] STATUS: Home (Routine DC) PAYOR: Medicaid EAPG [...] By: Judy Miller Date Saved: 03/13/2019 12:56 [facility]NPremier [facility] Clinical Summaryon [id number] Clinical Summary [place] [id number] ED Clinical Summary Person Information Name: MARISSA DE LEON Kristen/[facility] Age: 13 Years : 2005 12:00 AM Sex: Female Language: Malay PCP: ASHLEY ASHLEY CNP Marital Status: Single [...] 03/10/2019 10:53 PM 03/10/2019 10:53 PM ADDRESS: [address] [place] [phone] [facility] DOC NOTES: MEDICAL INFORMATION: Prescriptions Given: PATIENT EDUCATION INFORMATION: Instructions: Knee Pain, Qssd-ia-Gpux Follow up: With: Address: When: LORAINE FERRELL [address] [facility] [address] [place] [phone] Business (1) In 3 days 03/13/2019 Comments: Please call Dr. Segal' office to 2 days for continued care, please apply ice to left knee 3 times a day, take atjl-fpn-zzlncif pain medication as needed, and return to emergency room for any worseningsymptoms, concerns, or complications. With: Address: When: ASHLEY [facility], [address] [place] [address] Business (1) In 3 days DIAGNOSIS: 1:Left knee painNormalFisher Ajit Medical CenterED Note-Physicianon 03-11-2019 ED Note-PhysicianBasic Information Time Seen: Hector Cervantes PA-C 03/10/2019 [...] knee. Patient states today she was in [facility], September prolonged walking, after which she [...] denies any falls, injuries, skin swelling, redness, a brasions, ecchymosis, fevers, chills, chest pain, short of [...] noted. Patient did not exhibit any left hipor left ankle pain on examination. Patient is [...] normal limits. Patient declined any pain or nauseamedication, and no pain and examination, patient no difficulty ambulating to the restroom, patient agrees to Chica wrap for comfort support, has a specialized knee brace at home, she was instructed continue taking sthj-pvj-ymfuzve pain medication as needed, ice therapy, call Dr. Ferrell, her orthopedic doctor at [facility], for follow-up care, return [...] LORAINE FERRELL In 3 days 03/13/[address] [place] [phone] Business (1) Additional Instructions: Please call Dr. Segal' office to 2 days for continued care, please apply ice to left knee 3 times a day, take qqyq-alv-jltdbcd pain medication as needed, and return to emergency room for any worsening symptoms, concerns, or complications. ASHLEY ASHLEY In [address] [address]- Business (1) Additional Instructions: Patient Education Knee Pain, Gipg-ym-Yiup Attestation Patient was treated and evaluated by the Physician Grinder. The attending physician was Dr. Fernandez in the Emergency Department at all times and supervised care. The case was discussed with the attending physician and diagnostics were reviewed as needed. ATTENDING NOTE: Patient seen and evaluated with the physician supply chain assistant. I personally saw and evaluated the [...] fracture nor dislocation is evident. Signed By: Ariella Nazario, Daron Odonnell radiographs reviewed by Dr. Fernandez, Radiology report above reviewed, appreciated.[facility] Charles HospitalComment on above:Result Comment: Electronically Signed By: Hector Cervantes PA-C\.br\Date and Time Signed: 03/11/19 15:00 EDT\.br\Electronically Co-Signed By: Amanda Fernandez DO\.br\Date and Time Co-Signed: 03/11/19 17:51 EDTED Patient Education Noteon [id number] Patient Education NoteFamily Medicine Knee Pain Knee pain can be [...] Document Reviewed: 01/13/2010 ExitCare? Patient Information ?2014 [employer]upp[employer]. This information is not intended to replace advice given to you by your health care provider. Make sure you discuss any questions you have with yourhealth care provider.[facility] Patient Summaryon [id number] Patient Summary [place] [address] Patient Discharge Instructions Person Information Name: MARISSA DE LEON Age: 13 Years Arrival Date: 03/10/2019 8:33 PM Discharge Diagnosis: 1:Left knee pain Primary Care Physician: ASHLEY ASHLEY CNP Provider Information Primary Provider: Amanda Fernandez [employer] Accessory Installer:Hector Cervantes PA-C The exam and treatment you received in the Emergency Department were for an urgent problem and are not intended as complete care. It is important that you follow up with a doctor, nurse practitioner,or physician?s supply chain assistant for ongoing care. If your symptoms [...] Follow-up Instructions: With: Address: When: LORAINE FERRELL [address] [facility] [address] [place] [phone] Business (1) In 3 days 03/13/2019 Comments: Please call Dr. Segal' office to 2 days for continued care, please apply ice to left knee 3 times a day, take bfzm-jmw-ahfdxrr pain medication as needed, and return to emergency room for any worseningsymptoms, concerns, or complications. With: Address: When[facility], [address] [place] [address] Business (1) In 3 days In the event that this physician does not participate in your insurance network, please consult with your insurance company to find a nearby participating provider. Patient Education Materials: Knee Pain, Joko-us-Psog A MESSAGE TO ALL PATIENTS REGARDING OPIOIDS PRESCRIPTION OPIOIDS: WHAT YOU NEED TO KNOW Prescription opioids can be used to help relieve hstdnoew-iu-glklct pain and are often prescribed following a [...] and have fewer risks and side effects. Optionsmay include: ? Pain relievers such as acetaminophen, [...] unused prescription opioids: Find your community drug take- back program or DosYogures mail-back program, or flush them down the toilet, following guidance from the Food and Drug Administration (www.fda.gov/Drugs/ResourcesForYou). ? Visit www.cdc.gov/drugoverdose to learn about the risks of opioids abuse and overdose. ? If you believe you may be struggling with addiction, tell your health health care attorney and ask for guidance or call SAMHSA?S National Helpline at 2-027-967-ZKTQ. v Source: US Department of Health and Human Services/Center for Disease Control & Prevention [facility] Medications Given: Medication Dose Route No medications found. Medication Information: Comment: Pharmacy Information: Thank you for choosing [facility] Patient Education Materials: Knee Pain Knee [...] Document Reviewed: 01/13/2010 ExitCare? Patient Information ?2015 3Guppies. This information is not intended to replace advice given to you by your health care provider. Make sure you discuss any questions you have with yourhealth care provider. HALEY Horowitz ALLISON M , have received the following patient education materials/instructions and have verbalized understanding: Patient Education Materials: Knee Pain, Luer-ig-Zyoo Follow-up Instructions: With: Address: When: LORAINE FERRELL [address] [facility] [address] [place] [phone] Business (1) In 3 days 03/13/2019 Comments: Please call Dr. Segal' office to 2 days for continued care, please apply ice to left knee 3 times a day, take ttgx-chz-skxvxlk pain medication as needed, and return to emergency room for any worseningsymptoms, concerns, or complications. With: Address: When: [facility], [address] [place], [place] [address] [place] [address] Business (1) In 3 days Prescriptions: Patient Signature Date Clinician/Nurse Signature Date 03/10/19 22:53:04[facility] HospitalXR Knee Complete 4+ Views Left on [id number] Knee Complete 4+ Views LeftExam Date/Time: 03/10/2019 21:43 EDT Reason for Exam: [...] Daron Krishnan M.D. Transcribed by: GAVI Technologist: [facility] HamiltonCT LOWER EXT WO CONTRASTon [id number] LOWER EXT WO CONTRASTMRN: [id number] Patient Name: MARISSA DE LEON STUDY: BN CT LOWER EXT WO CONTRAST; 02/15/2019 3:46 pm INDICATION: continued right knee pain. Status post tibial fracture with internal fixation. Continued pain. COMPARISON: 08/03/2018 ACCESSION NUMBER(S): [id number] ORDERING CLINICIAN: LORAINE FERRELL TECHNIQUE: Contiguous axial [...] with CT. Electronically signed by: LILIANA LISA MDSt. Mary Medical Center UA (automated w/o microscopy)on [id number] (U) [Mass/Vol]VlcmqlkeLcchwtroTX-Qbdaiweknbpv-Edeobqt 5100 Work Phone: io UA (automated w/o microscopy)NegativeNegative IZ-Wxmhlaabkyww-Wxklpsj 5100 Work Phone: io UA (automated w/o microscopy)1.0251.000-1.030 OV-Bgtdpetjjjwo-Qcutfmr 5100 Work Phone: io UA (automated w/o microscopy)YellowColorless-Yellow NN-Fudvvqjonbjw-Sfhvywg 5100 Work Phone: io UA (automated w/o microscopy)6.05.0-8.0 QY-Povkhcttfirz-Frrtvfa 5100 Work Phone: io UA (automated w/o microscopy)Normal (0.2-1.0 mg/dl) ZtbwszDT-Yqzhhmydpdji-Zcazujd 5100 Work Phone: io UA (automated w/o microscopy)ClearClear CW-Jhzbrfdslqws-Clkbgzl 5100 Work Phone: Otheron [id number] by: LILIANA LISA02/16/19 10:14MRN: [id number] Name: MARISSA DE LEON STUDY:BN CT LOWER EXT WO CONTRAST; 02/15/2019 3:46 pm INDICATION:continued right knee pain. Status post tibial fracture with internalfixation. Continued pain. COMPARISON:08/03/2018 ORDERING CLINICIAN:LORAINE FERRELL TECHNIQUE:Contiguous axial CT sections are performed from the distal thigh tothe mid leg and supplemented with coronal and sagittal reformattedimages. FINDINGS:There has been interval internal fixation of a medial intra- articularepiphyseal fracture. A medial plate and multiple screws [...] fracture of the anterolateral tibial plateau is againidentifiedand has undergone interval healing. There is persistentdeformity [...] line withsclerotic margins. Persistent focal depressed intra-articular fractureof theanterolateral tibial plateau which has undergone interval healing.The alignment is unchanged.No new osseous abnormality. Ill-defined fluid and edema is identified in the medial soft tissuesat the surgical site. There is no organized fluid collection. Thereis no soft tissue air. No sizable joint effusion. The remaining surrounding soft tissues are unremarkable. The supporting ligament and tendon structures as well as the menisciare poorly assessed with CT.Electronically signed by: LILIANA LISA 02/16/19 10:14 RqxxjzPK-Mrviksohprkq-Lpsfenq 5109 Work Phone: PROGRESSon [id number] mass concHNO ID: [id number] Author: Mariam Trotter (Fel) Service: ? Author Type: Physician Type: Progress Notes Filed: 02/15/2019 2:08 PM Note Text: CHILD AND ADOLESCENT PSYCHIATRY FOLLOW-UP VISIT ASSESSMENT AND PLAN Marissa De Leon is a 13 year old female with past medical diagnosis of hypertension (treated with the Lisinopril+ HCTZ and Norvasc , followed by the peds financial services sales representative) and psychiatric diagnosis of ADHD, depression and [...] blood pressure. I have given the parent [place] forms and also asked to continue the [...] required from the teachers and hence the [place]'s has been sent with the parent - [...] and Norvasc , followed by the peds financial services sales representative) and psychiatric diagnosis of ADHD, depression and [...] Take 2.5 mg by mouth once daily. lisinopril-hydrochlorothiazide (PRINZIDE,ZESTORETIC) 20-12.5 mg per tablet Take [...] No Parent or guardian provided additional history. F provider treatment records reviewed. OARRS data reviewed. Recent vitals and/or growth chart reviewed. E/M Visit-Pharmacological Management SIGNATURE: Mariam Trotter MD DATE of SERVICE: February 15, 2019 TIME of SERVICE: 12:52 PM No question data found.NormalMain Campus Medical CenterIATRIC RENAL ECHOGRAPHYon [id number] RENAL ECHOGRAPHYDATE OF EXAM: Jan 15 2019 11:01AM CLINICAL HISTORY/ Patient Name: MARISSA DE LEON STUDY: PEDIATRIC RENAL ECHOGRAPHY 01/15/2019 11:01 am INDICATION: 13 y/o F with hypertension. COMPARISON: None. ACCESSION NUMBER(S): [id number] ORDERING CLINICIAN: BRYON ARGUETA TECHNIQUE: Routine ultrasound [...] cc. CONCLUSION: IMPRESSION: Unremarkable ultrasound of the kidneys.[facility] HospitalHISTORY PHYSICALon [id number] PHYSICALHNO ID: [id number] Author: Annalisa Sewell Service: ? Author Type: [...] She was previously seeing a psychiarist at [facility] (Fellow?) Dr. Fregoso. Current medication [...] mom, and older sib and step-dad in [place], [place]. In terms of stressors, her family [...] now I have reached out to pedaitric Calender Worker Helper Dr Argueta regarding safety of increasing stimulant [...] Medical - Obese - Hypertension - Sees financial services sales representative and director of assessment at - Impaired fasting glucose Review of [...] is nervous/anxious. The patient is not hyperactive. HISTORY Developmental Delayed milestones first year of life - global Born 4 weeks early Had OT Playful, happy as a young child Psychiatric - Previous psychiatric diagnoses?: ADHD, anxiety, mood concerns - Current medical providers? Was seeing psychiatrist at - [facility]. - Current psychologic or mental health marriage and family social worker? Was referred to therapist at school [...] Take 2.5 mg by mouth once daily. lisinopril-hydrochlorothiazide (PRINZIDE,ZESTORETIC) 20-12.5 mg per tablet Take [...] Awais and older sib - 7th grade [employer] - On IEP - Never [...] Cognition: Appears intact in regards to memory, attention/concentration, fund of knowledge and language skills. Insight: [...] January 03, 2019 TIME of SERVICE: 5:22 PMNormalUniversity Hospitals Health SystemPROGRESSon 01-03-2019 Protein mass concHNO ID: [id number] Author: Annalisa Sewell Service: ? Author Type: Physician Type: Progress Notes Filed: 01/03/2019 5:54 PM Note Text: KP Data reviewed Very high scores in multiple domains by both child and parent symptom questionnaireNormalCBluffton Hospital Vital Signs Date TimeVital SignValuePerforming QnmmuxixwHqjhiioo42-97-0141 15:03-0400Body qfyewd823.72 cmLisa Aichholz NATURAL RESOURCES FACULTY MEMBER-C Work Phone: [phone] [place], [place] 2704210-09-2025 15:03-0400 Body mass index (BMI) [Ratio]68 kg/m2Lisa Aichholz NATURAL RESOURCES FACULTY MEMBER-C Work Phone: [phone] [place], [place] 2704210-09-2025 15:03-0400 Body ieiedusmiyn03.5 [degF]Ashley Aichholz NATURAL RESOURCES FACULTY MEMBER-C Work Phone: [phone] [place], [place] 270[address]10-09-2025 15:03-0400 Body kzohmj185.98 kgLisa Aichholz NATURAL RESOURCES FACULTY MEMBER-C Work Phone: [phone] [place], [place] 2704210-09-2025 15:03-0400 Diastolic blood xpmwisqz01 mm[Hg]Ashley Aichholz NATURAL RESOURCES FACULTY MEMBER-C Work Phone: [phone] [place], [place] 2704210-09-2025 15:03-0400 Heart hriz723 /minLisa Aichholz NATURAL RESOURCES FACULTY MEMBER-C Work Phone: [phone] [place], [place] 2704210-09-2025 15:03-0400 Respiratory rate18 /minLisa Aichholz NATURAL RESOURCES FACULTY MEMBER-C Work Phone: [phone] [place], [place] 2704210-09-2025 15:03-0400 SaO2% (BldA) [Mass fraction]98 %Ashley Kileyholz NATURAL RESOURCES FACULTY MEMBER-C Work Phone: [facility]10-09-2025 15:03-0400 Systolic blood uqdasfps060 mm[Hg]Ashley Kileyholz NATURAL RESOURCES FACULTY MEMBER-C Work Phone: [facility]12-05-2024 10:10-0500 Body ecojji001.7 Arsenioisa Augustinhholz NATURAL RESOURCES FACULTY MEMBER Work Phone: [facility] HospitalHkkblprjea35-18-6346 10:10-0500Body mass index (BMI) [Ratio]63.47 kg/m2Lisa Aichholz NATURAL RESOURCES FACULTY MEMBER Work Phone: [facility] HospitalSyadzrvnea54-19-7923 10:10-0500Body temperature 97.81 [degF]Ashley Augustinhholz NATURAL RESOURCES FACULTY MEMBER Work Phone: [facility] HospitalHooduelkar48-98-7910 10:10-0500Body .33 kgLisa Augustinhholz NATURAL RESOURCES FACULTY MEMBER Work Phone: [facility] HospitalJddwhduzie97-17-4397 10:10-0500Diastolic blood rclkgcou74 mm[Hg]Ashley Augustinhholz NATURAL RESOURCES FACULTY MEMBER Work Phone: [facility] HospitalXjchcxhage08-19-4113 10:10-0500Heart rate82 /min Ashley Augustinhholz NATURAL RESOURCES FACULTY MEMBER Work Phone: [facility] HospitalXuqdnywzph80-36-1771 10:10-0500Respiratory rate20 /minLisa Augustinhholz NATURAL RESOURCES FACULTY MEMBER Work Phone: [place] [address]Inwceyubpn34-34-8365 10:10-5706FfU1% (BldA) [Mass fraction]98 %Ashley Augustinhholz NATURAL RESOURCES FACULTY MEMBER Work Phone: [facility] HospitalHrbhyqylrc12-72-3993 10:10-0500Systolic blood mm[Hg]Ashley Aichholz NATURAL RESOURCES FACULTY MEMBER Work Phone: [facility] HospitalNwdtpoeghu09-15-8330 10:33-0400Body cqihoe007.7 Enrike Ashley NATURAL RESOURCES FACULTY MEMBER Work Phone: [facility] HospitalHefymwnnen57-89-2495 10:33-0400Body mass index (BMI) [Ratio]62.01 kg/m2Gracesa Dion NATURAL RESOURCES FACULTY MEMBER Work Phone: [facility] HospitalJiiecyanma57-74-7137 10:33-0400Body temperature 98.4 [degF]Ashley Ashley NATURAL RESOURCES FACULTY MEMBER Work Phone: [facility] HospitalQhmqpnisqh34-48-3294 10:33-0400Body .98 kgLisa Ashley NATURAL RESOURCES FACULTY MEMBER Work Phone: [facility] HospitalOhfohmkrof13-48-4069 10:33-0400Diastolic blood xqsbwopg324 mm[Hg]Ashley Ashley NATURAL RESOURCES FACULTY MEMBER Work Phone: [facility] HospitalTsbmslqqcn12-71-1365 10:33-0400Heart rnox927 /min Ashleyanselmo Ashley NATURAL RESOURCES FACULTY MEMBER Work Phone: [facility] HospitalXtntvvufwh42-95-5264 10:33-0400Respiratory rate20 /minLisa Ashley NATURAL RESOURCES FACULTY MEMBER Work Phone: [facility] HospitalBurxhmaosn81-62-9549 10:33-5820BiO4% (BldA) [Mass fraction]99 %Ashley Ashley NATURAL RESOURCES FACULTY MEMBER Work Phone: [facility] HospitalSwgqdgeprf27-50-2812 10:33-0400Systolic blood bkegrkhv157 mm[Hg]Ashley Ashley NATURAL RESOURCES FACULTY MEMBER Work Phone: [facility] HospitalKmynqglbyr97-75-1119 11:26-0400Body ozgeti688 cm Jennifer Lock MD Work Phone: [facility]09-19-2024 11:26-0400 Body mass index (BMI) [Percentile] Per age and eyd153 %Jennifer Lock MD Work Phone: [facility]09-19-2024 11:26-0400 Body mass index (BMI) [Ratio]59.75 kg/g5DdqdeztmvJennifer Lock MD Work Phone: [phone] [place], [place] 26[address]209-19-2024 11:26-0400 Body jlhpbavbaye71.01 [degF]Jennifer Lock MD Work Phone: [phone] [place], [place] 26[address]209-19-2024 11:26-0400 Body egbash915 kgJennifer Lock MD Work Phone: [phone]09-19-2024 11:26-0400 Diastolic blood kdmcixqi750 mm[Hg]Jennifer Lock MD Work Phone: [phone]09-19-2024 11:26-0400 Heart rate88 /Darren Lock MD Work Phone: [phone]09-19-2024 11:26-0400 Respiratory rate19 /Darren Lock MD Work Phone: [phone])[address]09-19-2024 11:26-0400 Systolic blood smtokjlq704 mm[Hg]Jennifer Lock MD Work Phone: [phone]08-29-2024 13:37-0400 Body rxprux337.72 cmK[facility] Hospital08-29-2024 13:37-0400Body mass index (BMI) [Percentile] Per age and sex99.6 %[facility]08-29-2024 13:37-0400Body mass index (BMI) [Ratio]60.8 kg/n0BzcopksaaKettering Memorial Hospital08-29-2024 13:37-0400Body grnnqepvjcx67.8 [degF][facility]08-29-2024 13:37-0400Body tpadqb427.43 kgKettering Memorial Hospital08-29-2024 13:37-0400Diastolic blood mssfkeju42 mm[Hg] [facility]08-29-2024 13:37-0400Heart rate87 /[facility]08-29-2024 13:37-0400Respiratory rate18 /[facility]08-29-2024 13:37-1559YlV1% (BldA) [Mass fraction]97 % [facility]08-29-2024 13:37-0400Systolic blood bihhbzbd430 mm[Hg][facility]04-25-2024 15:18-0400Body nbultf539.72 cm [facility]04-25-2024 15:18-0400Body mass index (BMI) [Percentile] Per age and sex99.4 %[facility]04-25-2024 15:18-0400Body mass index (BMI) [Ratio]49.7 kg/k3AwdapleabKettering Memorial Hospital04-25-2024 15:18-0400Body igpgcoagryx23.4 [degF][facility]04-25-2024 15:18-0400Body edxiju922.38 kgKettering Memorial Hospital04-25-2024 15:18-0400Diastolic blood jagcfgbd04 mm[Hg][facility]04-25-2024 15:18-0400Heart rate75 /[facility]04-25-2024 15:18-0400Respiratory rate18 /[facility]04-25-2024 15:18-7839LkZ0% (BldA) [Mass fraction]95 %[facility] [facility] 15:18-0400Systolic blood lzpgakup679 mm[Hg][facility]04-01-2024 15:02-0400Body dofzfz084.1 cmTasia Quijano MD Work Phone: [facility]04-01-2024 15:02-0400 Body mass index (BMI) [Percentile] Per age and eay752 %Tasia Quijano MD Work Phone: [facility]04-01-2024 15:02-0400 Body mass index (BMI) [Ratio]56.22 kg/i4FrccmTasia Quijano MD Work Phone: [facility]04-01-2024 15:02-0400 Body .4 [degF]Tasia Quijano MD Work Phone: [facility]04-01-2024 15:02-0400 Body lnaruy783.4 kgTasia Quijano MD Work Phone: 1216)[address] [place], [place] 6851204-01-2024 15:02-0400 Diastolic blood rovbfbla63 mm[Hg]Tasia Quijano MD Work Phone: 1(216)[address] [place], [place] 6851204-01-2024 15:02-0400 Heart rate90 /Kai Quijano MD Work Phone: 1(216)[address] [place], [place] 6851204-01-2024 15:02-0400 Systolic blood xgguzqju149 mm[Hg]Tasia Quijano MD Work Phone: 1(216)[address] [place], [place] 6851210-02-2023 16:09-0400 Diastolic blood mm[Hg]Tasia Quijano MD Work Phone: 1(216)[address] [place], [place] 6851210-02-2023 16:09-0400 Systolic blood uuwzlnsg867 mm[Hg]Tasia Quijano MD Work Phone: 1(216)[address] [place], [place] 6851210-02-2023 15:32-0400 Body qmmgrvlizpv38.59 [degF]Tasia Quijano MD Work Phone: 1(216)[address] [place], [place] 6851210-02-2023 15:32-0400 Body .3 Figueroa Quijano MD Work Phone: 1(216)[address] [place], [place] 6851210-02-2023 15:32-0400 Heart rate91 /Kai Quijano MD Work Phone: 1(216)[address] [place], [place] 6851210-02-2023 15:32-0400 Respiratory rate17 /Kai Quijano MD Work Phone: [address] [place], [place] 6851206-15-2023 15:59-0400 Diastolic blood jyhivjrp66 mm[Hg]Ashley Ashley Work Phone: 1(866) 275-7894282-8805DV-[facility]xl[facility] Work Phone: 1(802) 134-643606-15-2023 15:59-0400Systolic blood dwpkkril323 mm[Hg] Ashley Ashley Work Phone: 1(385)937-7165007-9963RS-Fckborpneo-[place] 1600 Work Phone: 1(188)[phone] 15:57-0400Body blnkor261.5 Enrike Ashley Work Phone: 1419)517-7016828-4888IX-Iuqcztbjoh-[place] 1600 Work Phone: 1(894)789-566-230360-54479329-10-0723 15:57-0400Body mass index (BMI) [Ratio] 58.82 kg/m2Ashley Ashley Work Phone: 1(419)216-3274100-1294SU-Walvxukqku-[place] 1600 Work Phone: 1440)[phone] 15:57-0400Body surface area Derived from formula2.75 m2Ashley Ashley Work Phone: 1419)724-0035217-5266TM-Mssoyvxfsw-[place] 1600 Work Phone: 1440)[phone] 15:57-0400Body orlljbodmyp03.8 [degF]Ashley Ashley Work Phone: KA-Cyonvndbcy-[place] 1600 Work Phone: 1440)[phone] 15:57-0400Body sakvjc814.1 kgAshley Ashley Work Phone: 1(419)544-4200076-7489XY-Taydngrltd-[place] 1600 Work Phone: 1440)[phone] 15:57-0400Diastolic blood xcuvlnlm01 mm[Hg] Ashley Ashley Work Phone: WA-Icwxhbbtwe-[place] 1600 Work Phone: 1440)[phone] 15:57-0400Heart rate83 /minLisa Kamala Ashley Work Phone: 1419)375-5839966-8177RP-Nhobsmhopq-[place] 1600 Work Phone: 1440)[phone] 15:57-0400Systolic blood odgwglzc644 mm[Hg] Ashley Ashley Work Phone: 1419)944-0850117-8638SA-Vxktcbavbs-[place] 1600 Work Phone: 1440)[phone] 15:57-921030 Catarina Ashley Work Phone: 1(491) 223-8852337-7314FK-Kbtmfngvoo-[place] 1600 Work Phone: Comment on above:6-90_CSpdq00-95-2023 15:57-975842 1 Ashley Ashley Work Phone: 1(859) [phone]-Pepokieqks-[place] 1600 Work Phone: Comment on above:7-80_STbhqIRKGuiq10-24-2023 13:24-0400Body ifmjtp696.9 cmLkarlie Ashley Work Phone: 1(844) 802-4437257-8452GE-Zxyekonhbp-[place] [address] Work Phone: 1(401) [phone] 13:24-0400Body mass index (BMI) [Ratio] 58.17 kg/m2Lisa Kamala Ashley Work Phone: 1(268) 135-4744345-5852EH-Vghlusvdab-[place] 220 Work Phone: 1(139) [phone] 13:24-0400Body surface area Derived from formula2.72 m2Lisa Kamala Ashley Work Phone: 1(808) 419-3163945-1179KH-Dxdnjqwqam-[place] 220 Work Phone: 1(408) [phone] 13:24-0400Body .7 [degF]Ashley Ashley Work Phone: 1(555) 116-7839742-7776DY-Oyjohsutei-[place] 220 Work Phone: 1(533) [phone] 13:24-0400Body qvqngi554.9 kgAshley Ashley Work Phone: 1(473) 264-7774079-4305JU-Uxqoaiggga-[place] [address] Work Phone: 1(618) 632-793006-05-2023 13:24-0400Diastolic blood gmvmaspr66 mm[Hg] Ashley Ashley Work Phone: 1(805) 520-4306056-9680JI-Jgihtizepd-[place] 220 Work Phone: 1(737) 670-929406-05-2023 13:24-0400Heart rate86 /minAshley Ashley Work Phone: 1(193) 973-9882781-1279OC-Ijymvzvrre-[place] 220 Work Phone: 1(191) [phone] 13:24-0400Respiratory rate20 /minAshley Ashley Work Phone: 1(710) 778-2381709-1255RE-Qoprplvrcy-[place] 220 Work Phone: 1(216) 453-8896831872-01-1356 13:24-0400Systolic blood nbbhdcoi682 mm[Hg] Ashley Ashley Work Phone: 1(676) [phone]-Jcjmfuqtfh-[place] 220 Work Phone: 1(333) 613-160706-05-2023 13:24 Catarina Ashley Work Phone: 1(698) [phone]-Mvhbzoudjn-[place] 220 Work Phone: Comment on above:8-85_XRfrd52-99-2023 13:249 1 Ashley Ashley Work Phone: 1(821) 601-1065731-7564WC-Hyupzyhwkk-[place] 220 Work Phone: Comment on above:5-19_APffpJQJYhdp05-33-2023 10:26-0500Body qohvlu655.2 Enrike Ashley Work Phone: 1(860)389-794-3360WX-Yrstqzrvpg-[place] 1600 Work Phone: 1(244)[phone] 10:26-0500Body mass index (BMI) [Ratio] 55.73 kg/m2Ashley Ashley Work Phone: 1(589)100-292-3746ZE-Fwmxldjycc-[place] 1600 Work Phone: 1(927)[phone] 10:26-0500Body surface area Derived from formula2.75 m2Ashley Ashley Work Phone: 1(405)662-071-5664AQ-Yybbqnpcbv-[place] 1600 Work Phone: 1(570)[phone] 10:26-0500Body zpxafhczeas26.1 [degF]Ashley Ashley Work Phone: 1(523) 577-9450717-2326PT-Mjuljzwugm-[place] 1600 Work Phone: 1(504)[phone] 10:26-0500Body ljyymt288 kgAshley Ashley Work Phone: 1(400) [phone]-Nyfbaynijq-[place] 1600 Work Phone: 1(095)[phone] 10:26-0500Diastolic blood qhhanggw27 mm[Hg] Ashley Ashley Work Phone: 1419)090-1974455-9482PO-Wsnuyozkdf-[place] 1600 Work Phone: 1(529)[phone] 10:26-0500Heart rate91 /minLisa Kamala Ashley Work Phone: 1419)[phone]-Vedwyvqxmj-[place] 1600 Work Phone: 1(229)[phone] 10:26-0500Respiratory rate20 /minLisa Kamala Ashley Work Phone: 1419)[phone]-Glpafyobwo-[place] 1600 Work Phone: 1(256)[phone] 10:26-5359FuD1% (BldA) [Mass fraction]97 % Ashley Ashley Work Phone: 1419)770-0532547-7986WX-Sixsxfpwbw-[place] 1600 Work Phone: 1(661)[phone] 10:26-0500Systolic blood zjbrskoo136 mm[Hg] Ashley Ashley Work Phone: 1419)[phone]-Zvdrrgnphv-[place] 1600 Work Phone: 1440)[phone] 10:26000051 1Lkarlie Ashley Work Phone: 1(821) [phone]-Spqldcxziz-[place] 1600 Work Phone: Comment on above:2-39_OUqun1-02_UIvzsCOVKcgm96-23-2023 15:22-0500Body pnswew832 cmLkarlie Ashley Work Phone: 1419)[phone]-Emwkasyppe-[place] 1600 Work Phone: 1440) 15:22-0500Body mass index (BMI) [Ratio]58.8 kg/m2Ashley Ashley Work Phone: 1(184)[phone]-Pcwjsrzfgy-[place] 1600 Work Phone: 1(563)830-236025-71 15:22-0500Body surface area Derived from formula2.71 m2Ashley Ashley Work Phone: 1419)[phone]-Qphgvpgflo-[place] 1600 Work Phone: 1440)[phone] 15:22-0500Body amhzctpftev91.5 [degF]Ashley Ashley Work Phone: 1419)[phone]-Wpinoyfyfl-[place] 1600 Work Phone: 1(224) 15:22-0500Body dlzpji830.99 kgAshley Ashley Work Phone: 1419)175-612900-5334HE-Mxpvkmmpgt-[place] 1600 Work Phone: 1440)[phone] 15:22-0500Diastolic blood ehldsnnx54 mm[Hg] Ashley Ashley Work Phone: 1419)[phone]-Vqjrtrcelx-[place] 1600 Work Phone: 1(707)[phone] 15:22-0500Heart aytc818 /minLisa Kamala Ashley Work Phone: 1419)[phone]-Twjwyfoghq-[place] 1600 Work Phone: 1440)[phone] 15:22-0500Systolic blood blcbcmmu933 mm[Hg] Ashley Ashley Work Phone: 1419)[phone]-Srgvlrjohl-[place] 1600 Work Phone: 1440)[phone] 15:22-219684 Catarina Ashley Work Phone: 1419)[phone]-Egcwjrnsgx-[place] 1600 Work Phone: 1440)[phone] on above:0-83_SMhvs14-16-2023 15:22-346520 1 Ashley Ashley Work Phone: 1419)956-6713MM-Yyiasquvde-[place] 1600 Work Phone: Comment on above:8-51_FItogEEYMlvt90-60-2022 16:24-0500Diastolic blood iyfnmqqn46 mm[Hg]Ashley Ashley Work Phone: 1419)204-3593PI-Vltuyboovs-[place] 1600 Work Phone: 1(310)[phone]258 16:24-0500Heart rate89 /minLisa Kamala Ashley Work Phone: 1419)327-6718HJ-Rzawlumhgz-[place] 1600 Work Phone: 1440)[phone] 16:24-0500Systolic blood uckarahv855 mm[Hg] Ashley Ashley Work Phone: 1419)418-3155210-3400QX-Wswaovwkrj-[place] 1600 Work Phone: 1(388)[phone]8-9334 16:23-0500Diastolic blood ddahptms23 mm[Hg] Ashley Ashley Work Phone: AP-Zbluqqthdv-[place] 1600 Work Phone: 1(183) [phone] 16:23-0500Heart rate91 /minLisa Kamala Ashley Work Phone: FC-Gitsngotif-[place] 1600 Work Phone: 1(331) [phone] 16:23-0500Systolic blood tfajizhi754 mm[Hg] Ashley Ashley Work Phone: FL-Kbnfdfcxqu-[place] 1600 Work Phone: 1440)[phone] 16:22-0500Body wcervs402.2 Enrike Ashley Work Phone: 1419)[phone]-Tfssimbabd-[place] 1600 Work Phone: 1440)[phone] 16:22-0500Body mass index (BMI) [Ratio] 58.39 kg/m2Ashley Ashley Work Phone: 1419)560-8664LB-Okvtauuxsd-[place] 1600 Work Phone: 1(440)[phone] 16:22-0500Body surface area Derived from formula2.73 m2Ashley Ashley Work Phone: 1(573) [phone]-Gueizlopsb-[place] 1600 Work Phone: 1(826)945-106778-700307-09375289-28-2451 16:22-0500Body yomjsxyynjp52.3 [degF]Ashley Ashley Work Phone: 1(289) 616-4139800-8639FQ-Vdmvfqdqhp-[place] 1600 Work Phone: 1(147)[phone]9-6045 16:22-0500Body gvxzic781.2 kgAshley Ashley Work Phone: 1(315) 706-2378355-6700SY-Ietrsrabct-[place] 1600 Work Phone: 1(972)972-741256-365545-01218912-73-6010 16:22-0500Diastolic blood fttziibz79 mm[Hg] Ashley Ashley Work Phone: 1(639) 541-1068255-6924IO-Zvscpjgvth-[place] 1600 Work Phone: 1(466)[phone] 16:22-0500Heart rate87 /minLisa Kamala Ashley Work Phone: 1(912) [phone]-Uncfcawzjs-[place] 1600 Work Phone: 1(123)[phone]0-6593 16:22-0500Systolic blood mm[Hg] Ashley Ashley Work Phone: 1(458) 226-2870772-6323AA-Vdzunpmobt-[place] 1600 Work Phone: 1(828)[phone]3-5638 16:22-840558 1Lkarlie Ashley Work Phone: 1419)905-6144933-2523RX-Zruicniklm-[place] 1600 Work Phone: [phone] on above:3-45_QQvvo96-53-2022 16:22-570374 1 Ashley Ashley Work Phone: 1(787) [phone]-Zjkmuivdkj-[place] 1600 Work Phone: [phone] on above:9-03_GJrfeWHZTgkc83-36-2022 11:24-0400Diastolic blood ekkyqjeo70 mm[Hg]Ashley Ashley Work Phone: 1(872)[phone]-Erwwjhprvp-[place] 1600 Work Phone: 1(954) 11:24-0400Systolic blood xcejzjbk978 mm[Hg] Ashley Ashley Work Phone: 1419)453-1720536-3858XZ-Jimkabcgtr-[place] 1600 Work Phone: 1440 11:07-0400Body xvlbak408.5 Enrike Ashley Work Phone: 1419)[phone]-Lhekqcpike-[place] 1600 Work Phone: 1440 11:07-0400Body mass index (BMI) [Ratio] 57.43 kg/m2Ashley Ashley Work Phone: 1419)[phone]-Pvgnnvhmvw-[place] 1600 Work Phone: 1440 11:07-0400Body surface area Derived from formula2.77 m2Ashley Ashley Work Phone: 1419)[phone]-Jcxhajgjnx-[place] 1600 Work Phone: 1440 11:07-0400Body txvmuepfwvh06.9 [degF]Ashley Ashley Work Phone: 1419)[phone]-Hmccuooyed-[place] 1600 Work Phone: 1440 11:07-0400Body skxolf596.9 kgAshley Ashley Work Phone: 1419)[phone]-Oyuqsbdxpp-[place] 1600 Work Phone: 1440)[phone] 11:07-0400Diastolic blood mm[Hg] Ashley Ashley Work Phone: 1419)[phone]-Hxfsglsauo-[place] 1600 Work Phone: [phone] 11:07-0400Heart rate80 /minAshley Ashley Work Phone: 1419)[phone]-Zwdzzmnnjm-[place] 1600 Work Phone: 1(846)[phone] 11:07-0400Systolic blood mmubeoda274 mm[Hg] Ashley Ashley Work Phone: 1419)473-5255847-7639US-Nbzygqappm-[place] 1600 Work Phone: 1(729)[phone] 11:07-721403 Catarina Ashley Work Phone: 1419)171-3954151-7247PN-Bceemgcupl-[place] 1600 Work Phone: [phone])[phone] on above:9-25_GKdij0-09_LSrovOSQVjxe06-08-2022 10:51-0400Body jiuqht189.1 kgLisa Kamala Ashley Work Phone: 1419)322-3468901-7087MT-Zcxqkgyxsq-[place] 1600 Work Phone: 1440)[phone] 10:51-454230 Catarina Ashley Work Phone: 1419)426-1826761-4499HU-Djjrgzofba-[place] 1600 Work Phone: 1440)[phone] on above:3-80_YNwsz78-27-2022 14:02-0400Body dopnpv585.2 cmLkarlie Ashley Work Phone: 1419)[phone]-Fdyskoyjnm-[place] 1600 Work Phone: 1440)[phone] 14:02-0400Body mass index (BMI) [Ratio] 59.02 kg/m2Ashley Ashley Work Phone: 1419)996-3838302-7737OG-Bjknqkkuyx-[place] 1600 Work Phone: 1440)[phone] 14:02-0400Body surface area Derived from formula2.75 m2Ashley Ashley Work Phone: 1419)[phone]-Rzvyprgkce-[place] 1600 Work Phone: 1440)[phone] 14:02-0400Body wzggjvpspcy95.3 [degF]Ashley Ashley Work Phone: 1419)996-9245528-9860IP-Hmebzwhxsi-[place] 1600 Work Phone: 1440)[phone] 14:02-0400Body rsuuom802.1 kgAshley Ashley Work Phone: 1(373) 181-3079555-5895ZM-Ogxblmambt-[place] 1600 Work Phone: 1(357)734-672260-18 14:02-0400Diastolic blood swcfmykr19 mm[Hg] Ashley Ashley Work Phone: 1419)737-8706126-0087VF-Utadpcwfzf-[place] 1600 Work Phone: 1(619)[phone] 14:02-0400Heart rate75 /minLisa Kamala Ashley Work Phone: 1419)793-263673-0338NS-Webleuanwt-[place] 1600 Work Phone: 1(968)[phone] 14:02-0400Systolic blood urjevizq718 mm[Hg] Ashley Ashley Work Phone: 1419)[phone]-Zxdvhdbrzx-[place] 1600 Work Phone: 1(687)[phone] 14:026 1Lkarlie Ashley Work Phone: 1419)157-5972918-5338VW-Tmktdppaxa-[place] 1600 Work Phone: 1(915)[phone] on above:7-12_CXaen91-23-2022 14:029 1 Ashley Ashley Work Phone: 1419)856-1856296-1250IP-Kxnlxdsgwx-[place] 1600 Work Phone: 1(989)2502800Comment on above:1-80_PLwmsRTFRinc03-02-2022 12:51-0500Body zyhgtn928.1 Enrike Ashley Work Phone: 1419)[phone]-Uyfgotajmm-[place] 1600 Work Phone: 1(667)[phone] 12:51-0500Body mass index (BMI) [Ratio] 57.27 kg/m2Ashley Ashley Work Phone: 1419)[phone]-Reuhplsnhq-[place] 1600 Work Phone: 1(462)[phone] 12:51-0500Body surface area Derived from formula2.71 m2Ashley Ashley Work Phone: 1(961) 590-8380033-9013WR-Uchdvlzuvj-[place] 1600 Work Phone: 1440)[phone] 12:51-0500Body crnehvvihig97.4 [degF]Ashley Ashley Work Phone: 1419)[phone]-Ajwanclgxg-[place] 1600 Work Phone: 1440)[phone] 12:51-0500Body .6 kgLisa Kamala Ashley Work Phone: 1419)934-0858123-8067KQ-Heekaswtnd-[place] 1600 Work Phone: 1440)[phone] 12:51-0500Diastolic blood ibxgaxmh49 mm[Hg] Ashley Ashley Work Phone: 1419)[phone]-Dvplsarmnh-[place] 1600 Work Phone: 1440)[phone] 12:51-0500Heart rate93 /minLisa Kamala Ashley Work Phone: 1419)215-9099369-7077JL-Jwdlhgvgqm-[place] 1600 Work Phone: 1440)[phone] 12:51-0500Respiratory rate20 /minLisa Kamala Ashley Work Phone: 1419)[phone]-Psznwjvsws-[place] 1600 Work Phone: 1440)[phone] 12:51-0500Systolic blood mm[Hg] Ashley Ashley Work Phone: 1419)[phone]-Hnmetheefw-[place] 1600 Work Phone: 1440)[phone] 12:51-524627 1Lkarlie Ashley Work Phone: 1419)313-1868516-1794KW-Reflkpzdmm-[place] 1600 Work Phone: [phone] on above:3-59_KMiraTYGElvo70-65-2022 12:51-352868 1Lkarlie Ashley Work Phone: 1419)[phone]-Aepfmfhfcv-[place] 1600 Work Phone: [phone] on above:5-77_TFjnq30-33-2021 15:30-0400Body oadpkd883.1 Enrike Ashley Work Phone: 1(123) [phone]-Ttjtecrnxx-[place] 1600 Work Phone: 1(190) 259-636410-11-2021 15:30-0400Body mass index (BMI) [Ratio]57.5 kg/m2Ashley Ashley Work Phone: 1419)759-7821225-6266RK-Qrhiinrtow-[place] 1600 Work Phone: 1(462) 146-217910-11-2021 15:30-0400Body surface area Derived from formula2.71 m2Ashley Ashley Work Phone: 1419)392-8968835-8097ZV-Qmuhdrcvhh-[place] 1600 Work Phone: 1(929) 392-245610-11-2021 15:30-0400Body qkppcodqaex63.1 [degF]Ashley Ashley Work Phone: 1419)664-5458194-7769BU-Amsxfodaym-[place] 1600 Work Phone: 1(815) 621-359010-11-2021 15:30-0400Body ijuznc855.3 kgLisa Kamala Ashley Work Phone: 1419)527-7031778-1728QD-Wbilqlyktz-[place] 1600 Work Phone: 1(672) 521-445610-11-2021 15:30-0400Diastolic blood yotiqgtm79 mm[Hg] Ashley Ashley Work Phone: 1419)247-5335214-7760ZG-Spqoftskcr-[place] 1600 Work Phone: 1(498) 127-128710-11-2021 15:30-0400Heart rate9 /minLisa Kamala Ashley Work Phone: 1419)955-1790606-4183VV-Klnkbuhawv-[place] 1600 Work Phone: 1(821) [phone] 15:30-0400Systolic blood atbbgyxg209 mm[Hg] Ashley Ashley Work Phone: 1419)322-8062579-7349OI-Texzxyuhou-[place] 1600 Work Phone: 1(256) 295-722810-11-2021 15:30-275363 Catarina Ashley Work Phone: 1(122) 560-1341656-9547CE-Ejtpkoleny-[place] 1600 Work Phone: Comment on above:7-86_MRevwLNKPszv05-83-2021 15:30-949474 Catarina Ashley Work Phone: 1419)814-3702580-2272SQ-Pasozyulmw-[place] 1600 Work Phone: 1(223)[phone] on above:5-00_YXmfj00-71-2021 16:18-0400Body mgjkqa986.5 Enrike Ashley Work Phone: 1419)237-5811627-6844SQ-Xzvwkdfqsf-[place] 1600 Work Phone: 1(382)715-886-878183-97851770-92-1031 16:18-0400Body mass index (BMI) [Ratio] 56.75 kg/m2Ashley Ashley Work Phone: 1419)848-1882212-4966XJ-Sqifaxowwt-[place] 1600 Work Phone: 1(479) 788-473110-04-2021 16:18-0400Body surface area Derived from formula2.73 m2Lisa Kamala Ashley Work Phone: 1419)837-7020411-2164VR-Qaivycglhw-[place] 1600 Work Phone: 1(396)[phone]8-6841 16:18-0400Body pvudunmjwqq84.1 [degF]Ashley Ashley Work Phone: 1419)779-0182754-6296PK-Ztasunjzvm-[place] 1600 Work Phone: 1(543) 456-134810-04-2021 16:18-0400Body hrjzwe785.8 kgAshley Ashley Work Phone: 1419)440-6610634-1383OT-Ebyptzatek-[place] 1600 Work Phone: 1440)[phone] 16:18-0400Diastolic blood hntoehtw21 mm[Hg] Ashley Ashley Work Phone: 1419)986-0033633-8802JP-Gbwqudidxp-[place] 1600 Work Phone: 1(111)858-865-770741-50881700-53-2087 16:18-0400Heart rate98 /minLisa Kamala Ashley Work Phone: 1419)384-0867056-2141MD-Kcxfytwqrz-[place] 1600 Work Phone: 1440)[phone] 16:18-0400Respiratory rate19 /minLisa Kamala Ashley Work Phone: 1(650) 715-2377591-4792QJ-Xieqcgqdts-[place] 1600 Work Phone: 1(113) 592-225210-04-2021 16:18-0400Systolic blood mm[Hg] Ashley Ashley Work Phone: 1(182) 253-7587870-6733TV-Qfrxnqkmrq-[place] 1600 Work Phone: 1(982)[phone] 16:18-415783 1Lkarlie Ashley Work Phone: 1419)200-3404836-1143NB-Xrhzckebvk-[place] 1600 Work Phone: 1(782)[phone] on above:9-78_NXpquLJRPxkk39-13-2021 16:18-523606 1Lkarlie Ashley Work Phone: 1(611) 721-4667257-2519TA-Yhiussmifv-[place] 1600 Work Phone: Comment on above:4-65_RJzwr32-26-2021 16:56-0400Body nrufnf512.8 cmLkarlie Ashley Work Phone: 1(790) 609-8102690-8419TH-Gaibvvrnrd-[place] 220 Work Phone: 1(260) 131-616805-24-2021 16:56-0400Body mass index (BMI) [Ratio] 58.74 kg/m2Ashley Ashley Work Phone: 1(805) 280-8857236-5173LL-Ioyvpiyeap-[place] 220 Work Phone: 1(921) 793-147205-24-2021 16:56-0400Body surface area Derived from formula2.71 m2Ashley Ashley Work Phone: 1(464) [phone]-Kdjhjcewow-[place] [address] Work Phone: 1(351) 577-585205-24-2021 16:56-0400Body kcndisnpvlj53.5 [degF]Ashley Ashley Work Phone: 1(874) [phone]-Zttdjpvxab-[place] [address] Work Phone: 1(714) 500-755305-24-2021 16:56-0400Body jsvsyw682.4 kgAshley Ashley Work Phone: 1(760) [phone]-Jsllazeajx-[place] [address] Work Phone: 1(971) 385-198705-24-2021 16:56-0400Diastolic blood mm[Hg] Ashley Ashley Work Phone: 1(903) [phone][facility]ic[facility]ap[facility] Work Phone: 1(365) [phone] 16:56-0400Heart vuzy028 /minAshley Ashley Work Phone: 1(547) [phone][facility]jmh[facility] Work Phone: 1(795) 418-339005-24-2021 16:56-0400Systolic blood phczipvv309 mm[Hg] Ashley Ashley Work Phone: 1(164) [phone]-Gsitrmznjb-[place] [address] Work Phone: 1(100) [phone] 16:56-878591 Catarina Ashley Work Phone: 1(503) [phone]-Oagvckdayn[facility] Work Phone: Comment on above:3-24_JRdfbMCNDtel92-98-2021 16:56-349691 Catarina Ashley Work Phone: 1(594) [phone]-Adpturijxt[facility] Work Phone: Comment on above:2-55_ZPouo05-29-2020 12:56-0500BMI (Body Mass Index)50.16 kg/g4Knjzzxad YxpyduLO-Nzvsuzumdo-Tnyamclw 1600 Work Phone: 1(868)[phone] 12:56-0500Body Kvwpaubhtad09.6 [degF] Lynn MtrvafPN-Bgjznmasof-Mixyafki 1600 Work Phone: 1(265)[phone] 12:56-0500Body olkhwd542.05 kgJennrebel CobyqtRK-Xligvibfvj-Fsccmlcm 1600 Work Phone: 1(829)605-594172-68 12:56-0500BP Bpqfndvfe44 mm[Hg]Lynn BrandCpoxjvSQ-Expiiwwvrz-Rcisfzht 1600 Work Phone: 1440 12:56-0500BP Ksnbzbqn322 mm[Hg]Lynn BrandLoxtmhOX-Wgjyvilxzm-Gcfbyyeg 1600 Work Phone: 1440 12:56-0500BSA (Body Surface Area)2.56 m2 Lynn BrandScyfjnPN-Xminvbbpes-Scybqcox 1600 Work Phone: 1440 12:56-9210Mudglm444.1 cmLynn Brandan DG-Guqkgzmtfm-Srsjgqgx 1600 Work Phone: 1440 12:56-0500Pulse (Heart Rate)88 /minLynn BrandMlwhriCF-Uxcrjkmvwa-Khvndaac 1600 Work Phone: 1440 12:56-373921 1Jjerome Brandan AD-Vthqzdqqjo-Mzzvhyla 1600 Work Phone: [phone] on above:2-20 Stature Fnpzcqwvhf31-57-1793 12:56-457606 Jose BrandTodzfvNM-Qwtxqzfeec-Wdwndqsy 1600 Work Phone: [phone] on above:2-20 Weight PercentileBMI Percentile 03-05-2019 16:23-0400BMI (Body Mass Index)47.5 kg/x6KbbnpTasia Quijano IG-Pnnlghwyiz-Pagneukw 1600 Work Phone: 1440 16:23-0400BP Ayyupicjj39 mm[Hg]Tasia Quijano SP-Ljxikhkqzq-Eigjvdgm 1600 Work Phone: 1440 16:23-0400BP Wapptzio053 mm[Hg]Tasia Quijano IX-Kppdtgitjy-Tcwvklhc 1600 Work Phone: 1440 16:23-0400BSA (Body Surface Area)2.48 m2 Tasia QuijanoPlswZG-Aeagywtgta-Zekkbxve 1600 Work Phone: 1440 16:234129Giiodr476.2 Monika Quijano KE-Lhmwriaoul-Hvxlwjxy 1600 Work Phone: 1(055)[phone] 16:23-0400Pulse (Heart Rate)108 /minTasia QuijanoRwenHA-Qjsdejdonm-Swimdmic 1600 Work Phone: 1([phone])[phone] 16:23-0400Respiratory Rate20 /minTasia Quijano IX-Ryinryakvd-Sbeqppnn 1600 Work Phone: 1(438)[phone] 16:23-7291Twfqdd568.49 kgJaeyad Quijano NR-Nakjigjozk-Jhaylavf 1600 Work Phone: 1(520)[phone] 16:23-801672 1Jamilarry Quijano VI-Cutfpukcjo-Cxplbpjn 1600 Work Phone: Comment on above:BMI Percentile2-20 Stature Percentile 2-20 Weight Pnoumhsmqe63-28-5599 10:28-0400BP Vpawopmeq91 mm[Hg]Loraine Ferrell XN-Cetciuycnkbd-Yrmtszd 5100 Work Phone: Comment on above:Location: RUE; Position: Sitting 02-15-2019 10:28-0400BP Zyvafwpj854 mm[Hg]Loraine RiaBK-Qlhkknalaswj-Qjsmdtg 5100 Work Phone: Comment on above:Location: RUE; Position: Sitting 02-15-2019 10:08-0400BP Weudoianj26 mm[Hg]Loraine FerrellNunCX-Jcunzrrvtvgt-Vbdqsyy 5100 Work Phone: Comment on above:Location: LUE; Position: Sitting 02-15-2019 10:08-0400BP Ozsyxlmb927 mm[Hg]Loraine SwtVP-Vlxpysqqeiqq-Adpjhle 5100 Work Phone: Comment on above:Location: LUE; Position: Sitting 02-15-2019 10:08-0400Pulse (Heart Rate)83 /minLoraine ClxHN-Rujxzmdgzonu-Wmavmnb 5100 Work Phone: 1(407) 129-398604-18-2019 09:59-0400BMI (Body Mass Index)46.12 kg/m2 Loraine ZnxAB-Fnqvegntetwp-Udgaxba 5100 Work Phone: 1(564) 768-963004-18-2019 09:59-0400Body Gwirkicxeyy36.5 [degF] Loraine FerrellDlxHJ-Mwxpdwvfugjs-Euytpyr 5100 Work Phone: 1(192) [phone] 09:59-0400Body .35 kgRaalva Ferrell AY-Cixluinwenkq-Juubxyq 5100 Work Phone: 1(248) 152-503304-18-2019 09:59-0400BP Odgrptztd21 mm[Hg]Loraine CARMONAPG-Tsggwspoyujo-Pmitxcm 5100 Work Phone: Comment on above:Location: RUE; Position: Sitting 02-15-2019 09:59-0400BP Zosxevcf652 mm[Hg]Loraine FerrellUloHO-Paqaqywvkesh-Fjxezgb 5100 Work Phone: Comment on above:Location: RUE; Position: Sitting 02-15-2019 09:59-0400BSA (Body Surface Area)2.45 v3Okfxrtq Liu UO-Vdcdnfrjfjor-Efzcauh 5100 Work Phone: 1(598) [phone] 09:59-3359Cjygjy497.2 cmRabe Ferrell BP-Pberubdwolrp-Oanbtcy 5100 Work Phone: 1(333) [phone] 09:59-0400Pulse (Heart Rate)105 /minRaymila FerrellFxpAO-Kwvlspxsdafb-Riuebey 5100 Work Phone: 1(710) 520-784904-18-2019 09:59-0400Respiratory Rate18 /minRaymila FerrellZwpME-Ffxsrevkvmlp-Iahrlat 5100 Work Phone: 1(911) 553-833304-18-2019 09:59-3442Txhkay084.35 kgTasia Quijano EB-Ihkvazjnyv-Nknelroy 1600 Work Phone: 1([phone]) [phone] 09:59-037889 1Raymila Ferrell DI-Hysxywaogckc-Gjtyvur 5100 Work Phone: Comment on above:BMI Percentile2-20 Weight Percentile 2-20 Stature Percentile Encounters Encounter DateEncounter TypeCare ProviderFacilityStart: 08-08-2025 End: 71-91-0811cdsmziuqwyCgbuoSni ORTEGA Work Phone: [facility] Work Phone: Start: 08-08-2025 End: 15-89-0858Nwavepx encounter procedureLi Senthil Dion [employer] FACULTY MEMBER-C-[facility] Family Medicine Jay Work Phone: Start: 04-13-2025 End: 35-76-0308Edadqvriq department patient visitLISA Ndiaye AUGUSTINEleniTOLEDO HOSPITALJeffryOhioHealth [facility] HospitalStart: 01-20-2025 End: 12-90-3171Ohbftmtqq Result EncounterGeneric External Data ProviderNOMS External Department UnsolicitedStart: 01-20-2025 End: 88-37-6069Gyiwahdvd Result EncounterGeneric External Data ProviderNOMS External Department UnsolicitedStart: 12-27-2024 End: 83-34-9873Rmkzrpshz department patient visitASHLEY Ndiaye AUGUSTINEleniTASIAJoint Township District Memorial Hospitaltart: 10-17-2024 End: 53-90-8052Gxasofflj department patient visitLISA Ndiaye AUGUSTINLANCASTER GENERAL HOSPITALJeffryOhioHealth [facility] HospitalStart: 10-04-2024 End: 96-46-9777Reknbj outpatient visit 25 Jared Ashley NP Work Phone: noms CWM FMComment on above:Anxiety and depression (CMS/HCC) (Primary Dx); Hypertension, essential (CMS/HCC); Morbid (severe) obesity due to excess calories (CMS/HCC); Body mass index (BMI) 50.0-59.9, adult (CMS/HCC); Upper respiratory tract infection, unspecified typeStart: 10-02-2024 End: 04-23-3687Iznawiobd department patient visitLISA Ndiaye DIONJoint Township District Memorial Hospitaltart: 09-17-2024 End: 98-54-4413yjidryvnpxSZPOVUZ [address] [place], [place] [address]tart: 08-30-2024 End: 03-94-0421Cdlyfp flowsheetAshley Ashley [employer] FACULTY MEMBER Work Phone: noms CWM FMStart: 08-30-2024 End: 57-44-3064Qzfhzw flowsheetAshley Ashley [employer] FACULTY MEMBER Work Phone: noms CWM FMStart: 08-30-2024 End: 58-36-6556Xelick outpatient visit 25 minutesAshley Dion [employer] FACULTY MEMBER Work Phone: noms CWM FMComment on above:Anxiety and depression (CMS/HCC) (Primary Dx); Morbid (severe) obesity due to excess calories (CMS/HCC); Hypertension, essential (CMS/HCC); Tinea versicolor; BronchitisStart: 08-30-2024 End: 00-43-9497wbylunozlaDSZCSneha Foster AvailableStart: 08-20-2024 End: 63-08-9495Xqvqphtyr department patient visitSA Ndiaye DIONJoint Township District Memorial Hospitaltart: 07-19-2024 End: 61-35-9188Ziksmz outpatient visit 40 minutesJennifer Lock MD Work Phone: uh [facility] CenterComment on above: Hypertension, essential (Primary Dx); Morbid obesity with BMI of 50.0-59.9, adult (Multi); Encounter for screening involving social determinants of health (SDoH); Transportation insecurity due to lack of access to vehicleStart: 07-19-2024 End: 88-94-4741nbxrohfwnxTUYWWBBSN R NGUYENGreene Memorial Hospital AmbulatoryStart: 06-28-2024 End: 86-74-3340zzsvajbemiBiiybmyusOhioHealth Doctors Hospital Work Phone: Start: 06-28-2024 End: 31-05-1184Ewigmpi encounter procedureNov[facility] Urgent Care Jay Work Phone: Start: 03-05-2024 End: 85-74-1802pgaktpsbglPJIUSneha Foster AvailableStart: 02-23-2024 End: 63-14-2097fivgndhacrUwpduxwwnOhioHealth Doctors Hospital Work Phone: Start: 02-23-2024 End: 01-25-3576Hinwmiw encounter procedureNov[facility] Health [facility] Urgent Care Jay Work Phone: start: 01-30-2024 End: 91-97-0888Mzmlir outpatient visit 25 minutesTasia Quijano MD Work Phone: uh [facility] CenterComment on above:Obesity peds (BMI >=95 percentile) (Primary Dx); Insulin resistance; Vitamin D deficiencyStart: 01-30-2024 End: 66-85-7933mfmdauujgzXFIBVEffingham HospitalStart: 08-01-2023 End: 52-13-8680Gvdebi outpatient visit 25 minutesTasia Quijano MD Work Phone: [facility] [place]Comment on above:Obesity peds (BMI >=95 percentile) (Primary Dx); Hypertension, essential; Insulin resistance; Vitamin D deficiencyStart: 88-84-1842VCFFNWouj Jo Aichholz Work Phone: [phone]-Ljxcwjyepe-Endo Admin RBC 737 Work Phone: start: 08-25-3710yixqjparxmXus. Ashley Ashley Facility:9438Start: 32-38-4270Opuxjybfm therapyLisa Kamala Ashley Work Phone: [phone]-Lqlklqnqlx-[facility] 220 Work Phone: Start: 81-96-6496gxuxizeydfZnx. Ashley Ashley Facility:9438Start: 32-54-5207CGQTRQcsi Jo Aichholz Work Phone: [phone]-Bthlvrfdfq-[place] 1600 Work Phone: Start: 77-25-8561Jdsimj outpatient visit 25 minutes Ashley Ashley Work Phone: [phone]-Tsisxvowgk-[facility] Work Phone: Start: 44-23-5792Rphofxs encounter procedureAshley Ashley Work Phone: [phone]-Wyhgxvetqc-[place] 1600 Work Phone: Start: 16-86-0726fxkqhctegnImu. Ashley Ashley Facility:9492Start: 61-47-5491Lpaaet outpatient visit 25 minutesLisa Kamala Ashley Work Phone: [phone]-Dekqywgand-Endo Admin RBC 737 Work Phone: start: 39-91-2907Fbosazy encounter procedureLisa Kamala Ashley Work Phone: [phone]-Uvrnhbaiwz-[place] 220 Work Phone: Start: 36-71-8783jeiydhdzsaMhf. Ashley Wray Augustingloria Facility:9492Start: 71-88-6304OBBCJCcus Kamala Ashley Work Phone: [phone]-Enhowlpiem-Endo Admin RBC 737 Work Phone: start: 74-37-4370Qn RenewalLisa Kamala Ashley Work Phone: [phone]-Zjhzgggzgb-Endo Admin RBC 737 Work Phone: start: 83-26-3956Fatfbb outpatient visit 25 minutes Ashley Ashley Work Phone: [phone]-Scrtqfkesw-[place] 1600 Work Phone: Start: 94-91-8572cacygoaqskCwo. Ashley Ashley Facility:9492Start: 83-95-0698Ywpjkr outpatient visit 25 minutesLisa Kamala Ashley Work Phone: [phone]-Cuedtgckat-Endo Admin RBC 737 Work Phone: start: 02-78-8603Dsqbjkl encounter procedureLisa Kamala Ashley Work Phone: [phone]-Cilhhccnzq-[place] 1600 Work Phone: Start: 23-06-3247zihubghqumMqq. Ashley Caodoctors hospitaljeffry Facility:9492Start: 33-91-8771nevbyplwvaBti. Ashley Wary AugustinelenitasiaFacility:9492Start: 05-21-7963ZETDURdib Kamala Ashley Work Phone: [phone]-SxyxxrhfumJames J. Peters [facility] Work Phone: Start: 61-89-8495Bpbzc UpdateGracesa Kamala Ashley Work Phone: [phone]-KzszmrkbzoChi St[facility] Work Phone: Start: 06-66-9513LGDQYLslv Jo Aicgloria Work Phone: [phone]-Aaxcbmkfde-[place] 1600 Work Phone: Start: 15-92-4418Zjjuch outpatient visit 40 minutes Ashley Wray Augustingloria Work Phone: [phone]-MicfnomvrxJames J. Peters Va [facility] Work Phone: Start: 84-51-3757Coffcwa encounter procedureLisa Wray Augustingloria Work Phone: [phone]-Hqeyvphqcn-[place] 1600 Work Phone: Start: 92-76-5891imimqsirgaAei. Ashley Wray Augustinelenichrisjeffry Facility:9492Start: 83-13-0465LBXQVBndx Kamala Ruffingloria Work Phone: [phone]-Krppgzgwae-Endo Admin RBC 737 Work Phone: start: 41-60-0370cqthhtjvokWam. Ashley Wray Augustinelenichrisjeffry Facility:9438Start: 55-70-4246Xbxtznn encounter procedureLisa Kamala Augustingloria Work Phone: [phone]-Qxdqfxxzwf-[place] 1600 Work Phone: Start: 99-32-9833Ffjbegvoq therapyLisa Kamala Augustingloria Work Phone: [phone]-Ombruiyjle-[place] 220 Work Phone: Start: 05-27-2022 End: 98-07-3568ywbreoyervCCCQKQ RODRIGUEZFacility:L2Zuhge: 87-30-7033RCKXIOran Kamala Ruffingloria Work Phone: [phone]-Dztvulkcyt-Endo Admin RBC 737 Work Phone: start: 44-08-8288Hywyhn outpatient visit 25 minutes Ashley Ashley Work Phone: [phone]-Djozqzvlsz-Endo Admin RBC 737 Work Phone: start: 23-25-8678Eadwsir encounter procedureLisa Kamala Ashley Work Phone: [phone]-Pmmxfpyzqo-[place] 1600 Work Phone: [phone]: 03-01-2022 End: 15-89-7068qdhihpfhvlUD SARA MARKERFacility:C2Etexe: 57-15-3910Kxodfkyie therapyLisa Kamala Ashley Work Phone: [phone]-Zgxymadake-[place] 1600 Work Phone: Start: 12-29-2021 End: 03-62-0251ltvebfpndrSZ GALLO Dyson SMITHFacility:D1Vumuk: 91-29-0541Tbyyuf outpatient visit 15 minutesLisa Kamala Ashley Work Phone: [phone]-Rvfclolhfh-[facility] Work Phone: Start: 82-66-0136Thxeoldvt therapyLisa Kamala Ashley Work Phone: [phone]-Gjmnvnhogk-[place] 1600 Work Phone: Start: 10-13-2021 End: 45-42-9437shyuxbkhnlOWVGZF RODRIGUEZFacility:I4Uomsp: 10-12-2021 End: 95-29-6743razqnaywxpQQDAKD RODRIGUEZFacility:X8Mvpiv: 51-08-2766Prbvgbuht therapyLisa Kamala Ashley Work Phone: [phone]-Kthxlpvayx-[place] 1600 Work Phone: Start: 86-04-8805Lqdqtkx encounter procedureLisa Kamala Ashley Work Phone: [phone]-Mbwqdgtdiv-[place] 1600 Work Phone: Start: 07-13-2021 End: 61-03-8732vhhrxnjgmvCOZ ASHLEY CAOCHRISJeffryFacility:B1Aavgb: 60-95-5614Xjostrvaq therapyLisa Kamala Ruffinhholjeffry Work Phone: [phone]-Cdwsgmgmra-[facility] 220 Work Phone: Start: 33-16-2788LXVQCNXVEV, Provider: Lynn Carter, Status: Pen, Time: 3:00 PMLisa Kamala Ruffintemple university health systemz Work Phone: [phone]-Yexnzfreft-[facility] 220 Work Phone: Start: 45-30-4918Iuwvywhmr therapyLisa Kamala Ruffintemple university health systemz Work Phone: [phone]-Dzzrlktlqy-[facility] 220 Work Phone: Start: 42-51-4694Raoeg UpdateLisa Wray Aicholz Work Phone: [phone]-Xhmdykcanw-[facility] 220 Work Phone: Start: 70-33-8550Voxirnq encounter procedureScott PpLbowLG-Aedjmpblgd-Zvtlhjty 1600 Work Phone: Start: 98-71-5817Qlnebsv encounter procedureScott IgYhyuAW-Qagnyawyrq-Woeretsc 1600 Work Phone: Start: 85-21-8568Hyevjtm encounter procedureScott EoHibdSK-Nvhedvtkwm-Jmcnmhiw 1600 Work Phone: Start: 49-80-3474Yoyorbp encounter procedureJeosman BrandWaloxeQM-Jkomfyeglc-Ojhsnmuf 1600 Work Phone: Start: 67-05-0834Flrryio encounter procedureJennifer EsbgrnXM-Ygggwzvqwl-Xmywmxte 1600 Work Phone: Start: 02-87-4689Kpvwecp encounter procedureJennifer NyovluEM-Qpadjjuuyn-Abmphaub 1600 Work Phone: Start: 91-66-2326Vjknzsy encounter procedureJennifer ObdezaOI-Uxzourkvzu-Pttrhbfo 1600 Work Phone: Start: 16-08-3028Xrgcizw encounter procedureJesannaifer RqbvviTP-Amlslhdskx-Xtesdsdz 1600 Work Phone: Start: 00-72-3409Gpyqxiv encounter procedureJeosman VincentZyyfrgPU-Lihcttvfax-Vyuasftz 1600 Work Phone: Start: 92-61-7526Qtehbxy encounter procedureRaymond KddTT-Obzpmfclehkp-Cxcmlxs 5100 Work Phone: Start: 02-15-2019 End: 32-21-1306Ykpqwta encounter procedureSUNEELA (FEL) [facility] HospitalStart: 36-56-9808Arahmfy encounter procedureRaymond Ghassan CARMONANK-Lvrkbnjjyuxl-Ktijxfs 5100 Work Phone: Start: 77-03-6021Xduanep encounter procedureJAMES PREBISFacility:[facility] HOSPITALStart: 05-32-7431Aasguhq encounter procedureRaymond KywBZ-Kmhbqazsurjy-Tmreeus 5100 Work Phone: Start: 01-03-2019 End: 95-84-9676Oslsoow encounter procedureSUNEELA (FEL) [facility] HospitalStart: 89-72-0869Crxdhhe encounter procedureRaymond Ghassan CARMONAPO-Xzhazfzygkie-Sngypsg 5100 Work Phone: Start: 62-87-5618Buitacb encounter procedureRaymond IvzUN-Wsisbspidiuq-Twitaym 5100 Work Phone: Start: 46-61-8206Bnwsrhj encounter procedureRaymond NsrXD-Kvivvcnkprmd-Hhhcqor 5100 Work Phone: Start: 07-98-0138Wjwloja encounter procedureRaymond HmvKF-Bgvawhwpneuf-Zdfzysa 5100 Work Phone: Start: 74-17-1661Ntqibbj encounter procedureRaymond UnyNO-Ujahohqctcoy-Cznwzsk 5100 Work Phone: Start: 99-36-4560Ziegkvd encounter procedureRaymond YyeQV-Fkubtpjhfpgs-Eydravr 5100 Work Phone: Start: 25-00-0726Gbgzyoa encounter procedureRaymond OhpBO-Gcdbupcgysye-Lxrvcjz 5100 Work Phone: Start: 59-79-2115Humpecd encounter procedureRaymond OrdEO-Gvcrqierjuzd-Apvittl 5100 Work Phone: Start: 95-66-1611Kypqsny encounter procedureRaymond RytPR-Ueuqgaomqzev-Eyseeou 5100 Work Phone: Start: 10-42-0338Fgqutgc encounter procedureRaymond XeeJP-Twceivuaazrv-Glamtwm 5100 Work Phone: Start: 70-02-4528Ykznbzo encounter procedureRaymond KuuZX-Humdbbpawccc-Eqfzhnt 5100 Work Phone: Start: 83-25-0273Nwibxps encounter procedureRaymond CbvFH-Hykxblxeirvn-Npdcgay 5100 Work Phone: Start: 84-59-7623Kpvhicq encounter procedureRaymond OluKV-Zzofozznafte-Wxhiurj 5100 Work Phone: Start: 54-71-2857Tfvzwrq encounter procedureRaymond IxlMO-Zefcysvmqxvk-Crtwpak 5100 Work Phone: Start: 70-88-4108Ftogxhn encounter procedureRaymond UhuTZ-Pkgimcakhqvz-Cdwqkda 5100 Work Phone: Start: 90-63-2094Xtmfozv encounter procedureRaymond IcpCZ-Dduxfswafpvv-Klrqgpb 5100 Work Phone: Start: 20-94-3603Pnljmpo encounter procedureRaymond LslQO-Kmuoyixmckow-Bdrtauo 5100 Work Phone: Start: 64-73-4123Mraybqe encounter procedureRaymond IztDL-Bxmtwyhmuwea-Dftkjrc 5100 Work Phone: Start: 11-86-6440Vjtuqpo encounter procedureRaymond PwbVY-Foxnxhbouwqu-Koeomus 5100 Work Phone: Start: 09-84-9371Ompqznp encounter procedureRaymond BhsXB-Zbmsukwzeifb-Ucfnaeh 5100 Work Phone: Start: 27-31-2865Ecavyfs encounter procedureRaymond BkoFK-Uwzgdslkngqi-Kqixosj 5100 Work Phone: Start: 69-50-1801Ennzayn encounter procedureRaymila VillagomezZmeCU-Fnwxwtzbiuma-Ywglqqw 5100 Work Phone: Start: 75-42-2749Voizgyg encounter procedureRaymila VillagomezRtyXX-Aozqubcilwgz-Keokwua 5100 Work Phone: Procedures DateProcedureProcedure DetailPerforming ClinicianStart: 42-66-3442RVYQR RESPIRATORY CULTUREGeneric External Data ProviderStart: 95-98-9082Ustdv dip stick/tablet rgnt non-auto w/o micrscpMelanie Anselmo Valdovinos SLASHER TENDER-PUMP STITCHER Work Phone: Start: 63-82-7579SXBR GLYCOSYLATED HEMOGLOBIN (HGB A1C)LYNN BRANDANStart: 24-81-8432Xweirrodak glycosylated t2wFdjrqTasia Quijano MD Work Phone: Start: 20-73-2761Scsvd 1995 panel - Serum or Plasma Jennifer Lock MD Work Phone: Start: 87-43-3867Qxdkv 1995 panel - Serum or Plasma Tasia Quijano MD Work Phone: Start: 97-96-3147Mlfu bld press w/tape&/disk 24/> hr rosana i&rScott McEwenStart: 33-54-4979Gi Lab PSG Sleep Study, 6 years of age and greaterScott McEwenStart: 34-68-3315Yrvkt dip stick/tablet rgnt auto w/o microscopyScott McEwenStart: 09-05-0935Qsfdfacmah Kidney BilateralRaymond Ghassan NEGATED: Highlighted row has not occurred!Denies History Of Prior SurgeryAshley Ashley Work Phone: Plan of Treatment DateCare ActivityDetailAuthorStart: 64-86-8253Nhlcvt Vaccines (1 of 2)Zoster Vaccines (1 of 2)[facility]: 82-34-0588Fgoss panel Lipid PanelUnUniversity Hospitals [facility] Medical [facility]: 14-28-2541Rholy panelLipid PanelUnUniversity Hospitals Geauga Medical Center: 08-13-4832DQbL/Tdap/Td Vaccines (6 - Td or Tdap)DTaP/Tdap/Td Vaccines (6 - Td or Tdap)[facility] HospitalStart: 00-80-4035Zorfpcxsi vaccinationInfluenza Vaccine (#1)NOMS HealthcareComment on above:Postponed from 07/01/2024 (Patient Refused)Start: 12-26-2024 End: 38-85-3831Jgcwyvb encounter /26/2025 2:20 PM EST Office Visit [address] [place] [address] [place] [address] [facility] Department of Pediatric[place] [address] [facility]: 10-15-2024 End: 33-23-2646Gtbocpi encounter mvwayiysn61/16/2024 2:10 PM EST Office Visit [facility] [address] [place] [address] Jai Montes, [address] [place] [address] [facility] BCP OBStart: 10-04-2024 End: 75-13-7175Eyhspiy encounter cthvrbfyg44/05/2024 10:00 AM EST Office Visit [facility] [address] [place] [address] Ashley Ashley, SUNITA [address] [place] [address] [facility] CWM FMStart: 08-30-2024 End: 67-33-8360Miqbpmn encounter jardsptyg89/31/2024 10:30 AM EDT Office Visit [facility] [address] [place] [address] Ashley Ashley, SUNITA [address] [place] [address] Morbid (severe) obesity due to excess calories (CMS/HCC); Body mass index (BMI) 50.0-59.9, adult (CMS/HCC)[facility] CWM FMComment on above: Morbid (severe) obesity due to excess calories (CMS/HCC); Body mass index (BMI) 50.0-59.9, adult (CMS/HCC)Start: 08-06-2024 End: 59-24-9752Rydufnlpa izlnezs9608/06/2024 3:00 PM EDT Nutrition [facility] [address] [place] [address], LD Office Address [facility]26/2014[facility] 08-06-2024 End: 09-19-1091Qjsqris encounter oncwdletv56/07/2024 2:20 PM EDT Office Visit [facility] [address] [place] [address] [place] [address] [place] [place] [address] [facility]: 88-17-7369ENOJE-19 Vaccine ( season)COVID-19 Vaccine ( season)[facility]: 12-02-9110Qtbrmxgtg vaccinationHolzer Health System: 04-19-2024 End: 86-65-5041Dgblgxk encounter lfunvkqaf08/20/2024 11:20 AM EDT Office Visit [facility] [address] [place] [address] [place] [address] [address] Department of [place] [address] [facility] 01-30-2024 End: 48-99-0468Biexxkjp SupportSt. Francis Medical Centertart: 01-30-2024 End: 969105-ovcimbvsurfwkb D3 [Mass/volume] in Serum or PlasmaBrown Memorial Hospital Work Phone: Comment on above:Expected: 01/30/2024 (Approximate), Expires: 01/29/2025Start: 01-30-2024 End: 88-71-4081Qwmrfedfbmdur metabolic 1999 panel - Serum or PlasmaBrown Memorial Hospital Work Phone: Comment on above:Expected: 01/30/2024 (Approximate), Expires: 01/29/2025Start: 01-30-2024 End: 00-88-7369Walxn 1995 panel - Serum or PlasmaBrown Memorial Hospital Work Phone: Comment on above:Expected: 01/30/2024 (Approximate), Expires: 01/29/2025Start: 01-30-2024 End: 88-41-2523HDJ with reflex to Free T4 if abnormalBrown Memorial Hospital Work Phone: Comment on above:Expected: 01/30/2024 (Approximate), Expires: 01/29/2025Start: 03-25-2415FJN, Provider: Jennifer Lock, Status: Pen, Time: 9:20 AMFUV, Provider: Jennifer Lock, Status: Pen, Time: 9:20 AM KL-Pmerntqxci-Ebmjtomu 1600 Work Phone: Start: 11-17-2023 End: 38-17-0146Viwhmgw encounter yhgavvytw13/18/2024 9:20 AM EST Office Visit [facility] [address] [place] [address] [place] [address] [address] Department of Pediatrics[place] [address] [facility]: 76-94-2429UYX, Provider: Tasia Quijano, Status: Pen, Time: 4:00 PMFUV, Provider: Tasia Quijano, Status: Pen, Time: 4:00 PM DU-Dfwfytsxtn-Wqahzzlsmym 220 Work Phone: Start: 13-32-3541Yerjrsvji C screeningHepatitis C ScreeningHolzer Health System: 25-24-3970POJFR-19 Vaccine ( season)COVID-19 Vaccine ( season)[facility]: 43-72-6170Jlrwasrwz vaccinationInfluenza Vaccine (#1)[facility]: 00-25-6008EFSVXDDKGH, Provider: Lynn Carter, Status: Pen, Time: 1:30 PMVIRFUVHOME, Provider: Lynn Carter, Status: Pen, Time: 1:30 IADK-Dlvbvjvyqn-Oejxtmrxylu 220 Work Phone: Start: 62-20-8339SYWLP-19 Vaccine (#1)COVID-19 Vaccine (#1)[facility]: 73-20-5840YSQ, Provider: Jennifer Lock, Status: Pen, Time: 4:20 PMFUV, Provider: Jennifer Lock, Status: Pen, Time: 4:20 WRKK-Yfoyowojgr-Xkdaqnfm 1600 Work Phone: Start: 76-50-0637TCE, Provider: Tasia Quijano, Status: Pen, Time: 1:30 PMFUV, Provider: Tasia Quijano, Status: Pen, Time: 1:30 PM LH-Ankmagmzrd-Pnophawf 1600 Work Phone: Start: 84-38-7252PVI, Provider: Jennifer Lock, Status: Pen, Time: 10:40 AMFUV, Provider: Jennifer Lock, Status: Pen, Time: 10:40 STBC-Turzwzougm-Fakgaogo 1600 Work Phone: Start: 65-82-1222IOM, Provider: Tasia Quijano, Status: Pen, Time: 4:30 PMFUV, Provider: Tasia Quijano, Status: Pen, Time: 4:30 PM NQ-Zplwsihafk-Ptmgcyqs 1600 Work Phone: Start: 15-16-7940ASU, Provider: Jennifer Lock, Status: Pen, Time: 4:20 PMFUV, Provider: Jennifer Lock, Status: Pen, Time: 4:20 VTGS-Jyjoeigtoo-Ekfobruy 1600 Work Phone: Start: 78-58-6387KEN, Provider: Jennifer Lock, Status: Pen, Time: 11:20 AMFUV, Provider: Jennifer Lock, Status: Pen, Time: 11:20 MIJG-Mismuanbpk-Jxtl Admin RBC 737 Work Phone: start: 33-71-4433HNRSNDLOVI, Provider: Lynn Carter, Status: Pen, Time: 3:00 PMVIRFUVHOME, Provider: Lynn Carter, Status: Pen, Time: 3:00 ZPPN-Coazifblpw-Zkbtxorwmbp 220 Work Phone: Start: 81-47-5663UAJXXCKXZ, Provider: ENDO CLONODINE INJ SANDY,PEDS ENDO, Status: Pen, Time: 10:00 AMINJECTION, Provider: ENDO CLONODINE INJ SANDY,PEDS ENDO, Status: Pen, Time: 10:00 AM EZ-Jxecqtotju-Mzkxhnotghm 220 Work Phone: start: 89-04-9810BONCVRIXKS, Provider: Lynn Carter, Status: Pen, Time: 2:30 PMVIRFUVHOME, Provider: Lynn Carter, Status: Pen, Time: 2:30 RGGQ-Anlocqtgft-Djjsaeea 1600 Work Phone: start: 03-64-3689UYD, Provider: Tasia Quijano, Status: Pen, Time: 2:00 PMFUV, Provider: Tasia Quijano, Status: Pen, Time: 2:00 PM WM-Eufvcbonzl-Ifgzyeht 1600 Work Phone: Start: 18-84-7889UEPRWNAPEB, Provider: Lynn Carter, Status: Pen, Time: 3:30 PMVIRFUVHOME, Provider: yLnn Carter, Status: Pen, Time: 3:30 GHOB-Voaufrlkmx-Bozaoilv 1600 Work Phone: Start: 38-92-2300VFQKTJP, Provider: Lynn Carter, Status: Pen, Time: 1:30 PMNSFUPED, Provider: Lynn Carter, Status: Pen, Time: 1:30 JQFF-Xhnfuzennk-Oielhlee 1600 Work Phone: start: 34-26-0528MMGSMRQNBC, Provider: Tasia Quijano, Status: Pen, Time: 1:00 PMFUVDIABETE, Provider: Tasia Quijano, Status: Pen, Time: 1:00 NPYG-Tjrwrywivz-Idreayam 1600 Work Phone: start: 48-74-9714EHGUKNU, Provider: Lynn Carter, Status: Pen, Time: 11:30 AMNSFUPED, Provider: Lynn Carter, Status: Pen, Time: 11:30 SFNY-Lyinmdqaoz-Jcbrfozz 1600 Work Phone: start: [phone], Provider: Lynn Carter, Status: Pen, Time: 3:30 PMNSFUPED, Provider: Lynn Carter, Status: Pen, Time: 3:30 CPOQ-Ghygphlpke-Ewrpukwk 1600 Work Phone: start: [phone], Provider: Jennifer Lock, Status: Pen, Time: 10:00 AMFUV, Provider: Jennifer Lock, Status: Pen, Time: 10:00 SVUC-Anxrwetlri-Ehbwnvlp 1600 Work Phone: start: [phone], Provider: Tasia Quijano, Status: Pen, Time: 4:30 PMFUV, Provider: Tasia Quijano, Status: Pen, Time: 4:30 PM XQ-Khkftybopp-Anyjgkptmvf 220 Work Phone: Start: [phone], Provider: Lynn Carter, Status: Pen, Time: 3:00 PMANH, Provider: Lynn Carter, Status: Alexander, Time: 3:00 GCGU-Edpqdfqgzy-Gsgntnjcjxr 220 Work Phone: Start: [phone] Vaccines (2 - 2-dose series)HPV Vaccines (2 - 2-dose series)[facility]: 2015 Adolescent Depression ScreeningAdolescent Depression ScreeningUnUniversity [facility]: [id number] Vaccine: Pediatrics (0 to 5 Years) and At-Risk Patients (6 to 64 Years) (1 of 2 - PCV)Pneumococcal Vaccine: Pediatrics (0 to 5 Years) and At-Risk Patients (6 to 64 Years) (1 of 2 - PCV) [facility]: 60-93-2384Cwrlgaq Screening (#1)Hearing Screening (#1)[facility]: 01-30-3295Yqru Child Visit (WCV) [facility] Start: 12-50-9898Yemystjuzcu of dental fluoride varnishFluoride Varnish [facility]: 90-28-2032Tcrbrex Screening (#1)Hearing Screening (#1)[facility]: 49-60-9612DUM screeningHIV ScreeningBrown Memorial HospitalComprehensive metabolic 2000 panel - Serum or PlasmaK[facility] End: 60-13-3352CLXW glycosylated hemoglobin (Hb A1C) manually resultedPOCT glycosylated hemoglobin (Hb A1C) manually resulted Point of Care Testing Routine Obesity peds (BMI >=95 percentile) 10 Occurrences starting 01/30/2024 until 07/31/2025, 1 [facility] Work Phone: Comment on above:10 Occurrences starting 01/30/2024 until 07/31/2025, 1 gbuqqwhzxAR-Uwmxwoeadpaf-Nobrlsf 5100 Work Phone: [facility]: Highlighted row has been ruled out!Planned Goals not eovzhisafmKS-Wsgqmfrwminh-Ysgorjz 5100 Work Phone: Immunizations Immunization DateImmunizationNotesCare MtlifetbWjphbgdk32-80-2699dgugsvqtm, seasonal, injectable, preservative freeAshley Ashley [employer] FACULTY MEMBER Work Phone: [facility]Maycwensxa49-45-1412ncmeeahcszncw B vaccine, recombinant, OMV, adjuvantedAshley Wray [facility] Work Phone: [phone]-YokmbpahcxSouth [facility] 220 Work Phone: [phone] COVID-19 Vac Bivalent 30 MCG/0.3ML Intramuscular SuspensionLisa Wray [facility] Work Phone: [phone]-Eylmvnqphe-[facility] 220 Work Phone: [phone]vvtnlqxdw B vaccine, recombinant, OMV, adjuvantedAshley [facility] Work Phone: [phone]-AyfqhkqozmSouth [facility] 220 Work Phone: [phone]lclnop oligosaccharide (groups A, C, Y and W-135) diphtheria toxoid conjugate vaccine (MCV4O)Ashleyanselmo [facility] Work Phone: [phone]-NpjxugkkozSouth [facility] 220 Work Phone: [phone]d Papillomavirus 9-valent vaccineAshley Ruffintemple university health systemjeffry Work Phone: [phone]-EomqzgtjymSouth [facility] 220 Work Phone: [phone]bkdgxrqbm oligosaccharide (groups A, C, Y and W-135) diphtheria toxoid conjugate vaccine (MCV4O)Ashleyanselmo [facility] Work Phone: [phone]-Mnrjusiiqf-[facility] 220 Work Phone: [phone]kke toxoid, reduced diphtheria toxoid, and acellular pertussis vaccine, adsorbedLisa Wray [facility] Work Phone: [phone]-Bkftxsdjay-[facility] 220 Work Phone: [phone], unspecified formulationTasia Quijano MD Work Phone: [facility] Work Phone: [phone]rl A vaccine, pediatric/adolescent dosage, 2 dose scheduleAshley Wray [facility] Work Phone: [phone]-Cooghymuyf-[facility] Work Phone: [phone]gyd, tetanus toxoids and acellular pertussis vaccineAshley Wray [facility] Work Phone: [phone]-Goiskzjypc-[facility] Work Phone: [phone]l, mumps and rubella virus vaccineAshley Wray [facility] Work Phone: KN-Zimyzspwoo-[facility] Work Phone: [phone]win vaccine, inactivatedLisa Wray [facility] Work Phone: WL-Bxfpdgslql-[facility] Work Phone: [phone] virus vaccineAshley Wray [facility] Work Phone: AY-Nxxymlnmea-[facility] Work Phone: [phone]guivcz, tetanus toxoids and acellular pertussis vaccine, unspecified formulationAshley Wray [facility] Work Phone: KK-Vurjdrewxf-[facility] Work Phone: [phone]njas influenzae type b vaccine, conjugate unspecified formulationAshley Wray [facility] Work Phone: [phone]-Gfdctjlriu-[facility] Work Phone: [phone]zwwyn A vaccine, unspecified formulation Ashley Kamala [facility] Work Phone: [phone]-Almdvfhbfu-[facility] Work Phone: [phone]ouxniixbdbh conjugate vaccine, 7 valentLisa Kamala [facility] Work Phone: [phone]-Oqcdjrnamh-[facility] Work Phone: [phone]jzpbew vaccine, inactivatedAshley Wray [facility] Work Phone: FW-Oqswzijybq-[facility] Work Phone: [phone]BiF-mwcqnjqzg B and poliovirus vaccineAshley Wray [facility] Work Phone: XT-Zjkbxakkrm-[facility] Work Phone: [phone]xeggzfet influenzae type b vaccine, conjugate unspecified formulationAshley Wray [facility] Work Phone: KU-Kzounnojhw-[facility] 220 Work Phone: [phone]htsnui A vaccine, unspecified formulation Ashley Kamala [facility] Work Phone: OI-Lwdqwemfyj-[facility] Work Phone: [phone]cqns, seasonal, injectableLisa Wray [facility] Work Phone: AN-Rjhwbdpbpv-[facility] Work Phone: [phone]ql, mumps, rubella, and varicella virus vaccineAshley Wray [facility] Work Phone: OU-Nakeolkuxj-[facility] Work Phone: [phone]sfageippmlt conjugate vaccine, 7 valentLisa Wray [facility] Work Phone: PI-Fygpetumyn-[facility] Work Phone: [phone]egmlog virus vaccine, unspecified formulationTasia Quijano MD Work Phone: [facility] Work Phone: [phone], tetanus toxoids and acellular pertussis vaccineLisa Wray [facility] Work Phone: [phone]-Ycxmezhlgc-[facility] 220 Work Phone: [phone]sluomn influenzae type b conjugate and Hepatitis B vaccineAshley Wray [facility] Work Phone: SF-EsrybeytorSouth [facility] & [facility] 220 Work Phone: [phone]glfkpaz conjugate vaccine, 7 valentLi [facility] Work Phone: IO-UxtdnakbrcSouth [facility] & [facility] 220 Work Phone: [phone] vaccine, inactivatedLi [facility] Work Phone: KJ-IxfrexptmeBaptist Memorial [facility] 220 Work Phone: [phone] B vaccine, pediatric or pediatric/adolescent dosageLi [facility] Work Phone: OV-Gplbigbydp-[facility] 220 Work Phone: Payers DatePayer CategoryPayerPolicy [id number] Health Insurance [id number] Health Insurance [id number] 2.0.1.062518.3.579.2. [id number] 2.0.1.959375.3.57[id number] 2.840.1.888577.3.57[id number] 2.16.840.1.496641.3.57[id number] 2.16840.1.848145.3.57[id number] 2.16840.1.550110.3.57[id number] 2.16840.1.995880.3.57[id number] 2.16840.1.537305.3.57[id number] 2.16840.1.089787.3.57[id number] 2.840.1.459085.3.57[id number] 2.840.1.250785.3.57[id number] 2.0.1.338429.3.57[id number] 2.0.1.859617.3.57[id number] 2.0.1.092953.3.57[id number] 2..1.758205.3.57[id number] 2.0.1.107353.3.57[id number] 2.840.1.501017.3.57[id number] 2.840.1.269889.3.57[id number] 2.840.1.144390.3.57[id number] 2.16.840.1.257248.3.57[id number] 2.16.840.1.313915.3.57[id number] 2.16.840.1.629979.3.57[id number] 2.16.840.1.501877.3.579.2.68934-90-1757Atrqdda Health [id number] 82-03-1456Atrevqb248880 2.16.840.1.001282.3.579.[id number] 2.16.840.1.223616.3.57[id number] 2.16.840.1.426761.3.579.2.[id number] 2.16.840.1.442013.3.579.2.356Unknown Social History DateTypeDetailFacilityAssertionUnknown if ever rlnemdDQ-Tqzqhbwnbzpq-Qhrlvsg 5100 Work Phone: Start: 02-01-2024 End: 85-67-6908Ztzjobfav in schoolCurrently in schoolChristian HospitalComment on above:Lives with mom, 2 sisters;Start: 08-68-1903Ecgaikr smoking status NHIS Tobacco smoking consumption unknownUnOhio State Health System Work Phone: Start: 70-02-0656Rhl Assigned At BirthNot on [facility] Work Phone: Start: 02-01-2024 End: 88-29-4718Soaasf identityNot on [facility] HospitalStart: 07-22-2023 End: 70-30-5656Mscitwao to SARS-CoV-2 (event)Not sureBrown Memorial HospitalStart: 31-29-4133Vnl Assigned At BirthFeMercy Health Defiance Hospitaltart: 03-05-2024 End: 55-49-8320Vnkrmmv smoking status NHISNever smoked tobacco (finding) [facility] Hospitaltart: 03-05-2024 End: 97-05-5469Sejpuwb use and exposureSmokeless tobacco non-userBrown Memorial Hospital Work Phone: Start: 03-05-2024 End: 14-35-3522Hntyxkvop beverage intakeLifetime non-drinker (finding)NOMS HealthcareDo you belong to any clubs or organizations such as uatsdin groups, unions, fraternal or athletic groups, or school groups?NoNOMS HealthcareAre you now , , , , never or living with a partner?Patient declinedNOMS HealthcareHow often to you have a drink containing alcohol?NeverNOMS HealthcareDo you feel stress - tense, restless, nervous, or anxious, or unable to sleep at night because yourmind is troubled all the time - these days [OSQ]Only a littleNOMS Healthcare(I/We) worried whether (my/our) food would run out before (I/we) got money to buy more.Never trueNOMS Healthcare Start: 70-32-2246Zcqjsgf Commentcaffine: soda once weeklyNOMS HealthcareStart: 94-40-2821Wlkjzxibe beverage intakeCurrent drinker of alcohol (finding) [facility] Work Phone: SexFemale (finding)[facility] Medical Equipment Procedure CodeEquipment CodeEquipment Original TextEquipment IdentifierDates Screw, Cortical, Self-Tapping, Pelvic, 3.5 X 70 Mm, Stainles Case [id number]: 40-64-6606Npzhuwh on above:Description: Converted from Care Acute. Please see archived information for full log information.1 each once daily. With victoza [id number] End: 71-25-6104Dwbrl, Neville 3.[address] T15 Hexalobe Case [id number]: 41-13-0595Zpbdacj on above:Description: Converted from Care Acute. Please see archived information for full log information.Screw, Neville 3.[address] T15 Hexalobe Case [id number]: 26-95-2788Dcglxdo on above:Description: Converted from Care Acute. Please see archived information for full log information.3.5 Mm Locking T Plate Three Hole Head Case [id number]: 89-83-1579Elzuiwg on above:Description: Converted from Care Acute. Please see archived information for full log information. Additional Information:ortho peds 3.5 mm locking t plate three hole headper bill only jdr 08/07/2018 1105am Screw, Neville 3.[address] T15 Hexalobe Case [id number]: 08-04-2018 Comment on above:Description: Converted from [facility] Acute. Please see archived information for full log information.With saxenda [id number]: 01-30-2024 Functional Status DateAssessmentResultFacilityNEGATED: Highlighted rowFunctional performance Functional status health issues are not documented Disease JG-Ixfcawgxbdvn-Jyysghm 5100 Work Phone: Mental Status DateAssessmentResultFacilityNEGATED: Highlighted rowCognitive function [Interpretation]Cognitive status health issues are not documented Disease QX-Yetuxcjiuohn-Tkdnlsh 5100 Work Phone: Clinical Notes 01-29-2017 to 08-08-2025 Note Date & DoipCiovXmxmgowt37-00-8456 Hospital Discharge instructionsAmbulatory Orders* AMB POC Ur Dipstick Time Frame: 08/08/25, Location: [facility] Work Phone: 1(901) 796-442112-05-2024 History of Present illness Narrative* PASQUALE QUAN - 10/04/2024 10:00 AM EST Pt had gone to the ER on 10/02 She was diagnosed with a URI She has been coughing up blood that is why she had gone to the ER They had given her prednisone She has had an ongoing headache since yesterday. She is requesting eliana winslow * Ashley Ashley, NATURAL RESOURCES FACULTY MEMBER - 10/04/2024 10:00 AM EST Images from the original note were not included. Marissa De Leon is a 19 y.o. female presents with chief complaint of Anxiety HPI: Anxiety Presents for follow-up visit. Symptoms include chest pain (across sternal area w deep breath), depressed mood (some days), nausea and nervous/anxious behavior. Patient reports no dizziness, excessiveworry, insomnia, irritability, muscle tension, palpitations, panic, shortness of breath or suicidalideas. Symptoms occur occasionally. The severity of symptoms [...] with full glass of water. Do not crushor chew. busPIRone (BUSPAR) 5 mg, Oral, Every [...] Anxiety disorder in her father and mother; Asthmain her maternal grandfather and paternal grandfather; Bipolar disorder in her father; Cancer in hermaternal grandfather; Depression in her father and mother; [...] Relevant Medications benzonatate (Tessalon) 200 MG capsule * Ashley Ashley NP - 10/04/2024 6:58 AM ESTAssociated Problem(s): URI (upper respiratory infection) To local Er recently and is on zithromax for URI, finish atb and steroids- steroids may be causing some LANDEROS Normal cxr Possible that bloody mucus she coughed up was more related to sinus drainage Will monitor if continues let me know Fluids, rest Tessalon perles for cough * Ashley Ashley NP - 10/04/2024 6:57 AM ESTAssociated Problem(s): Anxiety and depression (CMS/HCC) Last appt restarted SSRI and buspar, and limited work shift to 8 hours 75% better, no side effects from meds Continue at same dose on escitalopram * Ashley Ashley NP - 10/04/2024 6:56 AM ESTAssociated Problem(s): Morbid (severe) obesity due to excess calories (CMS/HCC) Discussed with patient their BMI (actual, verses recommended). We have also discussed lifestyle modifications: attempts to perform physical activity as chronic conditions allow, also to monitor dietary intake: increasing protein/fruits/veggies and lowering carb intake (unless contraindicated). Limit sodas, juices, and sugary drinks. * Ashley Ashley NP - 10/04/2024 6:55 AM ESTAssociated Problem(s): Hypertension, essential (CMS/HCC) Please check blood pressure daily and record DASH diet Limit caffeine Take medication as directed Contact office if chest pain, pressure, dizziness, shortness of breath, swelling legs Recommend slow position changes Current med dose: lisinopril/hydrochlorothiazide 20/12.5 plus lisinopril 10mg documented in this encounterChristian HospitalFvbwjjvfcg90-10-6195 Instructions* Patient Instructions* Ashley Ashley NP - 10/04/2024 10:00 AM EST Anxiety/depression: follow up in 6 weeks, no dose changes at this time if worsens contact office Respiratory infection: finish atb, finish steroids, may try Dilip Med nasal irrigation (use distilled water) If continue to cough up bloody mucus let me know documented in this encounterChristian HospitalFgzsizlmse45-03-7106 History of Present illness Narrative* Ashley Ashley NP - 08/30/2024 11:31 AM EDTAssociated Problem(s): Bronchitis No active s/s infections at this time Suspect more related to post infectious cough No meds at this time If does not resolve in the next 4 weeks notify office * Ashley Ashley NP - 08/30/2024 11:31 AM EDTAssociated Problem(s): Anxiety and depression (CMS/HCC) Is working [...] note for limiting to 8 hour shifts * Ashley Ashley NP - 08/30/2024 11:30 AM EDTAssociated Problem(s): Tinea versicolor Continue ketoconazole shampoo * Ashley Ashely NP - 08/30/2024 11:29 AM EDTAssociated Problem(s): Hypertension, essential (CMS/HCC) Not at goal, is under the care of Tasia Quijano in [place] dating back to her child years Will increase dose on lisinopril will add 10 mg in addition to current dose Fu in 4 weeks for recheck Low sodium diet Stressors may be effecting as well * PASQUALE QUAN - 08/30/2024 10:30 AM EDT Pt states she had walking pneumonia and went to the hospital had an xray done and was told that they could tell she had pneumonia however she had bronchitis. She was taking prednisone * Ahsley Ashley NP - 08/30/2024 10:30 AM EDT Images from the original note were not [...] reports no chest pain, confusion, dizziness, nausea, p alpitations, panic or shortness of breath. Symptoms occur [...] Anxiety disorder in her father and mother; Asthmain her maternal grandfather and paternal grandfather; Bipolar disorder in her father; Cancer in hermaternal grandfather; Depression in her father and mother; [...] She is obese. She is not ill-appearing, toxic- appearing or diaphoretic. HENT: Head: Normocephalic and atraumatic. [...] under the care of Tasia Quijano in [place] dating back to her child years Will [...] in the next 4 weeks notify office * Ashley Ashley NP - 08/30/2024 6:32 AM EDTAssociated Problem(s): Morbid (severe) obesity due to excess calories (CMS/HCC) Continue w endo and saxenda use documented in this encounterChristian HospitalFpvkaiudfl80-10-2294 Instructions* Patient Instructions* Ashley Ashley NP - 08/30/2024 10:30 AM [...] add lisinopril 10mg daily documented in this encounterChristian HospitalHntpcpkogg57-45-9466 History of Present illness Narrative* Jennifer Lock MD - 07/19/2024 11:20 AM EDT History Of Present Illness I had the pleasure of seeing Marissa De Leon in Nephrology Clinic at [facility] for routine follow-up. Marissa De Leon [...] had renin and aldosterone assessed off of CHICA- inhibitor therapy. Date of last Nephrology Visit: 11/17/2023 Since the last visit she had with endocrinology in January 2024, she has gained 13 kg of weight. Her BMI is now 59.75. She was on Victoza and had Wegovy for 1 month before insurance issues In January 2024, she was instructed to finish Victoza but never did that. They are working on [facility] authorization. Marissa would like to [...] She has a hard time with food optionssometimes because of finances. She reports having no [...] Ketones, Urine NEGATIVE mg/dl NEGATIVE POC Specific [place], Urine 1.005 - 1.035 >=1.030 POC Blood, [...] has been off therapy for a week. Sheidentified some area of concern in social determinants of health that are likely negatively impacting her overall health. I am greatly concerned with her resource support and we need to identify careteam members for her closer to home. Recommendations: Continue lisinopril-HCTZ at 20-12.5 mg every day. Patient to call if blood pressures are consistently > 130 mmHg. Social work reached out to the patient on 07/24/2024 to help identify resources and how to get a community case manager. Provided resources for CRISIS line to patient and discussed an action plan if she were to develop suicidal ideation. Her friend offered to serve as an emergency contact in times of crisis. Referral provided for the weight management and nutrition program at [facility] and phone number provided Discussed that she needed to contact Medicaid services to assure she has working insurance. She hasno insurance cards today. Social work is aware Discussed that Medicaid services offers transportation for appointments. Follow-up with me in [place] in 3 months. Nurse will call to check blood pressures in 1-2 weeks. Jennifer Lock MD Pediatric Nephrology documented in this [facility] Work Phone: [phone]) 196-230509-19-2024 Instructions* Patient Instructions* Jennifer Lock MD - 07/19/2024 11:20 AM EDT Call your insurance and check on status of Medicaid. Request a community case manager. Medicaid provides medical assistance transportation Check with college to see if they have counselors who can help The 24-hour hotline for Suicide Prevention, Mental Health/Addiction Crisis, Information, and Referrals operated by [facility] [facility]: . Follow-up with me in [place] in 3 months. [facility]: Weight management and nutrition program. [phone] documented in this [facility] Work Phone: 1([phone]) 123-243104-01-2024 History of Present illness Narrative* Tasia Quijano MD - 01/30/2024 3:40 PM EDT Subjective Marissa De Leon is a 18 y.o. female who presents for obesity and Insulin resistance HPI Wegovy was approved in July, but insurance wouldn't approve refill for Nov. Has Victoza at home, but has not been taking. Has been on lisinopril/hydrochlorothiazide for HTN Off OCP - didn't like some of side effects. Wants to follow up with WINK CUTTER OPERATOR. Mother unexpectedly 5 months ago from Pulmonary [...] OCP, discussed that she should discuss with WINK CUTTER OPERATOR before resuming OCP given that mother had pulmonary embolus. Follow up 6 months. documented in this encounterBrown Memorial Hospital Work Phone: 1(110) 193-127004-01-2024 Instructions* Patient Instructions* Tasia Quijano MD - 01/30/2024 3:40 PM EDT Great seeing you. Resume Victoza at 1.8 mg, and when out switch to Saxenda 3 mg Due for annual labs Work on getting more walking in. When you discuss resuming control with WINK CUTTER OPERATOR, please discuss that your mother from a pulmonary embolus. Follow up 6 months documented in this encounterBrown Memorial Hospital Work Phone: 1(803) 482-466710-02-2023 History of Present illness Narrative* Tasia Quijano MD - 08/01/2023 3:40 PM EDT Subjective Marissa De Leon is a 18 y.o. female with obesity. Today Marissa presents to clinic with her mother. HPIDoing well, no illnesses. Going to school at [employer], accepted into [employer], wants to donursing. Not working right now. On Victoza 1.8 [...] 13-18 <7.5 7-12 <8.0 0- 6 7.5-8.5 [employer] [employer]. Diabetes Care 33(S1), Oct 2009. Physical Exam Assessment/Plan Obesity with hypertension, insulin resistance. Doing well on Victoza. Wegovy not available, on backorder. Losing weight gradually. Will meet with dietitian soon. Plan Switch to Wegovy when available. Economic Development Manager visit Increase physical activity. documented in this encounterBrown Memorial Hospital Work Phone: [phone]) 177-716610-02-2023 Instructions* Patient Instructions* Tasia Quijano MD - 08/01/2023 3:40 PM EDT Good job, continue Victoza until Wegovy becomes available. Up to date on labs. Schedule appointment with Colleen. Follow up in 6 months documented in this encounterBrown Memorial Hospital Work Phone: 1([phone]) 588-291108-04-2023 Chief complaint Narrative - Reported* An interactive audio and video telecommunication system which permits real time communications between the patient (at the originating site) and provider (at the distant site) was utilized to providethis telehealth service. * Verbal consent was requested and obtained from MARISSA DE LEON on this date, 06/03/2023 06:55 AM , for a telehealth visit. HU-Gmcbhziqkt-Vrpkxpqoffj 220 Work Phone: [phone]) [phone] Ana Luisa Cates An interactive audio and video telecommunication system which permits real time communications between the patient (at the originating site) and provider (at the distant site) was utilized to providethis telehealth service. 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 [id number] NoteChi Complaint An interactive audio and video telecommunication system which permits real time communications between the patient (at the originating site) and provider (at the distant site) was utilized to providethis telehealth service. Verbal consent was requested and obtained from MARISSA HALEY on this date, 05/11/2023 09:16 AM , for a telehealth visit. 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 [id number] NoteDiagnoses/Problems Well child visit (V20.2) (Z00.129) Orders IO UA (automated w/o microscopy); Status:Complete; Done: [id number] 04:25PM Renew: Lisinopril-hydroCHLOROthiazide 20-12.5 MG Oral Tablet; [...] years of age) and has required polypharmacy thatincludes lisinopril, HCTZ, amlodipine and amiloride in the [...] emphasized. Encouarged family to schedule appointment with nidhi ortiz when some of the other familial stressors [...] follow-up in 3 months. Jennifer Lock MD Load Checker, Pediatrics Polishing Machine Operator Helper, Pediatric Nephrology [facility] [id number] [place] [address] (p) [phone] Chief Complaint 17 year old female patient is here today for follow up visit. Accompanied by mother. History of Present Illness I had the pleasure of seeing Marissa De Leon in Nephrology Clinic at [facility] for a follow-up evaluation of hypertension. As you know, Anny is a 16 year old femalewith hypertension and ADHD. She has been on stimulants for management of her ADHD and is on multiple antihypertensive agents, including near maximal doses of lisinopril, HCTZ, and amlodipine. She hasa history of a normal sleep study in [...] symptoms. She has not established care with sleepmedicine and continues to snore. Past Medical History: 1. Hypertension - approaching resistant status 2. Vitamin D deficiency 3. Insulin resistance/pre-diabetes 4. COVID-19 in 2019 Past Surgical History: 1. Knee surgery- 2019 Family Medical History: Please see other non-cardiovascular family history below. 1. Mother - hypertension diagnosed at 25 years of age. She has heart disease and is being scheduledfor 3 stents to be placed at 44 years of age 2. Father - hypertension diagnosed under 24 years of age. 3. MGM - 7 MIs, 11 stents for cardiovascular disease, stroke, hypertension, diabetes, and hypercholesterolemia. First SD at 36 years of age 4. Maternal Uncle - hypertension in his 20s 5. Sister - preeclampsia Social History: Marissa lives with family and has an older sister who just had a baby. 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 Review of Systems The remainder of a [...] 20-12.5 MG Oral TabletTAKE 1 TABLET DAILY. [place] (more content not included)... [id number] Chief complaint Narrative - Reported* An interactive audio and video telecommunication system which permits real time communications between the patient (at the originating site) and provider (at the distant site) was utilized to provide this telehealth service. * Verbal consent was requested and obtained from MARISSA DE LEON on this date, 06/02/2022 08:56 AM , for a telehealth visit. TM-Wloovccneo-Waszafoifqw 220 Work Phone: 1(183) 132-191004-02-2022 History of Present illness Narrative* I had the pleasure of seeing Marissa De Leon in Nephrology Clinic at [facility] for [...] and aldosterone assessed off of CHICA-inhibitor therapy. * Marissa was last seen by our team in February 2020. She was diagnosed with COVID-19 in 2019. A few weeksago, she had pharyngitis, but she has otherwise [...] blood pressures have been elevated to the 130s- 140s. She has lost about 7 pounds in the last month. Home blood pressures have been in the 130-140s/80-90s. She is snoring and had disordered sleeping on sleep study,but no recommendations for CPAP. She feels well rested after sleep. * Marissa has some headaches when she is around loud noises. She has no nose bleeds. She is walking a lot and chases her nephew. She does not walk the dog because he is too hyper. She has swelling inher lower extremities, particularly after a long day. She feels that the lisinopril-HCTZ had the best impact on her blood pressures. * Past Medical History: * 1. Hypertension - approaching resistant status * 2. Vitamin D deficiency * 3. Insulin resistance/pre-diabetes * 4. COVID-19 in 2020 * Past Surgical History: * 1. Knee surgery- 2019 * Family Medical History: Please see other non-cardiovascular family history below. * 1. Mother - hypertension diagnosed at 25 years of age. She has heart disease and is being scheduledfor 3 stents to be placed at 44 years of age * 2. Father - hypertension diagnosed under 24 years of age. * 3. MGM - 7 MIs, 11 stents for cardiovascular disease, stroke, hypertension, diabetes, and hypercholesterolemia. First SD at 36 years of age * 4. Maternal Uncle - hypertension in his 20s * Social History: * Marissa lives with family and has an older sister who is expecting a baby. 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 Marissa has a lizard, 2 cats, and a dog. BZ-Zgeezmhflh-[employer] Work Phone: [phone]) 850-980103-21-2022 Chief complaint Narrative - Reported* An interactive audio and video telecommunication system which permits real time communications between the patient (at the originating site) and provider (at the distant site) was utilized to providethis telehealth service. * Verbal consent was requested and obtained from MARISSA DE LEON on this date, 01/18/2022 01:49 PM , for a telehealth visit. BA-Xfphuchfdv-DszoxawjVisuaLog[employer] Technologies Work Phone: [phone]) 171-412310-12-2021 History of Present illness Narrative* Medical Nutrition Therapy (Obesity + Hypertension) * Diet History * Breakfast: it - at school - 1 a week = antonella donuts + antonella milk * Lunch: (school) water + General Tsos + brown rice - 1/2 bowl + chips - Baked;; Fri - mac + cheese +buffalo + carrot + R + water + milk * waits for dinner * Dinner: grilled pork chops + mashed potato + asparagus + Pepsi + milk * Snack: watermelon * Trying to decrease Taques * spends time with uncle - likes to fish * mostly water with * decreasing portions * more fruits + vegetables - eating banana - grapes * sometimes overeats - taco nite - nervous others will eat and nothing left * Nutrition Diagnosis: Obesity related to imbalance between calorie intake and physical activity * Nutrition Education * Thinking about working at [employer]. * Wanting to learn to drive... * Encouraged activity - walking to work. Patient helps take care of nephew. * Try to eat slowly. * Will task Lawrence and see if family can work with eating behaviors - suspect binge eating is occurring. * Keep working on healthier food choices and your portions. KT-Jfwgphumiq-Ftafgfmc [employer] Work Phone: [phone]) [phone] History of Present illness Narrative* Medical Nutrition Therapy (Obesity + Hypertension) * Diet History * Breakfast: misses it - at school - 1 a week = antonella donuts + antonella milk * Lunch: (school) water + General Tsos + brown rice - 1/2 bowl + chips - Baked;; Fri - mac + cheese +buffalo + carrot + R + water + milk * waits for dinner * Dinner: grilled pork chops + mashed potato + asparagus + Pepsi + milk * Snack: watermelon * Trying to decrease Taques * spends time with uncle - likes to fish * mostly water with * decreasing portions * more fruits + vegetables - eating banana - grapes * sometimes overeats 0p/' * Nutrition Diagnosis: Obesity related to imbalance between calorie intake and physical activity * Nutrition Education * Thinking about [employer] * Wanting to learn to drive... AD-Ylxmwzzzzt-Tvvdmmbu 1323 Work Phone: 1(234) 286-471006-01-2021 History of Present illness Narrative* Marissa and her mother are here for follow up of obesity and insulin resistance. * Back to school in person, sophomore, has temps. * [place] teeth out in March. * Exercise - chasing nephew around house, walks around school. No PE in school * Healthy interval, starting to get outside more with nicer weather. This summer wants to fish and swim. * Will be having wisdom teeth out. * Had genetics eval: F[facility] panel negative, [...] any regular activity - wants to join [email or web address] team at school * Has met with dietitian regularly, snacking less, trying to eat healthier * Periods are regular, heavy first couple of days CM-Rqabhofsez-Vjmcurjm 1600 Work Phone: [phone]) 174-355704-01-2017 History of Present illness Narrative* I had the pleasure of seeing Marissa De Leon in Nephrology Clinic at [facility] for a virtual follow-up evaluation of hypertension. As you know, Anny is a 16 year old female with hypertension and ADHD. She has been on stimulants for management of her ADHD and is on multiple antihypertensive agents, including near maximal doses of lisinopril, HCTZ, and amlodipine.She has a history of a normal sleep study in January 2017 and an elevated LVMI in August 2017. Renal function labs normal. She never had renin and aldosterone assessed off of CHICA-inhibitor therapy. * Marissa was last seen by our team in February 2020. She was diagnosed with COVID-19 in 2019. A few weeksago, she had pharyngitis, but she has otherwise [...] blood pressures have been elevated to the 130s- 140s. She has lost about 7 pounds in the last month. Home blood pressures have been in the 130-140s/80-90s. She is snoring and had disordered sleeping on sleep study,but no recommendations for CPAP. She feels well rested after sleep. * Marissa has some headaches when she is [...] the best impact on her blood pressures. * Past Medical History: * 1. Hypertension - approaching resistant status * 2. Vitamin D deficiency * 3. Insulin resistance/pre-diabetes * 4. COVID-19 in 2020 * Past Surgical History: * 1. Knee surgery- 2019 * Family Medical History: Please see other non-cardiovascular family history below. * 1. Mother - hypertension diagnosed at 25 years of age. She has heart disease and is being scheduledfor 3 stents to be placed at 44 years of age * 2. Father - hypertension diagnosed under 24 years of age. * 3. MGM - 7 MIs, 11 stents for cardiovascular disease, stroke, hypertension, diabetes, and hypercholesterolemia. First SD at 36 years of age * 4. Maternal Uncle - hypertension in his 20s * Social History: * Marissa lives with family and has an older sister who is expecting a baby. 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 Marissa has a lizard, 2 cats, and a dog. RG-Sprnrjkcye-[facility] Work Phone: [phone] 128-283704-01-2017 History of Present illness Narrative* I had the pleasure of seeing Marissa De Leon in Nephrology Clinic at [facility] for a follow-up evaluation of hypertension. As you know, Anny is a 16 year old femalewith hypertension and ADHD. She has been on stimulants for management of her ADHD and is on multiple antihypertensive agents, including near maximal doses of lisinopril, HCTZ, and amlodipine. She hasa history of a normal sleep study in January 2017 and an elevated LVMI in August 2017. Renal function labs normal. She never had renin and aldosterone assessed off of CHICA-inhibitor therapy. * Marissa was last seen by our team in February 2020. She was diagnosed with COVID-19 in 2019. A few weeksago, she had pharyngitis, but she has otherwise [...] blood pressures have been elevated to the 130s- 140s. She has lost about 7 pounds in the last month. Home blood pressures have been in the 130-140s/80-90s. She is snoring and had disordered sleeping on sleep study,but no recommendations for CPAP. She feels well rested after sleep. * Marissa has some headaches when she is [...] the best impact on her blood pressures. * Past Medical History: * 1. Hypertension - approaching resistant status * 2. Vitamin D deficiency * 3. Insulin resistance/pre-diabetes * 4. COVID-19 in 2020 * Past Surgical History: * 1. Knee surgery- 2019 * Family Medical History: Please see other non-cardiovascular family history below. * 1. Mother - hypertension diagnosed at 25 years of age. She has heart disease and is being scheduledfor 3 stents to be placed at 44 years of age * 2. Father - hypertension diagnosed under 24 years of age. * 3. MGM - 7 MIs, 11 stents for cardiovascular disease, stroke, hypertension, diabetes, and hypercholesterolemia. First SD at 36 years of age * 4. Maternal Uncle - hypertension in his 20s * Social History: * Marissa lives with family and has an older sister who is expecting a baby. 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 Marissa has a lizard, 2 cats, and a dog. FW-Slpkjtvies-Qhoqwjfv [address] Work Phone: [phone] History of Present illness Narrative* I had the pleasure of seeing Marissa De Leon in Nephrology Clinic at [facility] for a follow-up evaluation of hypertension. As you know, Anny is a 17 year old femalewith hypertension and ADHD. She has been on stimulants for management of her ADHD and is on multiple antihypertensive agents, including near maximal doses of lisinopril, HCTZ, and amlodipine. She hasa history of a normal sleep study in January 2017 and an elevated LVMI in August 2017. Renal function labs normal. She never had renin and aldosterone assessed off of CHICA-inhibitor therapy. * Marissa was last seen by our team [...] have an upcoming appointment with Dr. Ross. * Past Medical History: * 1. Hypertension - approaching resistant status * 2. Vitamin D deficiency * 3. Insulin resistance/pre-diabetes * 4. COVID-19 in 2020 * Past Surgical History: * 1. Knee surgery- 2019 * Family Medical History: Please see other non-cardiovascular family history below. * 1. Mother - hypertension diagnosed at 25 years of age. She has heart disease and is being scheduledfor 3 stents to be placed at 44 years of age * 2. Father - hypertension diagnosed under 24 years of age. * 3. MGM - 7 MIs, 11 stents for cardiovascular disease, stroke, hypertension, diabetes, and hypercholesterolemia. First SD at 36 years of age * 4. Maternal Uncle - hypertension in his 20s * 5. 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 FK-Xftpqvpnmb-Kzkcdquk 1600 Work Phone: [phone] History of Present illness Narrative* I had the pleasure of seeing Marissa De Leon in Nephrology Clinic at [facility] for a follow-up evaluation of hypertension. As you know, Anny is a 17 year old femalewith hypertension and ADHD. She has been on stimulants for management of her ADHD and is on multiple antihypertensive agents, including near maximal doses of lisinopril, HCTZ, and amlodipine. She hasa history of a normal sleep study in January 2017 and an elevated LVMI in August 2017. Renal function labs normal. She never had renin and aldosterone assessed off of CHICA-inhibitor therapy. * Marissa was last seen by our team [...] She isn't eating junk and she does notlike exercising by herself. She didn't get approved [...] didn't work when they tried to connect. * Past Medical History: * 1. Hypertension - approaching resistant status * 2. Vitamin D deficiency * 3. Insulin resistance/pre-diabetes * 4. COVID-19 in 2019 * Past Surgical History: * 1. Knee surgery- 2019 * Family Medical History: Please see other non-cardiovascular family history below. * 1. Mother - hypertension diagnosed at 25 years of age. She has heart disease and is being scheduledfor 3 stents to be placed at 44 years of age * 2. Father - hypertension diagnosed under 24 years of age. * 3. MGM - 7 MIs, 11 stents for cardiovascular disease, stroke, hypertension, diabetes, and hypercholesterolemia. First SD at 36 years of age * 4. Maternal Uncle - hypertension in his 20s * 5. 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 ZU-Vnrecpuvio-Hnucqviz [address] Work Phone: [phone] History of Present illness Narrative* I had the pleasure of seeing Marissa De Leon in Nephrology Clinic at [facility] for a follow-up evaluation of hypertension. As you know, Anny is a 17 year old femalewith hypertension and ADHD. She has been on stimulants for management of her ADHD and is on multiple antihypertensive agents, including near maximal doses of lisinopril, HCTZ, and amlodipine. She hasa history of a normal sleep study in January 2017 and an elevated LVMI in August 2017. Renal function labs normal. She never had renin and aldosterone assessed off of CHICA-inhibitor therapy. * Marissa was last seen by our team [...] She isn't eating junk and she does notlike exercising by herself. She didn't get approved [...] didn't work when they tried to connect. * Past Medical History: * 1. Hypertension - approaching resistant status * 2. Vitamin D deficiency * 3. Insulin resistance/pre-diabetes * 4. COVID-19 in 2019 * Past Surgical History: * 1. Knee surgery- 2019 * Family Medical History: Please see other non-cardiovascular family history below. * 1. Mother - hypertension diagnosed at 25 years of age. She has heart disease and is being scheduledfor 3 stents to be placed at 44 years of age * 2. Father - hypertension diagnosed under 24 years of age. * 3. MGM - 7 MIs, 11 stents for cardiovascular disease, stroke, hypertension, diabetes, and hypercholesterolemia. First SD at 36 years of age * 4. Maternal Uncle - hypertension in his 20s * 5. 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 DM-Bpwjhsloyd-[facility]z [facility] Work Phone: Evaluation note* Diagnosis Obesity peds (BMI >=95 percentile)- Primary Hypertension, essential Unspecified essential hypertension Insulin resistance Other abnormal glucose Vitamin D deficiency documented in this encounter [facility] Work Phone: Evaluation note* Diagnosis Obesity peds (BMI >=95 percentile)- Primary Insulin resistance Other abnormal glucose Vitamin D deficiency documented in this encounter [facility] Work Phone: Evaluation noteNo assessment information available [facility] Work Phone: Evaluation note* Diagnosis Onset Date Resolution Status Contact with and (suspected) exposure to covid-[address] [facility] Work Phone: Evaluation note* Diagnosis Tinea [...] access to vehicle documented in this encounter [facility] Work Phone: Evaluation note* Diagnosis Onset Date Resolution Status Admit Date Anxiety and depression acuteOctober 2024 2:30pmHTN (hypertension)acuteOctober 2024 2:30pmIron deficiencyacuteOctober 2024 2:30pmMetabolic syndromeacuteOctober 2024 2:30pmMixed hyperlipidemiaacuteOctober 2024 2:30pmMorbid obesity with BMI of 70 and over, adultacuteOctober 2024 2:30pmUTI symptomsacuteOctober 2024 2:30pmVitamin D deficiencyacuteOctober 2024 2:30pm [facility] Work Phone: History of Present illness Narrative* Medical Nutrition Therapy (Obesity) * Diet History * Breakfast: * Lunch: * Snack: * Dinner: * Nutrition Diagnosis: Obesity related to imbalance between calorie intake and physical activity * Nutrition Education DE-Qksnseajfn-Wybwncpnmzd 220 Work Phone: History of Present illness [...] - 830-4 * Lunch: eggs * Dinner: [facility] - steak + potatoes + [...] wisdom teeth removed * using devan called [employer] * Nutrition Diagnosis: Obesity related to imbalance [...] job - great way to get activity. SX-Occqyysfwn-Cdfvyqhwbcd 220 Work Phone: History of Present illness [...] - her animals * starting work at [employer] - 5-6 hours a night - [...] may be more active starting job at [employer] - possibly starting to go to gym. Strongly advised her to avoid [employer] foods - high in sodium and calories. * Encouraged home cooked dinners - try to keep including asparagus, salad or other vegetables. * Follow up virtually next month. UG-Onnctguurl-Wmtpgzwp 1600 Work Phone: History of Present illness Narrative* Marissa and her mother are here for follow up of obesity and insulin resistance. * Back to school in person, sophomore, has temps. [employer] roll. * Put in application for [employer] - vocational school for nursing * Will be working at [employer] with mother. * General health has been ok. * Exercise - chasing nephew around house, walks around school. No PE in school. Wants to start walking track at school once it gets warmer, family member has a discount pass to [facility] * Had genetics eval: [facility] [...] any regular activity - wants to join [employer] team at school * Has met with dietitian regularly, snacking less, trying to eat healthier * Periods are regular, heavy first couple of days MT-Fgunghmgsl-Nzpphn [facility] Work Phone: History of Present [...] Vit D * working a lot at [employer] - 20 hours * thinks losing weight - home scale is not working - clothes are looser * Nutrition Diagnosis: Improved obesity as evidenced by possible weight loss related to increased activity with job and decreased eating * Nutrition Education * Keep drinking lots of water or SF beverages. * Keep eating all of her meals. * DIscussed [employer] [employer] foods and eating less sodium - taking breading off and eating corn seem like lower sodium choices. 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 * Follow up in April with . FD-Ovlmjkegsf-Bmowzxkb 1599 Work Phone: History of Present illness [...] * Patient with a new phone -downloaded [employer] and discussed having her journal for about a week. * RDN will check in and see is journal is helpful. Reschedule - Jun 02 - virtual. * Continue eating more fruits and vegetables. Stick with the sugar free beverages. XK-Qakvelveiz-Fjas Admin [facility] 737 Work Phone: History of Present illness Narrative* Medical Nutrition Therapy (Obesity) * Patient recently got a [employer] Phone - working to have her food [...] do it. Work towards a goal of 7501-4300 calories per day which hopefully is less [...] a virtual - Jun 16 at 3:00. ZT-Ujyuytuena-Eiinmvcxynw 220 Work Phone: History of Present illness [...] from diet * - Exercise: goes to [facility] for exercise, works out * once per week (will swim, use treadmill).Plays with nephew. 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 Denies headaches, chest pain. * - Plan to see sleep doctor for insomnia and snores (does not have diagnosed ANDREINA) * - Stopped control 3 months ago: has not had period since February * No new medications, no recent infections. QJ-Uyiirrqkpj-Ascagkkm 1600 Work Phone: History of Present illness [...] diet * - 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[facility] * - Followed up with nephrology * - Plan to see sleep doctor for insomnia and snores (does not have diagnosed ANDREINA) * No new medications, no recent infections. TY-Anibjjwcnr-Uaan Admin [facility] 737 Work Phone: History of [...] * 1. Wants to exercise * 2. [facility] 220 Work Phone: History of [...] on a virtual appointment in a month. 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 Follow up in a month. [facility] Work Phone: Reason for referral (narrative)* Consultation (Routine) - AuthorizedSpecialtyDiagnoses / ProceduresReferred By Contact Referred To ContactPediatric Nephrology Diagnoses Morbid obesity with BMI of 50.0-59.9, adult (Multi) Hypertension, essential Procedures Follow [place] [address] [address] Department [place] [address] Referral IDStatusReasonStart DateExpiration DateVisits RequestedVisits [id number]/ * Consultation (Routine) - Pending ReviewSpecialtyDiagnoses / ProceduresReferred By ContactReferred To ContactBariatrics Diagnoses Morbid obesity with BMI of 50.0-59.9, adult (Multi) [place] [address] [facility] Department of [place] [address] Other - [facility] [address] [place] [address] Referral IDStatusReasonStmelville DateExpiration DateVisits RequestedVisits [id number] Review Specialty Services Required / [facility] Work Phone: Revfou for referral (narrative)No reason for referral information availableSt. Charles Hospital Work Phone: Summary Purpose Family History Unknown Family Member Name Dates Details Family history of migraine h eadaches(V17.2, Z82.0) Comments:Paternal Relatives Status:Active Grandmother Name Dates Details Family history of hypertensi on(V17.49, Z82.49) Status:ActiveFamily history of hyperlipidemia(V18.19, Z83.438) Status:ActiveFHx: early coronary artery disease(V17.3, Z82.49) Status:ActiveFHx: early SD(V17.3, Z82.49) Status:Active uncle Name Dates Details Family history of ANDREINA on CPA P(327.23, G47.33) Status:Active aunt Name Dates Details Family history of ANDREINA on CPA P(327.23, G47.33) Status:Active uncle Name Dates Details Family history of mental ret ardation(V18.4, Z81.0) Status:Active Mother Name Dates Details Family history of hypertensi on(V17.49, Z82.49) Status:ActiveFamily history of Anxiety and depression(300.00, F41.9) Status:Active Father Name Dates Details Family history of migraine h eadaches(V17.2, Z82.0) Status:ActiveFamily history of bipolar disorder(V17.0, Z81.8) Status:ActiveFamily history of hypertension(V17.49, Z82.49) Status:ActiveFamily history of Anxiety and depression(300.00, F41.9) Status:Active Unknown Family Member Name Dates Details Family history of migraine h eadaches(V17.2, Z82.0) Comments:Paternal Relatives Status:Active Grandmother Name Dates Details Family history of hypertensi on(V17.49, Z82.49) Status:ActiveFamily history of hyperlipidemia(V18.19, Z83.438) Status:ActiveFHx: early coronary artery disease(V17.3, Z82.49) Status:ActiveFHx: early SD(V17.3, Z82.49) Status:Active uncle Name Dates Details Family history of ANDREINA on CPA P(327.23, G47.33) Status:Active aunt Name Dates Details Family history of ANDREINA on CPA P(327.23, G47.33) Status:Active uncle Name Dates Details Family history of mental ret ardation(V18.4, Z81.0) Status:Active Mother Name Dates Details Family history of hypertensi on(V17.49, Z82.49) Status:ActiveFamily history of Anxiety and depression(300.00, F41.9) Status:Active Father Name Dates Details Family history of migraine h eadaches(V17.2, Z82.0) Status:ActiveFamily history of bipolar disorder(V17.0, Z81.8) Status:ActiveFamily history of hypertension(V17.49, Z82.49) Status:ActiveFamily history of Anxiety and depression(300.00, F41.9) Status:Active Unknown Family Member Name Dates Details Family history of migraine h eadaches(V17.2, Z82.0) Comments:Paternal Relatives Status:Active Grandmother Name Dates Details Family history of hypertensi on(V17.49, Z82.49) Status:ActiveFamily history of hyperlipidemia(V18.19, Z83.438) Status:ActiveFHx: early coronary artery disease(V17.3, Z82.49) Status:ActiveFHx: early SD(V17.3, Z82.49) Status:Active uncle Name Dates Details Family history of ANDREINA on CPA P(327.23, G47.33) Status:Active aunt Name Dates Details Family history of ANDREINA on CPA P(327.23, G47.33) Status:Active uncle Name Dates Details Family history of mental ret ardation(V18.4, Z81.0) Status:Active Mother Name Dates Details Family history of hypertensi on(V17.49, Z82.49) Status:ActiveFamily history of Anxiety and depression(300.00, F41.9) Status:Active Father Name Dates Details Family history of migraine h eadaches(V17.2, Z82.0) Status:ActiveFamily history of bipolar disorder(V17.0, Z81.8) Status:ActiveFamily history of hypertension(V17.49, Z82.49) Status:ActiveFamily history of Anxiety and depression(300.00, F41.9) Status:Active Unknown Family Member Name Dates Details Family history of migraine h eadaches(V17.2, Z82.0) Comments:Paternal Relatives Status:Active Grandmother Name Dates Details Family history of hypertensi on(V17.49, Z82.49) Status:ActiveFamily history of hyperlipidemia(V18.19, Z83.438) Status:ActiveFHx: early coronary artery disease(V17.3, Z82.49) Status:ActiveFHx: early SD(V17.3, Z82.49) Status:Active uncle Name Dates Details Family history of ANDREINA on CPA P(327.23, G47.33) Status:Active aunt Name Dates Details Family history of ANDREINA on CPA P(327.23, G47.33) Status:Active uncle Name Dates Details Family history of mental ret ardation(V18.4, Z81.0) Status:Active Mother Name Dates Details Family history of hypertensi on(V17.49, Z82.49) Status:ActiveFamily history of Anxiety and depression(300.00, F41.9) Status:Active Father Name Dates Details Family history of migraine h eadaches(V17.2, Z82.0) Status:ActiveFamily history of bipolar disorder(V17.0, Z81.8) Status:ActiveFamily history of hypertension(V17.49, Z82.49) Status:ActiveFamily history of Anxiety and depression(300.00, F41.9) Status:Active Unknown Family Member Name Dates Details Family history of migraine h eadaches(V17.2, Z82.0) Comments:Paternal Relatives Status:Active Grandmother Name Dates Details Family history of hypertensi on(V17.49, Z82.49) Status:ActiveFamily history of hyperlipidemia(V18.19, Z83.438) Status:ActiveFHx: early coronary artery disease(V17.3, Z82.49) Status:ActiveFHx: early SD(V17.3, Z82.49) Status:Active uncle Name Dates Details Family history of ANDREINA on CPA P(327.23, G47.33) Status:Active aunt Name Dates Details Family history of ANDREINA on CPA P(327.23, G47.33) Status:Active uncle Name Dates Details Family history of mental ret ardation(V18.4, Z81.0) Status:Active Mother Name Dates Details Family history of hypertensi on(V17.49, Z82.49) Status:ActiveFamily history of Anxiety and depression(300.00, F41.9) Status:Active Father Name Dates Details Family history of migraine h eadaches(V17.2, Z82.0) Status:ActiveFamily history of bipolar disorder(V17.0, Z81.8) Status:ActiveFamily history of hypertension(V17.49, Z82.49) Status:ActiveFamily history of Anxiety and depression(300.00, F41.9) Status:Active Unknown Family Member Name Dates Details Family history of migraine h eadaches(V17.2, Z82.0) Comments:Paternal Relatives Status:Active Grandmother Name Dates Details Family history of hypertensi on(V17.49, Z82.49) Status:ActiveFamily history of hyperlipidemia(V18.19, Z83.438) Status:ActiveFHx: early coronary artery disease(V17.3, Z82.49) Status:ActiveFHx: early SD(V17.3, Z82.49) Status:Active uncle Name Dates Details Family history of ANDREINA on CPA P(327.23, G47.33) Status:Active aunt Name Dates Details Family history of ANDREINA on CPA P(327.23, G47.33) Status:Active uncle Name Dates Details Family history of mental ret ardation(V18.4, Z81.0) Status:Active Mother Name Dates Details Family history of hypertensi on(V17.49, Z82.49) Status:ActiveFamily history of Anxiety and depression(300.00, F41.9) Status:Active Father Name Dates Details Family history of migraine h eadaches(V17.2, Z82.0) Status:ActiveFamily history of bipolar disorder(V17.0, Z81.8) Status:ActiveFamily history of hypertension(V17.49, Z82.49) Status:ActiveFamily history of Anxiety and depression(300.00, F41.9) Status:Active Unknown Family Member Name Dates Details Family history of migraine h eadaches(V17.2, Z82.0) Comments:Paternal Relatives Status:Active Grandmother Name Dates Details Family history of hypertensi on(V17.49, Z82.49) Status:ActiveFamily history of hyperlipidemia(V18.19, Z83.438) Status:ActiveFHx: early coronary artery disease(V17.3, Z82.49) Status:ActiveFHx: early SD(V17.3, Z82.49) Status:Active uncle Name Dates Details Family history of ANDREINA on CPA P(327.23, G47.33) Status:Active aunt Name Dates Details Family history of ANDREINA on CPA P(327.23, G47.33) Status:Active uncle Name Dates Details Family history of mental ret ardation(V18.4, Z81.0) Status:Active Mother Name Dates Details Family history of hypertensi on(V17.49, Z82.49) Status:ActiveFamily history of Anxiety and depression(300.00, F41.9) Status:Active Father Name Dates Details Family history of migraine h eadaches(V17.2, Z82.0) Status:ActiveFamily history of bipolar disorder(V17.0, Z81.8) Status:ActiveFamily history of hypertension(V17.49, Z82.49) Status:ActiveFamily history of Anxiety and depression(300.00, F41.9) Status:Active Unknown Family Member Name Dates Details Family history of migraine h eadaches: Father, Paternal Relatives(V17.2, Z82.0) Status:ActiveFamily history of bipolar disorder: Father(V17.0, Z81.8) Status:ActiveOSA on CPAP: Paternal Aunt, Maternal Uncle Status:ActiveFamily history of hyperlipidemia: Maternal Grandmother(V18.19, Z83.438) Status:ActiveFHx: early coronary artery disease: Maternal Grandmother(V17.3, Z82.49) Status:ActiveFHx: early SD: Maternal Grandmother(V17.3, Z82.49) Status:ActiveFamily history of mental retardation: Paternal Uncle(V18.4, Z81.0) Status:ActiveAnxiety and depression: Mother, Father Status:ActiveFamily history of hypertension: Mother, Father, Maternal Grandmother(V17.49, Z82.49) Status:Active Unknown Family Member Name Dates Details Family history of migraine h eadaches: Father, Paternal Relatives(V17.2, Z82.0) Status:ActiveFamily history of bipolar disorder: Father(V17.0, Z81.8) Status:ActiveOSA on CPAP: Paternal Aunt, Maternal Uncle Status:ActiveFamily history of hyperlipidemia: Maternal Grandmother(V18.19, Z83.438) Status:ActiveFHx: early coronary artery disease: Maternal Grandmother(V17.3, Z82.49) Status:ActiveFHx: early SD: Maternal Grandmother(V17.3, Z82.49) Status:ActiveFamily history of mental retardation: Paternal Uncle(V18.4, Z81.0) Status:ActiveAnxiety and depression: Mother, Father Status:ActiveFamily history of hypertension: Mother, Father, Maternal Grandmother(V17.49, Z82.49) Status:Active Unknown Family Member Name Dates Details Family history of migraine h eadaches: Father, Paternal Relatives(V17.2, Z82.0) Status:ActiveFamily history of bipolar disorder: Father(V17.0, Z81.8) Status:ActiveOSA on CPAP: Paternal Aunt, Maternal Uncle Status:ActiveFamily history of hyperlipidemia: Maternal Grandmother(V18.19, Z83.438) Status:ActiveFHx: early coronary artery disease: Maternal Grandmother(V17.3, Z82.49) Status:ActiveFHx: early SD: Maternal Grandmother(V17.3, Z82.49) Status:ActiveFamily history of mental retardation: Paternal Uncle(V18.4, Z81.0) Status:ActiveAnxiety and depression: Mother, Father Status:ActiveFamily history of hypertension: Mother, Father, Maternal Grandmother(V17.49, Z82.49) Status:Active Unknown Family Member Name Dates Details Family history of migraine h eadaches: Father, Paternal Relatives(V17.2, Z82.0) Status:ActiveFamily history of bipolar disorder: Father(V17.0, Z81.8) Status:ActiveOSA on CPAP: Paternal Aunt, Maternal Uncle Status:ActiveFamily history of hyperlipidemia: Maternal Grandmother(V18.19, Z83.438) Status:ActiveFHx: early coronary artery disease: Maternal Grandmother(V17.3, Z82.49) Status:ActiveFHx: early SD: Maternal Grandmother(V17.3, Z82.49) Status:ActiveFamily history of mental retardation: Paternal Uncle(V18.4, Z81.0) Status:ActiveAnxiety and depression: Mother, Father Status:ActiveFamily history of hypertension: Mother, Father, Maternal Grandmother(V17.49, Z82.49) Status:Active Unknown Family Member Name Dates Details Family history of migraine h eadaches: Father, Paternal Relatives(V17.2, Z82.0) Status:ActiveFamily history of bipolar disorder: Father(V17.0, Z81.8) Status:ActiveOSA on CPAP: Paternal Aunt, Maternal Uncle Status:ActiveFamily history of hyperlipidemia: Maternal Grandmother(V18.19, Z83.438) Status:ActiveFHx: early coronary artery disease: Maternal Grandmother(V17.3, Z82.49) Status:ActiveFHx: early SD: Maternal Grandmother(V17.3, Z82.49) Status:ActiveFamily history of mental retardation: Paternal Uncle(V18.4, Z81.0) Status:ActiveAnxiety and depression: Mother, Father Status:ActiveFamily history of hypertension: Mother, Father, Maternal Grandmother(V17.49, Z82.49) Status:Active Unknown Family Member Name Dates Details Family history of migraine h eadaches: Father, Paternal Relatives(V17.2, Z82.0) Status:ActiveFamily history of bipolar disorder: Father(V17.0, Z81.8) Status:ActiveOSA on CPAP: Paternal Aunt, Maternal Uncle Status:ActiveFamily history of hyperlipidemia: Maternal Grandmother(V18.19, Z83.438) Status:ActiveFHx: early coronary artery disease: Maternal Grandmother(V17.3, Z82.49) Status:ActiveFHx: early SD: Maternal Grandmother(V17.3, Z82.49) Status:ActiveFamily history of mental retardation: Paternal Uncle(V18.4, Z81.0) Status:ActiveAnxiety and depression: Mother, Father Status:ActiveFamily history of hypertension: Mother, Father, Maternal Grandmother(V17.49, Z82.49) Status:Active Unknown Family Member Name Dates Details Family history of migraine h eadaches: Father, Paternal Relatives(V17.2, Z82.0) Status:ActiveFamily history of bipolar disorder: Father(V17.0, Z81.8) Status:ActiveOSA on CPAP: Paternal Aunt, Maternal Uncle Status:ActiveFamily history of hyperlipidemia: Maternal Grandmother(V18.19, Z83.438) Status:ActiveFHx: early coronary artery disease: Maternal Grandmother(V17.3, Z82.49) Status:ActiveFHx: early SD: Maternal Grandmother(V17.3, Z82.49) Status:ActiveFamily history of mental retardation: Paternal Uncle(V18.4, Z81.0) Status:ActiveAnxiety and depression: Mother, Father Status:ActiveFamily history of hypertension: Mother, Father, Maternal Grandmother(V17.49, Z82.49) Status:Active Unknown Family Member Name Dates Details Family history of migraine h eadaches: Father, Paternal Relatives(V17.2, Z82.0) Status:ActiveFamily history of bipolar disorder: Father(V17.0, Z81.8) Status:ActiveOSA on CPAP: Paternal Aunt, Maternal Uncle Status:ActiveFamily history of hyperlipidemia: Maternal Grandmother(V18.19, Z83.438) Status:ActiveFHx: early coronary artery disease: Maternal Grandmother(V17.3, Z82.49) Status:ActiveFHx: early SD: Maternal Grandmother(V17.3, Z82.49) Status:ActiveFamily history of mental retardation: Paternal Uncle(V18.4, Z81.0) Status:ActiveAnxiety and depression: Mother, Father Status:ActiveFamily history of hypertension: Mother, Father, Maternal Grandmother(V17.49, Z82.49) Status:Active Unknown Family Member Name Dates Details Anxiety and depression: Moth er, Father Status:ActiveFamily history of mental retardation: Paternal Uncle(V18.4, Z81.0) Status:ActiveFHx: early SD: Maternal Grandmother(V17.3, Z82.49) Status:ActiveFHx: early coronary artery disease: Maternal Grandmother(V17.3, Z82.49) Status:ActiveFamily history of hyperlipidemia: Maternal Grandmother(V18.19, Z83.438) Status:ActiveOSA on CPAP: Paternal Aunt, Maternal Uncle Status:ActiveFamily history of bipolar disorder: Father(V17.0, Z81.8) Status:ActiveFamily history of migraine headaches: Father, Paternal Relatives (V17.2, Z82.0) Status:ActiveFamily history of hypertension: Mother, Father, Maternal Grandmother(V17.49, Z82.49) Status:Active Unknown Family Member Name Dates Details Family history of migraine h eadaches: Father, Paternal Relatives(V17.2, Z82.0) Status:ActiveFamily history of bipolar disorder: Father(V17.0, Z81.8) Status:ActiveOSA on CPAP: Paternal Aunt, Maternal Uncle Status:ActiveFamily history of hyperlipidemia: Maternal Grandmother(V18.19, Z83.438) Status:ActiveFHx: early coronary artery disease: Maternal Grandmother(V17.3, Z82.49) Status:ActiveFHx: early SD: Maternal Grandmother(V17.3, Z82.49) Status:ActiveFamily history of mental retardation: Paternal Uncle(V18.4, Z81.0) Status:ActiveAnxiety and depression: Mother, Father Status:ActiveFamily history of hypertension: Mother, Father, Maternal Grandmother(V17.49, Z82.49) Status:Active Unknown Family Member Name Dates Details ANDREINA on CPAP: Paternal Aunt, Maternal Uncle Status:ActiveFamily history of hyperlipidemia: Maternal Grandmother(V18.19, Z83.438) Status:ActiveFHx: early coronary artery disease: Maternal Grandmother(V17.3, Z82.49) Status:ActiveFHx: early SD: Maternal Grandmother(V17.3, Z82.49) Status:ActiveFamily history of mental retardation: Paternal Uncle(V18.4, Z81.0) Status:ActiveAnxiety and depression: Mother, Father Status:ActiveFamily history of hypertension: Mother, Father, Maternal Grandmother(V17.49, Z82.49) Status:ActiveFamily history of bipolar disorder: Father(V17.0, Z81.8) Status:ActiveFamily history of migraine headaches: Father, Paternal Relatives (V17.2, Z82.0) Status:Active Unknown Family Member Name Dates Details Family history of migraine h eadaches: Father, Paternal Relatives(V17.2, Z82.0) Status:ActiveFamily history of bipolar disorder: Father(V17.0, Z81.8) Status:ActiveOSA on CPAP: Paternal Aunt, Maternal Uncle Status:ActiveFamily history of hyperlipidemia: Maternal Grandmother(V18.19, Z83.438) Status:ActiveFHx: early coronary artery disease: Maternal Grandmother(V17.3, Z82.49) Status:ActiveFHx: early SD: Maternal Grandmother(V17.3, Z82.49) Status:ActiveFamily history of mental retardation: Paternal Uncle(V18.4, Z81.0) Status:ActiveAnxiety and depression: Mother, Father Status:ActiveFamily history of hypertension: Mother, Father, Maternal Grandmother(V17.49, Z82.49) Status:Active Unknown Family Member Name Dates Details Family history of migraine h eadaches: Father, Paternal Relatives(V17.2, Z82.0) Status:ActiveFamily history of bipolar disorder: Father(V17.0, Z81.8) Status:ActiveOSA on CPAP: Paternal Aunt, Maternal Uncle Status:ActiveFamily history of hyperlipidemia: Maternal Grandmother(V18.19, Z83.438) Status:ActiveFHx: early coronary artery disease: Maternal Grandmother(V17.3, Z82.49) Status:ActiveFHx: early SD: Maternal Grandmother(V17.3, Z82.49) Status:ActiveFamily history of mental retardation: Paternal Uncle(V18.4, Z81.0) Status:ActiveAnxiety and depression: Mother, Father Status:ActiveFamily history of hypertension: Mother, Father, Maternal Grandmother(V17.49, Z82.49) Status:Active Unknown Family Member Name Dates Details Family history of migraine h eadaches: Father, Paternal Relatives(V17.2, Z82.0) Status:ActiveFamily history of bipolar disorder: Father(V17.0, Z81.8) Status:ActiveOSA on CPAP: Paternal Aunt, Maternal Uncle Status:ActiveFamily history of hyperlipidemia: Maternal Grandmother(V18.19, Z83.438) Status:ActiveFHx: early coronary artery disease: Maternal Grandmother(V17.3, Z82.49) Status:ActiveFHx: early SD: Maternal Grandmother(V17.3, Z82.49) Status:ActiveFamily history of mental retardation: Paternal Uncle(V18.4, Z81.0) Status:ActiveAnxiety and depression: Mother, Father Status:ActiveFamily history of hypertension: Mother, Father, Maternal Grandmother(V17.49, Z82.49) Status:Active Unknown Family Member Name Dates Details Family history of migraine h eadaches: Father, Paternal Relatives(V17.2, Z82.0) Status:ActiveFamily history of bipolar disorder: Father(V17.0, Z81.8) Status:ActiveOSA on CPAP: Paternal Aunt, Maternal Uncle Status:ActiveFamily history of hyperlipidemia: Maternal Grandmother(V18.19, Z83.438) Status:ActiveFHx: early coronary artery disease: Maternal Grandmother(V17.3, Z82.49) Status:ActiveFHx: early SD: Maternal Grandmother(V17.3, Z82.49) Status:ActiveFamily history of mental retardation: Paternal Uncle(V18.4, Z81.0) Status:ActiveAnxiety and depression: Mother, Father Status:ActiveFamily history of hypertension: Mother, Father, Maternal Grandmother(V17.49, Z82.49) Status:Active Unknown Family Member Name Dates Details Family history of migraine h eadaches: Father, Paternal Relatives(V17.2, Z82.0) Status:ActiveFamily history of bipolar disorder: Father(V17.0, Z81.8) Status:ActiveOSA on CPAP: Paternal Aunt, Maternal Uncle Status:ActiveFamily history of hyperlipidemia: Maternal Grandmother(V18.19, Z83.438) Status:ActiveFHx: early coronary artery disease: Maternal Grandmother(V17.3, Z82.49) Status:ActiveFHx: early SD: Maternal Grandmother(V17.3, Z82.49) Status:ActiveFamily history of mental retardation: Paternal Uncle(V18.4, Z81.0) Status:ActiveAnxiety and depression: Mother, Father Status:ActiveFamily history of hypertension: Mother, Father, Maternal Grandmother(V17.49, Z82.49) Status:Active Unknown Family Member Name Dates Details Family history of migraine h eadaches: Father, Paternal Relatives(V17.2, Z82.0) Status:ActiveFamily history of bipolar disorder: Father(V17.0, Z81.8) Status:ActiveOSA on CPAP: Paternal Aunt, Maternal Uncle Status:ActiveFamily history of hyperlipidemia: Maternal Grandmother(V18.19, Z83.438) Status:ActiveFHx: early coronary artery disease: Maternal Grandmother(V17.3, Z82.49) Status:ActiveFHx: early SD: Maternal Grandmother(V17.3, Z82.49) Status:ActiveFamily history of mental retardation: Paternal Uncle(V18.4, Z81.0) Status:ActiveAnxiety and depression: Mother, Father Status:ActiveFamily history of hypertension: Mother, Father, Maternal Grandmother(V17.49, Z82.49) Status:Active Unknown Family Member Name Dates Details Family history of migraine h eadaches: Father, Paternal Relatives(V17.2, Z82.0) Status:ActiveFamily history of bipolar disorder: Father(V17.0, Z81.8) Status:ActiveOSA on CPAP: Paternal Aunt, Maternal Uncle Status:ActiveFamily history of hyperlipidemia: Maternal Grandmother(V18.19, Z83.438) Status:ActiveFHx: early coronary artery disease: Maternal Grandmother(V17.3, Z82.49) Status:ActiveFHx: early SD: Maternal Grandmother(V17.3, Z82.49) Status:ActiveFamily history of mental retardation: Paternal Uncle(V18.4, Z81.0) Status:ActiveAnxiety and depression: Mother, Father Status:ActiveFamily history of hypertension: Mother, Father, Maternal Grandmother(V17.49, Z82.49) Status:Active Unknown Family Member Name Dates Details Family history of migraine h eadaches: Father, Paternal Relatives(V17.2, Z82.0) Status:ActiveFamily history of bipolar disorder: Father(V17.0, Z81.8) Status:ActiveOSA on CPAP: Paternal Aunt, Maternal Uncle Status:ActiveFamily history of hyperlipidemia: Maternal Grandmother(V18.19, Z83.438) Status:ActiveFHx: early coronary artery disease: Maternal Grandmother(V17.3, Z82.49) Status:ActiveFHx: early SD: Maternal Grandmother(V17.3, Z82.49) Status:ActiveFamily history of mental retardation: Paternal Uncle(V18.4, Z81.0) Status:ActiveAnxiety and depression: Mother, Father Status:ActiveFamily history of hypertension: Mother, Father, Maternal Grandmother(V17.49, Z82.49) Status:Active Unknown Family Member Name Dates Details Family history of migraine h eadaches: Father, Paternal Relatives(V17.2, Z82.0) Status:ActiveFamily history of bipolar disorder: Father(V17.0, Z81.8) Status:ActiveOSA on CPAP: Paternal Aunt, Maternal Uncle Status:ActiveFamily history of hyperlipidemia: Maternal Grandmother(V18.19, Z83.438) Status:ActiveFHx: early coronary artery disease: Maternal Grandmother(V17.3, Z82.49) Status:ActiveFHx: early SD: Maternal Grandmother(V17.3, Z82.49) Status:ActiveFamily history of mental retardation: Paternal Uncle(V18.4, Z81.0) Status:ActiveAnxiety and depression: Mother, Father Status:ActiveFamily history of hypertension: Mother, Father, Maternal Grandmother(V17.49, Z82.49) Status:Active Unknown Family Member Name Dates Details ANDREINA on CPAP: Paternal Aunt, Maternal Uncle Status:ActiveFamily history of bipolar disorder: Father(V17.0, Z81.8) Status:ActiveFamily history of migraine headaches: Father, Paternal Relatives (V17.2, Z82.0) Status:ActiveFamily history of hypertension: Mother, Father, Maternal Grandmother(V17.49, Z82.49) Status:ActiveFamily history of hyperlipidemia: Maternal Grandmother(V18.19, Z83.438) Status:ActiveFHx: early coronary artery disease: Maternal Grandmother(V17.3, Z82.49) Status:ActiveFHx: early SD: Maternal Grandmother(V17.3, Z82.49) Status:ActiveFamily history of mental retardation: Paternal Uncle(V18.4, Z81.0) Status:ActiveAnxiety and depression: Mother, Father Status:Active Unknown Family Member Name Dates Details Family history of migraine h eadaches: Father, Paternal Relatives(V17.2, Z82.0) Status:ActiveFamily history of bipolar disorder: Father(V17.0, Z81.8) Status:ActiveOSA on CPAP: Paternal Aunt, Maternal Uncle Status:ActiveFamily history of hyperlipidemia: Maternal Grandmother(V18.19, Z83.438) Status:ActiveFHx: early coronary artery disease: Maternal Grandmother(V17.3, Z82.49) Status:ActiveFHx: early SD: Maternal Grandmother(V17.3, Z82.49) Status:ActiveFamily history of mental retardation: Paternal Uncle(V18.4, Z81.0) Status:ActiveAnxiety and depression: Mother, Father Status:ActiveFamily history of hypertension: Mother, Father, Maternal Grandmother(V17.49, Z82.49) Status:Active Unknown Family Member Name Dates Details Family history of migraine h eadaches: Father, Paternal Relatives(V17.2, Z82.0) Status:ActiveFamily history of bipolar disorder: Father(V17.0, Z81.8) Status:ActiveOSA on CPAP: Paternal Aunt, Maternal Uncle Status:ActiveFamily history of hyperlipidemia: Maternal Grandmother(V18.19, Z83.438) Status:ActiveFHx: early coronary artery disease: Maternal Grandmother(V17.3, Z82.49) Status:ActiveFHx: early SD: Maternal Grandmother(V17.3, Z82.49) Status:ActiveFamily history of mental retardation: Paternal Uncle(V18.4, Z81.0) Status:ActiveAnxiety and depression: Mother, Father Status:ActiveFamily history of hypertension: Mother, Father, Maternal Grandmother(V17.49, Z82.49) Status:Active Unknown Family Member Name Dates Details Family history of migraine h eadaches: Father, Paternal Relatives(V17.2, Z82.0) Status:ActiveFamily history of bipolar disorder: Father(V17.0, Z81.8) Status:ActiveOSA on CPAP: Paternal Aunt, Maternal Uncle Status:ActiveFamily history of hyperlipidemia: Maternal Grandmother(V18.19, Z83.438) Status:ActiveFHx: early coronary artery disease: Maternal Grandmother(V17.3, Z82.49) Status:ActiveFHx: early SD: Maternal Grandmother(V17.3, Z82.49) Status:ActiveFamily history of mental retardation: Paternal Uncle(V18.4, Z81.0) Status:ActiveAnxiety and depression: Mother, Father Status:ActiveFamily history of hypertension: Mother, Father, Maternal Grandmother(V17.49, Z82.49) Status:Active Unknown Family Member Name Dates Details Family history of migraine h eadaches: Father, Paternal Relatives(V17.2, Z82.0) Status:ActiveFamily history of bipolar disorder: Father(V17.0, Z81.8) Status:ActiveOSA on CPAP: Paternal Aunt, Maternal Uncle Status:ActiveFamily history of hyperlipidemia: Maternal Grandmother(V18.19, Z83.438) Status:ActiveFHx: early coronary artery disease: Maternal Grandmother(V17.3, Z82.49) Status:ActiveFHx: early SD: Maternal Grandmother(V17.3, Z82.49) Status:ActiveFamily history of mental retardation: Paternal Uncle(V18.4, Z81.0) Status:ActiveAnxiety and depression: Mother, Father Status:ActiveFamily history of hypertension: Mother, Father, Maternal Grandmother(V17.49, Z82.49) Status:Active Unknown Family Member Name Dates Details Family history of migraine h eadaches: Father, Paternal Relatives(V17.2, Z82.0) Status:ActiveFamily history of bipolar disorder: Father(V17.0, Z81.8) Status:ActiveOSA on CPAP: Paternal Aunt, Maternal Uncle Status:ActiveFamily history of hyperlipidemia: Maternal Grandmother(V18.19, Z83.438) Status:ActiveFHx: early coronary artery disease: Maternal Grandmother(V17.3, Z82.49) Status:ActiveFHx: early SD: Maternal Grandmother(V17.3, Z82.49) Status:ActiveFamily history of mental retardation: Paternal Uncle(V18.4, Z81.0) Status:ActiveAnxiety and depression: Mother, Father Status:ActiveFamily history of hypertension: Mother, Father, Maternal Grandmother(V17.49, Z82.49) Status:Active Unknown Family Member Name Dates Details Family history of migraine h eadaches: Father, Paternal Relatives(V17.2, Z82.0) Status:ActiveFamily history of bipolar disorder: Father(V17.0, Z81.8) Status:ActiveOSA on CPAP: Paternal Aunt, Maternal Uncle Status:ActiveFamily history of hyperlipidemia: Maternal Grandmother(V18.19, Z83.438) Status:ActiveFHx: early coronary artery disease: Maternal Grandmother(V17.3, Z82.49) Status:ActiveFHx: early SD: Maternal Grandmother(V17.3, Z82.49) Status:ActiveFamily history of mental retardation: Paternal Uncle(V18.4, Z81.0) Status:ActiveAnxiety and depression: Mother, Father Status:ActiveFamily history of hypertension: Mother, Father, Maternal Grandmother(V17.49, Z82.49) Status:Active Unknown Family Member Name Dates Details Family history of migraine h eadaches: Father, Paternal Relatives(V17.2, Z82.0) Status:ActiveFamily history of bipolar disorder: Father(V17.0, Z81.8) Status:ActiveOSA on CPAP: Paternal Aunt, Maternal Uncle Status:ActiveFamily history of hyperlipidemia: Maternal Grandmother(V18.19, Z83.438) Status:ActiveFHx: early coronary artery disease: Maternal Grandmother(V17.3, Z82.49) Status:ActiveFHx: early SD: Maternal Grandmother(V17.3, Z82.49) Status:ActiveFamily history of mental retardation: Paternal Uncle(V18.4, Z81.0) Status:ActiveAnxiety and depression: Mother, Father Status:ActiveFamily history of hypertension: Mother, Father, Maternal Grandmother(V17.49, Z82.49) Status:Active Unknown Family Member Name Dates Details Family history of migraine h eadaches: Father, Paternal Relatives(V17.2, Z82.0) Status:ActiveFamily history of bipolar disorder: Father(V17.0, Z81.8) Status:ActiveOSA on CPAP: Paternal Aunt, Maternal Uncle Status:ActiveFamily history of hyperlipidemia: Maternal Grandmother(V18.19, Z83.438) Status:ActiveFHx: early coronary artery disease: Maternal Grandmother(V17.3, Z82.49) Status:ActiveFHx: early SD: Maternal Grandmother(V17.3, Z82.49) Status:ActiveFamily history of mental retardation: Paternal Uncle(V18.4, Z81.0) Status:ActiveAnxiety and depression: Mother, Father Status:ActiveFamily history of hypertension: Mother, Father, Maternal Grandmother(V17.49, Z82.49) Status:Active Unknown Family Member Name Dates Details Family history of migraine h eadaches: Father, Paternal Relatives(V17.2, Z82.0) Status:ActiveFamily history of bipolar disorder: Father(V17.0, Z81.8) Status:ActiveOSA on CPAP: Paternal Aunt, Maternal Uncle Status:ActiveFamily history of hyperlipidemia: Maternal Grandmother(V18.19, Z83.438) Status:ActiveFHx: early coronary artery disease: Maternal Grandmother(V17.3, Z82.49) Status:ActiveFHx: early SD: Maternal Grandmother(V17.3, Z82.49) Status:ActiveFamily history of mental retardation: Paternal Uncle(V18.4, Z81.0) Status:ActiveAnxiety and depression: Mother, Father Status:ActiveFamily history of hypertension: Mother, Father, Maternal Grandmother(V17.49, Z82.49) Status:Active Unknown Family Member Name Dates Details Family history of migraine h eadaches: Father, Paternal Relatives(V17.2, Z82.0) Status:ActiveFamily history of bipolar disorder: Father(V17.0, Z81.8) Status:ActiveOSA on CPAP: Paternal Aunt, Maternal Uncle Status:ActiveFamily history of hyperlipidemia: Maternal Grandmother(V18.19, Z83.438) Status:ActiveFHx: early coronary artery disease: Maternal Grandmother(V17.3, Z82.49) Status:ActiveFHx: early SD: Maternal Grandmother(V17.3, Z82.49) Status:ActiveFamily history of mental retardation: Paternal Uncle(V18.4, Z81.0) Status:ActiveAnxiety and depression: Mother, Father Status:ActiveFamily history of hypertension: Mother, Father, Maternal Grandmother(V17.49, Z82.49) Status:Active Unknown Family Member Name Dates Details Family history of migraine h eadaches: Father, Paternal Relatives(V17.2, Z82.0) Status:ActiveFamily history of bipolar disorder: Father(V17.0, Z81.8) Status:ActiveOSA on CPAP: Paternal Aunt, Maternal Uncle Status:ActiveFamily history of hyperlipidemia: Maternal Grandmother(V18.19, Z83.438) Status:ActiveFHx: early coronary artery disease: Maternal Grandmother(V17.3, Z82.49) Status:ActiveFHx: early SD: Maternal Grandmother(V17.3, Z82.49) Status:ActiveFamily history of mental retardation: Paternal Uncle(V18.4, Z81.0) Status:ActiveAnxiety and depression: Mother, Father Status:ActiveFamily history of hypertension: Mother, Father, Maternal Grandmother(V17.49, Z82.49) Status:Active Unknown Family Member Name Dates Details Family history of migraine h eadaches: Father, Paternal Relatives(V17.2, Z82.0) Status:ActiveFamily history of bipolar disorder: Father(V17.0, Z81.8) Status:ActiveOSA on CPAP: Paternal Aunt, Maternal Uncle Status:ActiveFamily history of hyperlipidemia: Maternal Grandmother(V18.19, Z83.438) Status:ActiveFHx: early coronary artery disease: Maternal Grandmother(V17.3, Z82.49) Status:ActiveFHx: early SD: Maternal Grandmother(V17.3, Z82.49) Status:ActiveFamily history of mental retardation: Paternal Uncle(V18.4, Z81.0) Status:ActiveAnxiety and depression: Mother, Father Status:ActiveFamily history of hypertension: Mother, Father, Maternal Grandmother(V17.49, Z82.49) Status:Active Unknown Family Member Name Dates Details Family history of migraine h eadaches: Father, Paternal Relatives(V17.2, Z82.0) Status:ActiveFamily history of bipolar disorder: Father(V17.0, Z81.8) Status:ActiveOSA on CPAP: Paternal Aunt, Maternal Uncle Status:ActiveFamily history of hyperlipidemia: Maternal Grandmother(V18.19, Z83.438) Status:ActiveFHx: early coronary artery disease: Maternal Grandmother(V17.3, Z82.49) Status:ActiveFHx: early SD: Maternal Grandmother(V17.3, Z82.49) Status:ActiveFamily history of mental retardation: Paternal Uncle(V18.4, Z81.0) Status:ActiveAnxiety and depression: Mother, Father Status:ActiveFamily history of hypertension: Mother, Father, Maternal Grandmother(V17.49, Z82.49) Status:Active Unknown Family Member Name Dates Details Family history of migraine h eadaches: Father, Paternal Relatives(V17.2, Z82.0) Status:ActiveFamily history of bipolar disorder: Father(V17.0, Z81.8) Status:ActiveOSA on CPAP: Paternal Aunt, Maternal Uncle Status:ActiveFamily history of hyperlipidemia: Maternal Grandmother(V18.19, Z83.438) Status:ActiveFHx: early coronary artery disease: Maternal Grandmother(V17.3, Z82.49) Status:ActiveFHx: early SD: Maternal Grandmother(V17.3, Z82.49) Status:ActiveFamily history of mental retardation: Paternal Uncle(V18.4, Z81.0) Status:ActiveAnxiety and depression: Mother, Father Status:ActiveFamily history of hypertension: Mother, Father, Maternal Grandmother(V17.49, Z82.49) Status:Active Advance Directives Advance Directive Response Recorded Date/ [...] * Accompanied by mother. Reason for Referral SpecialtyDiagnoses / ProceduresReferred By ContactReferred To Contact Diagnoses Obesity peds (BMI >=95 percentile) [place] [address] [place] [address] Referral IDStatusReasonStart DateExpiration DateVisits RequestedVisits [id number] Chief Complaint and Reason for Visit Chief Complaint Ear pain Chief Complaint Congestion, sob, hea daches Reason for Visit Contact with and (morales spected) exposure to covid-19 Chief Complaint Admit Date Urinary Tract Infection / UTI July 2:30pm Reason for Visit Admit Date Anxiety and depression August 08, 2025 2:30pm HTN (hypertension) August 08, 2025 2: 30pm Iron deficiency August 08, 2025 2: 30pm Metabolic syndrome August 08, 2025 2: 30pm Mixed hyperlipidemia August 08, 2025 2 :30pm Morbid obesity with BMI of 70 and over, adult August 08, 2025 2:30pm UTI symptoms August 08, 2025 2: 30pm Vitamin D deficiency August 08, 2025 2 :30pm Additional Source Comments INFORMATION SOURCE (unrecogn ized section and content) DATE CREATED AUTHOR 01/16/2019 [facility] DATE CREATED AUTHOR AUTHOR'S ORGANIZ ATION 02/16/2019 [facility] DATE CREATED AUTHOR AUTHOR'S ORGANIZ ATION 02/21/2019 [facility] DATE CREATED AUTHOR AUTHOR'S ORGANIZ ATION 03/23/2019 [facility] DATE CREATED AUTHOR AUTHOR'S ORGANIZ ATION 06/02/2022 [facility] DATE CREATED AUTHOR AUTHOR'S ORGANIZ ATION 06/08/2023 [facility]3] DATE CREATED AUTHOR AUTHOR'S ORGANIZ ATION 06/08/2023 [employer] DATE CREATED AUTHOR AUTHOR'S ORGANIZ ATION 08/05/2024 [facility] DATE CREATED AUTHOR AUTHOR'S ORGANIZ ATION 09/01/2024 [facility] EPIC DATE CREATED AUTHOR AUTHOR'S ORGANIZ ATION 12/22/2024 [facility] DATE CREATED AUTHOR AUTHOR'S ORGANIZ ATION 04/16/2025 [facility] Reason for Visit (unrecogniz ed section and content) ReasonCommentsObesityReasonCommentsInsulin resistanceReasonCommentsAnxietyReason CommentsHypertension Care Teams (unrecognized sec tion and content) Team MemberRelationshipSpecialtyStart DateEnd Date Ashley Ashley, SL[employer]ER [employer]ER [address] [place] [address] PCP - General01/29/19 [place] [address] [place] [address] PCP - [facility] Medicaid PCP01/29/23Team MemberRelationshipSpecialtyStart DateEnd Date Ashley Ashley, SL[employer]ER TEND[employer] ST[employer]ER [address] [place] [address] PCP - General01/29/19 [place] [address] [facility] Department of Pediatric[place] [address] PCP - [facility] Medicaid PCP10/31/23 Team Status: Active Member Role Status Dates Ashley Ashley Primary Care Provider Active Team Status: Inactive Member Role Status Dates Maida Jeffery APRN Attending Provider Active Start: February 23, 2024 End: February 23, 2024[facility] Care ProviderActiveStart: February 23, 2024 End: February 23, 2024 Team Status: Inactive Member Role Status Dates Ashley Ashley Primary Care Provider Active Sta rt: June 28, 2024 End: June 28Brooke Neri ProviderActiveStart: June 28, 2024 End: June 28, 2024Team MemberRelationshipSpecialtyStart DateEnd Date Capo Sargent MD [address] [place] [address] PCP - GeneralFamily Medicine03/05/24 Ashley Ashley NP [address] [place] [address] [facility]08/31/23 Ashley Ashley NP [address] [place] [address] [facility]03/05/24Team MemberRelationshipSpecialtyStart DateEnd Date Capo Sargent MD [address] [place] [phone] PCP - GeneralFamily Medicine03/05/24 Ashley Ashley NP [address] [place] [address] [facility] Zkzddkbb43/1/23 Ashley Ashley NP [address] [place] [address] [facility]03/05/24Team MemberRelationshipSpecialtyStart DateEnd Date Capo Sargent MD [address] [place] [phone] PCP - [facility]03/05/24 Ashley Ashley NP [address] [place] [address] [facility]08/31/23 Ashley Ashley NP [address] [place] [address] [facility]03/05/24Team MemberRelationshipSpecialtyStart DateEnd Date Ashley Ashley, SL[employer]ER TENDER[employer]ER [address] [place] [address] PCP - [facility]01/29/19 [place] [address] [facility] Department [place] Pediatric[place] [address] PCP - [facility] Medicaid PCP04/30/24Team MemberRelationshipSpecialtyStart DateEnd Date Capo Sargent MD [address] [place] [address] PCP - [facility]03/05/24 Ashley Ashley NP [address] [place] [address] [facility]08/31/23 Ashley Ashley NP [address] [place] [address] Nurse [facility]03/05/24 Team Status: Active Member Role Status Dates JORDAN Escalona Primary Care Provider Active Team Status: Inactive Member Role Status Dates JORDAN Escalona Primary Care Provider Active Start: August 08, 2025 End: August 08, 2025BANDAR EscalonaCAttending ProviderActiveStart: August 08, 2025 End: August 08, 2025 Goals (unrecognized section and content) Goals may be documented in a n alternate sectionGoals may be documented in an alternate sectionGoals may be documented in an [...] BE BASED ON THE PRIMARY CLINICAL RECORDS. [employer] provides no warranty or guarantee of the accuracy or completeness of information in this document.
[2025-09-10 14:49] LABS: Anion Gap 14.0; Blood Urea Nitrogen 14.0 mg/dL (7.0-18.0); Calcium 9.3 mg/dL (8.5-10.1); Carbon Dioxide 29.0 mmol/L (21.0-32.0); Chloride 102 mmol/L (98-107); Estimated GFR (African America >60 (>=60 mL/min/1.73m^2); Estimated GFR (Non-African Ame >60 (>=60 mL/min/1.73m^2); Glucose 91 mg/dL (74-106); Potassium 4.0 mmol/L (3.5-5.1); Sodium 141 mmol/L (136-145)
== END 2025-09-10 13:51 | disposition home or self-care (01) ==
LOC: LAB 14:14
PROVIDERS: PCP Nurse Practitioner; Visit Provider Nurse Practitioner
DX: I10 Essential (primary) hypertension (principal)
CPT/HCPCS: 36415; 80048